=== PATIENT | male | born 1995 | race Caucasian/White ===

== ENCOUNTER 2016-06-18 12:17 | Emergency (ER) | payer OTHER ==
--- NOTE | 2016-06-18 12:32 | ED ---
General Adult HPI - General Chief complaint: Psychiatric Symptoms Stated complaint: Mental Health Time Seen by Provider: 06/18/16 12:20 Source: patient, police, RN notes reviewed Mode of arrival: ambulatory - History of Present Illness Initial comments: This is a 20-year-old male presents emergency Department because he had made comments to other people about being suicidal. Patient showed up at the ER initially and then stormed out before he could be triaged. Police brought him back because they found out that he was making suicidal comments and they brought him in a petition. Patient refuses to speak to me. Police state that he has a superficial cut to his left wrist. - Related Data Previous Rx's Medication Instructions Recorded Divalproex ER [Depakote ER] 1,000 mg PO HS #60 tab.er.24h 11/24/15 FLUoxetine HCL [PROzac] 20 mg PO DAILY #30 cap 11/24/15 Nicotine 21Mg/24Hr Patch [Habitrol] 1 patch TRANSDERM DAILY #30 patch 11/24/15 OLANZapine [ZyPREXA] 10 mg PO HS #30 tab 11/24/15 Trihexyphenidyl [Artane] 5 mg PO BID #60 tab 11/24/15 fluPHENAZine DECANOATE [Prolixin 25 mg IM [id number] #2 vial 11/24/15 Decanoate] clonazePAM [KlonoPIN] 1 mg PO BID #30 tablet 03/16/16 Allergies Allergy/AdvReac Type Severity Reaction Status Date / Time No Known Allergies Allergy Verified 06/18/16 11:15 Review of Systems ROS Statement: Those systems with pertinent positive or pertinent negative responses have been documented in the HPI. ROS Other: All systems not noted in ROS Statement are negative. Past Medical History Past Medical History: No Reported History Additional Past Medical History / Comment(s): Depression, anxiety History of Any Multi-Drug Resistant Organisms: None Reported Past Surgical History: No Surgical Hx Reported Past Anesthesia/Blood Transfusion Reactions: No Reported Reaction Past Psychological History: Anxiety, Bipolar, Depression Additional Psychological History / Comment(s): Pt. at [facility] unable to recall dx, Smoking Status: Current every day smoker Past Alcohol Use History: None Reported, Daily Additional Past Alcohol Use History / Comment(s): Pt. states that he drinks when he can get it and drinks as much as he can. pt has not had a drink in 2 months due to being on probation Past Drug Use History: Marijuana Additional Drug Use History / Comment(s): Started smoking around age 12 and smokes when ever he is able to get marijuana. states he has not used marijuana in 2 months as he can not do it because of being on probation - Past Family History Mother Family Medical History: No Reported History Additional Family Medical History / Comment(s): pt states no family hx of any ailments General Exam - General Exam Comments Initial Comments: GENERAL: Patient is well-developed and well-nourished. Patient is nontoxic and well- hydrated and is in no acute distress. ENT: Neck is soft and supple. No significant lymphadenopathy is noted. Oropharynx is clear. Moist mucous membranes. Neck has full range of motion without eliciting any pain. EYES: The sclera were anicteric and conjunctiva were pink and moist. Extraocular movements were intact and pupils were equal round and reactive to light. Eyelids were unremarkable. PULMONARY: Unlabored respirations. Good breath sounds bilaterally. No audible rales rhonchi or wheezing was noted. CARDIOVASCULAR: There is a regular rate and rhythm without any murmurs gallops or rubs. ABDOMEN: Soft and nontender with normal bowel sounds. No palpable organomegaly was noted. There is no palpable pulsatile mass. SKIN: Patient is a superficial laceration to the left wrist NEUROLOGIC: Patient is alert and oriented x3. Cranial nerves II through XII are grossly intact. Motor and sensory are also intact. Normal speech, volume and content. Symmetrical smile. MUSCULOSKELETAL: Normal extremities with adequate strength and full range of motion. LYMPHATICS: No significant lymphadenopathy is noted PSYCHIATRIC: Unable to assess patient will not talk to me Course Vital Signs 06/18/16 06/18/16 12:20 12:37 Temperature 98.3 F 98.8 F Pulse Rate 84 89 Respiratory 18 16 Rate Blood Pressure 119/70 129/66 O2 Sat by Pulse 97 98 Oximetry Medical Decision Making - Medical Decision Making [facility] came and evaluated the patient determined to go to [facility] patient at that time stated he was only saying he was suicidal so they can come the emergency department because find a place for him to live. Disposition Clinical Impression: Personality disorder Disposition: HOME SELF-CARE Condition: Good Additional Instructions: Patient could follow-up at [facility]. Referrals: Bailee Breaux MD [Primary Care Provider] - 1-2 days Time of Disposition: 13:39
[2016-06-18] MEDS ORDERED: fluPHENAZine DECANOATE 25 MG/ML 5ML MDV IM ONE (13:37)
[2016-06-18 13:49] VITALS: BP 118/57; PULSE 82; RESP 15
[2016-06-18 14:07] VITALS: TEMP 98.6
== END 2016-06-18 14:07 | disposition home or self-care (01) ==
LOC: EC 12:17
DX: S61.512A Laceration without foreign body of left wrist, initial encounter (principal); F60.9 Personality disorder, unspecified; F31.9 Bipolar disorder, unspecified; F41.9 Anxiety disorder, unspecified; F17.200 Nicotine dependence, unspecified, uncomplicated; W45.8XXA Other foreign body or object entering through skin, initial encounter
CPT/HCPCS: 82075; 99284; 96372; J2680

== ENCOUNTER 2016-07-22 08:51 | Emergency (ER) | payer OTHER ==
[2016-07-22 08:56] VITALS: BP 124/83; PULSE 70; RESP 20; TEMP 97.5
== END 2016-07-22 09:40 | disposition home or self-care (01) ==
LOC: EC 08:51
DX: R45.851 Suicidal ideations (principal)
CPT/HCPCS: 99499

== ENCOUNTER 2016-11-15 23:59 | Emergency (ER) | payer OTHER ==
[2016-11-16 00:07] VITALS: BP 114/70; PULSE 101; RESP 20; TEMP 97.6
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
[2016-11-16 00:56] LABS: Basophils % (A) 1 %; CH 30.7; CHCM 34.1; Eosinophils # (A) 0.1 k/uL (0-0.7); Eosinophils % (A) 2 %; HCT 43.2 % (39.0-53.0); HDW 2.23; HGB 14.3 gm/dL (13.0-17.5); Luc # (Auto) 0.17; Luc % (Auto) 3; Lymphocytes # (A) 2.1 k/uL (1.0-4.8); Lymphocytes % (A) 32 %; MCH 29.9 pg (25.0-35.0); MCV 90.4 fL (80.0-100.0); Mean Platelet Volume 7.6; Monocytes # (A) 0.4 k/uL (0-1.0); Monocytes % (A) 6 %; Neutrophils # (A) 3.6 k/uL (1.3-7.7); Neutrophils % (A) 57 %; RBC 4.78 m/uL (4.30-5.90); RDW 14.1 % (11.5-15.5); WBC 6.4 k/uL (3.8-10.6); WBC (Perox) 6.47
[2016-11-16 01:07] LABS: Acetaminophen <10.0 ug/mL; Alcohol 55 mg/dL; Anion Gap 10 mmol/L; Blood Urea Nitrogen 7 mg/dL (9-20); Carbon Dioxide 24 mmol/L (22-30); Chloride 109 mmol/L (98-107); Glucose 86 mg/dL (74-99); Non-African American GFR(MDRD) >60 (>60 ml/min/1.73 sqM); Potassium 3.9 mmol/L (3.5-5.1); Sodium 143 mmol/L (137-145)
== END 2016-11-16 04:12 | disposition home or self-care (01) ==
LOC: EC 23:59 → EEVIPCON 23:59 → EC 11-16 04:12
DX: F43.20 Adjustment disorder, unspecified (principal); F17.200 Nicotine dependence, unspecified, uncomplicated
CPT/HCPCS: 36415; 80048; 80306; 80320; 82075; 83520; 85025; 99285

== ENCOUNTER 2016-11-25 02:29 | Inpatient (IN) | payer MEDICAID, OTHER ==
[2016-11-25] MEDS ORDERED: ZIPRASIDONE 20 MG CAP PO STA (05:04)
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
[2016-11-25] MEDS ORDERED: MAGNESIUM HYDROXIDE 2,400 MG/10 ML CUP PO PRN (05:06)
[2016-11-25] MEDS ORDERED: MAG HYDROX/AL HYDROX/SIMETH 30 ML CUP PO PRN (05:06)
[2016-11-25 05:50] LABS: Appearance,Urine Clear (Clear); Bilirubin,Urine Negative (Negative); Glucose,Urine (UA) Negative (Negative); Ketones,Urine Negative (Negative); Leukocyte Esterase,Urine Negative (Negative); Nitrite,Urine Negative (Negative); PH, Urine 5.5 (5.0-8.0); Protein,Urine Negative (Negative); Specific Gravity,Urine 1.003 (1.001-1.035); UA Billing (MACRO vs. MICRO) CHEM; Urobilinogen,Urine <2.0 mg/dL (<2.0)
[2016-11-25] MEDS: OXcarbazepine 300 MG TAB PO SCH ×2 (10:17→21:03)
[2016-11-25] MEDS: TRIHEXYPHENIDYL 2 MG TAB PO SCH ×3 (10:17→21:03)
[2016-11-25] MEDS: busPIRone HCl 5 MG TAB PO SCH ×3 (10:17→21:03)
--- NOTE | 2016-11-25 16:45 | P.MDCNMH ---
History of Present Illness H&P Date: 11/25/16 Chief Complaint: Suicidal ideation 20-year-old male with no significant past medical history. Patient admits to daily heavy drinking of alcohol and drug abuse. He reports that he's been homeless for over a month now. He was drinking last night and had a confrontation with police threatening to jump off a bridge as he was very angry thus he was escorted to the hospital and admitted to the psych unit for suicide precautions. Patient was cooperative with history taking and physical exam, continues to report suicidal ideation he admits to having dose all the time at times associated with homicidal ideation. Review of Systems Constitutional: Patient reports no fever, no chills, no night sweating, no significant weight changes Eyes: Patient reports no visual changes, no eye pain ENT: Patient reports no ear pain, no rhinorrhea, no sore throat Cardiovascular: Patient reports no chest pain, no exertional dyspnea, no peripheral leg edema, no orthopnea, no paroxysmal nocturnal dyspnea Respiratory:Patient reports no cough, no wheezing, no shortness of breath Gastrointestinal: Patient reports no diarrhea, no constipation, no nausea no vomiting, no abdominal pain Genitourinary: Patient reports no dysuria, no hematuria, no changes in urinary habits, no genital lesions Musculoskeletal: Patient reports no muscle pain, no joint pain. Patient reports blisters on both feet due to prolonged standing and walking Psychiatric: Patient reports depressed mood , feeling hopeless and helpless, admits to suicidal ideation, and anxiety Endocrine: Patient reports no heat intolerance, no cold intolerance, no excessive thirst, no polyuria Neurological: Patient reports no focal neurologic deficits, no weakness, no numbness, no tingling Hem/Lymphatic: Patient reports no bleeding tendency, no bruising, no swollen lymph glands Allergic/Immun: Patient reports no recent allergic reactions Skin: Patient reports no rashes, no pruritis, no ulcers. Reports blisters on the sole of both feet as mentioned above, he reports that these are chronic to walking long distances as he is homeless Past Medical History Past Medical History: No Reported History Additional Past Medical History / Comment(s): Depression, anxiety History of Any Multi-Drug Resistant Organisms: None Reported Past Surgical History: No Surgical Hx Reported Past Anesthesia/Blood Transfusion Reactions: No Reported Reaction Past Psychological History: Anxiety, Bipolar, Depression Additional Psychological History / Comment(s): Suicidal ideation and at times homicidal ideation Smoking Status: Current every day smoker Past Alcohol Use History: Daily Additional Past Alcohol Use History / Comment(s): Patient admits to heavy alcohol use Past Drug Use History: Cocaine, Heroin, Marijuana, Methamphetamine Additional Drug Use History / Comment(s): Patient reports that he would abuse any illegal drug he can get his hands on - Past Family History Mother Family Medical History: No Reported History Additional Family Medical History / Comment(s): Patient reports that he knows nothing about his family Medications and Allergies Home Medications and Allergies Comment(s): Patient reported that he does not take any medications at home and he claims that he is not supposed to take any medications at home Home Medications Medication Instructions Recorded Confirmed Type OXcarbazepine [Trileptal] 300 mg PO BID 11/25/16 11/25/16 History Trihexyphenidyl HCl 5 mg PO TID 11/25/16 11/25/16 History busPIRone HCL 15 mg PO TID 11/25/16 11/25/16 History fluPHENAZine DECANOATE [Prolixin 50 mg IM [id number] 11/25/16 11/25/16 History Decanoate] traZODone HCL 100 mg PO HS 11/25/16 11/25/16 History Allergies Allergy/AdvReac Type Severity Reaction Status Date / Time No Known Allergies Allergy Verified 11/25/16 09:24 Physical Exam Vitals: Vital Signs Temp Pulse Resp BP Pulse Ox 11/25/16 02:34 99.1 F 106 H 18 139/77 100 Intake and Output 11/25/16 11/25/16 11/25/16 06:59 14:59 22:59 Other: Weight 72.575 kg 72.9 kg Patient Weight 11/26/16 06:59 Weight 72.9 kg Constitutional: Not in acute distress, pleasant, conversant, vital signs stable Eyes: Pupils equal round reactive to light , anicteric sclerae, moist conjunctivae ENMT: Normocephalic, atraumatic, oropharynx clear, no erythema/exudate Neck: Supple, FORM, no palpable thyromegally Lymphatics: no palpable cervical or supraclavicular lymph nodes Respiratory: Clear to auscultation bilaterally, no wheezes, no crackles, no rhonchi, clear to percussion, normal respiratory effort without use of accessory muscles Cardiovascular: Regular rate and rhythm, no murmurs, no gallops, no rubs, no peripheral edema / or varicosities, no JVD, no carotid bruits, peripheral pulses palpable and equal over bilateral radial arteries and dorsalis pedis arteries Abdomen: Bowel sounds positive, soft, no tenderness to palpation, no palpable masses, no palpable hepatosplenomegally, no abdominal wall hernias Skin: Unremarkable temperature, tone, texture, and turgor, no induration or subcutaneous nodule, no rashes, no ulcers, patient has multiple tattoos. One blister over the heel of the left foot and one sloughed blister over the heel of the right foot no erythema or induration no discharge Extremities: No digital cyanosis, ischemia or clubbing, no calf muscle tenderness bilaterally, full active range of motion in both upper and lower extremities Psych: Alert, oriented to place, person and date, recent and remote memory intact, depressed mood and blunt affect, poor judgment Neurologic: no focal sensory deficits to touch, Deep tendon reflexes unremarkable over bilateral knees Cranial Nerve Examination - Cranial Nerves Cranial Nerve II- Optic: Intact Cranial Nerve III- Oculomotor: Intact Cranial Nerve IV- Trochlear: Intact Cranial Nerve V- Trigeminal: Intact Cranial Nerve - Abducens: Intact Cranial Nerve VII- Facial: Intact Cranial Nerve VIII- Auditory: Intact Cranial Nerve IX- Glossopharyngeal: Intact Cranial Nerve X- Vagus: Intact Cranial Nerve XI- Accessory: Intact Cranial Nerve XII- Hypoglossal: Intact Results Results: Labs reviewed urine drug screen positive for marijuana Labs: Abnormal Lab Results - Last 24 Hours (Table) 11/25/16 Range/Units 02:50 U Marijuana (THC) Screen Detected H (NotDetected) Assessment and Plan (1) Nicotine dependence Narrative/Plan: Patient counseled to quit smoking Dictating replacement therapy offered Status: Chronic (2) Polysubstance abuse Narrative/Plan: Alcohol abuse, patient counseled to quit alcohol and educated regarding acceptable drinking habits Patient counseled to abstain from drug of abuse Status: Chronic (3) DVT prophylaxis Narrative/Plan: Patient is low risk and ambulatory Status: Acute (4) Suicidal ideation Narrative/Plan: Management per psych Status: Acute (5) Depressed Narrative/Plan: Management per psych Status: Acute Plan: Thank you for allowing us to participate in the care of this patient. We will follow peripherally. Do not hesitate to contact us with questions. Someone can be reached from the [facility] hospitalist group at all hours of the day at [phone].
[2016-11-25] MEDS: ACETAMINOPHEN TAB 325 MG TAB PO PRN (17:05)
[2016-11-25] MEDS: traZODone HCL 100 MG TAB PO SCH (21:03)
[2016-11-26] MEDS: ACETAMINOPHEN TAB 325 MG TAB PO PRN (03:10)
[2016-11-26] MEDS: busPIRone HCl 5 MG TAB PO SCH ×3 (08:30→21:07)
[2016-11-26] MEDS: TRIHEXYPHENIDYL 2 MG TAB PO SCH ×3 (08:30→21:06)
[2016-11-26] MEDS: NICOTINE 14MG/24HR PATCH TRANSDERM SCH (08:30)
[2016-11-26] MEDS: OXcarbazepine 300 MG TAB PO SCH ×2 (08:31→21:06)
[2016-11-26 09:34] LABS: ALT 317 U/L (21-72); AST 101 U/L (17-59); Alkaline Phosphatase 99 U/L (38-126); Anion Gap 9 mmol/L; Blood Urea Nitrogen 8 mg/dL (9-20); Calcium 8.9 mg/dL (8.4-10.2); Carbon Dioxide 28 mmol/L (22-30); Chloride 101 mmol/L (98-107); Glucose 108 mg/dL (74-99); Non-African American GFR(MDRD) >60 (>60 ml/min/1.73 sqM); Potassium 3.9 mmol/L (3.5-5.1); Sodium 138 mmol/L (137-145); Total Bilirubin 0.5 mg/dL (0.2-1.3); Total Protein 6.9 g/dL (6.3-8.2)
--- NOTE | 2016-11-26 09:44 | P.PN ---
Progress Note - Text Interval history: The patient is found in the library watching TV. He reports that he still has thoughts of killing other people and himself. Again he identifies no specific person or group. He primarily is frustrated with his situation of being homeless. He is frustrated with not being able to communicate with his guardian to his satisfaction. He has been compliant with medications. He reports he slept last night he has been eating he attended goal setting group this morning but could not recall his goal. Mental status exam: The patient is alert he seated calmly in a chair. He has visible tattoos on his upper extremities he makes no eye contact. He states he "hates the sound of my voice" he states he talks like a "fucking retard". He indicates he has suicidal and homicidal thoughts but provides no specific details. He does not appear hypomanic or manic. Insight and judgment are chronically limited due to his presumed intellectual disability. In terms of affect he was able to demonstrate some brief smiling which was appropriate. He was less irritable than yesterday's interaction. Plan: The patient will continue on his current medications we will discuss his case further during team which includes the community mental health liaison. We will address any necessary medication changes but it is likely he just needs appropriate housing arranged. Social work will communicate with his guardian. Vital signs reviewed. We will monitor him for safety. He is encouraged to continue participating in the milieu.
[2016-11-26 10:03] LABS: Basophils # (A) 0.1 k/uL (0-0.2); Basophils % (A) 2 %; CH 30.5; CHCM 32.9; Eosinophils # (A) 0.2 k/uL (0-0.7); Eosinophils % (A) 5 %; HCT 44.2 % (39.0-53.0); HDW 2.31; Luc # (Auto) 0.19; Luc % (Auto) 4; Lymphocytes # (A) 1.9 k/uL (1.0-4.8); Lymphocytes % (A) 39 %; MCH 29.5 pg (25.0-35.0); MCHC 31.7 g/dL (31.0-37.0); MCV 93.2 fL (80.0-100.0); Mean Platelet Volume 7.5; Monocytes # (A) 0.4 k/uL (0-1.0); Monocytes % (A) 9 %; Neutrophils % (A) 41 %; RBC 4.74 m/uL (4.30-5.90); RDW 13.9 % (11.5-15.5); WBC 4.9 k/uL (3.8-10.6); WBC (Perox) 5.21
--- NOTE | 2016-11-26 11:35 | HP ---
DATE OF SERVICE: 11/25/2016 IDENTIFYING DATA: This patient is a 20-year-old single male who presented to the Emergency Room after calling 911. HISTORY OF PRESENT ILLNESS: The patient presents with a petition stating "He wanted to jump [place] the [place] because he was homeless." He also said it would be easier to kill someone, so he would have a place to stay for 25 years. The petition was completed by a police or patrol park officer. The patient is quite irritable and is easily agitated during my evaluation. He reports suicidal and homicidal ideation in terms of homicidal ideation he does not indicate he wants to harm a specific person or group but is just angry all the time. He did report a plan of jumping off of the bridge; however, he called for help first. The precipitating factor appears to be him getting kicked out of a friend's home and he has been homeless for the last 2 weeks. He indicates he has no supports in the area. When asked about his sleep, appetite and energy , he states they all "suck". He describes auditory hallucinations directing him to kill himself and kill other people. He reports that has been going on for 6 months. He states that he is "bipolar big time." He describes his symptoms of venessa as "I want to punch people all the time." The patient does not tolerate many questions. He becomes verbally agitated to the point of us discontinuing the session early. PAST PSYCHIATRIC HISTORY: The patient has had numerous inpatient psychiatric hospitalizations. He was last on this unit in November of 2015, twice in October of 2014, twice in February of 2014, January 2014 and December of 2013. He does work with [facility]. He is prescribed BuSpar 15 mg 3 times daily , Prolixin, Decanoate 50 mg every 2 weeks, Trazodone 100 mg at bedtime, Artane 5 mg 3 times a day, Trileptal 300 mg twice daily. He had been working with Nydia Hutchison a nurse practitioner with [facility]. He states he does not work with a therapist. He reports no other medications make any difference. PAST MEDICAL HISTORY: Unknown. ALLERGIES: No known drug allergies. CHEMICAL DEPENDENCY HISTORY: He reports using alcohol as often as he can get money. He reports using marijuana on a daily basis. Cocaine use was within the last 2 months as well as heroin. He has never been placed in residential treatment for chemical dependency reasons. FAMILY PSYCHIATRIC HISTORY: He refused to answer, family chemical dependency history unknown. SOCIAL HISTORY: The patient is 20 years old, he is single. He has no children. He is unemployed. He is on a social security disability income. It appears he may have a guardian. He has 4 brothers in terms of siblings. He has a 10th grade education. He reports quitting school because he did not want to do it anymore. He did have a special education curriculum while in school. MENTAL STATUS EXAM: The patient is a thin male appearing his stated age. He has his hair shaved short. He makes no eye contact. He looks down at the table. His upper extremities have numerous tattoos that are visible. He states he is suicidal and homicidal. He answers questions very quickly with little regard or consideration. He seems irritated that he would be asked questions during this evaluation. As the session progresses, he begins using profanity and states "Use your fucking ears." He reports auditory hallucinations that direct him to harm himself or others. He provides no specifics. Insight and judgement is likely chronically limited. No cognitive testing could be performed. He demonstrated no physical aggressiveness but was verbally aggressive. STRENGTHS: Disability income, presumed guardian. WEAKNESSES: Limited insight into symptoms and impulse control, dysfunction, substance use, homelessness, intellect below average, presumed intellectual disability. IMPRESSION: 1. Depression, unspecified. Rule out major depressive disorder, rule out bipolar depression, intellectual disability, cannabis, alcohol use disorders. 2. Antisocial personality disorder traits. PLAN: The patient has been admitted to the Mental Health Unit. For now, we will continue his previous psychotropic medications. The patient is not willing to participate in a conversation regarding past medication trials or the effectiveness of his current medications. Likely, I will likely need to contact his most recent prescriber with [facility] to discuss his care. He will be seen by the Internal Medicine Physician for routine history and physical exam. Social Work will meet with the patient to complete a psychosocial assessment. We will monitor him for safety and encourage his participation in the milieu. We will monitor him for safety. Vital signs reviewed. ALEXA
[2016-11-26] MEDS: traZODone HCL 100 MG TAB PO SCH (21:06)
[2016-11-26] MEDS: LORazepam 1 MG TAB PO PRN (23:34)
[2016-11-27] MEDS ORDERED: WATER FOR INJECTION, STERILE 10 ML IV ONE ×2 (00:38→21:03)
[2016-11-27] MEDS: ZIPRASIDONE 20 MG VIAL IM PRN ×2 (00:39→21:11)
[2016-11-27] MEDS ORDERED: LORazepam 2 MG/ML SYRINGE IM STA (01:05)
[2016-11-27] MEDS ORDERED: diphenhydrAMINE 50 MG/ML 1 ML VIAL IM STA (04:05)
[2016-11-27] MEDS: LORazepam 2 MG/ML SYRINGE IM PRN (06:51)
[2016-11-27] MEDS: HALOPERIDOL LACTATE 5 MG/ML 1 ML VIAL IM PRN (06:56)
[2016-11-27] MEDS: busPIRone HCl 5 MG TAB PO SCH ×3 (09:28→20:41)
[2016-11-27] MEDS: OXcarbazepine 300 MG TAB PO SCH ×2 (09:28→20:03)
[2016-11-27] MEDS: TRIHEXYPHENIDYL 2 MG TAB PO SCH ×3 (09:28→20:41)
[2016-11-27] MEDS: NICOTINE 14MG/24HR PATCH TRANSDERM SCH ×2 (09:29→15:54)
--- NOTE | 2016-11-27 09:29 | P.PN ---
Progress Note - Text Interval history: The patient is found in the hallway he follows me to an interview room. Staff report that the patient's did not sleep last night he has been experiencing acute symptoms of psychosis and confusion. He does follow direction he demonstrates confusion his speech is muffled. He is reporting no stiffness of his mouth or tongue. He spends the session looking at the wall and attempting to pick things up off the table and sweep off the table that are not there. He is clearly experiencing visual hallucinations. Lab results reviewed the Trileptal level came back as 0 this was drawn on his day of presentation to the emergency room. Mental status exam: The patient is a thin male he stressors own clothing he has a disheveled appearance his pants are very loosely fitting and falling down. Eye contact is intermittent at best. Speech is mumbled. He is able to open his mouth freely he is able to stick out his tongue with no reported stiffness. He clearly demonstrates evidence of visual hallucinations he appears confused. He names the current day of the week as Saturday rather than Saturday. He demonstrates no verbal or physical aggressiveness he was directable with several attempts. Her poor. Plan: Since last evening the patient has received a total of 4 mg of Ativan 20 mg of Geodon 5 mg of Haldol. The patient appears tired after our session he was brought down to his room to lie in bed. We will see if he is able to sleep now before administering any further medication. Vital signs reviewed. Noncompliance with medications is likely a precipitating factor for this admission.
[2016-11-27] MEDS ORDERED: IBUPROFEN 800 MG TAB PO PRN (12:32)
[2016-11-27] MEDS: QUEtiapine 100 MG TAB PO SCH (20:03)
[2016-11-27] MEDS: LORazepam 1 MG TAB PO PRN (20:41)
[2016-11-28] MEDS: TRIHEXYPHENIDYL 2 MG TAB PO SCH ×4 (10:51→21:16)
[2016-11-28] MEDS: OXcarbazepine 300 MG TAB PO SCH ×3 (10:51→21:16)
[2016-11-28] MEDS: busPIRone HCl 5 MG TAB PO SCH ×4 (10:51→21:16)
[2016-11-28] MEDS: NICOTINE 14MG/24HR PATCH TRANSDERM SCH (10:51)
[2016-11-28] MEDS: QUEtiapine 100 MG TAB PO SCH (21:16)
[2016-11-29] MEDS: busPIRone HCl 5 MG TAB PO SCH ×3 (08:18→21:10)
[2016-11-29] MEDS: TRIHEXYPHENIDYL 2 MG TAB PO SCH ×3 (08:19→21:10)
[2016-11-29] MEDS: OXcarbazepine 300 MG TAB PO SCH ×2 (08:19→21:10)
[2016-11-29] MEDS: NICOTINE 14MG/24HR PATCH TRANSDERM SCH (08:19)
--- NOTE | 2016-11-29 08:51 | P.PN ---
Progress Note - Text Interval history: The patient is found in the dining room he follows me to an interview room. The patient remains agitated. He reports that he slept all night approximating 8 hours. However staff reported 4 hours of sleep. He reports appetite stable. He continues to report he wants to kill other people kill himself by jumping off the [place]. After asking a few questions he states "you fucking idiot" it is difficult to redirect the patient. He is not invested in the conversation this morning. He states we are giving him medicine I will kill him. Status exam: The patient is a thin male he has visible tattoos he is dressed in hospital attire. He is calmly seated in the dining room complaining his menu when we find him. In the interview room he is verbally agitated he becomes loud he uses profanity. He reports suicidal or homicidal ideation. He has a known history of intellectual disability. He makes very little eye contact until he becomes agitated. He fidgets while seated. Insight and judgment are poor. No further questions were asked today. Plan: We will titrate the Seroquel further to 200 mg at bedtime. I will place a call with his outpatient prescriber Dr. Ward. We will consider use of Depakote as a mood stabilizer versus Trileptal. We will consider increasing Trileptal if that is the best option. There seems to be concerned that the Prolixin is not demonstrating efficacy he will be due for his next injection next week. We will consider an alternative. Vital signs reviewed.
--- NOTE | 2016-11-29 08:52 | PN ---
DATE OF SERVICE: 11/28/2016 CHIEF COMPLAINT: The patient was admitted due to depression with feelings of hopelessness. He had suicide thoughts. He was irritable and agitated. He was admitted on petition for involuntary hospitalization. INTERVAL HISTORY: The patient has been doing fair. He had quite a bit of anxiety last evening. He received Ativan at 9:40. He had some odd behavior in the night. Nursing documented at 3:30 that he was in the [place] rubbing the floor an making mumbling noises. He had garbled nonsensical speech. He was walking into other peoples rooms. He was calling out room numbers as he walked. He slammed doors. He then went back into his room and he then seemed to settle down for the rest of the evening today. He has been sleeping much of the morning and when I talked to the patient, he was lying in bed. He did make an effort to get up. The only comment that he made was that he is homeless. He repeated that several times. He did not report any immediate concerns or issues. After stating he was homeless, he did not make any other effort to respond to questions. For the most part, he has been quiet throughout the day. He has not had change in his general health. He tolerates psychotropic medication. MENTAL STATUS: The patient was lying in his bed. He did not give any eye contact. Psychomotor activity was a little slow. Speech was monotone. He only said a few things as noted above. His affect was flat. Mood was reserved. He was significantly distressed. ASSESSMENT: I will continue the current diagnosis and treatment plan. The patient will continue medications the same. We will continue to provide support and encouragement. We will focus on stabilization and discharge planning. ALEXA
[2016-11-29] MEDS: QUEtiapine 200 MG TAB PO SCH (21:10)
[2016-11-29] MEDS: LORazepam 1 MG TAB PO PRN (22:39)
[2016-11-30] MEDS: TRIHEXYPHENIDYL 2 MG TAB PO SCH ×3 (09:21→20:34)
[2016-11-30] MEDS: NICOTINE 14MG/24HR PATCH TRANSDERM SCH (09:21)
[2016-11-30] MEDS: OXcarbazepine 300 MG TAB PO SCH ×2 (09:22→20:35)
[2016-11-30] MEDS: busPIRone HCl 5 MG TAB PO SCH ×3 (09:22→20:35)
--- NOTE | 2016-11-30 11:13 | P.PN ---
Progress Note - Text Interval history: The patient's is found at the front edger he follows me to an interview room. He states he continues to have suicidal thoughts and a depressed mood because he is homeless. Staff report that the patient continues to use profanity he is easily agitated in terms of verbal responses but he has not been physically aggressive. He has been participating in meals. He does not typically attend groups. We had a lengthy discussion regarding his placement options. The patient states he would briefly tolerate transitional housing at [facility]. It appears he has failed several housing situations in the past. Mental status exam: The patient is a thin male he seated calmly in the chair he makes no eye contact he speaks quickly and at times mumbles. He answer several questions before he yet again becomes verbally agitated and uses profanity. Insight and judgment are chronically impaired he does have an intellectual disability. He demonstrated no aggressive behavior in our session. He reports suicidal thoughts because he is homeless he is reporting no homicidal ideation today but states he would act aggressively if he had to defend himself. Affect is constricted for the most part except for when he gets more animated with certain topics. Plan: I will titrate his Trileptal to 600 mg twice daily to further stabilize mood we will continue his other psychotropic medications. I have placed a call today to Dr. Ward to further collaborate on medication management concerns for Marc. Social work again will communicate with community mental health and the patient's guardian regarding housing options.
[2016-11-30] MEDS: QUEtiapine 200 MG TAB PO SCH (20:35)
[2016-11-30] MEDS: LORazepam 1 MG TAB PO PRN (22:29)
[2016-12-01] MEDS: TRIHEXYPHENIDYL 2 MG TAB PO SCH ×3 (08:22→20:16)
[2016-12-01] MEDS: busPIRone HCl 5 MG TAB PO SCH ×3 (08:22→20:17)
[2016-12-01] MEDS: NICOTINE 14MG/24HR PATCH TRANSDERM SCH (08:23)
[2016-12-01] MEDS: OXcarbazepine 300 MG TAB PO SCH ×2 (11:53→20:16)
--- NOTE | 2016-12-01 15:57 | P.PN ---
Progress Note - Text Interval history: Patient reports that his mood is tired. He wonders about when he is going to be discharged. He does not seem to voice any adverse psychotropic medication side effects. He is found in his room lying in bed, was cooperative to come to the interview room. He is seen in cross coverage today for Dr. Bean. Mental status exam: He is found in his room lying in bed. He is cooperative to come to the interview room. His answers are somewhat brief. He becomes irritable at times during the session but no significant agitation. He denies any thoughts of harm to self. He relays thoughts of harm to others in general, relays that people irritate him but reports that he is able to keep his calm. He does not verbalize any intent of harm to people here. Plan: Patient will be maintained on current psychotropic medication regimen. We 'll continue to monitor his response to monitor for any psychotropic medication side effects. We'll continue to cover for Dr. Bean through the weekend.
[2016-12-01] MEDS: QUEtiapine 200 MG TAB PO SCH (20:17)
[2016-12-02] MEDS: OXcarbazepine 300 MG TAB PO SCH ×2 (08:56→20:02)
[2016-12-02] MEDS: busPIRone HCl 5 MG TAB PO SCH ×3 (08:56→20:02)
[2016-12-02] MEDS: NICOTINE 14MG/24HR PATCH TRANSDERM SCH (08:56)
[2016-12-02] MEDS: TRIHEXYPHENIDYL 2 MG TAB PO SCH ×3 (08:56→20:02)
--- NOTE | 2016-12-02 15:16 | P.PN ---
Progress Note - Text Interval history: Patient is seen in cross coverage today for Dr. Bean. He reports that he is sleeping and eating well. He describes his mood is doing good. He seems to be compliant with his medications. He does not voice any adverse side effects. He is awaiting living situation placement issues. He inquires as to when he is going to be getting out of the hospital. Mental status exam: He is alert and overall cooperative with the interview. His answers are somewhat brief. He does not become significantly agitated. He denies any thoughts of harm to self or others. He describes his mood as "good. " He does not verbalize any hallucinations or nakita delusions. Plan: Patient will be maintained on current psychotropic medication regimen. We will monitor for any medication side effects and his ongoing response. Dr. Bean to resume care this patient starting tomorrow.
[2016-12-02] MEDS: ACETAMINOPHEN TAB 325 MG TAB PO PRN (16:11)
[2016-12-02] MEDS: QUEtiapine 200 MG TAB PO SCH (20:02)
--- NOTE | 2016-12-03 10:18 | P.PN ---
Progress Note - Text Interval history: The patient is found in his room he is unwilling to follow me to an interview room. He is lying in bed he is awake but keeps his eyes closed. He initiates no conversation he provides very brief answers to questions asked in an irritable tone. It is documented that he slept 7 hours last evening. He typically does not attend groups. Progress notes from the weekend were reviewed. Mental status exam: The patient is lying in bed he is calm he is in no distress. Again he answers questions briefly. There is no spontaneous speech he makes brief eye contact upon me initiating interaction than he keeps his eyes closed. He has an irritable tone affect is bland otherwise. He is reporting no suicidal or homicidal thoughts. He is endorsing no hallucinations. He indicates he feels safe in the hospital. Insight and judgment impaired. No abnormal involuntary movements observed. Plan: The patient will continue on his current medication we will monitor him for safety. There is a meeting scheduled to discuss his placement options which will involve our staff and community mental health. We will get a Trileptal level this week. Vital signs reviewed they're within normal limits. I will confirm with the treatment team this morning to discuss his progress over the weekend.
[2016-12-03] MEDS: NICOTINE 14MG/24HR PATCH TRANSDERM SCH ×2 (10:21→12:26)
[2016-12-03] MEDS: OXcarbazepine 300 MG TAB PO SCH ×3 (10:24→21:56)
[2016-12-03] MEDS: busPIRone HCl 5 MG TAB PO SCH ×4 (10:24→21:55)
[2016-12-03] MEDS: TRIHEXYPHENIDYL 2 MG TAB PO SCH ×4 (10:24→21:55)
[2016-12-03] MEDS: QUEtiapine 200 MG TAB PO SCH (21:56)
[2016-12-04] MEDS: NICOTINE 14MG/24HR PATCH TRANSDERM SCH (09:24)
[2016-12-04] MEDS: TRIHEXYPHENIDYL 2 MG TAB PO SCH ×3 (09:24→21:04)
[2016-12-04] MEDS: OXcarbazepine 300 MG TAB PO SCH ×2 (09:25→21:04)
[2016-12-04] MEDS: busPIRone HCl 5 MG TAB PO SCH ×3 (09:25→21:05)
--- NOTE | 2016-12-04 10:28 | P.PN ---
Progress Note - Text Interval history: The patient is found in group he follows me to an interview room. There was a placement meeting held yesterday involving social work [facility] and his guardian. Placement is particularly challenging for him as he has failed many types of residences. He continues to lack insight into his symptoms and the need to quit using substances. He has not been demonstrating any agitated behavior he reports no suicidal or homicidal thoughts. He is endorsing no hallucinations. He has been complying with medication. Mental status exam: The patient is alert he seated in his chair. He often speaks quickly and states he does so because "I hate the sound of my own voice" . When he speaks more slowly he is more easily understood. He reports no acute suicidal or homicidal thoughts she is endorsing no hallucinations. He lacks insight into his substance use and plans to continue using upon discharge. He was actually much more cooperative today and much more willing to participate in conversation. He demonstrates no verbal or physical aggressiveness. He is demonstrating no abnormal involuntary movements. Plan: The patient will be continued on his current medication. We will draw liver enzymes and Trileptal level tomorrow. I will confer with social work regarding placement options.
[2016-12-04] MEDS: QUEtiapine 200 MG TAB PO SCH (21:05)
[2016-12-05] MEDS: NICOTINE 14MG/24HR PATCH TRANSDERM SCH (09:25)
[2016-12-05] MEDS: TRIHEXYPHENIDYL 2 MG TAB PO SCH ×3 (09:25→21:37)
[2016-12-05] MEDS: OXcarbazepine 300 MG TAB PO SCH ×2 (09:26→21:36)
[2016-12-05] MEDS: busPIRone HCl 5 MG TAB PO SCH ×3 (09:26→21:37)
--- NOTE | 2016-12-05 09:40 | P.PN ---
Progress Note - Text Interval history: The patient is found in his room. He is more agitated this morning he does not wish to speak with me in an interview room. Although agitated he was agreeable to having his blood drawn. Social work and community mental health continue to discuss placement options for him, a transitional bed at [facility] may be the most appropriate upon discharge. The patient did attend groups yesterday he has been compliant with medication. He was previously scheduled to have a Prolixin decanoate injection tomorrow. Again we will discuss this with Dr. Ward his outpatient provider to see if that medication is providing sufficient benefit to continue it area Mental status exam: The patient is alert he is more agitated today he uses profanity during our limited conversation. He continues to lack insight into his current admission and need for treatment. His primary focus again is housing. He has very poor insight into the need for him to quit using illicit drugs. He bangs the wall of his room out of frustration he demonstrates no verbal or physical aggressiveness toward myself or other staff. He typically endorses suicidal thoughts and follows that statement with "I'm homeless". He has a chronic history of intellectual disability. Plan: The patient will continue on his current medications I will confer with Dr. Ward regarding continued use of Prolixin. We are drawing a Trileptal level and checking his liver function enzymes today. We will encourage his continued participation in group we will monitor him for safety. It appears that [facility] will be the most appropriate for him upon discharge.
[2016-12-05 10:30] LABS: ALT 422 U/L (21-72); AST 164 U/L (17-59)
[2016-12-05] MEDS ORDERED: IBUPROFEN 400 MG TAB PO PRN (17:24)
--- NOTE | 2016-12-05 20:48 | P.PN ---
Subjective Principal diagnosis: Brief history,The patient is a 21 years old male with history of polysubstance abuse was admitted for suicidal ideation, 2 weeks ago during routine lab liver enzymes where elevated, repeat was performed today and it was also elevated so we were asked to see the patient. Currently is denying any abdominal pain nausea vomiting denying any jaundice or history of jaundice admits to heavy alcohol abuse in the recent past, but also no steatorrhea or hematuria. Objective - Vital Signs Vital signs: Vital Signs Temp 97.8 F 12/05/16 06:53 Pulse 84 12/05/16 06:53 Resp 12 12/05/16 06:53 BP 107/53 12/05/16 06:53 Pulse Ox 96 11/30/16 07:00 - Constitutional General appearance: Present: average body habitus, cooperative, disheveled, no acute distress - EENT Eyes: Present: EOMI, PERRLA, fundus normal, dentition normal, normal appearance. Absent: photophobia, ptosis ENT: Present: hearing grossly normal, normal oropharynx. Absent: pharyngeal erythema, thrush Ears: bilateral: normal - Neck Neck: Present: normal ROM Carotids: bilateral: upstroke normal - Respiratory Respiratory: bilateral: CTA, negative: dullness, rales, rhonchi - Cardiovascular Heart sounds: normal: S1, S2 Abnormal Heart Sounds: Absent: systolic murmur, diastolic murmur, S3 Gallop, S4 Gallop - Gastrointestinal General gastrointestinal: Present: normal bowel sounds, soft. Absent: distended , hepatomegaly, organomegaly, splenomegaly, tenderness - Integumentary Integumentary: Present: normal, normal turgor. Absent: cyanotic, decreased turgor, flushed, jaundiced - Neurologic Neurologic: Present: CNII-XII intact - Musculoskeletal Musculoskeletal: Present: gait normal, strength equal bilaterally - Allied health notes Allied health notes reviewed: nursing - Labs CBC & Chem 7: 11/26/16 08:42 11/26/16 08:42 Labs: Abnormal Lab Results - Last 24 Hours (Table) 12/05/16 Range/Units 09:08 AST 164 H (17-59) U/L ALT 422 H (21-72) U/L Assessment and Plan (1) Hepatitis Narrative/Plan: The patient has abnormal liver enzymes with uptrending AST and ALT, etiology could be related to hepatitis infection such as hepatitis B or hepatitis C in view of the patient history of IV drug abuse. The patient also admits to heavy alcohol use but this is less likely. As far as medication, patient is on ibuprofen which has this on 15% reported incidence of elevated liver enzymes. I recommend discontinuation of ibuprofen. Certainly he is on multiple psychiatric medication which can cause elevated liver enzymes, however this again less likely. We will order ultrasound of the abdomen and Tylenol levels, in view of his history of IV drug abuse, There is a risk of HIV as well and the patient consented for HIV screen, So we will order HIV test Status: Acute (2) Polysubstance abuse Narrative/Plan: Patient was counseled extensively about the risk of IV drug abuse or illicit drugs use in general also counseled regarding alcohol use please note patient labs in the past showed positive cocaine and methamphetamine. Treatment as per psychiatriy. Status: Chronic (3) Suicidal ideation Narrative/Plan: Treatment as per psychiatriy. Status: Acute (4) Alcohol abuse Narrative/Plan: As above counseled extensively regarding cessation Status: Acute Time with Patient: Greater than 30
[2016-12-05 21:18] LABS: Hepatitis B Surface Ag Index 0.06
[2016-12-05 21:24] LABS: Hepatitis B Core IgM Index 0.03
[2016-12-05 21:35] LABS: Hepatitis C Virus IgG Ab Reactive (Negative)
[2016-12-05] MEDS: QUEtiapine 200 MG TAB PO SCH (21:36)
[2016-12-05] MEDS: LORazepam 1 MG TAB PO PRN (23:07)
--- NOTE | 2016-12-06 08:14 | US ---
EXAMINATION TYPE: US liver DATE OF EXAM: 12/06/2016 COMPARISON: NONE CLINICAL HISTORY: elevated liver enzymes. EXAM MEASUREMENTS: Liver Length: 17.1 cm Gallbladder Wall: 0.2 cm CBD: 0.3 cm Right Kidney: 10.5 x 4.3 x 4.9 cm Pancreas: Tail obscured by overlying bowel gas, visualized portions appear wnl Liver: Measuring upper limits of normal Gallbladder: wnl Evidence for sonographic Brown's sign: No CBD: wnl as visualized, distal portion obscured by bowel gas Right Kidney: No hydronephrosis or masses seen IMPRESSION: No distinct abnormality appreciated.
[2016-12-06] MEDS: NICOTINE 14MG/24HR PATCH TRANSDERM SCH (08:23)
[2016-12-06] MEDS: busPIRone HCl 5 MG TAB PO SCH ×3 (08:24→20:46)
[2016-12-06] MEDS: OXcarbazepine 300 MG TAB PO SCH ×2 (08:25→20:47)
[2016-12-06] MEDS: TRIHEXYPHENIDYL 2 MG TAB PO SCH ×3 (08:26→20:46)
--- NOTE | 2016-12-06 08:40 | P.PN ---
Progress Note - Text Interval history: The patient is found in the hallway he follows me to an interview room. He reports that his some difficulty sleeping last night however he states he slept a significant portion of the day. He will intermittently attend some groups. Overall he feels safe in the hospital. He reports suicidal thoughts can "come and go". He is aware that he is due for his scheduled Prolixin decanoate injection and he offers no objection. We did order blood work yesterday including liver enzymes and Trileptal level. Trileptal level is not yet back liver enzymes are increased from last measurement. Internal medicine was asked to review. The patient's is hepatitis C reactive. HIV test pending. Ultrasound of liver demonstrated no acute findings. The patient is complaining of no abdominal symptoms. Mental status exam: The patient is alert he is much more cooperative versus yesterday. He follows me to an interview room he is calmly seated. Eye contact is poor. He provides brief answers to questions asked he has a limited amount of spontaneous speech. He endorses intermittent suicidal thoughts but states he feels safe at this time. No specific homicidal ideation. Insight and judgment remain chronically impaired. He has intellectual limitations chronically. He demonstrates no verbal or physical aggressiveness today. Affect is constricted although there is some brief smiling which is appropriate twice during the session. He speaks very quickly he is asked to slow his speech so that he is more easily understood. Plan: The patient will continue on his current psychotropic medications we will proceed with giving him the Prolixin 50 mg decanoate today. We will consider titrating Seroquel further. We are awaiting the Trileptal level results. We continue to also wait for placement at a care home most likely. It is anticipated that he will be stable for discharge to a care home when a bed becomes available. Vital signs reviewed. He is encouraged to participate in the milieu we will continue to monitor for safety.
[2016-12-06] MEDS ORDERED: fluPHENAZine DECANOATE 25 MG/ML 5ML MDV IM ONE (09:00)
[2016-12-06 10:48] VITALS: BMI 24.4
[2016-12-06] MEDS: QUEtiapine 200 MG TAB PO SCH (20:47)
--- NOTE | 2016-12-06 20:50 | P.CONS ---
History of Present Illness - Reason for Consult Consult date: 12/06/16 - Chief Complaint Positive blood test - History of Present Illness 20-year-old male with a history of alcohol and drug abuse presents throughout confrontation through the local police force. He was exhibiting suicidal and homicidal behaviors and constantly was brought to the hospital and admitted to the psychiatric unit. It is noted that he has a history of bipolar disorder, and there is concern for depression and antisocial personality traits. With treatment of his alcohol abuse and psychosis he is now having some improvement. However was noted that he had abnormal liver function test and constantly investigations were performed. There is positive hepatitis C antibody testing. HIV is still pending. He does relate that he has shared needles in the past as little as 3 months ago. Does not relate any current sexual partners. When he does have sexual partners they are female. Review of Systems Review of systems is quite limited due to patient's current ability to concentrate and answer questions in a deliberate fashion. He over relates he's feeling better. In is not having much pain. Past Medical History Past Medical History: No Reported History Additional Past Medical History / Comment(s): Depression, anxiety History of Any Multi-Drug Resistant Organisms: None Reported Past Surgical History: No Surgical Hx Reported Past Anesthesia/Blood Transfusion Reactions: No Reported Reaction Additional Psychological History / Comment(s): Single. Positive tobacco and alcohol use also relates to injection drug use. No experience no international travel. Was homeless at admission. No animal contacts Smoking Status: Current every day smoker - Past Family History Mother Family Medical History: No Reported History Additional Family Medical History / Comment(s): Patient reports that he knows nothing about his family Medications and Allergies Home Medications and Allergies Comment(s): Current Medications Al Hydroxide/Mg Hydroxide (Maalox) 30 ml PO Q4HR PRN PRN Reason: GI Upset Buspirone HCl (Buspar) 15 mg PO TID AIMEE Last Admin: 12/06/16 17:33 Dose: 15 mg Haloperidol Lactate (Haldol) 5 mg IM Q6HR PRN PRN Reason: Agitation or Acute Psychosis Last Admin: 11/27/16 06:56 Dose: 5 mg Ibuprofen (Motrin) 400 mg PO Q6HR PRN PRN Reason: Pain Lorazepam (Ativan) 1 mg PO TID PRN PRN Reason: Anxiety, Agitation Last Admin: 12/05/16 23:07 Dose: 1 mg Lorazepam (Ativan) 1 mg IM TID PRN PRN Reason: Agitation Last Admin: 11/27/16 06:51 Dose: 1 mg Magnesium Hydroxide (Milk Of Magnesia) 2,400 mg PO DAILY PRN PRN Reason: Constipation Nicotine (Habitrol 14mg/24hr Patch) 1 patch TRANSDERM DAILY [facility] Last Admin: 12/06/16 08:23 Dose: 1 patch Oxcarbazepine (Trileptal) 600 mg PO BID [facility] Last Admin: 12/06/16 08:25 Dose: 600 mg Quetiapine Fumarate (Seroquel) 200 mg PO [facility] Last Admin: 12/05/16 21:36 Dose: 200 mg Trihexyphenidyl HCl (Artane) 5 mg PO TID [facility] Last Admin: 12/06/16 17:33 Dose: 5 mg Ziprasidone (Geodon) 20 mg IM BID PRN PRN Reason: Agitation or Acute Psychosis Last Admin: 11/27/16 21:11 Dose: 20 mg Home Medications Medication Instructions Recorded Confirmed Type OXcarbazepine [Trileptal] 300 mg PO BID 11/25/16 12/03/16 History Trihexyphenidyl HCl 5 mg PO TID 11/25/16 12/03/16 History busPIRone HCL 15 mg PO TID 11/25/16 12/03/16 History fluPHENAZine DECANOATE [Prolixin 50 mg IM [id number] 11/25/16 12/03/16 History Decanoate] traZODone HCL 100 mg PO HS 11/25/16 12/03/16 History Allergies Allergy/AdvReac Type Severity Reaction Status Date / Time No Known Allergies Allergy Verified 12/03/16 01:40 Physical Exam Vitals: Vital Signs Temp Pulse Resp BP 12/06/16 01:51 97.6 F 71 16 145/67 Intake and Output 12/06/16 12/06/16 12/06/16 06:59 14:59 22:59 Other: Weight 72.9 kg Patient Weight 12/07/16 06:59 Weight 72.9 kg Patient has been somewhat uncooperative and physical exam is very limited. The patient is not in distress. He has multiple tattoos and is able to describe why he has some of them. He however does not desire to be significantly examined at this time. Results CBC & Chem 7: 11/26/16 08:42 11/26/16 08:42 Labs: Laboratory Results WBC 4.9 k/uL (3.8-10.6) 11/26/16 08:42 RBC 4.74 m/uL (4.30-5.90) 11/26/16 08:42 Hgb 14.0 gm/dL (13.0-17.5) 11/26/16 08:42 Hct 44.2 % (39.0-53.0) 11/26/16 08:42 MCV 93.2 fL (80.0-100.0) 11/26/16 08:42 MCH 29.5 pg (25.0-35.0) 11/26/16 08:42 MCHC 31.7 g/dL (31.0-37.0) 11/26/16 08:42 RDW 13.9 % (11.5-15.5) 11/26/16 08:42 Plt Count 198 k/uL (150-450) 11/26/16 08:42 Neutrophils % 41 % 11/26/16 08:42 Lymphocytes % 39 % 11/26/16 08:42 Monocytes % 9 % 11/26/16 08:42 Eosinophils % 5 % 11/26/16 08:42 Basophils % 2 % 11/26/16 08:42 Neutrophils # 2.0 k/uL (1.3-7.7) 11/26/16 08:42 Lymphocytes # 1.9 k/uL (1.0-4.8) 11/26/16 08:42 Monocytes # 0.4 k/uL (0-1.0) 11/26/16 08:42 Eosinophils # 0.2 k/uL (0-0.7) 11/26/16 08:42 Basophils # 0.1 k/uL (0-0.2) 11/26/16 08:42 Sodium 138 mmol/L (137-145) 11/26/16 08:42 Potassium 3.9 mmol/L (3.5-5.1) 11/26/16 08:42 Chloride 101 mmol/L (98-107) 11/26/16 08:42 Carbon Dioxide 28 mmol/L (22-30) 11/26/16 08:42 Anion Gap 9 mmol/L 11/26/16 08:42 BUN 8 mg/dL (9-20) L 11/26/16 08:42 Creatinine 0.80 mg/dL (0.66-1.25) 11/26/16 08:42 Est GFR (MDRD) Af Amer >60 (>60 ml/min/1.73 sqM) 11/26/16 08:42 Est GFR (MDRD) Non-Af >60 (>60 ml/min/1.73 sqM) 11/26/16 08:42 Glucose 108 mg/dL (74-99) H 11/26/16 08:42 Calcium 8.9 mg/dL (8.4-10.2) 11/26/16 08:42 Total Bilirubin 0.5 mg/dL (0.2-1.3) 11/26/16 08:42 AST 164 U/L (17-59) H 12/05/16 09:08 ALT 422 U/L (21-72) H 12/05/16 09:08 Alkaline Phosphatase 99 U/L (38-126) 11/26/16 08:42 Total Protein 6.9 g/dL (6.3-8.2) 11/26/16 08:42 Albumin 4.2 g/dL (3.5-5.0) 11/26/16 08:42 TSH 1.790 mIU/L (0.465-4.680) 11/26/16 08:42 Urine Color Light Yellow 11/25/16 02:50 Urine Appearance Clear (Clear) 11/25/16 02:50 Urine pH 5.5 (5.0-8.0) 11/25/16 02:50 Ur Specific [place] 1.003 (1.001-1.035) 11/25/16 02:50 Urine Protein Negative (Negative) 11/25/16 02:50 Urine Glucose (UA) Negative (Negative) 11/25/16 02:50 Urine Ketones Negative (Negative) 11/25/16 02:50 Urine Blood Negative (Negative) 11/25/16 02:50 Urine Nitrite Negative (Negative) 11/25/16 02:50 Urine Bilirubin Negative (Negative) 11/25/16 02:50 Urine Urobilinogen <2.0 mg/dL (<2.0) 11/25/16 02:50 Ur Leukocyte Esterase Negative (Negative) 11/25/16 02:50 Salicylates <1.0 mg/dL 12/05/16 09:08 Urine Opiates Screen Not Detected (NotDetected) 11/25/16 02:50 Ur Oxycodone Screen Not Detected (NotDetected) 11/25/16 02:50 Urine Methadone Screen Not Detected (NotDetected) 11/25/16 02:50 Ur Propoxyphene Screen Not Detected (NotDetected) 11/25/16 02:50 Ur Barbiturates Screen Not Detected (NotDetected) 11/25/16 02:50 Oxcarbazepine 14.8 ug/mL (10-35) 12/05/16 09:11 U Tricyclic Antidepress Not Detected (NotDetected) 11/25/16 02:50 Ur Phencyclidine Scrn Not Detected (NotDetected) 11/25/16 02:50 Ur Amphetamines Screen Not Detected (NotDetected) 11/25/16 02:50 U Methamphetamines Scrn Not Detected (NotDetected) 11/25/16 02:50 U Benzodiazepines Scrn Not Detected (NotDetected) 11/25/16 02:50 Urine Cocaine Screen Not Detected (NotDetected) 11/25/16 02:50 U Marijuana (THC) Screen Detected (NotDetected) H 11/25/16 02:50 Hepatitis A IgM Ab NEGATIVE 12/05/16 09:18 Hep Bs Antigen Negative 12/05/16 09:18 Hep B Core IgM Ab NEGATIVE 12/05/16 09:18 Hep C IgG Ab Reactive (Negative) 12/05/16 09:18 Assessment and Plan (1) Hepatitis C antibody positive in blood Narrative/Plan: 21-year-old male presents to the hospital with suicidal and homicidal ideations and was brought in by the police. Is currently housed in the psychiatric unit awaiting placement into a residential. With his current antipsychotics or has been improvement of his status. However is noted he has the abnormal liver function tests. His hepatitis C antibody is positive. Consequently we'll test for viral load and genotype. He can be followed in the outpatient setting regarding his hepatitis C if it is positive. HIV status is pending, he is at some risk given his history of injection drug use or needle sharing. If positive we'll initiate further testing and then have follow-up in the office. Status: Acute
[2016-12-07] MEDS: OXcarbazepine 300 MG TAB PO SCH ×2 (08:36→21:10)
[2016-12-07] MEDS: busPIRone HCl 5 MG TAB PO SCH ×3 (08:37→21:10)
[2016-12-07] MEDS: NICOTINE 14MG/24HR PATCH TRANSDERM SCH (08:37)
[2016-12-07] MEDS: TRIHEXYPHENIDYL 2 MG TAB PO SCH ×3 (08:37→21:10)
--- NOTE | 2016-12-07 16:20 | P.PN ---
Progress Note - Text Interval History: Patient is a 21-year-old male who was seen today and reports that he continues to hear voices telling him to hurt people but he ignores them. He reports that he does not sleep at night getting up every hour or so and then states he was sleepy this morning and so was sound asleep when I approached him earlier this morning. Patient states that he gets no enjoyment out of life and wants to . Patient states that he wants his medications adjusted so that he sleeps better here patient reported no complaints of side effects from any of the medication. Mental Status: Appearance/Attitude: Patient is appropriately dressed, makes good eye contact and is cooperative. Behavior: Patient does not display any psychomotor agitation or retardation. Speech/Language: Patient's speech is in response to my questions only, normal volume and rhythm and he is coherent. Thought Process: Patient is goal-directed there is no evidence of tangential or circumstantial speech and he does not have any loose associations or flight of ideas. Thought Content: Patient states that he is hearing voices that tell him to hurt people or himself but he ignores them. Patient states that he gets no enjoyment out of life, he wants to because of this. No delusions or paranoid ideation were elicited. Suicidal/Homicidal Ideation: Patient states he has no intent to act on the voices telling him to hurt others or himself and he states that he wants to but has no plan to act. Sensorium/Cognition: Patient is alert and oriented to person, place and situation and further cognitive testing was not performed Mood/Affect: Patient's mood is flat, he did not voice feeling depressed and his affect is blunted Insight/Judgement: Patient's insight and judgment are poor. Assessment: Patient reported no complaints of side effects and reported to me that he was hearing voices but states that he is ignoring them and not acting on them. He continues to report that he wants to and gets no enjoyment out of life. He had no complaints of side effects from medication and complained of poor sleep last night. When I approached him this morning he was sound asleep. Patient has been attending groups and activities. Plan: Patient will continue on his current medications of Trileptal 600 mg twice a day, his recent level was 14.8, BuSpar 15 mg 3 times a day, Artane 5 mg 3 times a day, Seroquel 200 mg at bedtime and he received a Prolixin deck on a wait injection yesterday at 50 mg. Patient's liver enzymes remain elevated and he is hepatitis C positive. Patient continues to require hospitalization to stabilize his mood and his psychotic symptoms.
[2016-12-07] MEDS: QUEtiapine 200 MG TAB PO SCH (21:10)
[2016-12-08] MEDS: OXcarbazepine 300 MG TAB PO SCH ×2 (08:43→21:07)
[2016-12-08] MEDS: NICOTINE 14MG/24HR PATCH TRANSDERM SCH (08:43)
[2016-12-08] MEDS: busPIRone HCl 5 MG TAB PO SCH ×3 (08:43→21:07)
[2016-12-08] MEDS: TRIHEXYPHENIDYL 2 MG TAB PO SCH ×3 (08:43→21:06)
--- NOTE | 2016-12-08 14:28 | P.PN ---
Progress Note - Text Date of service: 12/08/2016 Chief complaint: "I feel horrible" Subjective: The patient has been seen today as follow-up, chart reviewed, case discussed with the treatment team. Patient slept about 4 hours last night. Patient has been going to groups and other unit activities. Patient reports fair appetite problems. The patient stated still feel depressed and hopeless. He admitted for suicidal and homicidal thoughts. He reports his HI toward his family members. The patient presented very irritable and easily agitated. He reports continued to hear voices telling him to hurt people. The patient continued to feel paranoid. The patient is compliant with his medications and denies any adverse reactions. Review of other systems: Patient denies any physical symptoms besides what has been mentioned above. No breathing problems, no chest pain reported today. Objective: Vitals has been reviewed. Mental status examination; Appearance: The patient appears stated age, dressed in causal clothes, no specific features. Gait/posture: Normal arm swinging: No abnormal movements. Attitude and behavior: not engaged, superficially cooperative, poor eye contact. Motor activity: increased psychomotor activity Speech:Pressured Mood:depressed, irritable Affect:labile Thought form: impoverished, very few thoughts, preoccupied with S/H I. Thought content: suicidal thoughts, homicidal thoughts. He reports has some intermittent plans but he feels safe in the hospital Perception: Reports CAH telling him to hurt others. Attention: No impairment. Orientation: Patient patient was fully oriented to time place person and situation. Insight: Patient has limited insight about his psychiatric disorder. Judgment: Patient has limited judgment about his psychiatric treatment. Assessment: Unspecified mood disorder Rule out Bipolar disorder, depressive episode Intellectual disability R/O antisocial personality disorder Plan: Continue with inpatient psychiatric hospitalization for monitoring and continue treatment. Continue group therapy and other unit activities. Continue follow up with medical team to address physical problems including Hep C Continue psychiatric medications: Trileptal 600mg BID, Buspar 15mg TID, Artane , Prolixin dec. Will increase Seroquel to 300mg HS
[2016-12-08] MEDS: QUEtiapine 100 MG TAB PO SCH (21:07)
[2016-12-09] MEDS: OXcarbazepine 300 MG TAB PO SCH ×2 (10:08→20:32)
[2016-12-09] MEDS: NICOTINE 14MG/24HR PATCH TRANSDERM SCH (10:09)
[2016-12-09] MEDS: busPIRone HCl 5 MG TAB PO SCH ×3 (10:09→20:33)
[2016-12-09] MEDS: TRIHEXYPHENIDYL 2 MG TAB PO SCH ×3 (10:09→20:33)
--- NOTE | 2016-12-09 13:18 | P.PN ---
Progress Note - Text Date of service: 12/09/2016 Chief complaint: "I still feel the same as yesterday " Subjective: The patient has been seen today as follow-up, chart reviewed, case discussed with the treatment team. Patient slept about 4 hours last night. Patient has been not going to groups and other unit activities. Patient reports fair appetite problems. The patient presented very irritable and agitated. He was loud and expressed anger but he couldn't explain himself. The patient reported to still feels depressed and hopeless and he continued to have suicidal thoughts but denies any active plan or intention at this moment. He reports still has homicidal thoughts toward his family members. The patient refused to add small dose of Seroquel during the day and he stated that make him him more tired. The patient looks internally preoccupied and respond to internal stimuli. Review of other systems: Patient denies any physical symptoms besides what has been mentioned above. No breathing problems, no chest pain reported today. Objective: Vitals has been reviewed. Mental status examination; Appearance: The patient appears stated age, dressed in causal clothes, no specific features. Gait/posture: normal gait, Normal arm swinging: No abnormal movements. Attitude and behavior: not engaged, superficially cooperative, poor eye contact. Motor activity: increased psychomotor agitation Speech:Pressured Mood:depressed, irritable Affect:labile Thought form: impoverished, very few thoughts, preoccupied with S/H I. Thought content: suicidal thoughts, homicidal thoughts. Denies any current plans. Perception: Reports CAH. Attention: No impairment. Insight: Patient has limited insight about his psychiatric disorder. Judgment: Patient has limited judgment about his psychiatric treatment. Assessment: Unspecified mood disorder Rule out Bipolar disorder, depressive episode Intellectual disability R/O antisocial personality disorder Plan: Continue with inpatient psychiatric hospitalization for monitoring and continue treatment. Continue group therapy and other unit activities. Continue follow up with medical team to address physical problems including Hep C Continue psychiatric medications: Trileptal 600mg BID, Buspar 15mg TID, Artane , Prolixin dec. Continue Seroquel to 300mg HS Continue follow up
[2016-12-09] MEDS: QUEtiapine 100 MG TAB PO SCH (20:32)
[2016-12-10] MEDS: TRIHEXYPHENIDYL 2 MG TAB PO SCH ×3 (08:29→21:32)
[2016-12-10] MEDS: OXcarbazepine 300 MG TAB PO SCH ×2 (08:30→20:45)
[2016-12-10] MEDS: NICOTINE 14MG/24HR PATCH TRANSDERM SCH (08:30)
[2016-12-10] MEDS: busPIRone HCl 5 MG TAB PO SCH ×3 (08:30→20:45)
--- NOTE | 2016-12-10 12:56 | P.PN ---
Progress Note - Text Interval History: Patient is a 21-year-old male who is being seen in coverage for Dr. Bean. Over the weekend the patient's Seroquel was increased to 300 mg at bedtime and he states that it did help with his sleep. Patient reported that he doesn't like to hear his voice or mind and doesn't want to continue responding to questions. Patient stated "nothing will change". Patient states he is not attending groups. Patient denied any suicidal ideation. Patient states nothing is different, he is sleeping better and he is eating. Mental Status: Appearance/Attitude: Patient is appropriately dressed, makes no eye contact and is superficially cooperative. Behavior: Patient does not exhibit any psychomotor agitation or retardation. Speech/Language: Patient only responds to questions, normal volume and rhythm and he is difficult to understand as he mumbles at times. Thought Process: Patient responds to questions and brief answers, no evidence of loose associations or flight of ideas. Thought Content: Patient denied any auditory or visual hallucinations and no delusions or paranoid ideation were elicited as the patient was not cooperative in responding to questions, he stated he is not attending groups and doesn't like to hear his voice. Patient states that the increase in Seroquel did help with his sleep and he is eating well. Suicidal/Homicidal Ideation: Patient denied any current suicidal or homicidal ideation. Sensorium/Cognition: Patient is alert and oriented to person, and situation further cognitive testing was not performed. Mood/Affect: Patient's mood remains irritable and his affect is blunted. Insight/Judgement: Patient's insight and judgment are limited. Assessment: Patient reports good sleep with the increase in Seroquel to 300 mg at bedtime. Patient was irritable and not cooperative with questions stating he is tired of answering them and doesn't like to hear his own voice. The interview was cut short due to this. Plan: Patient continues on BuSpar 15 mg 3 times a day, Trileptal 600 mg twice a day, Artane 5 mg 3 times a day and Seroquel 300 mg at bedtime. Patient is also receiving Prolixin to [place] 50 mg every 2 weeks. No changes to the patient's current medications were made, patient remains irritable and superficially cooperative and is unable to discuss his concerns or difficulties and easily becomes frustrated.
[2016-12-10] MEDS: QUEtiapine 100 MG TAB PO SCH (20:45)
[2016-12-11] MEDS: NICOTINE 14MG/24HR PATCH TRANSDERM SCH (08:23)
[2016-12-11] MEDS: TRIHEXYPHENIDYL 2 MG TAB PO SCH ×3 (08:24→21:05)
[2016-12-11] MEDS: busPIRone HCl 5 MG TAB PO SCH ×3 (08:24→21:05)
[2016-12-11] MEDS: OXcarbazepine 300 MG TAB PO SCH ×2 (08:24→20:57)
--- NOTE | 2016-12-11 10:27 | P.PN ---
Progress Note - Text Interval history: The patient is found in his room he refuses to follow me to an interview room. Over the weekend the patient's Seroquel was titrated to 300 mg at bedtime. It appears he was seen in consultation by Dr. Bruner because of reactive hepatitis C result. He will require further outpatient treatment. The patient verbalizes no concerns regarding his medications. Mental status exam: The patient is lying in his bed although it is later in the morning. He makes brief eye contacts he is irritable and provides short answers to questions asked. He is very dismissive and is not cooperative with a full interview. He endorses that he feels safe here in the hospital. He is endorsing no hallucinations. He is resting in bed with no signs of acute distress. He endorses no homicidal ideation. He reports no auditory or visual hallucinations. Insight and judgment chronically limited. Chronically has a history of cognitive disability. Plan: We will continue his psychotropic medication as written. We are awaiting penitentiary placement. Vital signs reviewed. We will await further results regarding hepatitis C testing. He requires continued psychiatric hospitalization until he is sufficiently stabilized and appropriate placement is found.
[2016-12-11] MEDS: QUEtiapine 100 MG TAB PO SCH (20:57)
[2016-12-12] MEDS: NICOTINE 14MG/24HR PATCH TRANSDERM SCH (08:29)
[2016-12-12] MEDS: OXcarbazepine 300 MG TAB PO SCH ×2 (08:30→21:03)
[2016-12-12] MEDS: busPIRone HCl 5 MG TAB PO SCH ×3 (08:30→21:03)
[2016-12-12] MEDS: TRIHEXYPHENIDYL 2 MG TAB PO SCH ×3 (08:30→21:04)
[2016-12-12 15:07] LABS: HCV Qualitative Result DETECTED (Not detected)
[2016-12-12] MEDS: QUEtiapine 200 MG TAB PO SCH (21:03)
[2016-12-13] MEDS: OXcarbazepine 300 MG TAB PO SCH ×2 (08:37→20:55)
[2016-12-13] MEDS: NICOTINE 14MG/24HR PATCH TRANSDERM SCH (08:37)
[2016-12-13] MEDS: TRIHEXYPHENIDYL 2 MG TAB PO SCH ×3 (08:37→21:05)
[2016-12-13] MEDS: busPIRone HCl 5 MG TAB PO SCH ×3 (08:37→21:05)
--- NOTE | 2016-12-13 15:12 | PN ---
PROGRESS NOTE Date of Service: DATE OF SERVICE: 12/12/2016 CHIEF COMPLAINT: The patient was admitted for increasing depression. He had suicide thoughts of jumping [place] of the [place]. He was homeless. He reported auditory hallucinations with voices telling him to kill himself and kill others. He was admitted on petition for involuntary hospitalization. INTERVAL HISTORY: The patient has been continuing to struggle. He seems to be quite distressed much of the time. He had a quiet evening last night. He slept 5 1/2 hours. Today he has been up. He tends to isolate himself. He does not interact much with others. He does not attend groups. He continues to complain about anxiety and depression. One of his focuses is his homelessness. He says that he does not believe his medications are helping him at all. He does not have much of a support network. He does not have plans for what he might need to do on discharge as far as getting things more stable in his life. He has not had change in his general health. He tolerates his psychotropic medication. MENTAL STATUS EXAM: The patient does have some restlessness. Eye contact was fair at best. Psychomotor activity overall was slowed. He answered questions with brief responses. His thoughts were clear though he did not say a lot. His affect flat. His mood depressed. He was significantly distressed. He did not appear to show any signs of thought disorder. ASSESSMENT AND PLAN: I will continue the current diagnosis and treatment plan. I had an extensive discussion with the patient regarding treatment issues. We discussed medication options. When I noted that it might be reasonable to increase his Seroquel he favored a higher increase than just going up by 100 mg. It is noted that the patient has psychotic symptoms and has likely had depression with psychotic features. As such, I will increase his Seroquel to 600 mg a day which would be in the therapeutic range for psychosis. He has been on a number of other antipsychotic medications. He seems to tolerate the Seroquel well. He will continue other medications the same. We will continue to focus on stabilization and discharge planning. MARIO / NEEL: [id number] /
[2016-12-13] MEDS: QUEtiapine 200 MG TAB PO SCH (20:56)
[2016-12-13] MEDS: LORazepam 1 MG TAB PO PRN (22:38)
[2016-12-14] MEDS: OXcarbazepine 300 MG TAB PO SCH ×2 (08:39→20:59)
[2016-12-14] MEDS: TRIHEXYPHENIDYL 2 MG TAB PO SCH ×3 (08:39→20:59)
[2016-12-14] MEDS: NICOTINE 14MG/24HR PATCH TRANSDERM SCH (08:39)
[2016-12-14] MEDS: busPIRone HCl 5 MG TAB PO SCH ×3 (08:39→20:59)
--- NOTE | 2016-12-14 10:55 | P.PN ---
Progress Note - Text Interval history: The patient is found in his room he is sleeping on the floor next to his bed. He is verbally arousable but makes no eye contact. In my absence the patient's Seroquel was doubled to 600 mg at bedtime. He has not been sleeping well at night but has been excessively sleeping during the day. half-way placement has not yet been found but a bed may be available next week. Staff report the patient tends to state his room and sleep throughout the day. The patient asked no questions and is not interested in engaging in an interview. Mental status exam: The patient is found sleeping in his room he is in no acute distress. He is verbally arousable he answers questions briefly without agitation today. He is endorsing no acute suicidal or homicidal ideation today he is endorsing no psychosis. Responses to questions asked were limited. Insight and judgment chronically impaired. He demonstrates no verbal or physical aggressive mess during our session. He demonstrates no abnormal involuntary movements. Affect Plan: The patient will continue on his current medications I will reduce the Seroquel down to 400 mg at bedtime. He is encouraged to participate in groups and not sleep during the day. Vital signs reviewed he has demonstrated some tachycardia we will recheck his vitals. We will continue to monitor him for safety. We anticipate snf placement next week.
--- NOTE | 2016-12-14 12:13 | PN ---
PROGRESS NOTE DATE OF SERVICE: 12/13/2016 CHIEF COMPLAINT: The patient was admitted for increasing depression. He had [place] thoughts of [place]. He was homeless. He reported auditory hallucinations with voices telling him to kill himself and kill others. He was admitted on petition for involuntary hospitalization. INTERVAL HISTORY: The patient has been doing fair, he had a quiet evening last night. He slept very well. He continues to isolate. He does not go to groups. He has a negative outlook primarily. He seems to be focused on the idea that he does not have a place to live and thus no place to go once he is to leave the hospital. He has not had any problems with increase in Seroquel, whether or not he has felt any benefit from that is not clear. He does not share much. He has not had change in his general health. He tolerates his psychotropic medications. MENTAL STATUS: Patient gave fair to poor eye contact. Psychomotor activity was a little restless, answered questions with brief responses. He did not say much. His affect was blunted. His mood reserved. He seemed moderately distressed. ASSESSMENT: I will continue the current diagnosis and the treatment. PLAN: I will continue medications the same. We will continue to focus on stabilization and discharge planning. Placement for appropriate living setting does seem to be the primary issue and treatment at this time. MARIO / NEEL: [id number] / MTDD
[2016-12-14] MEDS: QUEtiapine 400 MG TAB PO SCH (20:59)
[2016-12-14] MEDS ORDERED: HALOPERIDOL 5 MG TAB PO STA (21:30)
[2016-12-14] MEDS ORDERED: HALOPERIDOL 5 MG TAB PO PRN (21:31)
[2016-12-14] MEDS ORDERED: LORazepam 1 MG TAB PO STA (21:31)
[2016-12-15] MEDS: NICOTINE 14MG/24HR PATCH TRANSDERM SCH (08:20)
[2016-12-15] MEDS: OXcarbazepine 300 MG TAB PO SCH ×2 (08:20→20:51)
[2016-12-15] MEDS: busPIRone HCl 5 MG TAB PO SCH ×3 (08:20→20:51)
[2016-12-15] MEDS: TRIHEXYPHENIDYL 2 MG TAB PO SCH ×3 (08:21→20:51)
[2016-12-15] MEDS: QUEtiapine 400 MG TAB PO SCH (20:51)
[2016-12-16] MEDS: LORazepam 1 MG TAB PO PRN (01:54)
[2016-12-16] MEDS: NICOTINE 14MG/24HR PATCH TRANSDERM SCH (08:21)
[2016-12-16] MEDS: busPIRone HCl 5 MG TAB PO SCH ×3 (08:22→20:05)
[2016-12-16] MEDS: OXcarbazepine 300 MG TAB PO SCH ×2 (08:22→20:05)
[2016-12-16] MEDS: TRIHEXYPHENIDYL 2 MG TAB PO SCH ×3 (08:23→20:04)
--- NOTE | 2016-12-16 09:15 | PN ---
PROGRESS NOTE DATE OF SERVICE: 12/15/2016. CHIEF COMPLAINT: The patient was admitted for increasing depression. He had suicide thoughts of jumping [place] the [place]. He was homeless. He reported auditory hallucinations with voices telling him to kill himself and kill others. He was admitted on petition for involuntary hospitalization. The patient had a quiet evening last night. He slept well. He tends to isolate. It is noted that Dr. Bean reduced his Seroquel yesterday from 600 mg a day to 400 mg a day. There was a behavioral issue yesterday evening around 1130. I refer the reader to the nursing note of Ms. Zane RN. He was in an agitated state. He did attend 1 group yesterday though none today. He slept fairly well last night. While he was distressed about the situation last evening he seemed to respond adequately to staff support. Today he has been more quiet and reserved. He does not interact with others. He has not had change in his general health. He tolerates his psychotropic medications. MENTAL STATUS: Patient gave fair eye contact. At best psychomotor activity was slow. Speech was monotone. He answered questions with brief responses. He did not say much. His affect was flat. His mood reserved. He was moderately distressed. ASSESSMENT: I will continue the current diagnosis and treatment plan. I will continue psychotropic medications the same. The patient is on a complicated set of psychotropic medications. A major issue is placement in a foster home that at this point has not been able to be identified. We will continue to focus on stabilization and discharge planning. MARIO / DYLNAN: [id number] /
[2016-12-16] MEDS: QUEtiapine 400 MG TAB PO SCH (20:05)
[2016-12-17 06:33] VITALS: RESP 16
[2016-12-17] MEDS: NICOTINE 14MG/24HR PATCH TRANSDERM SCH (09:46)
[2016-12-17] MEDS: TRIHEXYPHENIDYL 2 MG TAB PO SCH ×3 (10:03→21:35)
[2016-12-17] MEDS: OXcarbazepine 300 MG TAB PO SCH ×2 (10:03→21:35)
[2016-12-17] MEDS: busPIRone HCl 5 MG TAB PO SCH ×3 (10:03→21:35)
--- NOTE | 2016-12-17 10:11 | P.PN ---
Progress Note - Text Interval history: The patient is found in his room he refuses to follow me to an interview room. He states he has not been attending groups as he "I hate the sound of my own voice". It appears he has been cooperative with taking medications. Again he tolerates only a few questions before becoming frustrated. Mental status exam: The patient is found lying in bed he makes brief eye contact he does provide verbal responses to several questions before becoming agitated. He expresses he has no intention of leaving his room. He states his mood is still down. He voices no acute suicidal or homicidal ideation. He endorses no hallucinations. Fairly quickly he becomes verbally agitated and uses profanity. Insight and judgment chronically limited. Cognitively is limited. He demonstrates no physical aggressiveness. He is oriented to person place day of the week month and year. He claims he showering the room does have a odor which may be coming from his clothing. Plan: The patient will continue on his current medication. We continue to await appropriate housing for him. Vital signs reviewed. He is encouraged to engage in the milieu more but he refuses. We will continue to monitor him for safety.
--- NOTE | 2016-12-17 12:07 | PN ---
PROGRESS NOTE DATE OF SERVICE: 12/16/2016. CHIEF COMPLAINT: The patient was admitted for increasing depression. He had suicide thoughts of jumping [place] the [place]. He was homeless. He reported auditory hallucinations with voices telling him to kill himself and kill others. He was admitted on petition for involuntary hospitalization. INTERVAL HISTORY: The patient has been doing fair. He continues with some ups and downs in his mood. He will spend quite a bit of time in his room lying down. It is not clear that he is sleeping. He does seem to have the issue of choosing to withdrawal from social circumstances. Today he has been out and a little more active. Earlier in the day he seemed to have a disgruntled manner though later on he was more positive in his mood. The main thing that seemed to bring his mood up is that apparently another patient on the unit was making arrangements with him or vice a versa where he could live at a family home of the other patient. He asked a number of questions about discharge planning and so forth. He showed a fairly bright mood at those circumstances. He has not had change in his general health. He appears to tolerate his psychotropic medications. MENTAL STATUS: I saw the patient earlier in the day and he was discouraged. His affect was constricted. He had negative manner. Later on in the day his mood was quite a bit better. He then had fairly clear thoughts. He was distressed earlier and not later in the day. ASSESSMENT AND PLAN: I will continue the current diagnosis and treatment plan. I will continue psychotropic medications the same. It does appear that the issue of homelessness is a big factor in his current situation. We will continue to work on supporting discharge planning particularly in regards to housing. MMODL / IJN: [id number] /
[2016-12-17] MEDS: QUEtiapine 400 MG TAB PO SCH (21:35)
[2016-12-18] MEDS: OXcarbazepine 300 MG TAB PO SCH ×3 (09:41→21:44)
[2016-12-18] MEDS: TRIHEXYPHENIDYL 2 MG TAB PO SCH ×4 (09:41→21:44)
[2016-12-18] MEDS: busPIRone HCl 5 MG TAB PO SCH ×4 (09:41→21:45)
--- NOTE | 2016-12-18 10:18 | P.PN ---
Progress Note - Text Interval history: The patient is found in his room he follows me to an interview room today. He answers most questions asked with "I don't know" or just shrugs his shoulders. He indicates that he has a place to go and plans to reside with another patient that is currently on the mental health unit. He verbalizes no questions or concerns regarding his medication. He does continue to isolate in his room he has not been attending groups. He has been eating. He is seated quietly he initiates no conversation. Mental status exam: The patient is alert he does not appear tired he seated calmly in his chair he looks down making no eye contact. He is wearing a T- shirt with shorts he has visible tattoos on his upper extremities. Speech is nonspontaneous but he will provide some brief answers. He utilizes no profane language today he maintains a calm demeanor. When asked about suicidal homicidal ideation and psychosis he responds by shrugging his shoulders and provides no further explanation. Insight and judgment as well as cognitive abilities chronically limited. He demonstrates no verbal or physical aggressiveness. He is oriented to person place month and year. No abnormal involuntary movements observed. Plan: The patient will continue on his current psychotropic medications. Vital signs reviewed. He does not appear to be using Ativan frequently. We will continue to monitor him for safety and encourage his participation in the milieu area
[2016-12-18] MEDS: QUEtiapine 400 MG TAB PO SCH (21:44)
[2016-12-19 07:03] VITALS: BP 108/57; PULSE 64; TEMP 97.7
[2016-12-19] MEDS: OXcarbazepine 300 MG TAB PO SCH (09:15)
[2016-12-19] MEDS: busPIRone HCl 5 MG TAB PO SCH ×2 (09:15→17:07)
[2016-12-19] MEDS: TRIHEXYPHENIDYL 2 MG TAB PO SCH ×2 (09:16→17:07)
[2016-12-19] MEDS ORDERED: fluPHENAZine DECANOATE 25 MG/ML 5ML MDV IM ONE (11:05)
--- NOTE | 2016-12-19 11:05 | P.DS ---
Providers Date of admission: 11/25/16 05:03 Expected date of discharge: 12/19/16 Attending physician: Rod Bean Consults: 11/25/16 05:06 Consult Physician Routine Consulting Provider: Clinton Donaldson Consult Reason/Comments: Medical Management Do you want consulting provider notified?: Yes, Notify in am 12/05/16 22:13 Consult Physician Routine Consulting Provider: Casey Bruner Consult Reason/Comments: Hepatitis C-New diagnosis Do you want consulting provider notified?: Yes, Notify in am Primary care physician: Stated None - Discharge Diagnosis(es) (1) Depression Current Visit: Yes Status: Acute Priority: High (2) Intellectual disability Current Visit: Yes Status: Acute Priority: Medium (3) Alcohol use disorder Current Visit: Yes Status: Acute (4) Cannabis use disorder, mild, abuse Current Visit: Yes Status: Acute Hospital Course: Brief summary admission note: This patient is a 21-year-old single male who was admitted to the mental health unit through the emergency room. He was petitioned as he threatened to jump off the [facility] as he was homeless. He stated it would be easier to kill someone else so that he would go to care home and have somewhere to stay for 25 years. The patient was irritable and agitated during the initial evaluation. He reported that he frequently has suicidal or homicidal thoughts. He did not indicate wanting to harm a specific person or group. Prior to this admission he was kicked out of his friend's home and he was homeless for 2 weeks prior to this admission. He identified having no local support. For full detail please refer to my psychiatric evaluation dictated 11/25/2016. Summary of hospital course: The patient was admitted to the mental health unit he was willing to sign in voluntarily. We reviewed his presenting symptoms and medications. He is established with [facility] and was arty taking BuSpar Prolixin Decanoate trazodone Artane and Trileptal. He has been tried on numerous other psychotropics in the past. We decided to continue these medications the Trileptal was titrated to 600 mg twice daily a subsequent level was within therapeutic range. Seroquel was added and titrated ultimately to 400 mg at bedtime. He was given an injection of Prolixin Decanoate on 2016. The patient does appear to have baseline symptomatology. He was able to refrain from any physical aggressiveness while on the mental health unit. Intermittently during his stay he would come down to the office to engage in conversation. Oftentimes the patient would refuse to participate in the session area the patient frequently uses verbal agitation at the defense mechanism as he knows it will truncate the the conversation he is asked to participate in. The patient's is not demonstrating that he is able to care for himself independently we have been waiting jail placement. This was discussed with [facility] and they agreed. With routine labs his liver enzymes were found to be elevated he is known to participate in drug use behavior. He was tested for hepatitis C which was reactive. He was seen by infectious disease and is to follow up as an outpatient. Mental status exam: The patient is a thin male he stressors unclothing eye contact is intermittent. Speech is oftentimes nonspontaneous he provides brief answers to questions asked today. He does struggle with mitigating his level of frustration. He will often use profanity. Again this is being used as a defense mechanism. He is reporting no acute intent or plan of harming himself or anyone else at this time. He is endorsing no auditory or visual hallucinations there is no overt evidence of psychosis. He is endorsing no specific delusional beliefs. His thought process can be organized he is demonstrating no flight of ideas or loose associations. Insight and judgment chronically limited. Intellectual ability chronically limited. He is demonstrating no abnormal involuntary movements. He demonstrates no physical aggressiveness. Impressions 1. Depression unspecified, rule out major depressive disorder rule out bipolar disorder, alcohol use disorder, cannabis use disorder, history of opiate and cocaine use disorders, intellectual impairment 2. Antisocial personality disorder traits 3. Hepatitis C Plan: The patient is being discharged mental health unit today he will be placed at [facility] by [facility]. We will proceed with giving him his Prolixin Decanoate injection of 50 mg today. He will continue on Seroquel 400 mg at bedtime, Artane 5 mg tid, Lexapro 20 mg daily, Trileptal 600 mg twice daily, BuSpar 15 mg 3 times a day. There is no imminent safety risk is appropriate for transition to outpatient care to a jail setting. He is instructed to return to the hospital with any acute safety concerns. Patient Condition at Discharge: Stable Plan - Discharge Summary New Discharge Prescriptions: New OXcarbazepine [Trileptal] 600 mg PO BID #60 tab QUEtiapine [SEROquel] 400 mg PO HS #30 tab Continue busPIRone HCL 15 mg PO TID #90 fluPHENAZine DECANOATE [Prolixin Decanoate] 50 mg IM [id number] #1 Trihexyphenidyl HCl 5 mg PO TID #90 Discontinued traZODone HCL 100 mg PO HS OXcarbazepine [Trileptal] 300 mg PO BID Discharge Medication List OXcarbazepine [Trileptal] 600 mg PO BID #60 tab 12/19/16 [Rx] QUEtiapine [SEROquel] 400 mg PO HS #30 tab 12/19/16 [Rx] Trihexyphenidyl HCl 5 mg PO TID #90 12/19/16 [Rx] busPIRone HCL 15 mg PO TID #90 12/19/16 [Rx] fluPHENAZine DECANOATE [Prolixin Decanoate] 50 mg IM [id number] #[id number] 12/19/16 [Rx] Follow up Appointment(s)/Referral(s): None,Stated [Primary Care Provider] - 1-2 days
[2016-12-19] MEDS: HALOPERIDOL LACTATE 5 MG/ML 1 ML VIAL IM PRN (18:11)
[2016-12-19] MEDS: LORazepam 2 MG/ML SYRINGE IM PRN (18:12)
== END 2016-12-19 18:37 | disposition home or self-care (01) | DRG 885 ==
LOC: EC 02:29 → 3MHU 05:03
PROVIDERS: ADMIT Psychiatry & Neurology Psychiatry; ATTEND Psychiatry & Neurology Psychiatry
DX: F32.3 Major depressive disorder, single episode, severe with psychotic features (principal); R45.851 Suicidal ideations; R45.850 Homicidal ideations; F79 Unspecified intellectual disabilities; B19.20 Unspecified viral hepatitis C without hepatic coma; F10.10 Alcohol abuse, uncomplicated; F12.10 Cannabis abuse, uncomplicated; F17.200 Nicotine dependence, unspecified, uncomplicated; F41.9 Anxiety disorder, unspecified; F60.2 Antisocial personality disorder; F14.90 Cocaine use, unspecified, uncomplicated; F15.90 Other stimulant use, unspecified, uncomplicated; Z59.0 Homelessness; Z79.899 Other long term (current) drug therapy; Z91.14 Patient's other noncompliance with medication regimen
CPT/HCPCS: 76705; 80053; 80074; 80183; 80306; 81003; 82075; 83520; 84443; 84450; 84460; 85025; 87390; 87522; 87902; 99285

== ENCOUNTER 2017-07-03 11:58 | Emergency (ER) | payer OTHER ==
[2017-07-03 12:10] VITALS: BP 118/67; PULSE 86; RESP 20; TEMP 98.1
--- NOTE | 2017-07-03 12:53 | ED ---
General Adult HPI - General Chief complaint: Eye Problems Stated complaint: Eye Pain-poss pink eye Time Seen by Provider: 07/03/17 12:34 Source: patient, RN notes reviewed Mode of arrival: ambulatory Limitations: no limitations - History of Present Illness Initial comments: Patient is a 21-year-old male presenting to the emergency room today with a chief complaint of pain to the left thigh that began 2 days ago when he woke up. He states she's noticed a little swelling. He states is a little bit better and was a sporting. His brothers at bedside states that it was more swollen this morning. She is been no drainage or discharge. He states feels some pain and tenderness to the upper lip. Patient denies any injury or trauma to the area. He states vision is normal. Denies any other complaints or symptoms. Patient denies any recent fever, chills, shortness of breath, chest pain, back pain, abdominal pain, nausea or vomiting, numbness or tingling, headaches or visual changes, or any other complaints. - Related Data Previous Rx's Medication Instructions Recorded Benztropine Mesylate [Cogentin] 2 mg PO DAILY PRN #30 tab 05/16/17 QUEtiapine [SEROquel] 200 mg PO HS #30 tab 05/16/17 carBAMazepine [TEGretol XR] 300 mg PO BID #180 tab.er.12h 05/16/17 Cephalexin [Keflex] 500 mg PO Q12HR 10 Days cap 07/03/17 Allergies Allergy/AdvReac Type Severity Reaction Status Date / Time No Known Allergies Allergy Verified 07/03/17 12:10 Review of Systems ROS Statement: Those systems with pertinent positive or pertinent negative responses have been documented in the HPI. ROS Other: All systems not noted in ROS Statement are negative. Past Medical History Past Medical History: No Reported History Additional Past Medical History / Comment(s): Depression, anxiety History of Any Multi-Drug Resistant Organisms: None Reported Past Surgical History: No Surgical Hx Reported Past Anesthesia/Blood Transfusion Reactions: No Reported Reaction Past Psychological History: Anxiety, Bipolar, Depression Smoking Status: Current every day smoker Past Alcohol Use History: Occasional Past Drug Use History: Marijuana - Past Family History Mother Family Medical History: No Reported History Additional Family Medical History / Comment(s): Patient reports that he knows nothing about his family General Exam - General Exam Comments Initial Comments: General: The patient is awake and alert, in no distress, and does not appear acutely ill. Eye: Pupils are equal, round and reactive to light, extra-ocular movements are intact. No nystagmus. There is normal conjunctiva bilaterally. No signs of icterus. Mild swelling to the upper lid on the left. Lids inverted no sign of stye. Ears, nose, mouth and throat: There are moist mucous membranes and no oral lesions. Neck: The neck is supple, there is no tenderness or JVD. Musculoskeletal: Normal ROM, no tenderness. Strength 5/5. Sensation intact. Pulses equal bilaterally 2+. Neurological: A&O x 3. CN II-XII intact, There are no obvious motor or sensory deficits. Coordination appears grossly intact. Speech is normal. Skin: Skin is warm and dry and no rashes or lesions are noted. Psychiatric: Cooperative, appropriate mood & affect, normal judgment. Limitations: no limitations Course Vital Signs 07/03/17 12:09 Temperature 98.1 F Pulse Rate 86 Respiratory 20 Rate Blood Pressure 118/67 O2 Sat by Pulse 99 Oximetry Medical Decision Making - Medical Decision Making Patient's vitals are stable here in emergency room. There is no fever. Extraocular eye movements are intact there is no pain with this. He has some mild swelling above the left eye. Was worse this morning per patient and his brother at bedside. There is no injury no trauma to the area. No pain in the eye. No visual change. Visual acuity is normal. Patient will be started on antibiotics cover for periorbital cellulitis. He is advised follow-up family doctor return if any symptoms increase worsen. Disposition Clinical Impression: Periorbital cellulitis of left eye Disposition: HOME SELF-CARE Condition: Good Instructions: Periorbital Cellulitis in Adults (ED) Additional Instructions: Please use medication as discussed. Please follow-up with family doctor in the next 2 days of symptoms have not improved. Please return to emergency room if the symptoms increase or worsen or for any other concerns. Prescriptions: Cephalexin [Keflex] 500 mg PO Q12HR 10 Days cap Referrals: None,Stated [Primary Care Provider] - 1-2 days Beatriz Alexander MD [STAFF PHYSICIAN] - 1-2 days Time of Disposition: 12:46
== END 2017-07-03 12:57 | disposition home or self-care (01) ==
LOC: EC 11:58
DX: L03.213 Periorbital cellulitis (principal); K13.0 Diseases of lips; F17.200 Nicotine dependence, unspecified, uncomplicated
CPT/HCPCS: 99283

== ENCOUNTER 2017-10-08 16:30 | Inpatient (IN) | payer MEDICAID, OTHER ==
--- NOTE | 2017-10-08 16:38 | ED ---
Psych HPI - General Chief Complaint: Psychiatric Symptoms Stated Complaint: Petition Time Seen by Provider: 10/08/17 16:37 Source: patient, police Mode of arrival: ambulatory - History of Present Illness Initial Comments: Patient presents for suicidal ideation. Patient states [place], however his guardian wouldn't let him, therefore is feeling suicidal. States she has a history of suicide attempts, attempted to hang himself once, had overdose on pills previously. Patient states she's had multiple psychiatric inpatient admissions in the past. Patient states he uses crack cocaine, marijuana today, denies any other drug use. Patient has no physical medical complaints at this time. Patient denies homicidal ideation. MD Complaint: suicidal ideation - Related Data Home Medications Medication Instructions Recorded Confirmed Benztropine Mesylate [Cogentin] 2 mg PO BID 10/08/17 10/08/17 Haloperidol Decanoate [Haldol D] 100 mg IM Q14D 10/08/17 10/08/17 Previous Rx's Medication Instructions Recorded QUEtiapine [SEROquel] 200 mg PO HS #30 tab 05/16/17 carBAMazepine [TEGretol XR] 300 mg PO BID #180 tab.er.12h 05/16/17 Allergies Allergy/AdvReac Type Severity Reaction Status Date / Time No Known Allergies Allergy Verified 10/08/17 16:46 Review of Systems ROS Statement: Those systems with pertinent positive or pertinent negative responses have been documented in the HPI. ROS Other: All systems not noted in ROS Statement are negative. Constitutional: Denies: fever, chills Eyes: Denies: vision change ENT: Denies: congestion Respiratory: Denies: cough, dyspnea Cardiovascular: Denies: chest pain, palpitations Endocrine: Denies: fatigue Gastrointestinal: Denies: abdominal pain, nausea, vomiting Musculoskeletal: Denies: arthralgia, myalgia Skin: Denies: rash, change in color Neurological: Denies: headache Psychiatric: Reports: depression, suicidal thoughts. Denies: anxiety, auditory hallucinations, visual hallucinations, homicidal thoughts Past Medical History Past Medical History: No Reported History Additional Past Medical History / Comment(s): Depression, anxiety History of Any Multi-Drug Resistant Organisms: None Reported Past Surgical History: No Surgical Hx Reported Past Anesthesia/Blood Transfusion Reactions: No Reported Reaction Past Psychological History: Anxiety, Bipolar, Depression Smoking Status: Current every day smoker Past Alcohol Use History: Occasional Past Drug Use History: Marijuana - Past Family History Mother Family Medical History: No Reported History Additional Family Medical History / Comment(s): Patient reports that he knows nothing about his family General Exam - General Exam Comments Initial Comments: Sitting up in bed. No acute distress. Conversing normally. Calm. Well- appearing. Limitations: no limitations General appearance: alert, in no apparent distress Head exam: Present: atraumatic, normocephalic Eye exam: Present: normal appearance, PERRL, EOMI. Absent: conjunctival injection, periorbital swelling, periorbital tenderness ENT exam: Present: normal exam, normal oropharynx, mucous membranes moist, normal external ear exam Neck exam: Present: normal inspection, full ROM. Absent: tenderness Respiratory exam: Present: normal lung sounds bilaterally. Absent: respiratory distress, wheezes, rales Cardiovascular Exam: Present: regular rate, normal rhythm GI/Abdominal exam: Present: soft. Absent: distended, tenderness, guarding, rebound Extremities exam: Present: normal inspection Back exam: Present: normal inspection Neurological exam: Present: alert, oriented X3. Absent: motor sensory deficit Psychiatric exam: Present: depressed, flat affect, suicidal ideation. Absent: anxious, manic, homicidal ideation Skin exam: Present: warm, dry, intact, normal color. Absent: rash, cyanosis, diaphoretic, erythema, urticaria Course Vital Signs 10/08/17 16:35 Temperature 98.5 F Pulse Rate 100 Respiratory 16 Rate Blood Pressure 116/76 O2 Sat by Pulse 98 Oximetry Medical Decision Making - Medical Decision Making Patient admits to being currently suicidal, has history of suicide attempts, although no times today. Suicide precautions ordered. EKG: Normal sinus rhythm, heart rate 89, no ST or T-wave changes appreciated. UDS shows marijuana, cocaine UA shows no infection 17:48 Pt medically cleared for evaluation by psych team. Pt admitted for psych treatment. - Lab Data Lab Results 10/08/17 Range/Units 17:03 Urine Color Yellow Urine Appearance Clear (Clear) Urine pH 6.0 (5.0-8.0) Ur Specific [place] 1.019 (1.001-1.035) Urine Protein Trace H (Negative) Urine Glucose (UA) Negative (Negative) Urine Ketones 1+ H (Negative) Urine Blood Negative (Negative) Urine Nitrite Negative (Negative) Urine Bilirubin Negative (Negative) Urine Urobilinogen 4.0 (<2.0) mg/dL Ur Leukocyte Esterase Negative (Negative) Urine Opiates Screen Not Detected (NotDetected) Ur Oxycodone Screen Not Detected (NotDetected) Urine Methadone Screen Not Detected (NotDetected) Ur Propoxyphene Screen Not Detected (NotDetected) Ur Barbiturates Screen Not Detected (NotDetected) U Tricyclic Antidepress Not Detected (NotDetected) Ur Phencyclidine Scrn Not Detected (NotDetected) Ur Amphetamines Screen Not Detected (NotDetected) U Methamphetamines Scrn Not Detected (NotDetected) U Benzodiazepines Scrn Not Detected (NotDetected) Urine Cocaine Screen Detected H (NotDetected) U Marijuana (THC) Screen Detected H (NotDetected) Disposition Clinical Impression: Depressed, Suicidal ideation Disposition: ADMITTED IP TO THIS [facility] Condition: Good Referrals: None,Stated [Primary Care Provider] - 1-2 days
[2017-10-08 17:17] LABS: Appearance,Urine Clear (Clear); Bilirubin,Urine Negative (Negative); Blood,Urine Negative (Negative); Color,Urine Yellow; Glucose,Urine (UA) Negative (Negative); Ketones,Urine 1+ (Negative); Leukocyte Esterase,Urine Negative (Negative); Nitrite,Urine Negative (Negative); Protein,Urine Trace (Negative); Specific Gravity,Urine 1.019 (1.001-1.035)
[2017-10-08 17:27] LABS: Amphetamine Screen,Urine Not Detected (NotDetected); Barbiturate Screen,Urine Not Detected (NotDetected); Benzodiazepines Screen,Urine Not Detected (NotDetected); Cocaine Screen,Urine Detected (NotDetected); Methadone Screen, Urine Not Detected (NotDetected); Opiate Screen,Urine Not Detected (NotDetected); Oxycodone Screen, Urine Not Detected (NotDetected); Phencyclidine Screen,Urine Not Detected (NotDetected); Tricyclic Antidepressant,Urine Not Detected (NotDetected); Urn Cannabinoid Scrn Detected (NotDetected)
[2017-10-09] MEDS ORDERED: HALOPERIDOL DECANOATE 100 MG/ML 1 ML VIAL IM ONE (11:30)
--- NOTE | 2017-10-09 11:33 | P.HP ---
Psychiatric H&P - . History & Physical: Allergies Allergy/AdvReac Type Severity Reaction Status Date / Time No Known Allergies Allergy Verified 10/08/17 16:46 Vital Signs Temp 98.3 F 10/08/17 19:03 Pulse 93 10/08/17 19:03 Resp 20 10/08/17 19:03 BP 130/70 10/08/17 19:03 Pulse Ox 99 10/08/17 19:03 Intake & Output 10/08/17 10/09/17 10/09/17 18:59 06:59 18:59 Weight 74.843 kg 71 kg Laboratory Last Values Urine Color Yellow 10/08/17 17:03 Urine Appearance Clear (Clear) 10/08/17 17:03 Urine pH 6.0 (5.0-8.0) 10/08/17 17:03 Ur Specific [place] 1.019 (1.001-1.035) 10/08/17 17:03 Urine Protein Trace (Negative) H 10/08/17 17:03 Urine Glucose (UA) Negative (Negative) 10/08/17 17:03 Urine Ketones 1+ (Negative) H 10/08/17 17:03 Urine Blood Negative (Negative) 10/08/17 17:03 Urine Nitrite Negative (Negative) 10/08/17 17:03 Urine Bilirubin Negative (Negative) 10/08/17 17:03 Urine Urobilinogen 4.0 mg/dL (<2.0) 10/08/17 17:03 Ur Leukocyte Esterase Negative (Negative) 10/08/17 17:03 Urine Opiates Screen Not Detected (NotDetected) 10/08/17 17:03 Ur Oxycodone Screen Not Detected (NotDetected) 10/08/17 17:03 Urine Methadone Screen Not Detected (NotDetected) 10/08/17 17:03 Ur Propoxyphene Screen Not Detected (NotDetected) 10/08/17 17:03 Ur Barbiturates Screen Not Detected (NotDetected) 10/08/17 17:03 U Tricyclic Antidepress Not Detected (NotDetected) 10/08/17 17:03 Ur Phencyclidine Scrn Not Detected (NotDetected) 10/08/17 17:03 Ur Amphetamines Screen Not Detected (NotDetected) 10/08/17 17:03 U Methamphetamines Scrn Not Detected (NotDetected) 10/08/17 17:03 U Benzodiazepines Scrn Not Detected (NotDetected) 10/08/17 17:03 Urine Cocaine Screen Detected (NotDetected) H 10/08/17 17:03 U Marijuana (THC) Screen Detected (NotDetected) H 10/08/17 17:03 10/09/17 11:21 IDENTIFYING DATA: This patient is a 21-year-old single male who was admitted to the mental health unit through the emergency room for acute suicidal ideation. HPI: The patient was petition by a chief of police stating "stated his guardian won't let him move and he has nothing to live for. He states he wants to and will walk in front of traffic or jump off the water bridge". The patient's was not cooperative this morning in terms of an interview. He would not follow me to an interview room. In questioning him in his room he states he was suicidal and he became verbally aggressive with me. He spontaneously reported he would not take medication and is not going back to [facility]. The patient is well known to this inpatient service as this is his 11th psychiatric admission since December 2013. It appears that he is on a substance abuse court order as of October 02. He did present with cocaine and marijuana in his urine drug screen. The patient has a history of being diagnosed with major depressive disorder amphetamine use disorder cannabis use disorder alcohol use disorder possible intellectual disability as well as borderline and antisocial personality disorder traits. PAST PSYCHIATRIC HISTORY: As above. Most recently he has been treated with Cogentin 2 mg twice daily, Tegretol 300 mg twice daily, Haldol decanoate 100 mg every 2 weeks his last dose was September 18. He is also prescribed Seroquel 200 mg at bedtime. In the past the patient has been prescribed Prolixin Trileptal BuSpar Artane Prozac Depakote Zyprexa invega lithium Ativan and trazodone Strattera Lexapro and Lamictal. There is documentation that he had a suicide attempt one year ago via medication overdose. He reported a history of self- injurious behavior in the past in the form of burning. PMH: None known ALLERGIES: Known known drug ALLERGIES MEDICATIONS: as Above CHEMICAL DEPENDENCY HISTORY: Substance use history is extensive. Reportedly he is on a court order for substance abuse treatment. He was in rehab facilities very briefly in the recent past but did not comply with the recommended stay. He reports using alcohol 3-4 beverages 3 times a week marijuana on a regular basis he is cocaine in the form of crack prior to admission. There is documentation of him abusing stimulants in the past. FAMILY PSYCHIATRIC HISTORY: Unknown FAMILY CHEMICAL DEPENDENCY HISTORY: Unknown SOCIAL HISTORY: The patient is 21 years old he is single he has no children he is not employed he has a Social Security disability income and he does have a guardian. He has 4 brothers. He has a 10th grade education. He reported quitting school as he was no longer interested in school. He did have special education assistance while in school. Legal history is extensive but he does not comment on that today. Abuse history unknown. MENTAL STATUS EXAM: The patient is a male appearing his stated age his hair shaved short he has himself covered completely with a sheet except for a few moments. He makes no eye contact. He indicates he does not want to talk he is verbally aggressive. He raises his voice and yells at times. He uses profanity throughout our brief interaction. He reports ongoing suicidal ideation withspecified plan this morning. He reports no thoughts of harming others. He reports no hallucinations. He states he does not feel safe in the hospital because he suicidal. He is lying in bed in no acute distress. He demonstrates no abnormal involuntary movements. Insight and judgment are poor. He demonstrates no spontaneous speech. He does not tolerate any cognitive questions. STRENGTHS/WEAKNESSES: Strengths: Income calm guardianship, court ordered substance abuse treatment weaknesses: Noncompliance with medications, severe personality disorder traits INTELLECTUAL FUNCTIONING: Below average to intellectual disability IMPRESSIONS: [] 1. Depression and specified rule out major depressive disorder, cannabis alcohol use disorders, amphetamine use disorder, rule out cocaine use disorder. 2. Antisocial personality disorder traits and borderline personality disorder traits PLAN: The patient has been admitted to the mental health unit because of his report of suicidal ideation. He indicates he will not take medication area I will have to complete a second clinical certificate so that we may further evaluate his safety risk. I will restart his outpatient psychotropic medications and case he is willing to comply. He is encouraged to participate in the milieu but is currently isolating in his room. He will be seen by internal medicine for routine history and physical exam. Social work will meet with him to complete a psychosocial assessment.
[2017-10-09] MEDS: carBAMazepine 100 MG TAB.ER.12H PO SCH ×2 (12:16→20:14)
[2017-10-09] MEDS: BENZTROPINE MESYLATE 1 MG TAB PO SCH ×2 (12:16→20:14)
--- NOTE | 2017-10-09 16:57 | P.HPMEDMHU ---
History of Present Illness H&P Date: 10/09/17 Chief Complaint: suicidal ideation Patient is a 21-year-old male for history hepatitis C, antisocial personality disorder, depression, and tobacco abuse who presented to the ER with complaint of suicidal ideation. His [facility] mental health unit and we are asked to evaluate for his hepatitis C. Patient is seen and examined at bedside. He is very agitated and easily upset. It is difficult to obtain a history. He states he has not received any treatment for hepatitis since leaving the hospital in November. He denies any recent cough, cold, fever, flu. He is not having any nausea, vomiting, or diarrhea. He reports that he has had increasing shortness of breath not associated with any wheeze, cough, or fever. He continues to smoke 1.5 packs per day and use cocaine and marijuana. When asked why he is here he says he threatened suicide and that he is going to have to go to intermediate after this is not taking any of her medications. He then goes into nonsensical thought process. Review of Systems Positives: + Suicidal ideation, + shortness of breath Pertinent positives and negatives as discussed in HPI, a complete review of systems was performed and all other systems are negative. Past Medical History Additional Past Medical History / Comment(s): Depression, anxiety anti social personality disorder, hepatitis C History of Any Multi-Drug Resistant Organisms: None Reported Past Surgical History: No Surgical Hx Reported Past Anesthesia/Blood Transfusion Reactions: No Reported Reaction Past Psychological History: Anxiety, Bipolar, Depression Smoking Status: Current every day smoker Past Alcohol Use History: Occasional Past Drug Use History: Cocaine, Marijuana, Methamphetamine - Past Family History Mother Family Medical History: Unable to Obtain Additional Family Medical History / Comment(s): Patient reports that he knows nothing about his family Medications and Allergies Home Medications Medication Instructions Recorded Confirmed Type QUEtiapine [SEROquel] 200 mg PO HS #30 tab 05/16/17 10/08/17 Rx carBAMazepine [TEGretol XR] 300 mg PO BID #180 tab.er.12h 05/16/17 10/08/17 Rx Benztropine Mesylate [Cogentin] 2 mg PO BID 10/08/17 10/08/17 History Haloperidol Decanoate [Haldol D] 100 mg IM Q14D 10/08/17 10/08/17 History Allergies Allergy/AdvReac Type Severity Reaction Status Date / Time No Known Allergies Allergy Verified 10/08/17 16:46 Physical Exam Osteopathic Statement: *. No significant issues noted on an osteopathic structural exam other than those noted in the History and Physical/Consult. Vitals: Vital Signs Temp Pulse Resp BP Pulse Ox 10/08/17 19:03 98.3 F 93 20 130/70 99 General: non toxic, no distress, appears at stated age, normal weight, disheveled, malodorous Derm: no unusual rashes/lesions no unusual ecchymoses, warm, dry, multiple tattoos Head: atraumatic, normocephalic, symmetric Eyes: EOMI, no lid lag, anicteric sclera ENT: Nose and ears atraumatic, no thrush, no pharyngeal erythema Neck: No thyromegaly, no cervical lymphadenopathy, trachea midline, supple Mouth: no lip lesion, mucus membranes moist Cardiovascular: S1S2 reg, no murmur, positive posterior tibial pulse bilateral, no edema, capillary refill less than 2 seconds Lungs: CTA bilateral, no rhonchi, no rales , no accessory muscle use Abdominal: soft, nontender to palpation, no guarding, no appreciable organomegaly, normal bowel sounds Ext: no gross muscle atrophy, muscle strength 5 out of 5 upper extremities grossly, no contractures, Neuro: CN II-XI grossly intact Psych: Alert, oriented, hostile and angry Cranial Nerve Examination - Cranial Nerves Cranial Nerve II- Optic: Intact Cranial Nerve III- Oculomotor: Intact Cranial Nerve IV- Trochlear: Intact Cranial Nerve V- Trigeminal: Intact Cranial Nerve - Abducens: Intact Cranial Nerve VII- Facial: Intact Cranial Nerve VIII- Auditory: Intact Cranial Nerve IX- Glossopharyngeal: Intact Cranial Nerve X- Vagus: Intact Cranial Nerve XI- Accessory: Intact Cranial Nerve XII- Hypoglossal: Intact Results Labs: Abnormal Lab Results - Last 24 Hours (Table) 10/08/17 Range/Units 17:03 Urine Protein Trace H (Negative) Urine Ketones 1+ H (Negative) Urine Cocaine Screen Detected H (NotDetected) U Marijuana (THC) Screen Detected H (NotDetected) Thrombosis Risk Factor Assmnt - DVT/VTE Prophylaxis DVT/VTE Prophylaxis: Low risk, early ambulation encouraged Assessment and Plan Assessment: Hepatitis C -check liver enzymes -Referral to Dr. Bruner on discharge -Needs to abstain from illicit drug use Tobacco abuse -Cessation -Nicotine replacement Illicit drug use -Cessation encouraged Suicidal ideation with antisocial personality disorder -Your psych management Thank you for allowing us to participate in the care of this patient. We will follow peripherally. Do not hesitate to contact us with questions. Someone can be reached from the [facility] hospitalist group at all hours of the day at [phone].
[2017-10-09] MEDS: QUEtiapine 200 MG TAB PO SCH (20:14)
[2017-10-10 08:44] LABS: HCT 46.1 % (39.0-53.0); HGB 15.3 gm/dL (13.0-17.5); MCHC 33.2 g/dL (31.0-37.0); MCV 90.4 fL (80.0-100.0); Mean Platelet Volume 6.5; Platelet Count 234 k/uL (150-450); RBC 5.11 m/uL (4.30-5.90); RDW 12.4 % (11.5-15.5); WBC 6.7 k/uL (3.8-10.6)
[2017-10-10 08:56] LABS: ALT 105 U/L (21-72); AST 49 U/L (17-59); Albumin 4.4 g/dL (3.5-5.0); Alkaline Phosphatase 87 U/L (38-126); Anion Gap 9 mmol/L; Blood Urea Nitrogen 9 mg/dL (9-20); Calcium 9.6 mg/dL (8.4-10.2); Carbon Dioxide 28 mmol/L (22-30); Chloride 104 mmol/L (98-107); Glucose 88 mg/dL (74-99); Potassium 3.8 mmol/L (3.5-5.1); Sodium 141 mmol/L (137-145); Total Bilirubin 0.5 mg/dL (0.2-1.3)
[2017-10-10] MEDS: carBAMazepine 100 MG TAB.ER.12H PO SCH ×2 (09:27→20:15)
[2017-10-10] MEDS: BENZTROPINE MESYLATE 1 MG TAB PO SCH ×2 (09:27→20:15)
--- NOTE | 2017-10-10 10:23 | P.PN ---
Progress Note - Text Interval history: The patient is found in his room lying in bed. He refuses to speak with me in an interview room. He answers a few questions during our interaction. It appears that he did get some sleep overnight. He has been eating meals. He refused all his medications except for the Seroquel. He states he isn't going to take any medications and does not want to return to [facility]. He is suicidal because his guardian won't let him have a job. 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 Mental status exam: The patient is lying on his left side in bed facing away from me. He provides no eye contact. He has no spontaneous speech but we'll briefly answer some questions. He is initially agitated and loud with his responses but those become quieter during our interaction. He indicates having suicidal thoughts. He reports having homicidal thoughts but would not specify towards whom. He endorses no auditory or visual hallucinations he is endorsing no specific delusions. Insight and judgment impaired. He demonstrates no abnormal involuntary movements. He is oriented to person place. Plan: We will continue to monitor the patient for safety. He remains agitated he describes ongoing suicidal ideation. He is not fully cooperative with his medication management. We are awaiting his deferral conference.
[2017-10-10] MEDS: QUEtiapine 100 MG TAB PO PRN (14:28)
[2017-10-10] MEDS: ACETAMINOPHEN TAB 325 MG TAB PO PRN ×2 (14:28→18:29)
[2017-10-10 15:16] LABS: Appearance,Urine Clear (Clear); Bilirubin,Urine Negative (Negative); Blood,Urine Negative (Negative); Color,Urine Light Yellow; Glucose,Urine (UA) Negative (Negative); Ketones,Urine Negative (Negative); Leukocyte Esterase,Urine Negative (Negative); Nitrite,Urine Negative (Negative); PH, Urine 6.5 (5.0-8.0); Protein,Urine Negative (Negative); Specific Gravity,Urine 1.008 (1.001-1.035); Urobilinogen,Urine <2.0 mg/dL (<2.0)
[2017-10-10] MEDS: QUEtiapine 200 MG TAB PO SCH (20:15)
[2017-10-11] MEDS: BENZTROPINE MESYLATE 1 MG TAB PO SCH ×2 (08:11→20:38)
[2017-10-11] MEDS: ACETAMINOPHEN TAB 325 MG TAB PO PRN (08:12)
[2017-10-11] MEDS: carBAMazepine 100 MG TAB.ER.12H PO SCH ×2 (08:12→20:38)
--- NOTE | 2017-10-11 11:00 | P.PN ---
Progress Note - Text Interval history: The patient is found in his room he remains resistant to participating in the interview. He states he continues to feel suicidal. He gets agitated with any further questioning. He reports he has wrist pain as he punched the wall yesterday. This was discussed with nursing and we will obtain an x-ray of that hand and wrist. He has been compliant with Seroquel. We did give him a 100 mg oral dose yesterday which seemed to calm him. He continues to refuse the Tegretol and other prescribed medication. Mental status exam: The patient is lying in bed he provides no eye contact he's irritable and verbally agitated. He frequently uses profanity during our brief interaction. He reports ongoing suicidal thoughts. He reports no acute homicidal ideation today. He is endorsing no hallucinations. Insight and judgment remains impaired. He demonstrates no abnormal involuntary movements. He demonstrates no physical aggressiveness towards me during our interaction. He tolerates no further questioning. Plan: The patient will be offered all of his psychotropic medications. He seems to be complying only with the Seroquel. He has a court date set for October 18. He will have an x-ray of his hand due to the report of punching a wall in having subsequent pain. Vital signs reviewed. He is encouraged to participate in the milieu.
--- NOTE | 2017-10-11 13:36 | XR ---
EXAMINATION TYPE: XR wrist limited RT DATE OF EXAM: 10/11/2017 COMPARISON: NONE HISTORY: 21-year-old male with right wrist pain after punching injury TECHNIQUE: 2 views FINDINGS: Radiocarpal and distal radioulnar joint as well as the midcarpal compartment appear intact. No acute fracture, subluxation, or dislocation seen. IMPRESSION: 2 views without acute osseous abnormality seen.
[2017-10-11] MEDS: QUEtiapine 200 MG TAB PO SCH (20:38)
[2017-10-11] MEDS: QUEtiapine 100 MG TAB PO PRN (22:19)
[2017-10-12] MEDS: BENZTROPINE MESYLATE 1 MG TAB PO SCH ×2 (09:26→20:13)
[2017-10-12] MEDS: carBAMazepine 100 MG TAB.ER.12H PO SCH ×2 (09:26→20:13)
[2017-10-12] MEDS: QUEtiapine 100 MG TAB PO PRN (12:33)
[2017-10-12] MEDS: QUEtiapine 200 MG TAB PO SCH (20:17)
--- NOTE | 2017-10-12 22:44 | P.PN ---
Progress Note - Text Progress Note Date: 10/12/17 Patient was seen today. He reports feeling suicidal because his [facility] wont let him go to [facility] and get a job. 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 He reports feeling sad and hopeless about being homeless and not having a job. He says he will his throat with a knife or jump off of a bridge as soon as he gets out of the hospital. He reports taking 800mg of seroquel outside. He says he wants his seroquel dose to be increased. He reports seroquel helps him to sleep well. He reports good appetie. He reports going to al his groups. 21 year old male. He appears his stated age in fair grooming and hygiene. He maintains good eye contact. No abnormal movements noted. His speech is pressured and tangential. His mood is reported as sad and affect appropriate. He denies current auditory or visual hallucinations. He denies paranoia. He is alert and oriented x 4. His insight and judgement are poor. Continue his current medications Monitor for symptoms Continue safety precautions.
[2017-10-13] MEDS: BENZTROPINE MESYLATE 1 MG TAB PO SCH ×2 (10:56→20:25)
[2017-10-13] MEDS: NICOTINE 14MG/24HR PATCH TRANSDERM SCH ×2 (10:56→12:04)
[2017-10-13] MEDS: carBAMazepine 100 MG TAB.ER.12H PO SCH ×2 (10:56→20:25)
[2017-10-13] MEDS: QUEtiapine 100 MG TAB PO PRN (16:49)
--- NOTE | 2017-10-13 18:52 | P.PN ---
Progress Note - Text Progress Note Date: 10/13/17 Patient states his mother and step dad live in [facility]. He asks why his H wont let him move [place]. He claims he did not sleep well yesterday. He reports waking up tired. He reports to have missed most of his groups due to sleeping all day. He reports good appetite. 21 year old male. He appears his stated age in fair grooming and hygiene. He maintains good eye contact. No abnormal movements noted. His speech is pressured and tangential. His mood is reported as good and affect appropriate. He denies current auditory or visual hallucinations. He is paranoid about his H not allowing him to go to [facility]. He is alert and oriented x 4. His insight and judgment are poor. Will increase the dose of seroquel to 250mg po qhs Monitor for symptoms Continue safety precautions.
[2017-10-13] MEDS: QUEtiapine 100 MG TAB PO SCH (20:25)
[2017-10-13] MEDS ORDERED: LORazepam 2 MG/ML INJ IM STA (23:52)
[2017-10-13] MEDS ORDERED: ZIPRASIDONE 20 MG VIAL IM STA (23:52)
[2017-10-14] MEDS: NICOTINE 14MG/24HR PATCH TRANSDERM SCH (08:45)
[2017-10-14] MEDS: BENZTROPINE MESYLATE 1 MG TAB PO SCH ×2 (09:33→20:57)
[2017-10-14] MEDS: carBAMazepine 100 MG TAB.ER.12H PO SCH ×2 (09:34→20:57)
--- NOTE | 2017-10-14 10:04 | P.PN ---
Progress Note - Text Interval history: The patient is found by the phone he follows me to an interview room to speak. He states he continues to feel suicidal. 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 He continues to state that his guardian will not allow him to do this. He has been compliant with Seroquel the dosage was increased over the weekend. He is refusing other psychotropic medication that has been prescribed to him on an outpatient basis. He did not have a fracture his hand after reviewing the radiology report. Mental status exam: The patient is alert he is much more cooperative today. He remains calmly seated at the table. Hygiene is adequate mildly disheveled. Eye contact is intermittent. He mainly provides answers to questions asked with little spontaneous speech. He indicates his mood is depressed and he feels suicidal. He provides no answer when asked if he has any homicidal thoughts. He is endorsing no auditory or visual hallucinations or specific delusions. He demonstrates no verbal or physical aggressiveness during this interaction. Insight and judgment impaired. He demonstrates no abnormal involuntary movements. Plan: The patient's will continue being offered the psychotropic medications prescribed. He does have court scheduled for later in the week. He is asking for us to call his family so that we may help him convinces guardian he should be allowed to live and work with his father. He is aware that he is on a substance abuse order. He is encouraged to attend groups. We will continue to monitor him for safety. Vital signs reviewed.
[2017-10-14] MEDS: QUEtiapine 100 MG TAB PO PRN (15:27)
[2017-10-14] MEDS: QUEtiapine 100 MG TAB PO SCH (20:56)
[2017-10-15] MEDS: BENZTROPINE MESYLATE 1 MG TAB PO SCH ×2 (08:48→20:50)
[2017-10-15] MEDS: carBAMazepine 100 MG TAB.ER.12H PO SCH ×2 (08:48→20:49)
[2017-10-15] MEDS: NICOTINE 14MG/24HR PATCH TRANSDERM SCH (08:48)
[2017-10-15] MEDS ORDERED: QUEtiapine 100 MG TAB ONE (14:30)
[2017-10-15] MEDS: QUEtiapine 100 MG TAB PO SCH (20:49)
[2017-10-16] MEDS: NICOTINE 14MG/24HR PATCH TRANSDERM SCH (09:48)
[2017-10-16] MEDS: BENZTROPINE MESYLATE 1 MG TAB PO SCH ×3 (09:48→21:02)
[2017-10-16] MEDS: carBAMazepine 100 MG TAB.ER.12H PO SCH ×3 (09:48→21:02)
--- NOTE | 2017-10-16 15:09 | P.PN ---
Progress Note - Text Progress Note Date: 10/16/17 Interval history: I reviewed the medical record and interviewed the patient. He was sitting in the telephone alcove most of the morning. He complained of feeling depressed and having thoughts of suicide. He alleged that if he left the hospital that he would kill himself. He stated that he is depressed and suicidal because his guardian will not let him move and live near his family. Even though he complained of feeling depressed he smiled as she explained the meaning of several the tattoos. The general theme of tattoos was well and opposition to authority Mental status exam. He presented as a casually dressed and groomed young male who was pleasant on approach. He made eye contact and appeared to attend to the interview. He had multiple tattoos on his hands and arms large tattoo across his chest. He had a blunted facial expression. He was alert and oriented to person, place and time. He showed slight psychomotor retardation but no abnormal movements. His speech was dysarthric with a decrease in rate and rhythm. His affect was depressed but reactive. He describes suicidal ideation and wishes. He denied homicidal ideation. He expressed feelings of hopelessness and helplessness. He did not express ideas reference, paranoid ideation or delusional thoughts. His thinking was concrete and his associations appeared coherent and logical. He did not appear to be responding to internal stimuli. Plan: Continue inpatient hospitalization pending the probate hearing. Continue safety precautions. Continue Cogentin 2 mg twice a day, Tegretol-XR 300 mg twice a day and Seroquel 2050 mg at bedtime. Encourage participation in therapeutic groups and activities. Evaluate clinical status response to treatment on a daily basis.
[2017-10-16] MEDS: QUEtiapine 100 MG TAB PO PRN (20:06)
[2017-10-16] MEDS: QUEtiapine 100 MG TAB PO SCH (21:01)
[2017-10-17] MEDS: carBAMazepine 100 MG TAB.ER.12H PO SCH ×2 (08:27→20:24)
[2017-10-17] MEDS: BENZTROPINE MESYLATE 1 MG TAB PO SCH ×2 (08:27→20:26)
[2017-10-17] MEDS: NICOTINE 14MG/24HR PATCH TRANSDERM SCH (08:27)
[2017-10-17] MEDS: MAG HYDROX/AL HYDROX/SIMETH 30 ML CUP PO PRN (14:44)
[2017-10-17] MEDS: QUEtiapine 100 MG TAB PO PRN (16:05)
--- NOTE | 2017-10-17 16:58 | P.PN ---
Progress Note - Text Progress Note Date: 10/17/17 Interval history: I reviewed the medical record, interviewed the patient and discuss his treatment and treatment plan during team meeting. He is pleasant on approach and denied current concerns. He alleged that he remains depressed and threatened to cut his throat if he were to leave the hospital. Mental status exam: He presented as a casually groomed and dressed young male who was pleasant on approach. He made eye contact and appeared to attend to the interview. He had a blunted but bright facial expression. He showed no abnormality of psychomotor activity. His speech was dysarthric with normal rate, rhythm and volume. His affect was blunted but stable and appropriate. He expressed suicidal ideation and wishes. He did not express such psychotic symptoms as ideas reference, paranoid ideation or delusional thoughts. His thinking is concrete and associations are coherent and logical. He does not appear to be responding to internal stimuli. Plan: Continue inpatient hospitalization pending the probate hearing. Probate hearing is scheduled for 10/18/2017. Continue current psychotropic medications- Cogentin 2 mg twice a day, Tegretol ex are 300 mg twice a day and Seroquel 250 mg at bedtime. Encourage continued participation in therapeutic groups and activities. Evaluate clinical status response to treatment on a daily basis.
[2017-10-17] MEDS: ACETAMINOPHEN TAB 325 MG TAB PO PRN (17:27)
[2017-10-17] MEDS: QUEtiapine 100 MG TAB PO SCH (20:24)
[2017-10-18] MEDS: ACETAMINOPHEN TAB 325 MG TAB PO PRN (03:29)
[2017-10-18] MEDS: MAG HYDROX/AL HYDROX/SIMETH 30 ML CUP PO PRN (03:29)
[2017-10-18] MEDS: QUEtiapine 100 MG TAB PO PRN (07:14)
[2017-10-18] MEDS: BENZTROPINE MESYLATE 1 MG TAB PO SCH ×2 (08:04→21:39)
[2017-10-18] MEDS: NICOTINE 14MG/24HR PATCH TRANSDERM SCH (08:04)
[2017-10-18] MEDS: carBAMazepine 100 MG TAB.ER.12H PO SCH ×2 (08:05→21:38)
[2017-10-18] MEDS: LORazepam 0.5 MG TAB PO PRN ×2 (15:04→23:44)
--- NOTE | 2017-10-18 17:21 | P.PN ---
Progress Note - Text Progress Note Date: 10/18/17 Interval history: I reviewed the medical record, interviewed the patient and discuss his treatment and treatment plan during team meeting. He had a probate hearing for involuntary substance abuse treatment today. After return to the unit he stated that charge told him he either goes to drug treatment or close to [facility] for 45 days. He was despondent about his predicament. He complained about the administrative and legal oversight. He again stated that when he leaves the hospital he is going to cut his throat or overdosing on medications. When I inquired about his decision regarding treatment or incarceration he stated that he'll go to rehab. Mental status exam: He presented as a casually dressed and groomed young male who was pleasant on approach. He did not make eye contact but appeared to attend to the interview. He showed psychomotor retardation but no abnormal movements. His speech was spontaneous and dysarthric. His affect was dysphoric, irritable, angry, anxious and depressed. He expressed suicidal ideation or wishes. He denied homicidal ideation. He expressed feelings of hopelessness, helplessness but denied worthlessness. He did not express ideas reference, paranoid ideation or delusions. His thinking was concrete and associations were not fully coherent or logical. He denied hallucinations and did not appear to responding to internal stimuli. Plan: Continue inpatient hospitalization pending the probate hearing. Continue current psychotropic medications-Cogentin 2 mg twice a day, Tegretol XR 300 mg twice a day and Seroquel 250 mg at bedtime. Social work to coordinate aftercare services with community mental health. Encourage continued participation in therapeutic groups and activities. Evaluate clinical status response to treatment on a daily basis.
[2017-10-18] MEDS: QUEtiapine 100 MG TAB PO SCH (21:38)
[2017-10-19] MEDS: NICOTINE 14MG/24HR PATCH TRANSDERM SCH (08:06)
[2017-10-19] MEDS: carBAMazepine 100 MG TAB.ER.12H PO SCH ×2 (08:06→20:13)
[2017-10-19] MEDS: BENZTROPINE MESYLATE 1 MG TAB PO SCH ×2 (08:06→20:14)
[2017-10-19] MEDS: LORazepam 0.5 MG TAB PO PRN ×2 (10:44→17:50)
[2017-10-19] MEDS: QUEtiapine 100 MG TAB PO PRN (13:28)
--- NOTE | 2017-10-19 18:04 | PN ---
PROGRESS NOTE DATE OF SERVICE: 10/19/2017 Patient was depressed, he had suicide thoughts of walking into traffic or jumping [place]. He was distressed over issues relating to guardianship. INTERVAL HISTORY: Patient has been doing fair. He had a quiet evening last night. He slept 5.5 hours. Today he has been up. He spends a fair amount of time in his room in bed. He does not interact too much with others. It is noteworthy that he has been attending groups and has been appropriate in groups. There are times such as when he is in his room that he can be quite negative and seemed to have an irritable angry manner. On the other hand, he may attend groups and appear a fairly bright, social, and outgoing. He was not able to clearly indicate things that are affecting his mood other than his feeling about distress with his living situation and that his guardian has control over these issues. He generally has been cooperative with staff. He tolerates his psychotropic medications. MENTAL STATUS: Patient was in his bedroom lying down. He had the covers pulled up over his head. He pulled the covers down briefly to say a few things, though did not say a lot. He had an angry manner and ultimately pulled the covers over his head and stopped talking. I saw him a little bit later at the desk. He did not want to come into the office to talk. He did interact appropriately. He had a calm manner. His affect was a little constricted. His mood was even. At that point, he did not appear to be distressed at all. There was no indication of thought disorder. ASSESSMENT: I will continue the current diagnosis and treatment plan. Will continue to engage the patient in individual and group therapeutic activities. I will continue psychotropic medications the same including Tegretol 300 mg twice a day, Seroquel 250 mg at bedtime and Cogentin 2 mg twice a day. I reviewed medication issues with the patient. We discussed side effects. We will continue to focus on stabilization and discharge planning. I reviewed the medical records and reviewed progress with staff. The patient was interviewed. MARIO / NEEL: [id number] /
[2017-10-19] MEDS: QUEtiapine 100 MG TAB PO SCH (20:14)
[2017-10-20] MEDS: carBAMazepine 100 MG TAB.ER.12H PO SCH ×2 (09:26→20:14)
[2017-10-20] MEDS: BENZTROPINE MESYLATE 1 MG TAB PO SCH ×2 (09:27→20:14)
[2017-10-20] MEDS: LORazepam 0.5 MG TAB PO PRN ×2 (09:27→17:36)
[2017-10-20] MEDS: NICOTINE 14MG/24HR PATCH TRANSDERM SCH ×2 (13:01→16:05)
[2017-10-20] MEDS: QUEtiapine 100 MG TAB PO PRN (16:34)
--- NOTE | 2017-10-20 18:56 | PN ---
PROGRESS NOTE DATE OF SERVICE: 10/20/2017. CHIEF COMPLAINT: The patient was depressed. He had suicide thoughts of walking into traffic or jumping [place] the [place]. He was distressed over issues relating to guardianship. INTERVAL HISTORY: Patient has been doing fair. He had a quiet evening last night. When I asked him how he slept last night, he said he did not sleep at all. The said an angry voice that his Seroquel was cut down to 250 mg at bedtime and usually he takes 800 mg at bedtime. He has been cooperative with basic care. He attends groups sporadically. He can have periods where he can have a fairly good mood, though much of the time he seems to have a disgruntled irritable manner. He spends a fair amount of time in his room if he does not come out to groups. He has not shown any symptoms of EPS or signs of tardive dyskinesia. He tolerates his psychotropic medications. MENTAL STATUS: Patient gave fair eye contact at best. He was restless. He responded to questions though generally made tangential comments. His affect was constricted though he did have an intense manner. His mood was dysphoric. He seems somewhat distressed. ASSESSMENT: I will continue the current diagnosis and treatment plan. I will continue psychotropic medications the same. The patient has been doing fair overall. It does sound like the primary issue relates to discharge planning and placement considerations. I reviewed the medical record and reviewed progress with staff. The patient was interviewed. MARIO / NEEL: [phone] /
[2017-10-20] MEDS: QUEtiapine 100 MG TAB PO SCH (20:13)
[2017-10-21] MEDS: NICOTINE 14MG/24HR PATCH TRANSDERM SCH (08:47)
[2017-10-21] MEDS: BENZTROPINE MESYLATE 1 MG TAB PO SCH ×2 (08:47→20:44)
[2017-10-21] MEDS: LORazepam 0.5 MG TAB PO PRN ×2 (08:49→16:41)
[2017-10-21] MEDS: carBAMazepine 100 MG TAB.ER.12H PO SCH ×4 (09:53→20:44)
--- NOTE | 2017-10-21 10:22 | P.PN ---
Progress Note - Text Interval history: The patient is found in his room he follows me to an interview room. He states he still has plans for killing himself as his guardian will not let him reside where he wants and get a job. He informs me that in court he was told he will either need to go to inpatient chemical dependency treatment or served 45 days in prison. He states he will likely go to rehab. The patient offers no spontaneous speech. Quickly into the interview he becomes acutely agitated. He slams his fists down on the table twice attempts to slam the door as he leaves the room angrily. He was heard slamming his bedroom door. Mental status exam: The patient was initially cooperative and then became acutely agitated. He continues to be angry that he is not able to make his own decisions as there is a guardian in place. He reports continued suicidal thoughts. Eye contact is poor. He has a disheveled appearance. Insight and judgment chronically impaired area he demonstrates no abnormal involuntary movements. He is verbally aggressive and utilizes profanity as he storms out of the room. Plan: The patient is partially complying with medication. He demonstrates antisocial behavior when he becomes angry. He reports being suicidal unless he is able to reside where he wants and gain employment. Vital signs reviewed. I will confer with the treatment team regarding the outcome of his court appearance.
[2017-10-21 11:45] VITALS: BMI 25.9
[2017-10-21] MEDS: QUEtiapine 100 MG TAB PO PRN (14:06)
[2017-10-21] MEDS: QUEtiapine 100 MG TAB PO SCH (20:43)
[2017-10-22] MEDS: carBAMazepine 100 MG TAB.ER.12H PO SCH ×2 (09:50→21:48)
[2017-10-22] MEDS: NICOTINE 14MG/24HR PATCH TRANSDERM SCH (09:50)
[2017-10-22] MEDS: BENZTROPINE MESYLATE 1 MG TAB PO SCH ×2 (09:50→21:48)
--- NOTE | 2017-10-22 11:19 | P.PN ---
Progress Note - Text Interval history: The patient is found in his room he is lying in bed. He refuses to speak in an interview room. He refuses the interview. He states " if you're not going to help me I'm not going to help you" this was followed by several profane statements. Staff report that the patient's has been refusing some of his psychotropic medication. Unfortunately his court hearing was adjourned until next Saturday. Mental status exam: The patient is alert he is lying in bed he has poor eye contact he is verbally agitated he uses profanity frequently during our brief interaction. His room is malodorous. He spontaneously states he has suicidal ideation. He refuses to answer any other questions. Plan: I was informed that the patient's guardian will be meeting with him. He does not have his hearing for a treatment order until next week. He continues to isolate in his room and sleep during the morning he does become more active in the afternoon. We will encourage him to comply with medication participate appropriately in the milieu.
[2017-10-22] MEDS: LORazepam 0.5 MG TAB PO PRN ×2 (13:42→21:47)
[2017-10-22] MEDS: QUEtiapine 100 MG TAB PO PRN (13:42)
[2017-10-22] MEDS: MAG HYDROX/AL HYDROX/SIMETH 30 ML CUP PO PRN (17:50)
[2017-10-22] MEDS: QUEtiapine 100 MG TAB PO SCH (21:46)
[2017-10-23] MEDS: LORazepam 0.5 MG TAB PO PRN ×2 (08:01→18:36)
[2017-10-23] MEDS: NICOTINE 14MG/24HR PATCH TRANSDERM SCH (08:01)
[2017-10-23] MEDS: BENZTROPINE MESYLATE 1 MG TAB PO SCH ×2 (08:02→20:40)
[2017-10-23] MEDS: carBAMazepine 100 MG TAB.ER.12H PO SCH ×2 (08:02→20:39)
--- NOTE | 2017-10-23 10:10 | P.PN ---
Progress Note - Text Interval history: The patient is found in his room. Again he refuses to follow me to an interview room. He refuses to participate in a discussion with me this morning. He quickly blurts statements indicating any suicidal and nothings changing. Social work notes were reviewed. The patient's guardian did meet with him yesterday and appears he will be going to [place] once discharged. If he is discharged prior to that placement date he will need to reside in nursing home until a rehab bed is available. Again the patient's court hearing for a treatment order is not until the . He appears to be intermittently refusing medication. He continues to isolate in his room at least during the morning hours. He does not attend groups. Mental status exam: The patient is alert he is lying in bed he makes no eye contact he provides a few brief responses to questions asked. He speaks very quickly to the point of making it difficult to understand him. He endorses ongoing suicidal thoughts. He refuses to answer any other questions. He demonstrates no physical aggressiveness. Insight and judgment impaired. Intellectual ability chronically limited. Plan: The patient will be offered the same psychotropic medication. We are awaiting the hearing regarding a treatment order. If that order is obtained we will reinitiate the Haldol Decanoate. The patient continues to report suicidal ideation and this is likely being done to facilitate a longer hospital stay. He continues to make the same demands that his guardian is not able to accommodate. We will continue to monitor him for safety. We'll try to get him to engage in the therapeutic milieu at least to some extent.
[2017-10-23] MEDS: ACETAMINOPHEN TAB 325 MG TAB PO PRN (12:55)
[2017-10-23] MEDS: QUEtiapine 100 MG TAB PO PRN (13:04)
[2017-10-23] MEDS: QUEtiapine 100 MG TAB PO SCH (20:38)
[2017-10-24] MEDS: LORazepam 0.5 MG TAB PO PRN ×2 (07:34→16:44)
[2017-10-24] MEDS: NICOTINE 14MG/24HR PATCH TRANSDERM SCH (07:34)
[2017-10-24] MEDS: BENZTROPINE MESYLATE 1 MG TAB PO SCH ×2 (07:36→20:53)
[2017-10-24] MEDS: carBAMazepine 100 MG TAB.ER.12H PO SCH ×2 (07:36→20:53)
--- NOTE | 2017-10-24 11:04 | P.PN ---
Progress Note - Text Interval history: The patient is found in his room he is lying in bed. He cooperates very briefly with the conversation. He quickly states that he suicidal with a plan of cutting his throat if he is discharged. Social work and forming a that inpatient chemical dependency treatment will be available to him as soon as tomorrow but he does have a court hearing we need to wait for on the . The patient states he suicidal because I'm not giving him the correct medication an attempt was made to discuss which medication he is trying to have prescribed. He makes derogatory statements and frequently uses profanity. Mental status exam: The patient is alert he is lying in bed poor eye contact he has a disheveled appearance. He was observed earlier this morning ambulating in the hallway without any ataxia. He describes a depressed mood with suicidal ideation. He states is very quickly almost spontaneously. Speech is quick sometimes difficult to understand because of the speed. Insight and judgment are poor. He does have a chronic intellectual disability. Affect is significantly irritable. Plan: We are waiting the hearing for a treatment order. After which we will initiate the Haldol Decanoate. We will monitor him for safety vital signs reviewed. We would plan to discharge him to inpatient chemical dependency treatment from this facility if possible.
[2017-10-24] MEDS: QUEtiapine 100 MG TAB PO PRN (16:44)
[2017-10-24] MEDS: QUEtiapine 100 MG TAB PO SCH (20:54)
[2017-10-25] MEDS: BENZTROPINE MESYLATE 1 MG TAB PO SCH ×3 (09:00→21:46)
--- NOTE | 2017-10-25 10:27 | P.PN ---
Progress Note - Text Interval history: The patient is found in his room he is lying in bed. He refuses to speak with me in an interview room. He is quickly verbally agitated. He makes derogatory statements and uses profanity. He continues to say the word suicidal 6-7 times in a row spontaneously. He demands Klonopin. He tolerates no further questions and only becomes. Mental status exam: The patient is lying in bed he makes no eye contact. He is awake he is covered with a sheet. As noted he is uncooperative for the interaction. He appears to be in no physical distress. Insight and judgment remain poor. He does not tolerate a discussion today to review our treatment goals and discharge planning. Plan: The patient's will be offered his psychotropic medication. He has been intermittently compliant. Reportedly he does dissipate to a mild extent in groups in the afternoon. He has been eating. He demands using Klonopin. It appears he has been intermittently using Ativan. We will discuss removing the Ativan and providing a different medication and its place for anxiety or agitation. The patient does have inpatient chemical dependency treatment arranged for October 31. We will continue to monitor for safety.
[2017-10-25] MEDS: NICOTINE 14MG/24HR PATCH TRANSDERM SCH ×2 (10:28→10:29)
[2017-10-25] MEDS: carBAMazepine 100 MG TAB.ER.12H PO SCH ×3 (10:29→21:46)
[2017-10-25] MEDS ORDERED: ZIPRASIDONE 20 MG VIAL IM PRN (11:50)
[2017-10-25] MEDS: ACETAMINOPHEN TAB 325 MG TAB PO PRN (12:52)
[2017-10-25] MEDS: OLANZapine ODT 10 MG TAB PO PRN (15:35)
[2017-10-25] MEDS: QUEtiapine 100 MG TAB PO SCH (22:00)
[2017-10-26] MEDS: BENZTROPINE MESYLATE 1 MG TAB PO SCH ×2 (09:42→20:17)
[2017-10-26] MEDS: NICOTINE 14MG/24HR PATCH TRANSDERM SCH (09:42)
[2017-10-26] MEDS: carBAMazepine 100 MG TAB.ER.12H PO SCH ×2 (09:43→20:17)
--- NOTE | 2017-10-26 12:11 | P.PN ---
Progress Note - Text Progress Note Date: 10/26/17 Interval history: Patient seen in cross coverage for Dr. Bean today. He is found in his room lying in bed. He refuses to meet with me today. Mental status exam: Patient is found in his room lying in bed. He refuses to meet with me today. Plan: We'll reattempt to meet with patient tomorrow in [facility] [place].
[2017-10-26] MEDS: ACETAMINOPHEN TAB 325 MG TAB PO PRN (12:58)
[2017-10-26] MEDS: QUEtiapine 100 MG TAB PO SCH (20:15)
[2017-10-27] MEDS: NICOTINE 14MG/24HR PATCH TRANSDERM SCH (08:12)
[2017-10-27] MEDS: BENZTROPINE MESYLATE 1 MG TAB PO SCH ×2 (09:33→21:57)
[2017-10-27] MEDS: carBAMazepine 100 MG TAB.ER.12H PO SCH ×2 (09:34→21:57)
--- NOTE | 2017-10-27 14:31 | P.PN ---
Progress Note - Text Progress Note Date: 10/27/17 Interval history: Patient is found in his room, lying in bed. He is seen in cross coverage today. He refuses to meet with me today. Mental status exam: Patient is found in his room lying in bed. He refuses to meet with me today, makes reference to not being given anything. Plan: Dr. Bean to resume care this patient starting tomorrow. Monitor for any psychotropic medication side effects.
[2017-10-27] MEDS: OLANZapine ODT 10 MG TAB PO PRN (17:42)
[2017-10-27] MEDS: QUEtiapine 100 MG TAB PO SCH (21:01)
[2017-10-28] MEDS: NICOTINE 14MG/24HR PATCH TRANSDERM SCH (08:11)
[2017-10-28] MEDS: carBAMazepine 100 MG TAB.ER.12H PO SCH ×2 (08:12→21:26)
[2017-10-28] MEDS: BENZTROPINE MESYLATE 1 MG TAB PO SCH ×2 (08:12→21:26)
--- NOTE | 2017-10-28 10:54 | P.PN ---
Progress Note - Text Interval history: The patient is found in his room he refuses to meet with me in an interview room. He is dismissive he orders me to leave the room and never come back. He does not wish to discuss other psychotropic medication options. Staff report that the patient's attended some group activity. He does continue to eat. Otherwise he isolates in his room. He did not comply with the interviews over the weekend with Dr. White. He is refusing medication other than Seroquel. It appears he did receive a dose of Zyprexa Zydis over the weekend. I discontinued the Ativan on Saturday. Mental status exam: The patient's lying in bed he makes no eye contact. He is lying calmly in bed. Upon approach he is dismissive he speaks very quickly using profanity. He refuses to answer any questions today. Insight and judgment are limited. Again he continues to use manipulative behavior as he is not getting outcome he is requesting. He demonstrates no abnormal involuntary movements. He demonstrated no physical aggressiveness. Plan: The patient is awaiting his court date on Saturday. If we obtain a treatment order he will be given the Haldol decanoate injection. We will plan to discharge him to rehab on the if clinically appropriate. Vital signs reviewed. He is encouraged to participate in the milieu.
[2017-10-28] MEDS: OLANZapine ODT 10 MG TAB PO PRN (16:31)
[2017-10-28] MEDS: QUEtiapine 100 MG TAB PO SCH (21:07)
[2017-10-29] MEDS: NICOTINE 14MG/24HR PATCH TRANSDERM SCH (08:04)
[2017-10-29] MEDS: carBAMazepine 100 MG TAB.ER.12H PO SCH ×2 (08:05→20:04)
[2017-10-29] MEDS: BENZTROPINE MESYLATE 1 MG TAB PO SCH ×2 (08:05→20:04)
--- NOTE | 2017-10-29 11:17 | P.PN ---
Progress Note - Text Interval history: The patient is found in his room again he refuses an interview. He is quickly dismissive of any questions I ask and resorts to use of derogatory statements. He continues to isolate in his room. He has been utilizing the Zyprexa Zydis in the evening. He continues to refuse Cogentin and Tegretol. Mental status exam: The patient's lying in bed he is in no acute distress. He remains uncooperative with the interview. He does not engage in the opportunity to discuss his current medication or treatment plan. Insight and judgment limited. He demonstrates no physical aggressiveness. He speaks quickly and uses profanity. Affect irritable during our brief interaction otherwise he appears calm prior to our interaction. Plan: The patient's is scheduled for a court hearing tomorrow after which we will initiate the Haldol Decanoate if we are able to obtain a treatment order. We will continue to monitor him for safety. Vital signs reviewed.
[2017-10-29] MEDS: QUEtiapine 100 MG TAB PO PRN (15:03)
[2017-10-29] MEDS: ACETAMINOPHEN TAB 325 MG TAB PO PRN (16:15)
[2017-10-29] MEDS: QUEtiapine 100 MG TAB PO SCH (20:04)
[2017-10-30] MEDS ORDERED: MAG HYDROX/AL HYDROX/SIMETH 30 ML CUP ONE (00:48)
[2017-10-30 06:52] VITALS: RESP 18
[2017-10-30] MEDS: NICOTINE 14MG/24HR PATCH TRANSDERM SCH (08:25)
[2017-10-30] MEDS: carBAMazepine 100 MG TAB.ER.12H PO SCH ×2 (09:31→20:50)
[2017-10-30] MEDS: BENZTROPINE MESYLATE 1 MG TAB PO SCH ×2 (09:31→20:50)
--- NOTE | 2017-10-30 09:56 | P.PN ---
Progress Note - Text Interval history: The patient is found in his room he refuses to speak to me in an interview room. He is aware that he has court this afternoon. He has no questions regarding that proceeding. He does not wish to discuss his psychotropic medication. Again he is partially compliant with his medication. He reports that he did shower yesterday and he has been eating. Mental status exam: The patient's lying in bed he has little eye contact he refuses to speak in an interview room. He is lying in bed in no acute distress. He has no spontaneous speech today he provides 4-5 very brief answers to questions asked. He is demonstrating no verbal or physical aggressiveness this morning no abnormal involuntary movements. Today he does not spontaneously reports suicidal ideation. He continues to report having those thoughts as his demands of the guardian have not been met. Insight and judgment chronically limited. Plan: The patient has a scheduled court hearing today. If we are successful in getting treatment order we will reinitiate Haldol decanoate. He is scheduled to start inpatient chemical dependency treatment tomorrow. We will continue monitoring him for safety. He has not been participating in the milieu although he is encouraged.
[2017-10-30] MEDS: QUEtiapine 100 MG TAB PO PRN (12:38)
--- NOTE | 2017-10-30 13:37 | P.DS ---
Providers Date of admission: 10/08/17 18:31 Expected date of discharge: 10/31/17 Attending physician: Rod Bean Consults: 10/09/17 16:56 Consult Physician Routine Consulting Provider: Isabel Physician Consult Reason/Comments: H and P and medical management Do you want consulting provider notified?: Already Contacted Primary care physician: Stated None - Discharge Diagnosis(es) (1) Depression Current Visit: Yes Status: Acute Priority: High (2) Alcohol use disorder Current Visit: No Status: Acute Priority: High (3) Cannabis use disorder, mild, abuse Current Visit: No Status: Acute Priority: High (4) Amphetamine use disorder, moderate Current Visit: Yes Status: Acute Priority: High Hospital Course: Brief summary of admission note: This patient is a 21-year-old single male who was admitted to the mental health unit through the emergency room for acute suicidal ideation. 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 The patient is well known to our [facility] as an outpatient. He has had numerous admissions over the last few years. He carries a diagnosis of depression, cannabis use disorder , alcohol use disorder and amphetamine use disorder. He presented to the mental health unit with cocaine and marijuana in his urine drug screen. He had recently received a treatment order for substance use. For full details please refer to my psychiatric evaluation dated 10/09/2017. Summary of hospital course: The patient was admitted to the mental health unit involuntarily as he refused to sign in. A second clinical certificate was completed and the patient's court date is scheduled for 10/30/2017. On the mental health unit the patient has been isolative in the morning and would come out and socialize with peers in the afternoon. The patient was uncooperative with most of our interactions. He was very dismissive and would make derogatory statements. The patient is known to have antisocial and borderline personality disorder traits in the context of below average intelligence. He was partially cooperative with prescribed medications. He would consistently comply with the Seroquel but would only intermittently comply with Cogentin and Tegretol. He would use Zyprexa Zydis as needed for feelings of agitation. Our goal is to get the patient back on his outpatient medication regimen which included a Haldol decanoate injection which he refused. After getting the court order we will initiate that medication prior to his discharge. The patient's is scheduled to begin inpatient chemical dependency treatment on 10/[address] ordered. Noncompliance with disorder would likely result in incarceration. The patient did meet with his guardian while on the mental health unit. He was also seen by internal medicine for routine history and physical exam. The patient was participating in meals he was able to shower he did interact with some staff appropriately at times. He required no use of restraints. Mental status exam: Please refer to documentation from 10/31/2017 Impressions 1. Depression unspecified, rule out major depressive disorder, cannabis use disorder, alcohol use disorder, amphetamine use disorder, intellectual disability mild 2. Antisocial and borderline personality disorder traits Plan: The patient will be discharged from mental health unit tomorrow to an inpatient chemical dependency treatment center as directed by the court. The patient will be prescribed Tegretol 300 mg twice daily, Cogentin 2 mg twice daily, Seroquel 200 mg at bedtime, Haldol Decanoate 100 mg every 2 weeks. He will receive an injection of Haldol decanoate [address] order for treatment on 10/30/2018. The patient's indicates to staff that he can keep himself safe at the inpatient chemical intensive treatment center. He will follow up with community mental health afterwards. He is to return to the hospital with any acute safety concerns. Patient Condition at Discharge: Stable Plan - Discharge Summary Discharge Rx Participant: No New Discharge Prescriptions: New Nicotine 14Mg/24Hr Patch [Habitrol] 1 patch TRANSDERM DAILY #10 patch Continue Benztropine Mesylate [Cogentin] 2 mg PO BID #60 tablet carBAMazepine [TEGretol XR] 300 mg PO BID #90 tab.er.12h Haloperidol Decanoate [Haldol D] 100 mg IM Q14D #1 vial QUEtiapine [SEROquel] 200 mg PO HS #30 tab Discharge Medication List Benztropine Mesylate [Cogentin] 2 mg PO BID #60 tablet 10/30/17 [Rx] Haloperidol Decanoate [Haldol D] 100 mg IM Q14D #1 vial 10/30/17 [Rx] Nicotine 14Mg/24Hr Patch [Habitrol] 1 patch TRANSDERM DAILY #10 patch 10/30/17 [ Rx] QUEtiapine [SEROquel] 200 mg PO HS #30 tab 10/30/17 [Rx] carBAMazepine [TEGretol XR] 300 mg PO BID #90 tab.er.12h 10/30/17 [Rx] Follow up Appointment(s)/Referral(s): intake,intake [Other] - 10/31/17 12:00 pm None,Stated [Primary Care Provider] - 1-2 days
[2017-10-30] MEDS ORDERED: HALOPERIDOL DECANOATE 100 MG/ML 1 ML VIAL IM ONE (15:00)
[2017-10-30] MEDS ORDERED: LORazepam 2 MG/ML INJ IM STA (16:17)
[2017-10-30] MEDS ORDERED: QUEtiapine 200 MG TAB PO SCH (21:00)
[2017-10-31 06:46] VITALS: BP 101/50; PULSE 83; TEMP 97.6
[2017-10-31] MEDS: NICOTINE 14MG/24HR PATCH TRANSDERM SCH (08:25)
[2017-10-31] MEDS: BENZTROPINE MESYLATE 1 MG TAB PO SCH (08:25)
[2017-10-31] MEDS: carBAMazepine 100 MG TAB.ER.12H PO SCH (08:25)
--- NOTE | 2017-10-31 10:07 | P.PN ---
Progress Note - Text Progress Note Date: 10/31/17 Interval History: Patient is a 21-year-old male who was to be discharged today and is being seen in coverage for Dr. Bean. Patient is lying in his room in bed and refuses to get up and speak with me. Patient stated to me "I'm not talking to you so fuck it". Patient then stated that he told the doctor yesterday that the medications weren't working. He then responded to several other questions but then stopped talking. Mental Status: Appearance/Attitude: Patient is lying in bed with the sheets and covers pulled over his head refusing to speak with me or make eye contact Behavior: Patient is not currently exhibiting any psychomotor agitation or retardation. Speech/Language: Patient's speech is of normal volume and rhythm and he is coherent Thought Process: Patient is goal-directed Thought Content: Unable to assess as the patient told me he would not speak with me Suicidal/Homicidal Ideation: Patient states that he is not currently suicidal or homicidal Sensorium/Cognition: Patient is alert further assessment was not performed as the patient refused to continue to answer questions or speak with me Mood/Affect: Patient's mood is irritable and his affect is appropriate to his mood Insight/Judgment: Patient's insight and judgment are limited Assessment: Patient was to be discharged to outpatient rehab however the court was contacted this morning to clarify the order and we were told by the court that the patient needs to go to residential to serve 45 days for his content of a court order. Patient will be discharged to residential. Plan: Patient will be discharged to residential as ordered by the court yesterday to serve a sentence of 45 days for being in contempt of a court order. Patient will continue on his Cogentin 2 mg twice a day, Seroquel 200 mg at bedtime, Tegretol 300 mg twice a day and the patient received Haldol long-acting injectable 100 mg on 10/30/2017. Patient will continue on these medications and prescriptions were written for these patient will be followed by [facility].
== END 2017-10-31 14:30 | DRG 881 ==
LOC: EC 16:30 → 3MHU 18:31
PROVIDERS: ADMIT Psychiatry & Neurology Psychiatry; ATTEND Psychiatry & Neurology Psychiatry
DX: F32.9 Major depressive disorder, single episode, unspecified (principal); F15.20 Other stimulant dependence, uncomplicated; R45.851 Suicidal ideations; F12.10 Cannabis abuse, uncomplicated; F10.10 Alcohol abuse, uncomplicated; F60.3 Borderline personality disorder; F60.2 Antisocial personality disorder; B19.20 Unspecified viral hepatitis C without hepatic coma; M25.539 Pain in unspecified wrist; F17.210 Nicotine dependence, cigarettes, uncomplicated; Z71.6 Tobacco abuse counseling; Z79.899 Other long term (current) drug therapy; Z59.0 Homelessness; Z91.5 Personal history of self-harm; Z91.19 Patient's noncompliance with other medical treatment and regimen; W22.8XXA Striking against or struck by other objects, initial encounter
CPT/HCPCS: 80053; 80306; 81003; 82075; 84443; 85027; 93005; 99285

== ENCOUNTER 2018-03-21 22:48 | Inpatient (IN) | payer OTHER ==
[2018-03-22] MEDS ORDERED: SODIUM CHLORIDE 0.9% 1,000 ML IV ONE ×2 (00:53→02:51)
[2018-03-22 01:07] LABS: Amphetamine Screen,Urine Not Detected (NotDetected); Barbiturate Screen,Urine Not Detected (NotDetected); Benzodiazepines Screen,Urine Not Detected (NotDetected); Cocaine Screen,Urine Not Detected (NotDetected); Methadone Screen, Urine Not Detected (NotDetected); Opiate Screen,Urine Not Detected (NotDetected); Oxycodone Screen, Urine Not Detected (NotDetected); Phencyclidine Screen,Urine Not Detected (NotDetected); Tricyclic Antidepressant,Urine Detected (NotDetected); Urn Cannabinoid Scrn Detected (NotDetected)
[2018-03-22 01:09] LABS: ALT 190 U/L (21-72); AST 66 U/L (17-59); Acetaminophen <10.0 ug/mL; Albumin 4.5 g/dL (3.5-5.0); Alcohol <10 mg/dL; Alkaline Phosphatase 105 U/L (38-126); Anion Gap 9 mmol/L; Blood Urea Nitrogen 7 mg/dL (9-20); Calcium 9.6 mg/dL (8.4-10.2); Carbon Dioxide 24 mmol/L (22-30); Chloride 108 mmol/L (98-107); Glucose 92 mg/dL (74-99); Salicylate <1.0 mg/dL; Sodium 141 mmol/L (137-145); Total Bilirubin 0.4 mg/dL (0.2-1.3); Total Protein 7.5 g/dL (6.3-8.2)
--- NOTE | 2018-03-22 01:14 | ED ---
Overdose HPI - General Chief Complaint: Overdose Stated Complaint: suicidal/overdose Time Seen by Provider: 03/21/18 23:24 Source: patient, EMS Mode of arrival: EMS Limitations: altered mental status (Delirium due to drug overdose) - History of Present Illness Initial Comments: This patient is 22-year-old man who states that he took proximally 40-50 tablets of his prescription medications tonight because she was feeling more depressed than usual. MD Complaint: intentional overdose -: hour(s) Intent: suicide attempt - Related Data Home Medications Medication Instructions Recorded Confirmed carBAMazepine [Carbamazepine ER] 300 mg PO BID 03/21/18 03/21/18 Previous Rx's Medication Instructions Recorded Benztropine Mesylate [Cogentin] 2 mg PO BID #60 tablet 10/30/17 Haloperidol Decanoate [Haldol D] 100 mg IM Q14D #1 vial 10/30/17 QUEtiapine [SEROquel] 200 mg PO HS #30 tab 10/30/17 Allergies Allergy/AdvReac Type Severity Reaction Status Date / Time No Known Allergies Allergy Verified 03/21/18 23:11 Review of Systems ROS Statement: Those systems with pertinent positive or pertinent negative responses have been documented in the HPI. ROS Other: All systems not noted in ROS Statement are negative. Constitutional: Denies: fever, weakness Eyes: Denies: vision change Respiratory: Denies: cough, dyspnea Cardiovascular: Denies: chest pain, palpitations, edema, syncope Gastrointestinal: Denies: abdominal pain, nausea, vomiting, diarrhea Genitourinary: Denies: dysuria, hematuria Musculoskeletal: Denies: back pain Skin: Denies: rash Neurological: Denies: headache, weakness Past Medical History Past Medical History: Asthma Additional Past Medical History / Comment(s): Depression, anxiety anti social personality disorder, hepatitis C History of Any Multi-Drug Resistant Organisms: None Reported Past Surgical History: No Surgical Hx Reported Past Anesthesia/Blood Transfusion Reactions: No Reported Reaction Past Psychological History: Anxiety, Bipolar, Depression Smoking Status: Current every day smoker Past Alcohol Use History: None Reported Past Drug Use History: Marijuana - Past Family History Mother Family Medical History: Unable to Obtain Additional Family Medical History / Comment(s): Patient reports that he knows nothing about his family General Exam Limitations: no limitations General appearance: alert, in no apparent distress, anxious Head exam: Present: atraumatic, normocephalic Eye exam: Present: normal appearance, PERRL, EOMI. Absent: scleral icterus, conjunctival injection ENT exam: Present: normal oropharynx Neck exam: Present: normal inspection, full ROM Respiratory exam: Present: normal lung sounds bilaterally. Absent: respiratory distress, wheezes, rales, rhonchi, stridor Cardiovascular Exam: Present: normal rhythm, tachycardia, normal heart sounds. Absent: systolic murmur, diastolic murmur, rubs, gallop GI/Abdominal exam: Present: soft, mass. Absent: distended, tenderness, guarding , rebound Extremities exam: Present: normal inspection, normal capillary refill. Absent: pedal edema, calf tenderness Back exam: Present: normal inspection. Absent: CVA tenderness (R), CVA tenderness (L) Neurological exam: Present: alert Skin exam: Present: warm, dry, intact, normal color. Absent: rash Course Vital Signs 03/21/18 03/22/18 03/22/18 23:04 02:50 03:07 Temperature 98.4 F Pulse Rate 111 H 145 H 175 H Respiratory 16 18 Rate Blood Pressure 121/69 O2 Sat by Pulse 97 Oximetry 03/22/18 03/22/18 03/22/18 03:09 04:21 05:11 Temperature Pulse Rate 131 H 113 H 112 H Respiratory 16 16 Rate Blood Pressure 151/80 123/79 O2 Sat by Pulse 99 99 Oximetry Medical Decision Making - Medical Decision Making Patient is 22-year-old man with overdose of Seroquel. The patient remains delirious and will be admitted to the ICU to observe and ensure there is no respiratory compromise. We have performed multiple ECGs and there has been no prolongation of the intervals. Case discussed with Dr. Oconnor for ICU management. Patient admitted under city call, Dr. Madden. Will have psychiatric consult when the delirium clears. - Lab Data Result diagrams: 03/22/18 00:40 03/22/18 00:40 Lab Results 03/22/18 03/22/18 03/22/18 Range/Units 00:40 00:40 00:40 WBC 8.1 (3.8-10.6) k/uL RBC 4.85 (4.30-5.90) m/uL Hgb 14.1 (13.0-17.5) gm/dL Hct 42.3 (39.0-53.0) % MCV 87.3 (80.0-100.0) fL MCH 29.2 (25.0-35.0) pg MCHC 33.4 (31.0-37.0) g/dL RDW 13.1 (11.5-15.5) % Plt Count 247 (150-450) k/uL Neutrophils % 61 % Lymphocytes % 32 % Monocytes % 5 % Eosinophils % 1 % Basophils % 0 % Neutrophils # 5.0 (1.3-7.7) k/uL Lymphocytes # 2.6 (1.0-4.8) k/uL Monocytes # 0.4 (0-1.0) k/uL Eosinophils # 0.1 (0-0.7) k/uL Basophils # 0.0 (0-0.2) k/uL Sodium 141 (137-145) mmol/L Potassium 4.0 (3.5-5.1) mmol/L Chloride 108 H (98-107) mmol/L Carbon Dioxide 24 (22-30) mmol/L Anion Gap 9 mmol/L BUN 7 L (9-20) mg/dL Creatinine 0.64 L (0.66-1.25) mg/dL Est GFR (CKD-EPI)AfAm >90 (>60 ml/min/1.73 sqM) Est GFR (CKD-EPI)NonAf >90 (>60 ml/min/1.73 sqM) Glucose 92 (74-99) mg/dL Plasma Lactic Acid Vasquez (0.7-2.0) mmol/L Calcium 9.6 (8.4-10.2) mg/dL Total Bilirubin 0.4 (0.2-1.3) mg/dL AST 66 H (17-59) U/L ALT 190 H (21-72) U/L Alkaline Phosphatase 105 (38-126) U/L Total Protein 7.5 (6.3-8.2) g/dL Albumin 4.5 (3.5-5.0) g/dL Salicylates <1.0 mg/dL Urine Opiates Screen Not Detected (NotDetected) Ur Oxycodone Screen Not Detected (NotDetected) Urine Methadone Screen Not Detected (NotDetected) Ur Propoxyphene Screen Not Detected (NotDetected) Acetaminophen <10.0 ug/mL Ur Barbiturates Screen Not Detected (NotDetected) U Tricyclic Antidepress Detected H (NotDetected) Ur Phencyclidine Scrn Not Detected (NotDetected) Ur Amphetamines Screen Not Detected (NotDetected) U Methamphetamines Scrn Not Detected (NotDetected) U Benzodiazepines Scrn Not Detected (NotDetected) Urine Cocaine Screen Not Detected (NotDetected) U Marijuana (THC) Screen Detected H (NotDetected) Serum Alcohol <10 mg/dL 03/22/18 Range/Units 00:40 WBC (3.8-10.6) k/uL RBC (4.30-5.90) m/uL Hgb (13.0-17.5) gm/dL Hct (39.0-53.0) % MCV (80.0-100.0) fL MCH (25.0-35.0) pg MCHC (31.0-37.0) g/dL RDW (11.5-15.5) % Plt Count (150-450) k/uL Neutrophils % % Lymphocytes % % Monocytes % % Eosinophils % % Basophils % % Neutrophils # (1.3-7.7) k/uL Lymphocytes # (1.0-4.8) k/uL Monocytes # (0-1.0) k/uL Eosinophils # (0-0.7) k/uL Basophils # (0-0.2) k/uL Sodium (137-145) mmol/L Potassium (3.5-5.1) mmol/L Chloride (98-107) mmol/L Carbon Dioxide (22-30) mmol/L Anion Gap mmol/L BUN (9-20) mg/dL Creatinine (0.66-1.25) mg/dL Est GFR (CKD-EPI)AfAm (>60 ml/min/1.73 sqM) Est GFR (CKD-EPI)NonAf (>60 ml/min/1.73 sqM) Glucose (74-99) mg/dL Plasma Lactic Acid Vasquez 1.0 (0.7-2.0) mmol/L Calcium (8.4-10.2) mg/dL Total Bilirubin (0.2-1.3) mg/dL AST (17-59) U/L ALT (21-72) U/L Alkaline Phosphatase (38-126) U/L Total Protein (6.3-8.2) g/dL Albumin (3.5-5.0) g/dL Salicylates mg/dL Urine Opiates Screen (NotDetected) Ur Oxycodone Screen (NotDetected) Urine Methadone Screen (NotDetected) Ur Propoxyphene Screen (NotDetected) Acetaminophen ug/mL Ur Barbiturates Screen (NotDetected) U Tricyclic Antidepress (NotDetected) Ur Phencyclidine Scrn (NotDetected) Ur Amphetamines Screen (NotDetected) U Methamphetamines Scrn (NotDetected) U Benzodiazepines Scrn (NotDetected) Urine Cocaine Screen (NotDetected) U Marijuana (THC) Screen (NotDetected) Serum Alcohol mg/dL Critical Care Time Critical Care Time: Yes (40 minutes) Disposition Clinical Impression: Suicidal ideation, Overdose, Delirium Disposition: ADMITTED IP TO THIS [facility] Condition: Serious Referrals: None,Stated [Primary Care Provider] - 1-2 days
[2018-03-22 01:19] LABS: Basophils % (A) 0 %; Eosinophils # (A) 0.1 k/uL (0-0.7); Eosinophils % (A) 1 %; HCT 42.3 % (39.0-53.0); HGB 14.1 gm/dL (13.0-17.5); Lymphocytes # (A) 2.6 k/uL (1.0-4.8); Lymphocytes % (A) 32 %; MCH 29.2 pg (25.0-35.0); MCHC 33.4 g/dL (31.0-37.0); MCV 87.3 fL (80.0-100.0); Mean Platelet Volume 6.5; Monocytes # (A) 0.4 k/uL (0-1.0); Monocytes % (A) 5 %; Neutrophils % (A) 61 %; Platelet Count 247 k/uL (150-450); RBC 4.85 m/uL (4.30-5.90); RDW 13.1 % (11.5-15.5); WBC 8.1 k/uL (3.8-10.6)
[2018-03-22] MEDS ORDERED: LORazepam 2 MG/ML INJ IV STA ×2 (02:51→05:05)
[2018-03-22] MEDS ORDERED: NALOXONE 0.4 MG/ML 1 ML VIAL IV PRN (04:50)
[2018-03-22] MEDS ORDERED: ACETAMINOPHEN TAB 325 MG TAB PO PRN (04:50)
[2018-03-22 06:49] LABS: Glucose,Whole Blood 100 mg/dL (75-99)
[2018-03-22] MEDS: SODIUM CHLORIDE 0.9% 1,000 ML IV SCH ×3 (08:56→22:17)
[2018-03-22] MEDS: FAMOTIDINE 20 MG/2 ML VIAL IV SCH ×2 (08:56→21:53)
--- NOTE | 2018-03-22 09:32 | P.CNPUL ---
History of Present Illness Consult date: 03/22/18 Requesting physician: David Madden Reason for consult: other (Critical care management) Chief complaint: Intentional drug overdose History of present illness: This is a 22-year-old male patient who has a past medical history of major depressive disorder, antisocial personality disorder traits, borderline personality disorder, cannabis use, alcohol use, amphetamine use him a hepatitis C, chronic tobacco dependence. He presented here today by EMS last night for altered mental status and delirium secondary to drug overdose. His estimated he took 40-50 tablets of his prescriptions occasions suspected Seroquel as he was feeling more depressed than usual. He also had previous prescriptions for Haldol, Cogentin and carbamazepine. He was quite somnolent and obtunded. Twelve-lead EKG revealed sinus tachycardia with a QT of 266/QT corrected of 422 ms. He has received 2 L of fluid resuscitation. Currently her 0.9 normal saline at 125 ML's per hour. His he did require 1 mg of Ativan to 50 this morning and 2 mg at 5:00 this morning for agitation and restlessness. He is seen today in consultation. He does arouse to verbal stimuli. Occasional words are clear but most of his speech is garbled at this time. He is moving all 4 extremities. No signs of trauma. He did stand with assistance to urinate. He drifts back off to sleep easily. He is currently maintaining good O2 saturations in the high 90s on room air. Remains slightly tachycardic. Blood pressure 134/77. He has been afebrile. White count 8.1. Hemoglobin 14.1. Creatinine 0.64. AST 66, ALT 190. Urine drug screen positive for tricyclic antidepressants and marijuana. Review of Systems ROS unobtainable: due to mental status Past Medical History Past Medical History: Asthma Additional Past Medical History / Comment(s): Depression, anxiety anti social personality disorder, hepatitis C History of Any Multi-Drug Resistant Organisms: None Reported Past Surgical History: No Surgical Hx Reported Past Anesthesia/Blood Transfusion Reactions: No Reported Reaction Past Psychological History: Anxiety, Bipolar, Depression Smoking Status: Current every day smoker Past Alcohol Use History: None Reported Past Drug Use History: Marijuana - Past Family History Mother Family Medical History: Unable to Obtain Additional Family Medical History / Comment(s): Patient reports that he knows nothing about his family Medications and Allergies Home Medications Medication Instructions Recorded Confirmed Type Benztropine Mesylate [Cogentin] 2 mg PO BID #60 tablet 10/30/17 03/21/18 Rx Haloperidol Decanoate [Haldol D] 100 mg IM Q14D #1 vial 10/30/17 03/21/18 Rx QUEtiapine [SEROquel] 200 mg PO HS #30 tab 10/30/17 03/21/18 Rx carBAMazepine [Carbamazepine ER] 300 mg PO BID 03/21/18 03/21/18 History Allergies Allergy/AdvReac Type Severity Reaction Status Date / Time No Known Allergies Allergy Verified 03/21/18 23:11 Physical Exam Vitals: Vital Signs Temp Pulse Resp BP Pulse Ox 03/22/18 08:00 114 H 11 L 134/77 98 03/22/18 07:30 105 H 21 97 03/22/18 07:00 105 H 18 137/85 96 03/22/18 06:17 115 H 16 133/80 99 03/22/18 05:11 112 H 16 123/79 99 03/22/18 04:21 113 H 03/22/18 03:09 131 H 16 151/80 99 03/22/18 03:07 175 H 03/22/18 02:50 145 H 18 03/21/18 23:04 98.4 F 111 H 16 121/69 97 Intake and Output 03/21/18 03/22/18 03/22/18 22:59 06:59 14:59 Output Total 0 Balance 0 Output: Urine 0 Other: Weight 73.482 kg - Constitutional General appearance: average body habitus, disheveled, mild distress - EENT Eyes: EOMI, PERRLA ENT: hearing grossly normal Ears: bilateral: normal - Neck Neck: normal ROM Carotids: bilateral: upstroke normal Thyroid: bilateral: normal size - Respiratory Respiratory: bilateral: CTA - Cardiovascular Rhythm: regular Heart sounds: normal: S1, S2 - Gastrointestinal General gastrointestinal: normal bowel sounds - Integumentary Integumentary: normal turgor - Neurologic Difficult to assess due to altered mental status. - Musculoskeletal Musculoskeletal: generalized weakness - Psychiatric Altered mental status, sedate. Results - Laboratory Findings CBC and BMP: 03/22/18 00:40 03/22/18 00:40 Abnormal lab findings: Abnormal Labs 03/22/18 03/22/18 03/22/18 00:40 00:40 06:48 Chloride 108 H BUN 7 L Creatinine 0.64 L POC Glucose (mg/dL) 100 H AST 66 H ALT 190 H U Tricyclic Antidepress Detected H U Marijuana (THC) Screen Detected H Assessment and Plan Assessment: Impression: #1 Intentional drug overdose secondary to worsening depression according to ER records. Home medications include carbamazepine 300 mg twice a day, Seroquel 200 mg daily at bedtime, Haldol D1 100 mg IM every 14 days, Cogentin 2 mg by mouth twice a day. Walter well was suspected as the overdose medications of possibly 40-50 tablets. Initial EKG revealed a QTc of 422 ms. #2 history of previous suicidal ideations. #3 History of antisocial personality disorder. #4 History of bipolar disorder with major depression. #5 History of hepatitis C. #6 Chronic tobacco dependence. #7 History of marijuana use. #8 History of alcohol use. #9 History of amphetamine use. Plan: The patient was seen and evaluated by Dr. Oconnor. EKG and labs reviewed. The patient remains quite obtunded. Arousable and moving all fours. Slightly agitated at times. Speech remains garbled. We'll continue to monitor him here closely in the intensive care unit. Sitter is at the bedside. Continue to monitor QT intervals. We will continue to follow and make further recommendations based on his clinical status. I, the cosigning physician, performed a history & physical examination of the patient. Lungs sounds are clear. Maintaining good O2 saturations in the 90s on room air. I discussed the assessment and plan of care with my nurse practitioner, Anna Resendez. I attest to the above note as dictated by her. Time with Patient: Greater than 30
[2018-03-22] MEDS ORDERED: HALOPERIDOL LACTATE 5 MG/ML 1 ML VIAL IVP PRN ×2 (10:45→10:53)
[2018-03-22] MEDS ORDERED: HALOPERIDOL LACTATE 5 MG/ML 1 ML VIAL IVP STA (11:25)
[2018-03-22] MEDS: HALOPERIDOL LACTATE 5 MG/ML 1 ML VIAL IVP PRN ×2 (13:36→22:44)
[2018-03-22] MEDS ORDERED: DIAZEPAM 5 MG/ML 2 ML INJ IM ONE ×2 (14:37→17:17)
[2018-03-22] MEDS ORDERED: DIAZEPAM 5 MG/ML (10 ML MDV) IM ONE (14:45)
--- NOTE | 2018-03-22 15:46 | P.HPIM ---
History of Present Illness 22-year-old the significant psychiatric issues is admitted after overdosing on Seroquel about 40-50 pills patient does not have any significantly prolonged QT his QTC is 422. Patient does have history of hepatitis C not trying to hurt himself is quite a bit depressed because of which she took quite a bit of the Seroquel patient's speech is of normal is having on and off agitation spelled which she is receiving Ativan. Patient has a sitter and psychiatry was consulted urine drug screen is positive for tricyclic antidepressants and marijuana patient will remain in ICU tonight on a monitor. Review of Systems REVIEW OF SYSTEMS: CONSTITUTIONAL: No fever, no malaise, no fatigue. HEENT: No recent visual problems or hearing problems. Denied any sore throat. CARDIOVASCULAR: No chest pain, orthopnea, PND, no palpitations, no syncope. PULMONARY: No shortness of breath, no cough, no hemoptysis. GASTROINTESTINAL: No diarrhea, no nausea, no vomiting, no abdominal pain. Normoactive bowel sounds. NEUROLOGICAL: No headaches, no weakness, no numbness. HEMATOLOGICAL: Denies any bleeding or petechiae. GENITOURINARY: Denies any burning micturition, frequency, or urgency. MUSCULOSKELETAL/RHEUMATOLOGICAL: Denies any joint pain, swelling, or any muscle pain. ENDOCRINE: Denies any polyuria or polydipsia. The rest of the 14-point review of systems is negative. Past Medical History Past Medical History: Asthma Additional Past Medical History / Comment(s): Depression, anxiety anti social personality disorder, hepatitis C History of Any Multi-Drug Resistant Organisms: None Reported Past Surgical History: No Surgical Hx Reported Past Anesthesia/Blood Transfusion Reactions: No Reported Reaction Past Psychological History: Anxiety, Bipolar, Depression Smoking Status: Current every day smoker Past Alcohol Use History: None Reported Past Drug Use History: Marijuana - Past Family History Mother Family Medical History: Unable to Obtain Additional Family Medical History / Comment(s): Patient reports that he knows nothing about his family Medications and Allergies Home Medications Medication Instructions Recorded Confirmed Type Benztropine Mesylate [Cogentin] 2 mg PO BID #60 tablet 10/30/17 03/21/18 Rx Haloperidol Decanoate [Haldol D] 100 mg IM Q14D #1 vial 10/30/17 03/21/18 Rx QUEtiapine [SEROquel] 200 mg PO HS #30 tab 10/30/17 03/21/18 Rx carBAMazepine [Carbamazepine ER] 300 mg PO BID 03/21/18 03/21/18 History Allergies Allergy/AdvReac Type Severity Reaction Status Date / Time No Known Allergies Allergy Verified 03/21/18 23:11 Physical Exam Vitals: Vital Signs Temp Pulse Resp BP Pulse Ox 03/22/18 15:00 89 21 146/43 98 03/22/18 14:00 79 13 138/83 99 03/22/18 13:00 98 13 124/77 97 03/22/18 12:45 13 03/22/18 12:00 98.2 F 93 21 141/72 96 03/22/18 11:00 91 12 136/91 98 03/22/18 10:20 108 H 17 98 03/22/18 10:00 91 15 127/76 97 03/22/18 09:40 92 18 97 03/22/18 09:20 89 18 127/76 98 03/22/18 09:00 104 H 16 131/82 98 03/22/18 08:50 18 03/22/18 08:40 97.8 F 101 H 10 L 97 03/22/18 08:00 114 H 11 L 134/77 98 03/22/18 07:30 105 H 21 97 03/22/18 07:00 105 H 18 137/85 96 03/22/18 06:17 115 H 16 133/80 99 03/22/18 05:11 112 H 16 123/79 99 03/22/18 04:21 113 H 03/22/18 03:09 131 H 16 151/80 99 03/22/18 03:07 175 H 03/22/18 02:50 145 H 18 03/21/18 23:04 98.4 F 111 H 16 121/69 97 Intake and Output 03/22/18 03/22/18 03/22/18 06:59 14:59 22:59 Intake Total 750 Output Total 1900 800 Balance -1150 -800 Intake: IV 750 Sodium Chloride 0.9% 1, 750 000 ml @ 125 mls/hr IV . Q8H [facility] Rx#:[id number] Output: Urine 1900 800 Other: Voiding Method Urinal # Voids 0 1 Weight 73.482 kg PHYSICAL EXAMINATION: GENERAL: The patient is alert and oriented 2-3 but bit confused with garbled speech, not in any acute distress. Well developed, well nourished. HEENT: Pupils are round and equally reacting to light. EOMI. No scleral icterus. No conjunctival pallor. Normocephalic, atraumatic. No pharyngeal erythema. No thyromegaly. CARDIOVASCULAR: S1 and S2 present. No murmurs, rubs, or gallops. PULMONARY: Chest is clear to auscultation, no wheezing or crackles. ABDOMEN: Soft, nontender, nondistended, normoactive bowel sounds. No palpable organomegaly. MUSCULOSKELETAL: No joint swelling or deformity. EXTREMITIES: No cyanosis, clubbing, or pedal edema. NEUROLOGICAL: Gross neurological examination did not reveal any focal deficits. SKIN: No rashes. Results CBC & Chem 7: 03/22/18 00:40 03/22/18 00:40 Labs: Abnormal Lab Results - Last 24 Hours (Table) 03/22/18 03/22/18 03/22/18 Range/Units 00:40 00:40 06:48 Chloride 108 H (98-107) mmol/L BUN 7 L (9-20) mg/dL Creatinine 0.64 L (0.66-1.25) mg/dL POC Glucose (mg/dL) 100 H (75-99) mg/dL AST 66 H (17-59) U/L ALT 190 H (21-72) U/L U Tricyclic Antidepress Detected H (NotDetected) U Marijuana (THC) Screen Detected H (NotDetected) Assessment and Plan Plan: -Intentional overdose on Seroquel: Continue supportive care IV fluids monitor QTC continue with [facility] psychiatric consultation -Bipolar disorder and major depression and suicidal ideations in the past: Management as per psychiatric -History of hepatitis C follow with gastroenterology as an outpatient -Nicotine abuse, marijuana use: Unable to causing him at this time because of his clinical condition
[2018-03-22] MEDS: NICOTINE 14MG/24HR PATCH TRANSDERM SCH (17:44)
[2018-03-22] MEDS: LORazepam 2 MG/ML INJ IV PRN ×2 (20:00→21:52)
[2018-03-23] MEDS: LORazepam 2 MG/ML INJ IV PRN
[2018-03-23] MEDS: HALOPERIDOL LACTATE 5 MG/ML 1 ML VIAL IVP PRN (00:46)
[2018-03-23] MEDS: SODIUM CHLORIDE 0.9% 1,000 ML IV SCH ×3 (02:16→21:04)
[2018-03-23] MEDS: NICOTINE 14MG/24HR PATCH TRANSDERM SCH (09:14)
[2018-03-23] MEDS: FAMOTIDINE 20 MG/2 ML VIAL IV SCH ×2 (09:14→21:03)
--- NOTE | 2018-03-23 13:52 | P.PN ---
Subjective Progress Note Date: 03/23/18 This is a 22-year-old male patient who has a past medical history of major depressive disorder, antisocial personality disorder traits, borderline personality disorder, cannabis use, alcohol use, amphetamine use him a hepatitis C, chronic tobacco dependence. He presented here today by EMS last night for altered mental status and delirium secondary to drug overdose. His estimated he took 40-50 tablets of his prescriptions occasions suspected Seroquel as he was feeling more depressed than usual. He also had previous prescriptions for Haldol, Cogentin and carbamazepine. He was quite somnolent and obtunded. Twelve-lead EKG revealed sinus tachycardia with a QT of 266/QT corrected of 422 ms. He has received 2 L of fluid resuscitation. Currently her 0.9 normal saline at 125 ML's per hour. His he did require 1 mg of Ativan to 50 this morning and 2 mg at 5:00 this morning for agitation and restlessness. He is seen today in consultation. He does arouse to verbal stimuli. Occasional words are clear but most of his speech is garbled at this time. He is moving all 4 extremities. No signs of trauma. He did stand with assistance to urinate. He drifts back off to sleep easily. He is currently maintaining good O2 saturations in the high 90s on room air. Remains slightly tachycardic. Blood pressure 134/77. He has been afebrile. White count 8.1. Hemoglobin 14.1. Creatinine 0.64. AST 66, ALT 190. Urine drug screen positive for tricyclic antidepressants and marijuana. On 03/23/2000 and traversing the suspicion for a follow-up. More alert and responsive and communicating on today's evaluation. Overnight the patient required Haldol, Ativan and Valium where the patient was given a total of 6 mg of Ativan and 10 mg of Valium. This morning he is following commands and answering questions appropriately. No cardiac arrhythmias. Is tolerating his diet. No agitation. No altered mentation. No aspiration. No cough or sputum production. Awaiting psych evaluation Objective - Vital Signs Vital signs: Vital Signs Temp 98.1 F 03/23/18 12:00 Pulse 70 03/23/18 12:00 Resp 18 03/23/18 12:00 BP 93/58 03/23/18 12:00 Pulse Ox 100 12/09/18 12:00 Intake & Output 03/22/18 03/23/18 03/23/18 18:59 06:59 18:59 Intake Total 875 1355 875 Output Total 2700 800 Balance -1825 555 875 Weight 72 kg Intake: IV 875 875 875 Sodium Chloride 0.9% 1, 875 875 875 000 ml @ 125 mls/hr IV . Q8H [facility] Rx#:[id number] Oral 480 Output: Urine 2700 800 Other: Voiding Method Urinal Urinal Urinal # Voids 0 1 - Exam The patient appeared well nourished and normally developed. Vital signs as documented. Head exam is unremarkable. No scleral icterus or corneal arcus noted. Neck is without jugular venous distension, thyromegaly, or carotid bruits. Carotid upstrokes are brisk bilaterally. Lungs are clear to auscultation and percussion. Cardiac exam reveals the PMI to be normally sized and situated. Rhythm is regular. First and second heart sounds normal. No murmurs, rubs or gallops. Abdominal exam reveals normal bowel sounds, no masses , no organomegaly and no aortic enlargement. Extremities are nonedematous and both femoral and pedal pulses are normal. Neurologically awake and alert and the patient has no neurological deficit. Psychiatric evaluation is pending - Labs CBC & Chem 7: 03/22/18 00:40 03/22/18 00:40 Assessment and Plan Plan: #1 Intentional drug overdose secondary to worsening depression according to ER records. No cardiac arrhythmias. The patient is recovering from Seroquel overdose. He did have some altered mentation yesterday and his mentation is very much back to his baseline. No agitation. #2 history of previous suicidal ideations. #3 History of antisocial personality disorder. #4 History of bipolar disorder with major depression. #5 History of hepatitis C. #6 Chronic tobacco dependence. #7 History of marijuana use. #8 History of alcohol use. #9 History of amphetamine use. Plan Keep 24 hour sitter at the bedside. Awaiting psychiatric evaluation. Normal diet. Will restart back his Tegretol and Cogentin. The patient is also taking Haldol D 100 mg IM every 2 weeks . We'll keep in ICU until finally cleared by psychiatry.
--- NOTE | 2018-03-23 15:14 | P.DS ---
Providers Date of admission: 03/22/18 04:50 Attending physician: David Madden Consults: 03/22/18 04:54 Consult Physician Urgent Consulting Provider: Nimisha Oconnor Consult Reason/Comments: overdose Do you want consulting provider notified?: Already Contacted 03/22/18 04:58 Consult Physician Routine Consulting Provider: Rod Bean Consult Reason/Comments: overdose Do you want consulting provider notified?: Yes Primary care physician: Stated None Hospital Course: 22-year-old the significant psychiatric issues is admitted after overdosing on Seroquel about 40-50 pills patient does not have any significantly prolonged QT his QTC is 422. Patient does have history of hepatitis C not trying to hurt himself is quite a bit depressed because of which she took quite a bit of the Seroquel patient's speech is of normal is having on and off agitation spelled which she is receiving Ativan. Patient has a sitter and psychiatry was consulted urine drug screen is positive for tricyclic antidepressants and marijuana patient will remain in ICU tonight on a monitor. 03/23/2018 Patient had multiple agitation episodes last night and received Ativan presently sleeping,. His agitation episodes have come down. Patient QTC is not prolonged. Patient's agitations are probably better managed on psychiatric floor than medical floor I believe he can be discharged medically to psychiatric facility or floor. Discussed with church business administrator PHYSICAL EXAMINATION: GENERAL: Sleeping HEENT: Pupils are round and equally reacting to light. EOMI. No scleral icterus. No conjunctival pallor. Normocephalic, atraumatic. No pharyngeal erythema. No thyromegaly. CARDIOVASCULAR: S1 and S2 present. No murmurs, rubs, or gallops. PULMONARY: Chest is clear to auscultation, no wheezing or crackles. ABDOMEN: Soft, nontender, nondistended, normoactive bowel sounds. No palpable organomegaly. MUSCULOSKELETAL: No joint swelling or deformity. EXTREMITIES: No cyanosis, clubbing, or pedal edema. NEUROLOGICAL: unable to assess SKIN: No rashes. Patient Condition at Discharge: Serious Plan - Discharge Summary New Discharge Prescriptions: No Action Benztropine Mesylate [Cogentin] 2 mg PO BID #60 tablet Haloperidol Decanoate [Haldol D] 100 mg IM Q14D #1 vial QUEtiapine [SEROquel] 200 mg PO HS #30 tab carBAMazepine [Carbamazepine ER] 300 mg PO BID Discharge Medication List Benztropine Mesylate [Cogentin] 2 mg PO BID #60 tablet 10/30/17 [Rx] Haloperidol Decanoate [Haldol D] 100 mg IM Q14D #1 vial 10/30/17 [Rx] QUEtiapine [SEROquel] 200 mg PO HS #30 tab 10/30/17 [Rx] carBAMazepine [Carbamazepine ER] 300 mg PO BID 03/21/18 [History] Follow up Appointment(s)/Referral(s): None,Stated [Primary Care Provider] - 1-2 days Discharge Disposition: TRANSFER TO PSYCH HOSP/UNIT
[2018-03-23] MEDS ORDERED: LORazepam 2 MG/ML INJ IM PRN (17:17)
[2018-03-23] MEDS ORDERED: HALOPERIDOL LACTATE 5 MG/ML 1 ML VIAL IM PRN (17:17)
--- NOTE | 2018-03-23 18:11 | CONS ---
CONSULTATION DATE OF SERVICE/DICTATION: 03/23/2018. IDENTIFYING DATA: This patient is a 22-year-old single male who was admitted to the intensive care unit after he had overdosed with approximately 40-50 Seroquel tablets. HISTORY OF PRESENT ILLNESS: The patient is found seated in a chair in the intensive care unit. He has a safety investigator at bedside. The patient states that he overdosed with numerous Seroquel tablets as he was overwhelmed after an interaction with a female friend. He states at this time, he was not trying to kill himself and he was overdosing, so he could go to sleep and not deal with the stress. The patient is well known to our psychiatric service. He has had numerous inpatient psychiatric hospitalizations. He carries a diagnosis of depression, bipolar versus major depressive disorder, cannabis, and alcohol use disorder, amphetamine use disorder, rule out cocaine use disorder. He is known to have antisocial and borderline personality disorder traits. Staff reports that the patient has been fairly disagreeable. Upon presentation, his Tegretol level was 0. He admits that he was not taking that medication, but was otherwise compliant. He is treated at [facility] for outpatient psychiatric care. He recently received a Haldol Decanoate injection on 03/19/2018. The patient is advocating for discharge immediately. When we discussed that he requires further evaluation, he began using profanity. At this time, the patient is endorsing no homicidal ideation. He is reporting no suicidal ideation. PAST PSYCHIATRIC HISTORY: The patient has had numerous admissions. CURRENT MEDICATION LIST: Based on [facility] records is: Haldol Decanoate 100 mg every 2 weeks, Cogentin 2 mg twice daily. Seroquel 200 mg at bedtime. Tegretol XR 300 mg twice a day. He has been on a multitude of other psychotropic medications in the past. He does have a history of suicide attempts. He reports that he is overseen by the ACT team. PAST MEDICAL HISTORY: None reported. ALLERGIES: No known drug allergies. CHEMICAL DEPENDENCY HISTORY AND SUBSTANCE USE HISTORY: Is extensive. He was recently placed on a court order for substance use. He has been in inpatient chemical dependency treatment numerous times. He reports using a 22 ounce beer at least daily. Urine drug screen was positive for marijuana. He is known to use cocaine, methamphetamine in the past. FAMILY PSYCHIATRIC HISTORY: Unknown. FAMILY CHEMICAL DEPENDENCY: History unknown. SOCIAL HISTORY: The patient is 22 years old. He is single. He has no children. He is unemployed. He has a disability income. He does have a guardian. He reports that he has been staying with his uncle. He has a 10th grade education. He quit school as he states he was no longer interested in his education. He did have special education assistance while in school. LEGAL HISTORY: Is extensive. ABUSE HISTORY: Unknown. MENTAL STATUS EXAM: The patient is a male appearing his stated age. His hair is short. He is shirtless and wearing pajama bottoms as he is seated in a chair. He does have visible tattoos. He has a foul body odor. Eye contact is staring in nature. He initially is more cooperative, but after realizing he could not be released tonight, he becomes more agitated, and uses profanity. He is reporting no current suicidal or homicidal ideation, intent, or plan. He is endorsing no auditory or visual hallucinations currently. The patient does have a history of intellectual disability. Insight and judgment are impaired. He usually operates with concrete reasoning. IMPRESSIONS: 1. Depression unspecified, rule out bipolar disorder versus major depressive disorder. Cannabis use disorder. Alcohol use disorder, amphetamine use disorder. Rule out cocaine use disorder. 2. Antisocial and borderline personality disorder traits. 3. Recent overdose with Seroquel. PLAN OF TREATMENT: The patient has been petitioned. He is currently in the ICU and is being medically cleared. We will continue to follow him while medically admitted. Naturally, we will consider inpatient psychiatric hospitalization. We will discuss the overdose further. He may be appropriate for other services available by [facility] as a transition plan out of the hospital such as a crisis bed at a custodial. He will have a safety investigator at bedside. The case was discussed with nursing staff. The patient has been restarted on his psychotropic medication. MMODL / IJN: [id number] /
[2018-03-23] MEDS: BENZTROPINE MESYLATE 1 MG TAB PO SCH (22:08)
[2018-03-23] MEDS: carBAMazepine 300 MG CPMP.12HR PO SCH (22:09)
[2018-03-24] MEDS: SODIUM CHLORIDE 0.9% 1,000 ML IV SCH ×2 (05:37→09:30)
[2018-03-24] MEDS: FAMOTIDINE 20 MG/2 ML VIAL IV SCH (08:21)
[2018-03-24] MEDS: carBAMazepine 300 MG CPMP.12HR PO SCH (09:27)
[2018-03-24] MEDS: BENZTROPINE MESYLATE 1 MG TAB PO SCH (09:27)
[2018-03-24] MEDS: NICOTINE 14MG/24HR PATCH TRANSDERM SCH (09:27)
[2018-03-24] MEDS: HALOPERIDOL LACTATE 5 MG/ML 1 ML VIAL IVP PRN (10:08)
[2018-03-24] MEDS: LORazepam 2 MG/ML INJ IV PRN ×2 (10:16→12:51)
--- NOTE | 2018-03-24 14:22 | P.CN ---
Psychiatric Consult - . Consult date: 03/24/18 Consult:: 03/24/18 13:34 Overdose of medication Assessment and Plan (1) Overdose Current Visit: Yes Status: Acute Priority: Low Code(s): T50.901A - POISONING BY UNSP DRUG/MEDS/BIOL SUBST, ACCIDENTAL, INIT SNOMED Code(s): 82481788 (2) Depression Narrative/Plan: 22-year-old the significant psychiatric issues is admitted after overdosing on Seroquel about 40-50 pills patient does not have any significantly prolonged QT his QTC is 422. Patient does have history of hepatitis C not trying to hurt himself is quite a bit depressed because of which she took quite a bit of the Seroquel patient's speech is of normal is having on and off agitation spelled which she is receiving Ativan. Patient has a sitter and psychiatry was consulted urine drug screen is positive for tricyclic antidepressants and marijuana patient will remain in ICU tonight on a monitor. Past Medical History Past Medical History: Asthma Additional Past Medical History / Comment(s): Depression, anxiety anti social personality disorder, hepatitis C History of Any Multi-Drug Resistant Organisms: None Reported Past Surgical History: No Surgical Hx Reported Past Anesthesia/Blood Transfusion Reactions: No Reported Reaction Past Psychological History: Anxiety, Bipolar, Depression Smoking Status: Current every day smoker Past Alcohol Use History: None Reported Past Drug Use History: Marijuana - Past Family History Mother Family Medical History: Unable to Obtain Additional Family Medical History / Comment(s): Patient reports that he knows nothing about his family Medications and Allergies Home Medications Medication Instructions Recorded Confirmed Type Benztropine Mesylate [Cogentin] 2 mg PO BID #60 tablet 10/30/17 03/21/18 Rx Haloperidol Decanoate [Haldol D] 100 mg IM Q14D #1 vial 10/30/17 03/21/18 Rx QUEtiapine [SEROquel] 200 mg PO HS #30 tab 10/30/17 03/21/18 Rx carBAMazepine [Carbamazepine ER] 300 mg PO BID 03/21/18 03/21/18 History Allergies Allergy/AdvReac Type Severity Reaction Status Date / Time No Known Allergies Allergy Verified 03/21/18 23:11 HISTORY OF SUBSTANCE ABUSE: He was alert drinking alcohol and using marijuana up until 2 months ago. He denies any current use of any other drugs. PAST PSYCHIATRIC HISTORY: He has a had a 9 admissions at this hospital in the last 9 months in between when he was not admitted to this hospital he has had admissions to other hospitals as such as [facility]. He has been on multiple medications. He was in outpatient care at the [facility] in [place] and he told his psychiatrist that he was going to kill himself so he sent him to emergency room. PAST MEDICAL HISTORY: Please see other notes from this admission. He complains of back pain and is asking for painkillers. FAMILY HISTORY OF PSYCHIATRIC ILLNESSES: He denies a family history of mental illness or suicide but then he stated he really does not know about it. DEVELOPMENTAL HISTORY AND CHILDHOOD: No reports of any developmental delay or history of significant childhood trauma or sexual molestation are known at present. SOCIAL HISTORY, LIVING STATUS AND LEGAL HISTORY: He lives in a fdc at the [facility]. He is unemployed and has no source of income. He is on probation for " minor in possession". REVIEW OF SYSTEMS: 10 systems were reviewed and were negative except as mentioned elsewhere in this note. LABS AND STUDIES: Reviewed in chart. PHYSICAL EXAM: Casual gait is WNL, No evidence of catatonia. Vital signs were reviewed in chart. INTELLECTUAL FUNCTIONING: IQ is estimated to be below average by informal interview. STRENGTHS AND WEAKNESSES: He is a relatively physically healthy. He lives in a fdc. He has had multiple psychiatric hospitalizations. He also is involved with the court for minor in possession. Mental Status Examination - Normal mental status Denies suicidal and homicidal remians depressed 07/23 Discontinue 1:1 A negative clinical certification is in the physical chart Psychiatric recommendations: Highly recommend that the act team intervened and discharge him from the hospital and be seen at community mental health. Thank you for the consult Carmelo Boyer D.O. PhD Current Visit: No Status: Acute Priority: Low Code(s): F32.9 - MAJOR DEPRESSIVE DISORDER, SINGLE EPISODE, UNSPECIFIED SNOMED Code(s): 44227764 (3) Polysubstance abuse Current Visit: No Status: Chronic Priority: Low Code(s): F19.10 - OTHER PSYCHOACTIVE SUBSTANCE ABUSE, UNCOMPLICATED SNOMED Code(s): 804444226 Time with Patient: Less than 30
[2018-03-24 14:25] VITALS: BP 115/73; PULSE 129; RESP 16; TEMP 97.7
--- NOTE | 2018-03-24 15:48 | P.PN ---
Subjective Progress Note Date: 03/24/18 Principal diagnosis: Seroquel overdose This is a 22-year-old male patient who has a past medical history of major depressive disorder, antisocial personality disorder traits, borderline personality disorder, cannabis use, alcohol use, amphetamine use him a hepatitis C, chronic tobacco dependence. He presented here today by EMS last night for altered mental status and delirium secondary to drug overdose. His estimated he took 40-50 tablets of his prescriptions occasions suspected Seroquel as he was feeling more depressed than usual. He also had previous prescriptions for Haldol, Cogentin and carbamazepine. He was quite somnolent and obtunded. Twelve-lead EKG revealed sinus tachycardia with a QT of 266/QT corrected of 422 ms. He has received 2 L of fluid resuscitation. Currently her 0.9 normal saline at 125 ML's per hour. His he did require 1 mg of Ativan to 50 this morning and 2 mg at 5:00 this morning for agitation and restlessness. He is seen today in consultation. He does arouse to verbal stimuli. Occasional words are clear but most of his speech is garbled at this time. He is moving all 4 extremities. No signs of trauma. He did stand with assistance to urinate. He drifts back off to sleep easily. He is currently maintaining good O2 saturations in the high 90s on room air. Remains slightly tachycardic. Blood pressure 134/77. He has been afebrile. White count 8.1. Hemoglobin 14.1. Creatinine 0.64. AST 66, ALT 190. Urine drug screen positive for tricyclic antidepressants and marijuana. On 03/23/2000 and traversing the suspicion for a follow-up. More alert and responsive and communicating on today's evaluation. Overnight the patient required Haldol, Ativan and Valium where the patient was given a total of 6 mg of Ativan and 10 mg of Valium. This morning he is following commands and answering questions appropriately. No cardiac arrhythmias. Is tolerating his diet. No agitation. No altered mentation. No aspiration. No cough or sputum production. Awaiting psych evaluation On 03/24/2018 patient seen in follow-up on medical surgical floor. He is sitting up in the bed, there is a pilot safety inspector at the bedside and a director corporate security outside of the door. Apparently patient is intermittently agitated and at times is physically violent. He is awake and alert, in no acute distress, denies any specific complaints, vital signs are stable. He is on room air, he is responding appropriately, although appears to be a bit agitated, and verbally abusive. Her pulse ox is 96%, no fever no chills, lung sounds are clear. No new chest x-rays. Objective - Vital Signs Vital signs: Vital Signs Temp 97.7 F 03/24/18 14:25 Pulse 129 H 03/24/18 14:25 Resp 16 03/24/18 14:25 BP 115/73 03/24/18 14:25 Pulse Ox 96 03/24/18 14:25 Intake & Output 03/23/18 03/24/18 03/24/18 18:59 06:59 18:59 Intake Total 1800 600 Output Total 1100 Balance 700 600 Intake: IV 1000 0 Sodium Chloride 0.9% 1, 1000 0 000 ml @ 125 mls/hr IV . Q8H AIMEE Rx#:[id number] Oral 800 600 Output: Urine 1100 Other: Voiding Method Urinal Urinal # Voids 1 0 0 - Exam The patient appeared well nourished and normally developed. Vital signs as documented. Head exam is unremarkable. No scleral icterus or corneal arcus noted. Neck is without jugular venous distension, thyromegaly, or carotid bruits. Carotid upstrokes are brisk bilaterally. Lungs are clear to auscultation and percussion. Cardiac exam reveals the PMI to be normally sized and situated. Rhythm is regular. First and second heart sounds normal. No murmurs, rubs or gallops. Abdominal exam reveals normal bowel sounds, no masses , no organomegaly and no aortic enlargement. Extremities are nonedematous and both femoral and pedal pulses are normal. Neurologically awake and alert and the patient has no neurological deficit. Psychiatric evaluation is pending - Labs CBC & Chem 7: 03/22/18 00:40 03/22/18 00:40 Assessment and Plan Plan: Assessments: #1 Intentional drug overdose secondary to worsening depression according to ER records. No cardiac arrhythmias. The patient is recovering from Seroquel overdose. He did have some altered mentation yesterday and his mentation is very much back to his baseline. No agitation. #2 history of previous suicidal ideations. #3 History of antisocial personality disorder. #4 History of bipolar disorder with major depression. #5 History of hepatitis C. #6 Chronic tobacco dependence. #7 History of marijuana use. #8 History of alcohol use. #9 History of amphetamine use. Plan: Patient is stable from pulmonary perspective, no specific complaints, early agitated, pilot safety inspector is at the bedside. No seizures. On room air. Vital signs are stable. No acute events overnight. We will follow on as-needed basis. Anticipate discharge to the inpatient psychiatric unit I performed a history & physical examination of the patient and discussed their management with my nurse practitioner, Heena Brock. I reviewed the nurse practitioner's note and agree with the documented findings and plan of care. Lung sounds are clear. The findings and the impression was discussed with the patient. I attest to the documentation by the nurse practitioner. Time with Patient: Less than 30
[2018-03-24] MEDS ORDERED: FAMOTIDINE 20 MG TAB PO SCH (21:00)
--- NOTE | 2018-03-25 15:17 | P.DS ---
Providers Date of admission: 03/22/18 04:50 Expected date of discharge: 03/24/18 Attending physician: David Madden Consults: 03/22/18 04:54 Consult Physician Urgent Consulting Provider: Nimisha Oconnor Consult Reason/Comments: overdose Do you want consulting provider notified?: Already Contacted 03/22/18 04:58 Consult Physician Routine Consulting Provider: Carmelo Boyer Consult Reason/Comments: overdose Do you want consulting provider notified?: Already Contacted Primary care physician: Stated None Hospital Course: Final Diagnoses: -Intentional overdose on Seroquel -Bipolar disorder and major depression and suicidal ideations in the past: Management as per psychiatric -History of hepatitis C follow with gastroenterology as an outpatient -Nicotine abuse, marijuana use Hospital course: This is a 22-year-old the significant psychiatric issues is admitted after overdosing on Seroquel about 40-50 pills patient does not have any significantly prolonged QT his QTC is 422. Patient does have history of hepatitis C not trying to hurt himself is quite a bit depressed because of which she took quite a bit of the Seroquel patient's speech is of normal is having on and off agitation spelled which she is receiving Ativan. Patient has a sitter and psychiatry was consulted urine drug screen is positive for tricyclic antidepressants and marijuana patient, initially in ICU. QTC not prolonged. Significant clinical improvement.Evaluated by both psychiatry and welding systems and equipment repairer. Cleared by welding systems and equipment repairer for discharge. Patient is being discharged to mental health unit. EXAMINATION: GENERAL: Alert and oriented 3, no acute distress CARDIOVASCULAR: S1 and S2 present. No murmurs, rubs, or gallops. PULMONARY: Chest is clear to auscultation, no wheezing or crackles. ABDOMEN: Soft, nontender, nondistended, normoactive bowel sounds. No palpable organomegaly. NEUROLOGICAL: unable to assess The impression and plan of care has been dictated as directed. : I performed a history and examination of this patient, discussed the same with the dictator. I agree with the dictator's note ,documented as a scribe. Any additional findings or plans will be noted. Time taken: 35 minutes Patient Condition at Discharge: Stable Plan - Discharge Summary New Discharge Prescriptions: No Action Benztropine Mesylate [Cogentin] 2 mg PO BID #60 tablet Haloperidol Decanoate [Haldol D] 100 mg IM Q14D #1 vial QUEtiapine [SEROquel] 200 mg PO HS #30 tab carBAMazepine [Carbamazepine ER] 300 mg PO BID Discharge Medication List Benztropine Mesylate [Cogentin] 2 mg PO BID #60 tablet 10/30/17 [Rx] Haloperidol Decanoate [Haldol D] 100 mg IM Q14D #1 vial 10/30/17 [Rx] QUEtiapine [SEROquel] 200 mg PO HS #30 tab 10/30/17 [Rx] carBAMazepine [Carbamazepine ER] 300 mg PO BID 03/21/18 [History] Follow up Appointment(s)/Referral(s): None,Stated [Primary Care Provider] - 1-2 days Patient Instructions/Handouts: Help Prevent Suicide (DC) Discharge Disposition: TRANSFER TO PSYCH HOSP/UNIT
== END 2018-03-24 17:03 | DRG 918 ==
LOC: EC 22:48 → 2SICU 03-22 04:50 → 4MS4W 03-23 21:47
PROVIDERS: ADMIT Hospitalist; ATTEND Hospitalist
DX: T43.592A Poisoning by other antipsychotics and neuroleptics, intentional self-harm, initial encounter (principal); F05 Delirium due to known physiological condition; J45.909 Unspecified asthma, uncomplicated; Z79.899 Other long term (current) drug therapy; F79 Unspecified intellectual disabilities; F60.2 Antisocial personality disorder; F41.9 Anxiety disorder, unspecified; B18.2 Chronic viral hepatitis C; F10.10 Alcohol abuse, uncomplicated; F12.10 Cannabis abuse, uncomplicated; F15.10 Other stimulant abuse, uncomplicated; F17.210 Nicotine dependence, cigarettes, uncomplicated; F31.9 Bipolar disorder, unspecified; F60.3 Borderline personality disorder; Z91.5 Personal history of self-harm; R45.1 Restlessness and agitation; Z56.0 Unemployment, unspecified; Z65.3 Problems related to other legal circumstances
CPT/HCPCS: 36415; 80053; 80156; 80178; 80306; 80320; 83520; 83605; 85025; 93005; 96361; 96374; 96376; 99291

== ENCOUNTER 2018-08-29 06:39 | Emergency (ER) | payer OTHER ==
[2018-08-29 07:01] VITALS: RESP 16
--- NOTE | 2018-08-29 07:33 | ED ---
Psych HPI - General Chief Complaint: Psychiatric Symptoms Stated Complaint: mental health Time Seen by Provider: 08/29/18 07:00 Source: patient, police, RN notes reviewed Mode of arrival: ambulatory - History of Present Illness Initial Comments: This is a 22-year-old male history depression who is brought in by police under petition he is suicidal and also wanted to kill his roommate. He states his folic is for long time over 6 years he states the medications are working. He denies any drugs or alcohol. He does not seem to have any particular plan on how to kill himself. MD Complaint: suicidal ideation, feels depressed, other - Related Data Home Medications Medication Instructions Recorded Confirmed Divalproex ER [Depakote ER] 1,000 mg PO DAILY 08/29/18 08/29/18 Ibuprofen [Motrin Ib] 200 mg PO Q4H PRN 08/29/18 08/29/18 [place] Carbonate 600 mg PO DAILY 08/29/18 08/29/18 QUEtiapine FUMARATE [SEROquel] 300 mg PO HS 08/29/18 08/29/18 Previous Rx's Medication Instructions Recorded Benztropine Mesylate [Cogentin] 2 mg PO BID #60 tablet 10/30/17 Haloperidol Decanoate [Haldol D] 100 mg IM Q14D #1 vial 10/30/17 Allergies Allergy/AdvReac Type Severity Reaction Status Date / Time No Known Allergies Allergy Verified 08/29/18 07:09 Review of Systems ROS Statement: Those systems with pertinent positive or pertinent negative responses have been documented in the HPI. ROS Other: All systems not noted in ROS Statement are negative. Past Medical History Past Medical History: Asthma Additional Past Medical History / Comment(s): Depression, anxiety anti social personality disorder, hepatitis C History of Any Multi-Drug Resistant Organisms: None Reported Past Surgical History: No Surgical Hx Reported Past Anesthesia/Blood Transfusion Reactions: No Reported Reaction Past Psychological History: Anxiety, Bipolar, Depression Smoking Status: Current every day smoker Past Alcohol Use History: None Reported Past Drug Use History: Marijuana - Past Family History Mother Family Medical History: Unable to Obtain Additional Family Medical History / Comment(s): Patient reports that he knows nothing about his family General Exam - General Exam Comments Initial Comments: This a well-developed well-nourished awake alert oriented times 3 male Limitations: no limitations General appearance: alert, anxious Head exam: Present: atraumatic, normocephalic, normal inspection Eye exam: Present: normal appearance, PERRL, EOMI. Absent: scleral icterus, conjunctival injection, periorbital swelling ENT exam: Present: normal exam, mucous membranes moist Neck exam: Present: normal inspection. Absent: tenderness, meningismus, lym phadenopathy Respiratory exam: Present: normal lung sounds bilaterally. Absent: respiratory distress, wheezes, rales, rhonchi, stridor Cardiovascular Exam: Present: regular rate, normal rhythm, normal heart sounds. Absent: systolic murmur, diastolic murmur, rubs, gallop, clicks GI/Abdominal exam: Present: soft, normal bowel sounds. Absent: distended, tenderness, guarding, rebound, rigid Extremities exam: Present: normal inspection, full ROM, normal capillary refill. Absent: tenderness, pedal edema, joint swelling, calf tenderness Back exam: Present: normal inspection Neurological exam: Present: alert, oriented X3, CN II-XII intact Psychiatric exam: Present: depressed, anxious, homicidal ideation, suicidal ideation Skin exam: Present: warm, dry, intact, normal color. Absent: rash Course Vital Signs 08/29/18 06:46 Temperature 98 F Pulse Rate 85 Respiratory 16 Rate Blood Pressure 115/68 O2 Sat by Pulse 99 Oximetry Medical Decision Making - Medical Decision Making The patient was evaluated by the psychiatric service/[facility] found not to be a risk to himself or anyone else he currently has suicidal he'll be discharged to a friend's house as he is homeless at this time. I do agree with the assessment and plan - Lab Data Lab Results 08/29/18 Range/Units 08:20 Urine Opiates Screen Not Detected (NotDetected) Ur Oxycodone Screen Not Detected (NotDetected) Urine Methadone Screen Not Detected (NotDetected) Ur Propoxyphene Screen Not Detected (NotDetected) Ur Barbiturates Screen Not Detected (NotDetected) U Tricyclic Antidepress Not Detected (NotDetected) Ur Phencyclidine Scrn Not Detected (NotDetected) Ur Amphetamines Screen Detected H (NotDetected) U Methamphetamines Scrn Not Detected (NotDetected) U Benzodiazepines Scrn Not Detected (NotDetected) Urine Cocaine Screen Not Detected (NotDetected) U Marijuana (THC) Screen Detected H (NotDetected) Disposition Clinical Impression: Adjustment reaction, Substance abuse Disposition: HOME SELF-CARE Condition: Good Instructions (If sedation given, give patient instructions): Mood Disorders (ED), Cannabis Abuse (ED) Is patient prescribed a controlled substance at d/c from ED?: No Referrals: None,Stated [Primary Care Provider] - 1-2 days
[2018-08-29 08:44] LABS: Amphetamine Screen,Urine Detected (NotDetected); Barbiturate Screen,Urine Not Detected (NotDetected); Benzodiazepines Screen,Urine Not Detected (NotDetected); Cocaine Screen,Urine Not Detected (NotDetected); Methadone Screen, Urine Not Detected (NotDetected); Opiate Screen,Urine Not Detected (NotDetected); Oxycodone Screen, Urine Not Detected (NotDetected); Phencyclidine Screen,Urine Not Detected (NotDetected); Tricyclic Antidepressant,Urine Not Detected (NotDetected); Urn Cannabinoid Scrn Detected (NotDetected)
[2018-08-29] MEDS ORDERED: LORazepam 1 MG TAB PO STA ×2 (12:59→13:28)
[2018-08-29 14:05] VITALS: BP 112/70; PULSE 78; TEMP 97.9
== END 2018-08-29 14:04 | disposition home or self-care (01) ==
LOC: EC 06:39
DX: F43.21 Adjustment disorder with depressed mood (principal); F19.10 Other psychoactive substance abuse, uncomplicated; R45.850 Homicidal ideations; R45.851 Suicidal ideations; F31.9 Bipolar disorder, unspecified; F41.9 Anxiety disorder, unspecified; F17.200 Nicotine dependence, unspecified, uncomplicated; Z79.899 Other long term (current) drug therapy; Z59.0 Homelessness
CPT/HCPCS: 80306; 82075; 99285

== ENCOUNTER 2019-04-02 14:33 | Inpatient (IN) | payer MEDICAID, OTHER ==
--- NOTE | 2019-04-02 15:35 | ED ---
General Adult HPI - General Chief complaint: Psychiatric Symptoms Stated complaint: Petitioned Source: patient, RN notes reviewed, old records reviewed Mode of arrival: ambulatory Limitations: no limitations - History of Present Illness Initial comments: this is a 23-year-old male who presents emergency Department with the . 's petition the patient because he told him he wanted to kill himself. Patient states to me he does want to kill himself and he is very angry and doesn't really want to expand on why he is depressed at this time. Patient states every time he is admitted to the hospital they never give him enough medicines when he believes. Patient states he either wants to cut his throat or headache himself. Patient states he has done nothing today to harm himself. Patient denies any drug or alcohol use. - Related Data Home Medications Medication Instructions Recorded Confirmed Divalproex ER [Depakote ER] 1,000 mg PO DAILY 08/29/18 08/29/18 Ibuprofen [Motrin Ib] 200 mg PO Q4H PRN 08/29/18 08/29/18 [place] Carbonate 600 mg PO DAILY 08/29/18 08/29/18 QUEtiapine FUMARATE [SEROquel] 300 mg PO HS 08/29/18 08/29/18 Previous Rx's Medication Instructions Recorded Benztropine Mesylate [Cogentin] 2 mg PO BID #60 tablet 10/30/17 Haloperidol Decanoate [Haldol D] 100 mg IM Q14D #1 vial 10/30/17 Allergies Allergy/AdvReac Type Severity Reaction Status Date / Time No Known Allergies Allergy Verified 04/02/19 14:45 Review of Systems ROS Statement: Those systems with pertinent positive or pertinent negative responses have been documented in the HPI. ROS Other: All systems not noted in ROS Statement are negative. Past Medical History Past Medical History: Asthma Additional Past Medical History / Comment(s): Depression, anxiety anti social personality disorder, hepatitis C History of Any Multi-Drug Resistant Organisms: None Reported Past Surgical History: No Surgical Hx Reported Past Anesthesia/Blood Transfusion Reactions: No Reported Reaction Past Psychological History: Anxiety, Bipolar, Depression Smoking Status: Current every day smoker Past Alcohol Use History: None Reported Past Drug Use History: Marijuana - Past Family History Mother Family Medical History: Unable to Obtain Additional Family Medical History / Comment(s): Patient reports that he knows nothing about his family General Exam - General Exam Comments Initial Comments: GENERAL: Patient is well-developed and well-nourished. Patient is nontoxic and well- hydrated and is in no acute distress. ENT: Neck is soft and supple. No significant lymphadenopathy is noted. Oropharynx is clear. Moist mucous membranes. Neck has full range of motion without eliciting any pain. EYES: The sclera were anicteric and conjunctiva were pink and moist. Extraocular movements were intact and pupils were equal round and reactive to light. Eyelids were unremarkable. PULMONARY: Unlabored respirations. Good breath sounds bilaterally. No audible rales rhonchi or wheezing was noted. CARDIOVASCULAR: There is a regular rate and rhythm without any murmurs gallops or rubs. ABDOMEN: Soft and nontender with normal bowel sounds. No palpable organomegaly was noted. There is no palpable pulsatile mass. SKIN: Skin is clear with no lesions or rashes and otherwise unremarkable. NEUROLOGIC: Patient is alert and oriented x3. Cranial nerves II through XII are grossly intact. Motor and sensory are also intact. Normal speech, volume and content. Symmetrical smile. MUSCULOSKELETAL: Normal extremities with adequate strength and full range of motion. LYMPHATICS: No significant lymphadenopathy is noted PSYCHIATRIC: patient is angry and states he is suicidal. Limitations: no limitations Course Vital Signs 04/02/19 14:42 Temperature 97.9 F Pulse Rate 94 Respiratory 20 Rate Blood Pressure 135/75 O2 Sat by Pulse 97 Oximetry Medical Decision Making - Medical Decision Making EPS evaluated the patient and determined the patient needed to be admitted. I did fill out a clinical certification on the patient. - Lab Data Lab Results 04/02/19 Range/Units 15:30 Urine Opiates Screen Not Detected (NotDetected) Ur Oxycodone Screen Not Detected (NotDetected) Urine Methadone Screen Not Detected (NotDetected) Ur Propoxyphene Screen Not Detected (NotDetected) Ur Barbiturates Screen Not Detected (NotDetected) U Tricyclic Antidepress Not Detected (NotDetected) Ur Phencyclidine Scrn Not Detected (NotDetected) Ur Amphetamines Screen Detected H (NotDetected) U Methamphetamines Scrn Detected H (NotDetected) U Benzodiazepines Scrn Not Detected (NotDetected) Urine Cocaine Screen Not Detected (NotDetected) U Marijuana (THC) Screen Detected H (NotDetected) Disposition Clinical Impression: Methamphetamine abuse, Depressed, Suicidal ideation Disposition: ADMITTED IP TO THIS HOSP Referrals: None,Stated [Primary Care Provider] - 1-2 days Time of Disposition: 18:18
[2019-04-02 15:55] LABS: Cocaine Screen,Urine Not Detected (NotDetected); Phencyclidine Screen,Urine Not Detected (NotDetected); Urn Cannabinoid Scrn Detected (NotDetected)
[2019-04-02 15:56] LABS: Amphetamine Screen,Urine Detected (NotDetected); Barbiturate Screen,Urine Not Detected (NotDetected); Benzodiazepines Screen,Urine Not Detected (NotDetected); Methadone Screen, Urine Not Detected (NotDetected); Opiate Screen,Urine Not Detected (NotDetected); Oxycodone Screen, Urine Not Detected (NotDetected); Tricyclic Antidepressant,Urine Not Detected (NotDetected)
[2019-04-02] MEDS ORDERED: ZIPRASIDONE 20 MG VIAL IM PRN (19:17)
[2019-04-02] MEDS ORDERED: MAGNESIUM HYDROXIDE 2,400 MG/10 ML CUP PO PRN (19:17)
--- NOTE | 2019-04-02 20:49 | P.MDCNMH ---
History of Present Illness H&P Date: 04/02/19 Chief Complaint: suicidal ideation, homeless 23-year-old male with no significant past medical history patient has history of bipolar disorder and schizophrenia patient is homeless currently staying with his uncle, he admits to history of bipolar disorder and overwhelming depression however he doesn't take any medications at home as he thinks they don't work anyways. He admits to daily smoking and daily alcohol use. He also admits to using weed. He currently denies any physical complaints he has superficial cuts over his left forearm. As he was attempting suicide today. Otherwise he currently denies any fevers chills coughing upper respiratory infection like symptoms chest pain trouble breathing abdominal pain nausea vomiting denies any changes in his urinary or bowel habits. Patient reports that he still feeling suicidal at time of interview. Review of Systems Pertinent positives as noted in HPI. All other systems were reviewed and are negative Past Medical History Past Medical History: Asthma Additional Past Medical History / Comment(s): Depression, anxiety anti social personality disorder, hepatitis C History of Any Multi-Drug Resistant Organisms: None Reported Past Surgical History: No Surgical Hx Reported Past Anesthesia/Blood Transfusion Reactions: No Reported Reaction Past Psychological History: Anxiety, Bipolar, Depression Smoking Status: Current every day smoker Past Alcohol Use History: None Reported Past Drug Use History: Marijuana - Past Family History Mother Family Medical History: Unable to Obtain Additional Family Medical History / Comment(s): Patient reports that he knows nothing about his family Medications and Allergies Home Medications Medication Instructions Recorded Confirmed Type Benztropine Mesylate [Cogentin] 2 mg PO BID #60 tablet 10/30/17 04/02/19 Rx Haloperidol Decanoate [Haldol D] 100 mg IM Q14D #1 vial 10/30/17 04/02/19 Rx Divalproex ER [Depakote ER] 1,000 mg PO DAILY 08/29/18 04/02/19 History Ibuprofen [Motrin Ib] 200 mg PO Q4H PRN 08/29/18 04/02/19 History [place] Carbonate 600 mg PO DAILY 08/29/18 04/02/19 History QUEtiapine FUMARATE [SEROquel] 300 mg PO HS 08/29/18 04/02/19 History Allergies Allergy/AdvReac Type Severity Reaction Status Date / Time No Known Allergies Allergy Verified 04/02/19 19:47 Physical Exam Vitals: Vital Signs Temp Pulse Resp BP Pulse Ox 04/02/19 14:42 97.9 F 94 20 135/75 97 Intake and Output 04/02/19 04/02/19 04/02/19 06:59 14:59 22:59 Other: Weight 72.575 kg Constitutional: No acute distress, conversant, pleasant Eyes: Anicteric sclerae, moist conjunctiva, no lid-lag Pupils equal round reactive to light ENMT: NC/AT Oropharynx clear, no erythema, exudates Neck: Supple, FROM, no masses, or JVD No carotid bruits No thyromegaly Lungs: Clear to auscultation Clear to percussion Normal respiratory effort, no accessory muscle use Cardiovascular: Heart regular in rate and rhythm, No murmurs, gallops, or rubs No peripheral edema Abdominal: Soft Nontender, no guarding, rebound or rigidity Abdomen moving with respiration Normoactive bowel sounds No hepatomegaly, No splenomegaly No palpable mass No abdominal wall hernia noted Skin: multiple superficial cuts over the ventral aspect of the left forearm otherwise Normal temperature, tone, texture, turgor slight erythema over the left neck base from the back. The small open papule no drainage no induration no warmth to the touch no tenderness patient admits on picking on his skin No induration No subcutaneous nodules No ulcers Extremities: No digital cyanosis No clubbing Pedal pulses intact and symmetrical Radial pulses intact and symmetrical No calf tenderness Psychiatric: Alert and oriented to person, place and time Appropriate affect poor judgment Neuro Muscles Strength 5/5 in all 4 extremities Sensation to light touch grossly present throughout Cranial nerves II-XII grossly intact No focal sensory deficits Lymphatics: no palpable cervical or supraclavicular , or inguinal lymph nodes Cranial Nerve Examination - Cranial Nerves Cranial Nerve II- Optic: Intact Cranial Nerve III- Oculomotor: Intact Cranial Nerve IV- Trochlear: Intact Cranial Nerve V- Trigeminal: Intact Cranial Nerve - Abducens: Intact Cranial Nerve VII- Facial: Intact Cranial Nerve VIII- Auditory: Intact Cranial Nerve IX- Glossopharyngeal: Intact Cranial Nerve X- Vagus: Intact Cranial Nerve XI- Accessory: Intact Cranial Nerve XII- Hypoglossal: Intact Results Labs: Abnormal Lab Results - Last 24 Hours (Table) 04/02/19 Range/Units 15:30 Ur Amphetamines Screen Detected H (NotDetected) U Methamphetamines Scrn Detected H (NotDetected) U Marijuana (THC) Screen Detected H (NotDetected) Assessment and Plan Assessment: 23-year-old male with history of bipolar disorder and schizophrenia comes in today for suicidal ideation. Patient was attempting to hang himself. He also admits to daily alcohol intake Medicine was consulted for medical management he currently denies any medical c oncerns. Plan: suicidal ideation Bipolar disorder History of schizophrenia Management per psych Tobacco smoking abuse Patient counseled to quit smoking nicotine replacement therapy offered Daily alcohol intake Polysubstance abuse Monitor for alcohol withdrawal symptoms Thiamine twice a day Low risk for DVT patient is ambulatory Follow-up labs Thank you for allowing us to participate in the care of this patient. We will follow peripherally. Do not hesitate to contact us with questions. Someone can be reached from the [facility] hospitalist group at all hours of the day at [phone].
[2019-04-02] MEDS: QUEtiapine 100 MG TAB PO SCH (22:48)
[2019-04-02] MEDS: BENZTROPINE MESYLATE 1 MG TAB PO SCH (22:48)
[2019-04-02] MEDS: NICOTINE 21MG/24HR PATCH TRANSDERM SCH ×2 (22:48→22:52)
[2019-04-03] MEDS: DIVALPROEX ER 500 MG TAB.ER.24H PO SCH ×2 (10:32→10:49)
[2019-04-03] MEDS: BENZTROPINE MESYLATE 1 MG TAB PO SCH ×2 (10:32→20:52)
[2019-04-03] MEDS: NICOTINE 21MG/24HR PATCH TRANSDERM SCH (10:32)
--- NOTE | 2019-04-03 15:12 | P.HP ---
Psychiatric H&P - . H&P Date: 04/03/19 History & Physical: Allergies Allergy/AdvReac Type Severity Reaction Status Date / Time No Known Allergies Allergy Verified 04/02/19 19:47 Vital Signs Temp 98.6 F 04/03/19 01:37 Pulse 111 H 04/03/19 01:37 Resp 15 04/03/19 01:37 BP 103/55 04/03/19 01:37 Pulse Ox 97 04/03/19 01:37 Intake & Output 04/02/19 04/03/19 04/03/19 18:59 06:59 18:59 Weight 72.575 kg 67.4 kg Laboratory Last Values Urine Opiates Screen Not Detected (NotDetected) 04/02/19 15:30 Ur Oxycodone Screen Not Detected (NotDetected) 04/02/19 15:30 Urine Methadone Screen Not Detected (NotDetected) 04/02/19 15:30 Ur Propoxyphene Screen Not Detected (NotDetected) 04/02/19 15:30 Ur Barbiturates Screen Not Detected (NotDetected) 04/02/19 15:30 U Tricyclic Antidepress Not Detected (NotDetected) 04/02/19 15:30 Ur Phencyclidine Scrn Not Detected (NotDetected) 04/02/19 15:30 Ur Amphetamines Screen Detected (NotDetected) H 04/02/19 15:30 U Methamphetamines Scrn Detected (NotDetected) H 04/02/19 15:30 U Benzodiazepines Scrn Not Detected (NotDetected) 04/02/19 15:30 Urine Cocaine Screen Not Detected (NotDetected) 04/02/19 15:30 U Marijuana (THC) Screen Detected (NotDetected) H 04/02/19 15:30 04/03/19 14:54 IDENTIFYING DATA: Patient is a 23-year-old male who is currently homeless and living with his uncle at times and has a public guardian. HPI: Patient presented to the hospital and was accompanied by who also petition patient. As per petition states that "he wants to hang himself" and "mentioned the desire to cut his throat". Patient has extensive history of mental illness and polysubstance abuse and has been admitted to the mental health unit several times in the past. Patient was seen today at the bedside and appeared to be very agitated and swore at magazine writer several times telling him to leave the room. Patient was illogical/hyperverbal and made vague threats to end his life including wanting to cut his throat and also claims that he was homicidal towards others. He stated that he is currently homeless and he got kicked out of his uncle's house however does not give further details. He spoke about not having money. Patient admitted to smoking marijuana recently however he denies any other drug use. Patient's UDS was positive for methamphetamine and marijuana. Patient became more agitated during the interview and eventually jumped up out of his bed and approached the magazine writer in a threatening manner however was able to be redirected back to his bed by staff. At this time patient denies any auditory or visual hallucinations. Patient admits to using alcohol regularly and also smokes cigarettes daily. PAST PSYCHIATRIC HISTORY: Patient has been admitted to the mental health unit several times in the past, last admission was in 10/2017. Patient has a history of depressive disorder, bipolar disorder, antisocial personality and is previously been on Seroquel 300 mg daily at bedtime, lithium 600 mg daily, Depakote ER 1000 mg daily at bedtime, and also has been on Haldol Decanoate 100 mg every 14 days. Patient admitted to multiple suicide attempts in the past. He denies any outpatient follow-up. Patient claims that his last Haldol Decanoate injection was over 3 weeks ago. PMH: Asthma and hepatitis C ALLERGIES: as per EMR CHEMICAL DEPENDENCY HISTORY: as per HPI FAMILY PSYCHIATRIC/SUBSTANCE USE HISTORY: denies SOCIAL HISTORY: unable to assess due to patient's agitation. MENTAL STATUS EXAM: General Appearance: Patient appears to be stated age, is irritable/agitated and withdrawn and isolated in his room. Patient has the blankets covering his face. He has facial tattoos and poor hygiene and grooming. Behavior: Patient is laying in his bed and is agitated. Speech: Patient's speech is rapid and threatening. Mood/Affect: Patient reports their mood is depressed and anxious, affect is congruent and labile. Suicidality/Homicidality: Patient admits to both suicidal and homicidal ideations, no intent or plan. Perceptions: Patient denies any auditory or visual hallucinations. Though content/process: Illogical/tangential, bizarre and aggressive. Disorganized thought process. Memory and concentration: AOX2, patient does not know the date and is uncooperative with cognitive exam. Judgment and insight: poor/impulsive STRENGTHS/WEAKNESSES: strength is that patient is resilient, weaknesses that patient has chronic mental illness and polysubstance abuse INTELLECT: Below average IMPRESSIONS: Mood disorder unspecified, rule out substance-induced mood disorder Methamphetamine/stimulant abuse Cannabis use disorder Alcohol use disorder Nicotine dependence Antisocial traits PLAN: -Patient is admitted under involuntary status to [facility] for stabilization of psychiatric symptoms and safety. Patient refused to sign adult voluntary form and medication consent and is placed in patient's chart. A second certification is completed on patient and will be faxed to probate court. -Medications : Will start patient on Haldol liquid 4 mg twice a day for psychosis, will also start Cogentin 1 mg twice a day for EPS prophylaxis. Will start lithium 300 mg twice a day for mood stabilization. we'll restart Seroquel 300 mg daily at bedtime for mood stabilization/insomnia. -It is unclear when patient last received his Haldol Decanoate 100 mg injection. Patient was taking this dose every 14 days in the past. Will likely need this prior to discharge. -Ativan and Geodon PRN for agitation/aggression -Started thiamine, MVM for etoh use -Recycling Technician spoke with patient about medications and their potential benefits versus the risks. -NRT - nicotine patch -SW on board for discharge planning. will attempt offer inpatient substance- abuse rehab upon discharge. 04/03/19 15:11 04/03/19 15:12
[2019-04-03] MEDS: LITHIUM CARBONATE 300 MG CAP PO SCH (20:52)
[2019-04-03] MEDS: QUEtiapine 100 MG TAB PO SCH (20:52)
[2019-04-03] MEDS: HALOPERIDOL ORAL SOLN 10 MG/5 ML CUP PO SCH (21:23)
[2019-04-04] MEDS: HALOPERIDOL ORAL SOLN 10 MG/5 ML CUP PO SCH ×3 (09:57→20:50)
[2019-04-04] MEDS: BENZTROPINE MESYLATE 1 MG TAB PO SCH ×2 (09:57→20:49)
[2019-04-04] MEDS: NICOTINE 21MG/24HR PATCH TRANSDERM SCH (09:58)
[2019-04-04] MEDS: LITHIUM CARBONATE 300 MG CAP PO SCH ×2 (09:58→20:49)
--- NOTE | 2019-04-04 15:15 | P.PN ---
Progress Note - Text Progress Note Date: 04/04/19 interval history: Patient is seen in cross coverage today. He seems to be sleeping and eating okay. He relates that he is not taking the Haldol liquid. He relates that he does take the Haldol injection his last dose was due on this past Saturday. He inquires regarding being on Adderall. He says he has attended 3 groups since he has been on the unit. He is encouraged regarding attending groups. Mental status exam: He is alert and cooperative with coming to the interview room. He does describe depressed mood and relays that he continues to have some thoughts of suicide. He does not verbalize any specific suicidal plan. He does not make any statements about harm to others.he does show some irritability does not display any significant agitation. Plan: Patient will be maintained on current psychotropic medication regimen. We'll continue to monitor for any medication side effects and monitor regarding any suicidal ideations. We will try to obtain has most recent medication record to verify when he last received a Haldol injection. He states that he is not taking the Haldol liquid as he doesn't like the way it tastes.
[2019-04-04] MEDS: QUEtiapine 100 MG TAB PO SCH (20:49)
[2019-04-05] MEDS: MELATONIN 3 MG TABLET PO SCH ×2 (00:49→19:58)
[2019-04-05] MEDS: LITHIUM CARBONATE 300 MG CAP PO SCH ×2 (10:23→19:58)
[2019-04-05] MEDS: BENZTROPINE MESYLATE 1 MG TAB PO SCH ×2 (10:23→19:58)
[2019-04-05] MEDS: HALOPERIDOL ORAL SOLN 10 MG/5 ML CUP PO SCH (10:23)
[2019-04-05] MEDS: NICOTINE 21MG/24HR PATCH TRANSDERM SCH (10:23)
--- NOTE | 2019-04-05 15:45 | P.PN ---
Progress Note - Text Progress Note Date: 04/05/19 interval history: Patient is seen in cross coverage today. He reports that he just got out of a group. He makes reference to drinking bleach when he gets out of here. He relates he's having some ongoing thoughts of suicide. He makes reference to not being able to see his child.he relays is not drinking the oral liquid Haldol because he doesn't like the taste with. He is agreeable to take an oral pill. We are in the process of confirming his Haldol Decanoate schedule. Mental status exam: He is alert and cooperative with the interview. He makes reference to his mood being a -10. He reports some ongoing thoughts of suicide, makes reference to drinking bleach when he gets out of here. He does not verbalize any thoughts of harm to others. He does not verbalize any hallucinations.does not show any significant degree of agitation. Plan: We'll substitute oral pill form of Haldol for the liquid form which she is not taking due to the taste. He is agreeable to take the oral pill. We are confirming his schedule of Haldol Decanoate. Maintain other current psychotropic medication regimen. Continue to monitor for any medication side effects.
[2019-04-05] MEDS: HALOPERIDOL 2 MG TAB PO SCH (19:58)
[2019-04-05] MEDS: QUEtiapine 100 MG TAB PO SCH (19:58)
[2019-04-06] MEDS: LITHIUM CARBONATE 300 MG CAP PO SCH ×2 (13:15→20:52)
[2019-04-06] MEDS: BENZTROPINE MESYLATE 1 MG TAB PO SCH ×2 (13:15→20:52)
[2019-04-06] MEDS: HALOPERIDOL 2 MG TAB PO SCH ×2 (13:16→20:52)
[2019-04-06] MEDS: NICOTINE 21MG/24HR PATCH TRANSDERM SCH (13:49)
[2019-04-06] MEDS: ACETAMINOPHEN TAB 325 MG TAB PO PRN ×2 (16:59→22:42)
--- NOTE | 2019-04-06 17:00 | P.PN ---
Subjective Progress Note Date: 04/06/19 Chief complaint: "I still feel very depressed " Subjective: The patient has been seen today as follow-up, chart reviewed, case discussed with the treatment team. Patient patient continues to report feeling "" horrible. The patient reports poor sleep at night. He reports lack of desire to live anymore and reports having suicidal ideations with plans to drink bleach. The patient reports feelings of hopelessness and helplessness. He reports feeling increasingly anxious and he is easily agitated. The patient reports compliance with his medications. The patient has been demanding Ritalin. Then denied he became angry and slammed the door and left Objective - Vital Signs Vital signs: Vital Signs Temp 97.9 F 04/06/19 07:14 Pulse 72 04/06/19 07:14 Resp 16 04/06/19 07:14 BP 96/50 04/06/19 07:14 Pulse Ox 97 04/03/19 01:37 Intake & Output 04/05/19 04/06/19 04/06/19 18:59 06:59 18:59 Weight 68.6 kg - Exam Mental Status Exam: General Appearance: Patient appears to be stated age is alert, directable. minimum Behavior: Poor eye contact and appears restless and agitated Speech: Abrupt loud and pressured Mood/Affect: "Horrible" affect is agitated Suicidality/Homicidality: Patient reports suicidal with plan. Perceptions: Patient denies any auditory or visual hallucinations. Though content/process: There is no evidence of any delusional thought content and thought process is linear and goal-directed. Memory and concentration: Unable to assess Judgment and insight: Poor Assessment and Plan Assessment: Bipolar disorder depressed episode Plan: Plan: -Patient continues to meet criteria for inpatient psychiatric admission for symptom stabilization and safety. Patient has signed adult voluntary form and medication consent and was placed in patient's chart. One to one supportive limit setting. -Medications: Continue current medications. Will check lithium levels in a.m. -NRT -not needed as patient does not smoke -SW on board for discharge planning.
[2019-04-06] MEDS: MELATONIN 3 MG TABLET PO SCH (20:52)
[2019-04-06] MEDS: QUEtiapine 100 MG TAB PO SCH (20:52)
[2019-04-07] MEDS: HALOPERIDOL 2 MG TAB PO SCH ×2 (08:41→20:32)
[2019-04-07] MEDS: BENZTROPINE MESYLATE 1 MG TAB PO SCH ×2 (08:41→20:32)
[2019-04-07] MEDS: LITHIUM CARBONATE 300 MG CAP PO SCH ×2 (08:41→20:32)
[2019-04-07] MEDS: NICOTINE 21MG/24HR PATCH TRANSDERM SCH (08:41)
--- NOTE | 2019-04-07 13:54 | P.PN ---
Subjective Chief complaint: "I still feel very depressed " Subjective: The patient has been seen today as follow-up, chart reviewed, case discussed with the treatment team. The patient was seen wandering and pacing in the hallway. The patient refused to answer any questions. He appeared anxious and easily agitated as well as irritable. The patient was swearing and was difficult to be redirected. The patient has been compliant with his medications but refused a lithium level this morning. Objective - Vital Signs Vital signs: Vital Signs Temp 97.7 F 04/07/19 06:35 Pulse 80 04/07/19 06:35 Resp 16 04/07/19 06:35 BP 94/50 04/07/19 06:35 Pulse Ox 97 04/03/19 01:37 - Exam Mental Status Exam: General Appearance: Patient appears to be stated age is alert. Behavior: Poor eye contact and appears restless and agitated Speech: Abrupt loud and pressured Mood/Affect: " you" affect is agitated Suicidality/Homicidality: Patient has reported suicidal with plan. Perceptions: Patient had denied any auditory or visual hallucinations. Though content/process: There is no evidence of any delusional thought content and thought process is linear and goal-directed. Memory and concentration: Unable to assess Judgment and insight: Poor Assessment and Plan Assessment: Bipolar disorder depressed episode Plan: Plan: -Patient continues to meet criteria for inpatient psychiatric admission for symptom stabilization and safety. Patient has signed adult voluntary form and medication consent and was placed in patient's chart. One to one supportive limit setting. -Medications: Continue current medications. Encourage compliance. Will check lithium levels in a.m. -NRT -not needed as patient does not smoke -SW on board for discharge planning.
[2019-04-07] MEDS: QUEtiapine 100 MG TAB PO SCH (20:32)
[2019-04-07] MEDS: MELATONIN 3 MG TABLET PO SCH (20:32)
[2019-04-08] MEDS: NICOTINE 21MG/24HR PATCH TRANSDERM SCH (08:29)
[2019-04-08] MEDS: LITHIUM CARBONATE 300 MG CAP PO SCH ×2 (08:29→20:43)
[2019-04-08] MEDS: HALOPERIDOL 2 MG TAB PO SCH ×2 (08:29→20:42)
[2019-04-08] MEDS: BENZTROPINE MESYLATE 1 MG TAB PO SCH ×2 (08:29→20:43)
--- NOTE | 2019-04-08 15:10 | P.PN ---
Subjective Progress Note Date: 04/08/19 Chief complaint: "I still feel very depressed " Subjective: The patient has been seen today in his room as follow-up, chart reviewed, case discussed with the treatment team. The patient refused to come into the office for the follow-up and refused to answer any questions when he was seen in his room. The patient was increasingly agitated irritable and swearing. The patient for me to get out of his room. As per staff the patient has been refusing to attend an immediate therapy but has been compliant with his medications. The patient refused his blood drawn again this morning. The patient remain paranoid but refused to answer any questions about suicidal thoughts. The patient reports lack of insight and impaired judgment Objective - Vital Signs Vital signs: Vital Signs Temp 97.7 F 04/07/19 06:35 Pulse 91 04/07/19 20:34 Resp 16 04/07/19 06:35 BP 137/78 04/07/19 20:34 Pulse Ox 97 04/03/19 01:37 - Exam Mental Status Exam: General Appearance: Patient appears to be stated age and is alert. Behavior: Poor eye contact and appears restless and agitated Speech: Abrupt loud and pressured Mood/Affect: " you" affect is agitated Suicidality/Homicidality: Patient has reported suicidal ideation with plan. Perceptions: Patient had denied any auditory or visual hallucinations. Though content/process: There is no evidence of any delusional thought content and thought process is linear and goal-directed. Memory and concentration: Unable to assess Judgment and insight: Poor Assessment and Plan Assessment: Bipolar disorder depressed episode Plan: Plan: -Patient continues to meet criteria for inpatient psychiatric admission for symptom stabilization and safety. Patient has signed adult voluntary form and medication consent and was placed in patient's chart. One to one supportive limit setting. -Medications: Continue current medications. Encourage compliance. Will check lithium levels in a.m. -NRT -not needed as patient does not smoke -SW on board for discharge planning.
[2019-04-08] MEDS: QUEtiapine 100 MG TAB PO SCH (20:43)
[2019-04-08] MEDS: MELATONIN 3 MG TABLET PO SCH (20:43)
[2019-04-08] MEDS ORDERED: MELATONIN 3 MG TABLET PO STA (23:04)
[2019-04-09] MEDS: BENZTROPINE MESYLATE 1 MG TAB PO SCH ×3 (10:34→20:30)
[2019-04-09] MEDS: NICOTINE 21MG/24HR PATCH TRANSDERM SCH ×2 (10:34→10:43)
[2019-04-09] MEDS: LITHIUM CARBONATE 300 MG CAP PO SCH ×3 (10:34→20:30)
[2019-04-09] MEDS: HALOPERIDOL 2 MG TAB PO SCH ×3 (10:34→20:30)
--- NOTE | 2019-04-09 11:08 | P.PN ---
Progress Note - Text Progress Note Date: 04/09/19 Interval History: Patient was seen in his room today and refused to get out of the bed. Patient covered himself with his blankets and continues to be irritable and vulgar in his tone of voice. Patient swore I proposal manager writer several times demanding him to leave the room. Patient claimed that "I don't want anything from you leave me alone". Patient also stated that he wanted to overdose on bleach when he leaves the hospital. He states that he's been up for meals has been taking his medications. Patient did state that "you guys are trying to kill me with her medicines, and kill my liver". Patient was informed about court tomorrow and patient refused to answer any other questions regarding auditory or visual hallucinations and paranoia. Mental Status Exam: General Appearance: Patient appears to be stated age, is irritable and withdrawn/isolated in his room. Patient has the blankets covering his face. He has facial tattoos and poor hygiene and grooming. Behavior: Patient is laying in his bed and is agitated. Speech: Patient's speech is threatening. Mood/Affect: Patient reports their mood is depressed, affect is labile. Suicidality/Homicidality: Patient admits to suicidal ideations with a plan to drink bleach and denies any homicidal ideations, no intent or plan. Perceptions: Patient denies any auditory or visual hallucinations. Though content/process: Illogical/tangential, bizarre and aggressive. Disorganized thought process. Memory and concentration: AOX2, uncooperative with cognitive exam. Judgment and insight: poor/impulsive Assessment Mood disorder unspecified, rule out substance-induced mood disorder Methamphetamine/stimulant abuse Cannabis use disorder Alcohol use disorder Nicotine dependence Antisocial traits Plan: -Patient continues to meet criteria for inpatient psychiatric admission for symptom stabilization and safety. Patient refused to sign adult voluntary form and medication consent form. Patient has court date scheduled for tomorrow at 10 AM. -Medications: Will increase Haldol to 6 mg twice a day for psychosis. Continue with Cogentin 1 mg twice a day for EPS prophylaxis. We'll continue with lithium 300 mg twice a day for mood stabilization. Will order lithium level for tomorrow. Continue with Seroquel 300 mg daily at bedtime for mood stabilization last insomnia. -It is unclear when patient last received his Haldol Decanoate 100 mg injection. Patient was taking this dose every 14 days in the past. Will likely need this prior to discharge. -Continue with thiamine, multivitamin for chronic alcohol use. -When necessary Geodon and Ativan for agitation/aggression. -NRT - nicotine patch -SW on board for discharge planning. We'll attempt to continue to offer patient inpatient substance abuse rehab upon discharge. Court scheduled for tomorrow at 10 AM.
[2019-04-09 15:14] VITALS: BMI 23.0
[2019-04-09] MEDS: MELATONIN 3 MG TABLET PO SCH (20:29)
[2019-04-09] MEDS: QUEtiapine 100 MG TAB PO SCH (20:29)
[2019-04-10] MEDS: BENZTROPINE MESYLATE 1 MG TAB PO SCH ×2 (10:43→20:35)
[2019-04-10] MEDS: NICOTINE 21MG/24HR PATCH TRANSDERM SCH (10:44)
[2019-04-10] MEDS: LITHIUM CARBONATE 300 MG CAP PO SCH (10:44)
[2019-04-10] MEDS: HALOPERIDOL 2 MG TAB PO SCH ×2 (10:44→20:35)
--- NOTE | 2019-04-10 12:03 | P.PN ---
Progress Note - Text Progress Note Date: 04/10/19 Interval History: Patient was seen in his room today again after returning from court and refused to get out of the bed and was continuing to be hostile/argumentative with bid writer. Patient continues to cover himself with his blankets and continues to be irritable and vulgar. Patient swore several times at bid writer and demanded him to leave. Patient was able to answer a few questions about the court/senior field service engineer's order stating that "I got 100 days". Patient has been refusing to attend groups and to leave his room. Patient threatened bid writer several times during the interview and continues to claim that he wanted to overdose on bleach when he leaves the hospital. He states that he's been up for meals has been taking his medications. Patient did state that "my meds aren't working anymore". Patient refused to answer any other questions regarding auditory or visual hallucinations and paranoia. Mental Status Exam: General Appearance: Patient appears to be stated age, is irritable and withdrawn/isolated in his room. Patient has the blankets covering his face. He has facial tattoos and poor hygiene and grooming. Behavior: Patient is laying in his bed and is agitated. Speech: Patient's speech is threatening and rapid. Mood/Affect: Patient reports their mood is depressed, affect is labile. Suicidality/Homicidality: Patient admits to suicidal ideations with a plan to drink bleach and denies any homicidal ideations, no intent or plan. Perceptions: Patient denies any auditory or visual hallucinations. Though content/process: Illogical/tangential, bizarre and aggressive. Disorganized thought process. Memory and concentration: AOX2, uncooperative with cognitive exam. Judgment and insight: poor/impulsive Assessment Mood disorder unspecified, rule out substance-induced mood disorder Methamphetamine/stimulant abuse Cannabis use disorder Alcohol use disorder Nicotine dependence Antisocial traits Plan: -Patient continues to meet criteria for inpatient psychiatric admission for symptom stabilization and safety. Patient refused to sign adult voluntary form and medication consent form. Patient has court date scheduled for tomorrow at 10 AM. -Medications: Will continue with Haldol to 6 mg twice a day for psychosis. Continue with Cogentin 1 mg twice a day for EPS prophylaxis. We'll increase lithium 300 mg + 600mg a day for mood stabilization. Patient is continuing to refuse/decline lithium level blood draw. Continue with Seroquel 300 mg daily at bedtime for mood stabilization last insomnia, this may be increased over the weekend. We'll add Zoloft 50 mg daily for her mood/anxiety. -It is unclear when patient last received his Haldol Decanoate 100 mg injection. Patient was taking this dose every 14 days in the past. Will likely need this prior to discharge. -Continue with thiamine, multivitamin for chronic alcohol use. -When necessary Geodon and Ativan for agitation/aggression. -NRT - nicotine patch -SW on board for discharge planning. Patient declined inpatient substance abuse rehab upon discharge and will continue to offer this option to patient. Patient is currently homeless. Patient consented to treatment order today in court.
[2019-04-10] MEDS ORDERED: SERTRALINE 50 MG TAB PO SCH (12:15)
[2019-04-10] MEDS: ACETAMINOPHEN TAB 325 MG TAB PO PRN (16:40)
[2019-04-10] MEDS: MELATONIN 3 MG TABLET PO SCH (20:34)
[2019-04-10] MEDS: LITHIUM CARBONATE 150 MG CAP PO SCH (20:35)
[2019-04-10] MEDS: SERTRALINE 50 MG TAB PO SCH (20:35)
[2019-04-10] MEDS: QUEtiapine 100 MG TAB PO SCH (20:35)
[2019-04-10] MEDS: MAG HYDROX/AL HYDROX/SIMETH 30 ML CUP PO PRN (22:16)
[2019-04-11] MEDS: HALOPERIDOL 2 MG TAB PO SCH ×2 (08:21→20:35)
[2019-04-11] MEDS: BENZTROPINE MESYLATE 1 MG TAB PO SCH ×2 (08:21→20:34)
[2019-04-11] MEDS: NICOTINE 21MG/24HR PATCH TRANSDERM SCH (08:21)
[2019-04-11] MEDS: LITHIUM CARBONATE 150 MG CAP PO SCH ×2 (08:21→20:34)
[2019-04-11] MEDS: MAG HYDROX/AL HYDROX/SIMETH 30 ML CUP PO PRN (15:06)
--- NOTE | 2019-04-11 16:21 | P.PN ---
Progress Note - Text Progress Note Date: 04/11/19 Subjective: Patient was seen today as a cross coverage for Dr. Erlin bosch was evaluated, chart reviewed, case discussed with the treatment team. Patient reported interrupted sleep, and according to chart review patient slept about 3 hours last night. Appetite was reported as " fine Patient has been going to groups and other unit activities. The patient is compliant with his medications and denies any adverse reactions. Patient reports feeling better emotionally after started taking his medication. He reports Seroquel helping his asleep but still had trouble sleeping and waking up frequently. Patient reports is still feeling depressed and sometimes feeling suicidal, but denies any plan or intent to hurt self. He denies any severe mood swings, paranoid ideation, hallucinations or homicidal ideation. Patient denies physical symptoms including chest pain, shortness of breath, constipation, diarrhea, or urinary problems. Objective: Vitals has been reviewed. Mental status examination; General Appearance: Patient appears to be stated age, is withdrawn/isolated in his room. Patient has the blankets covering his face. He has facial tattoos and poor hygiene and grooming. Behavior: Patient was superficially cooperative. Speech: Patient's speech is not pressured. Mood/Affect: Patient reports their mood is depressed, affect is labile. Suicidality/Homicidality: Patient admits to suicidal ideations but denies plan, and denies any homicidal ideations, no intent or plan. Perceptions: Patient denies any auditory or visual hallucinations. Though content/process: Illogical/tangential. Disorganized thought process. Memory and concentration: AOX3 Judgment and insight: Limited Assessment: Mood disorder unspecified, rule out substance-induced mood disorder Methamphetamine/stimulant abuse Cannabis use disorder Alcohol use disorder Nicotine dependence Antisocial traits Plan: Continue inpatient level of care due to further need for stabilization on psychiatric medications. Precautions: Continue 15 minutes check for safety. Consider medical consultation if any acute medical issues arise. Provide the patient individual, group therapy, substance use disorder counseling to give better insight and learn coping skills. Medications: Continue Haldol 6 mg twice daily for psychotic symptoms. Continue Cogentin 1 mg twice daily to prevent EPS. Continue Seroquel and increase the dose to 400 mg at bedtime to help with psychotic symptoms and sleep problems. Continue Zoloft 50 mg daily at bedtime for depression and anxiety. Continue melatonin 20 mg at bedtime to help with insomnia. Discharge patient to OUTPATIENT services upon a stabilization
[2019-04-11] MEDS: ACETAMINOPHEN TAB 325 MG TAB PO PRN (18:38)
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
[2019-04-11] MEDS: SERTRALINE 50 MG TAB PO SCH (20:34)
[2019-04-11] MEDS: QUEtiapine 400 MG TAB PO SCH (20:34)
[2019-04-11] MEDS: MELATONIN 3 MG TABLET PO SCH (20:35)
[2019-04-12] MEDS: NICOTINE 21MG/24HR PATCH TRANSDERM SCH (10:05)
[2019-04-12] MEDS: LITHIUM CARBONATE 150 MG CAP PO SCH ×2 (10:05→20:12)
[2019-04-12] MEDS: BENZTROPINE MESYLATE 1 MG TAB PO SCH ×2 (10:05→20:13)
[2019-04-12] MEDS: HALOPERIDOL 2 MG TAB PO SCH ×2 (10:06→20:11)
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
[2019-04-12] MEDS: QUEtiapine 400 MG TAB PO SCH (20:12)
[2019-04-12] MEDS: MELATONIN 3 MG TABLET PO SCH (20:13)
[2019-04-12] MEDS: SERTRALINE 50 MG TAB PO SCH (20:13)
[2019-04-13] MEDS: NICOTINE 21MG/24HR PATCH TRANSDERM SCH (10:21)
[2019-04-13] MEDS: HALOPERIDOL 2 MG TAB PO SCH ×2 (10:21→21:15)
[2019-04-13] MEDS: BENZTROPINE MESYLATE 1 MG TAB PO SCH ×2 (10:21→21:15)
[2019-04-13] MEDS: LITHIUM CARBONATE 150 MG CAP PO SCH ×2 (10:22→21:16)
[2019-04-13] MEDS ORDERED: IBUPROFEN 400 MG TAB PO PRN (11:36)
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
[2019-04-13] MEDS: SERTRALINE 50 MG TAB PO SCH (21:16)
[2019-04-13] MEDS: QUEtiapine 400 MG TAB PO SCH (21:16)
[2019-04-13] MEDS: MELATONIN 3 MG TABLET PO SCH (21:16)
[2019-04-14] MEDS: BENZTROPINE MESYLATE 1 MG TAB PO SCH ×2 (11:45→20:48)
[2019-04-14] MEDS: NICOTINE 21MG/24HR PATCH TRANSDERM SCH ×2 (11:45→14:22)
[2019-04-14] MEDS: LITHIUM CARBONATE 150 MG CAP PO SCH ×2 (11:45→20:48)
[2019-04-14] MEDS: HALOPERIDOL 2 MG TAB PO SCH ×2 (11:45→20:47)
[2019-04-14] MEDS ORDERED: HALOPERIDOL DECANOATE 100 MG/ML 1 ML VIAL IM STA (13:42)
--- NOTE | 2019-04-14 13:51 | P.PN ---
Progress Note - Text Progress Note Date: 04/14/19 Interval History: Patient was seen lying in his bed and was more directable and agreeable to speak in the office. Patient continues to be guarded and concrete in his answers and speaks quickly and has poor eye contact. Patient responded more appropriately to conventional mortgage underwriter during the conversation with his answers. Patient denied any overnight complaints and states that he is sleeping through the night. Patient denied going to groups however has been seen attending groups during the day. Patient continues to be somewhat irritable and manipulative which appears to be his baseline. Patient claims that he did not speak with his guardian and began getting more irritable when discussing discharge planning. Patient was agreeable to take his Haldol D long-acting injection today. He claims that his mood has been improving however states that he feels "depressed". He states that his mood has been improving gradually and feels that the medications are helping him. At this time he denies any auditory or visual hallucinations and denies any suicidal or homicidal ideations intent or plan. Patient has been taking his medications and denies any side effects at this time. Mental Status Exam: General Appearance: Patient appears to be stated age, more cooperative, has multiple tattoos and improving hygiene/grooming. Behavior: Patient is sitting in chair no agitation today. Somewhat irritable at times. Speech: Patient's speech is rapid, irritable tone, mildly improved. Mood/Affect: Patient reports their mood is improving mildly. affect is improving and constricted. Suicidality/Homicidality: Patient denies any suicidal or homicidal ideations, no intent or plan. Perceptions: Patient denies any auditory or visual hallucinations. Though content/process: More goal oriented however patient is concrete and guarded/evasive. Manipulative. Memory and concentration: AOX2, uncooperative with cognitive exam. Judgment and insight: poor/impulsive, mildly improving Assessment Mood disorder unspecified, rule out substance-induced mood disorder Methamphetamine/stimulant abuse Cannabis use disorder Alcohol use disorder Nicotine dependence Antisocial traits Plan: -Patient continues to meet criteria for inpatient psychiatric admission for symptom stabilization and safety. Patient refused to sign adult voluntary form and medication consent form. Patient received court order on 04/10/19 -Medications: Will continue with Haldol to 6 mg twice a day for psychosis. Ordered Haldol Decanoate 150 mg IM today, patient is agreeable to take it. Continue with Cogentin 1 mg twice a day for EPS prophylaxis. We'll continue with lithium 450 mg twice a day for mood stabilization. Continue with Seroquel 400 mg daily at bedtime for mood stabilization/insomnia. Patient continues to refuse/decline lithium level blood draw. Increased Zoloft 100 mg daily for her mood/anxiety. -It is unclear when patient last received his Haldol Decanoate 100 mg injection. Patient was taking this dose every 14 days in the past -Thiamine, multivitamin for chronic alcohol use. -When necessary Geodon and Ativan for agitation/aggression. -NRT - nicotine patch -SW on board for discharge planning. Patient appears to be clinically stabilizing on the unit and is more interactive with peers and following dir ection well taking his medications and sleeping at night. Patient has chronically poor insight and poor judgment and also antisocial traits with manipulative behavior and seems to be approaching his baseline. Patient is currently homeless and social media developer to look into housing options or fci/AFC as patient does not want to go back to his uncles house. social contact worker to contact guardian to assist with this placement.
[2019-04-14] MEDS: MELATONIN 3 MG TABLET PO SCH (20:48)
[2019-04-14] MEDS: SERTRALINE 100 MG TAB PO SCH (20:48)
[2019-04-14] MEDS: QUEtiapine 400 MG TAB PO SCH (20:48)
[2019-04-15] MEDS: BENZTROPINE MESYLATE 1 MG TAB PO SCH ×2 (09:56→20:38)
[2019-04-15] MEDS: LITHIUM CARBONATE 150 MG CAP PO SCH ×2 (09:56→20:38)
[2019-04-15] MEDS: HALOPERIDOL 2 MG TAB PO SCH (09:57)
[2019-04-15] MEDS: NICOTINE 21MG/24HR PATCH TRANSDERM SCH (09:58)
--- NOTE | 2019-04-15 12:21 | P.PN ---
Progress Note - Text Progress Note Date: 04/15/19 Interval History: Patient was seen lying in his bed and was directable and agreeable to speak to senior mortgage underwriter in his room as patient refused to get up. Patient continues to speak rapidly however is more directable and was concrete in his answers. Patient continues to have poor eye contact. Patient responded more appropriately to senior mortgage underwriter during the conversation with his answers. Patient denied any overnight complaints. He states that he is sleeping through the night and when asked why he was still in bed in the morning patient claims that "I'm bored there is nothing to do here". Patient states that he has been going to some groups to "play cards and not set". Patient continues to be somewhat irritable and manipulative which appears to be his baseline. Patient claims that he wants to go live with his friends upon discharge and became irritable when senior mortgage underwriter spoke about needing for guardian to approve of the discharge plan. Patient stated that he took his Haldol D long-acting injection yesterday and tolerated it well. He claims that his mood is "fine" denies any anxiety. At this time he denies any auditory or visual hallucinations and denies any suicidal or homicidal ideations intent or plan. Patient has been taking his medications and denies any side effects at this time. Mental Status Exam: General Appearance: Patient appears to be stated age, more cooperative, has multiple tattoos and improving hygiene/grooming. Behavior: Patient is laying in bed no agitation today. Somewhat irritable at times. Speech: Patient's speech is rapid, irritable tone, mildly improved. Mood/Affect: Patient reports their mood is improving mildly. affect is improving and constricted. Suicidality/Homicidality: Patient denies any suicidal or homicidal ideations, no intent or plan. Perceptions: Patient denies any auditory or visual hallucinations. Though content/process: More goal oriented however patient is concrete and guarded/evasive. Manipulative. Memory and concentration: AOX2, uncooperative with cognitive exam. Judgment and insight: poor/impulsive, mildly improving Assessment Mood disorder unspecified, rule out substance-induced mood disorder Methamphetamine/stimulant abuse Cannabis use disorder Alcohol use disorder Nicotine dependence Antisocial traits Plan: -Patient continues to meet criteria for inpatient psychiatric admission for symptom stabilization and safety. Patient refused to sign adult voluntary form and medication consent form. Patient received court order on 04/10/19 -Medications: Will decrease PO Haldol to 5 mg twice a day for psychosis. Patient received Haldol Decanoate 150 mg IM on 04/14/2019 and will be due for his next injection in 2 weeks. Continue with Cogentin 1 mg twice a day for EPS prophylaxis, at this time patient denies any EPS symptoms and does not demonstrate any tremors or rigidity. We'll continue with lithium 450 mg twice a day for mood stabilization. Continue with Seroquel 400 mg daily at bedtime for mood stabilization/insomnia. Patient continues to refuse/decline lithium level blood draw. Continue with Zoloft 100 mg daily for her mood/anxiety. -Thiamine, multivitamin for chronic alcohol use. -When necessary Geodon and Ativan for agitation/aggression. -NRT - nicotine patch -SW on board for discharge planning. Patient appears to be clinically stabilizing on the unit and is more interactive with peers and following direction well taking his medications. Patient has chronically poor insight and poor judgment and also antisocial traits with manipulative behavior and seems to be approaching his baseline. Patient is currently homeless and social worker palliative care to look into housing options or correction/AFC as patient does not want to go back to his uncles house. Currently awaiting for guardian to finalize discharge plan.
[2019-04-15] MEDS: SERTRALINE 100 MG TAB PO SCH (20:37)
[2019-04-15] MEDS: HALOPERIDOL 5 MG TAB PO SCH (20:38)
[2019-04-15] MEDS: MELATONIN 3 MG TABLET PO SCH (20:38)
[2019-04-15] MEDS: QUEtiapine 400 MG TAB PO SCH (20:38)
[2019-04-16] MEDS: BENZTROPINE MESYLATE 1 MG TAB PO SCH ×2 (09:40→20:58)
[2019-04-16] MEDS: LITHIUM CARBONATE 150 MG CAP PO SCH ×2 (09:40→20:57)
[2019-04-16] MEDS: NICOTINE 21MG/24HR PATCH TRANSDERM SCH (09:40)
[2019-04-16] MEDS: HALOPERIDOL 5 MG TAB PO SCH ×2 (09:40→20:58)
--- NOTE | 2019-04-16 11:32 | P.PN ---
Progress Note - Text Progress Note Date: 04/16/19 Interval History: Patient was seen lying in his bed and refused to get out of his bed and speak with senior underwriter. Patient continues to speak rapidly however is more directable and was concrete in his answers. Patient continues to have poor eye contact and chronically poor insight and judgment. Patient responded appropriately to senior underwriter during the conversation with his answers however was short with his answers and dismissive at times. Patient denied any overnight complaints. He states that he is sleeping through the night approximately 6 hours. He stated that he tried to call his guardian and his uncle and claims "I have no place to go". Patient states that he has been going to some groups and was seen interacting with other patients on the unit pleasantly. Patient continues to be somewhat irritable and manipulative which appears to be his baseline. Patient is continuing to take hi s medications as prescribed. He claims that his mood is "fine" denies any anxiety. At this time he denies any auditory or visual hallucinations and denies any suicidal or homicidal ideations intent or plan. Patient has been taking his medications and denies any side effects at this time. Mental Status Exam: General Appearance: Patient appears to be stated age, attempts to cooperative, has multiple tattoos and improving hygiene/grooming. Behavior: Patient is laying in bed no agitation today. Somewhat irritable at times. Speech: Patient's speech is rapid, irritable tone with senior underwriter, mildly improved. Mood/Affect: Patient reports their mood is improving mildly. Affect is improving and constricted. Suicidality/Homicidality: Patient denies any suicidal or homicidal ideations, no intent or plan. Perceptions: Patient denies any auditory or visual hallucinations. Though content/process: More goal oriented however patient is concrete and guarded/evasive. Manipulative. Memory and concentration: AOX2, uncooperative with cognitive exam. Judgment and insight: poor/impulsive which is chronic and his baseline, mildly improving Assessment Mood disorder unspecified, rule out substance-induced mood disorder Methamphetamine/stimulant abuse Cannabis use disorder Alcohol use disorder Nicotine dependence Antisocial traits Plan: -Patient continues to meet criteria for inpatient psychiatric admission for symptom stabilization and safety. Patient refused to sign adult voluntary form and medication consent form. Patient received court order on 04/10/19 -Medications: Will continue with PO supplementation of Haldol to 5 mg twice a day for psychosis. Patient received Haldol Decanoate 150 mg IM on 04/14/2019 and will be due for his next injection on 04/28/2019. Continue with Cogentin 1 mg twice a day for EPS prophylaxis, at this time patient denies any EPS symptoms and does not demonstrate any tremors or rigidity. We'll continue with lithium 450 mg twice a day for mood stabilization. Continue with Seroquel 400 mg daily at bedtime for mood stabilization/insomnia. Patient continues to refuse/decline lithium level blood draw. Increased Zoloft 150 mg daily for her mood/anxiety. -Thiamine, multivitamin for chronic alcohol use. -When necessary Geodon and Ativan for agitation/aggression. -NRT - nicotine patch -SW on board for discharge planning. Patient appears to be clinically stab ilizing on the unit and is interactive with peers and following direction well taking his medications. Patient is selectively irritable and manipulative with senior underwriter only and displays more cooperative interactions with peers and other staff members. Patient has chronically poor insight and poor judgment and also antisocial traits with manipulative behavior and appears to be at his baseline. Patient is currently homeless and social worker health services to look into housing options or shelter/AFC as patient does not want to go back to his uncles house. Currently awaiting for guardian to finalize discharge plan.
[2019-04-16] MEDS: QUEtiapine 400 MG TAB PO SCH (20:57)
[2019-04-16] MEDS: MELATONIN 3 MG TABLET PO SCH (20:58)
[2019-04-16] MEDS ORDERED: SERTRALINE 100 MG TAB PO SCH (21:00)
[2019-04-17 06:29] VITALS: BP 104/52; PULSE 77; RESP 17; TEMP 97.9
[2019-04-17] MEDS: HALOPERIDOL 5 MG TAB PO SCH (09:42)
[2019-04-17] MEDS: LITHIUM CARBONATE 150 MG CAP PO SCH (09:42)
[2019-04-17] MEDS: BENZTROPINE MESYLATE 1 MG TAB PO SCH (09:42)
[2019-04-17] MEDS: NICOTINE 21MG/24HR PATCH TRANSDERM SCH (09:42)
--- NOTE | 2019-04-17 10:13 | P.DS ---
Providers Date of admission: 04/02/19 18:42 Expected date of discharge: 04/17/19 Attending physician: Raman Kern MD Consults: 04/02/19 20:40 Consult Physician Routine Consulting Provider: Isabel Guerra Consult Reason/Comments: H & P and medical care Do you want consulting provider notified?: Yes Primary care physician: Stated None - Discharge Diagnosis(es) (1) Mood disorder Current Visit: Yes Status: Acute Priority: High (2) Cannabis abuse Current Visit: Yes Status: Acute Priority: Medium (3) Alcohol use disorder Current Visit: Yes Status: Acute Priority: Medium (4) Methamphetamine abuse Current Visit: Yes Status: Acute Priority: Medium (5) Nicotine dependence Current Visit: Yes Status: Acute Priority: Low (6) Antisocial personality disorder Current Visit: Yes Status: Acute Priority: Medium Hospital Course: Admission HPI: Patient is a 23-year-old male who is currently homeless and living with his uncle at times and has a public guardian. Patient presented to the hospital and was accompanied by who also petition patient. As per petition states that "he wants to hang himself" and "mentioned the desire to cut his throat". Patient has extensive history of mental illness and polysubstance abuse and has been admitted to the mental health unit several times in the past. Patient was seen today at the bedside and appeared to be very agitated and swore at scenario writer several times telling him to leave the room. Patient was illogical/hyperverbal and made vague threats to end his life including wanting to cut his throat and also claims that he was homicidal towards others. He stated that he is currently homeless and he got kicked out of his uncle's house however does not give further details. He spoke about not having money. Patient admitted to smoking marijuana recently however he denies any other drug use. Patient's UDS was positive for methamphetamine and marijuana. Patient became more agitated during the interview and eventually jumped up out of his bed and approached the scenario writer in a threatening manner however was able to be redirected back to his bed by staff. At this time patient denies any auditory or visual hallucinations. Patient admits to using alcohol regularly and also smokes cigarettes daily. Hospital course: Upon admission to the unit patient was initially irritable/hostile, depressed and agitated. Patient was resistant to engage in milieu and remained in bed as he was likely withdrawing from illicit substances. Patient eventually started taking medications however refused to sign voluntary and was petitioned and certified for probate court. Patient appeared in court on 04/10/[address] for treatment. Patient was compliant with the medications and denied any side effects throughout hospital course. Patient was started on Haldol PO and titrated up to a dose of 6 mg twice a day and was given a Haldol Decanoate long-acting injection dose of 150 mg IM on 04/14/2019 and tolerated it well. Patient will be due for his next long-acting injection dose of 150 mg IM on 04/28/2019. Patient was also started on Seroquel and titrated up to a dose of 400 mg daily at bedtime for mood stabilization/insomnia. Patient was started on Zoloft and titrated up to a dose of 150 mg daily for mood/anxiety. Patient was restarted on Cogentin 1 mg twice a day for EPS prophylaxis. Patient was also started on lithium and titrated up to a dose of 450 mg twice a day for mood stabilization. Attempted several times to obtain a lithium level however patient continued to decline the blood draw. Patient's behavior on the unit was manipulative and hostile/irritable however was noted to be calmer and cooperative in group and amongst other patients on the unit which appears to be patient's baseline. He spoke of his stressors however did not fully engage in individual therapy although multiple attempts were tried to engage with patient. Patient was also seen by medical team for history and physical exam. Throughout the course of the hospitalization patient gradually improved with regards to mood, anxiety, behaviors, irritability, sleep and patient's insight and judgment mildly improved however patient's insight and judgment remain chronically poor and impulsive as this is his baseline and likely related to his antisocial personality. On the day of discharge patient denied any suicidal or homicidal ideations intent or plan denied any auditory or visual hallucinations. Patient endorsed wanting to live for his health. The patient denied any access to guns or weapons. Patient denied any paranoia and did not endorse any delusions. Patient does have a significant history of substance abuse and was counseled on abstaining from all substances including alcohol and marijuana. Patient was dismissive of this and declined rehab and any substance use treatment. Patient was also counseled on the medications and need for regular compliance and was encouraged to follow-up with their outpatient appointment for mental health and also for primary care. mold loft worker was in touch with patient's guardian who was attempting to get patient to go back to his uncle's house on discharge however patient refused to and guardian settled on discharge to [facility]. Mental status exam: General Appearance: Patient appears to be stated age is alert, irritable at times however is directable. Improving hygiene and grooming, wearing street clothes Behavior: Patient is calmly seated without any agitated behavior. Mild irritability Speech: Patient's speech is fluent and nonpressured. Mood/Affect: Patient reports their mood is "fine", affect is congruent and constricted Suicidality/Homicidality: Patient denies having any suicidal or homicidal ideation intent or plan. Perceptions: Patient denies any auditory or visual hallucinations. Though content/process: Prichard thought process, goal oriented. chronically poor insight and focused on discharge. Memory and concentration: AOX3, grossly intact for the purposes of this session. Can spell "WORLD" backwards correctly. Judgment and insight: Chronically poor/impulsive insight and judgment, guarded prognosis. Impression: Mood disorder unspecified Methamphetamine abuse Cannabis use disorder Alcohol use disorder Nicotine dependence Antisocial personality disorder Plan: -Continue with discharge today as patient has improved and stabilized psychiatrically and is not currently an imminent threat to himself and/or others. Patient has chronically poor insight and judgment and is known to be impulsive and manipulative at his baseline and it appears that patient has clinically approached his baseline and is ready for discharge. -Continue medications: Patient to be continued to be tapered off and discharged on Haldol by mouth 3 mg twice a day for 10 days for psychosis then to be discontinued. Patient received Haldol Decanoate long-acting injection dose of 150 mg IM on 04/14/2019 and tolerated it well. Patient will be due for his next long-acting injection dose of 150 mg IM on 04/28/2019. To be continued on Cogentin 1 mg twice a day for EPS prophylaxis, lithium 450 mg twice a day for mood stabilization, Seroquel 400 mg nightly for mood stabilization/insomnia, Zoloft 150 mg daily for mood/anxiety. -Patient was counseled on the need for medication compliance and appropriate follow-up at mental health and also primary care for medical issues. Patient verbalized understanding and agreed. -Social work to arrange patient's discharge with the guardian to [facility]. Social work also to arrange for patients follow up appointments with [facility] for psychiatric care along with follow up with primary care provider. -Patient counseled on abstaining from recreational drugs and marijuana and alcohol. Was informed/educated on the adverse effects on their physical and mental health. Patient verbally understood however did not acknowledge he has a substance abuse problem. Patient adamantly denied any substance use treatment at this time including inpatient rehab. -Patient was instructed to return to the hospital or seek immediate medical care if their psychiatric or medical symptoms do worsen or reoccur. Allergies Allergy/AdvReac Type Severity Reaction Status Date / Time No Known Allergies Allergy Verified 04/02/19 19:47 Laboratory Results Urine Opiates Screen Not Detected (NotDetected) 04/02/19 15:30 Ur Oxycodone Screen Not Detected (NotDetected) 04/02/19 15:30 Urine Methadone Screen Not Detected (NotDetected) 04/02/19 15:30 Ur Propoxyphene Screen Not Detected (NotDetected) 04/02/19 15:30 Ur Barbiturates Screen Not Detected (NotDetected) 04/02/19 15:30 U Tricyclic Antidepress Not Detected (NotDetected) 04/02/19 15:30 Ur Phencyclidine Scrn Not Detected (NotDetected) 04/02/19 15:30 Ur Amphetamines Screen Detected (NotDetected) H 04/02/19 15:30 U Methamphetamines Scrn Detected (NotDetected) H 04/02/19 15:30 U Benzodiazepines Scrn Not Detected (NotDetected) 04/02/19 15:30 Urine Cocaine Screen Not Detected (NotDetected) 04/02/19 15:30 U Marijuana (THC) Screen Detected (NotDetected) H 04/02/19 15:30 Vital Signs Temp 97.9 F 04/17/19 06:20 Pulse 77 04/17/19 06:20 Resp 17 04/17/19 06:20 BP 104/52 04/17/19 06:20 Pulse Ox 98 04/17/19 06:20 Patient Condition at Discharge: Stable Plan - Discharge Summary Discharge Rx Participant: No New Discharge Prescriptions: New Benztropine Mesylate [Cogentin] 1 mg PO BID 28 Days tab Nicotine 21Mg/24Hr Patch [Habitrol] 1 patch TRANSDERM DAILY #14 patch Haloperidol [Haldol] 3 mg PO BID 10 Days tab Pavo Carbonate [Pavo Carbonate ER] 450 mg PO BID 28 Days tablet.er Melatonin 3 mg PO HS 28 Days tablet QUEtiapine [SEROquel] 400 mg PO HS 28 Days tab Sertraline [Zoloft] 150 mg PO HS 28 Days tab Continue Divalproex ER [Depakote ER] 1,000 mg PO DAILY 28 Days tab Discontinued Benztropine Mesylate [Cogentin] 2 mg PO BID #60 tablet Haloperidol Decanoate [Haldol D] 100 mg IM Q14D #1 vial QUEtiapine FUMARATE [SEROquel] 300 mg PO HS Pavo Carbonate 600 mg PO DAILY Ibuprofen [Motrin Ib] 200 mg PO Q4H PRN PRN Reason: Pain Discharge Medication List Benztropine Mesylate [Cogentin] 1 mg PO BID 28 Days tab 04/17/19 [Rx] Divalproex ER [Depakote ER] 1,000 mg PO DAILY 28 Days tab 04/17/19 [Rx] Haloperidol [Haldol] 3 mg PO BID 10 Days tab 04/17/19 [Rx] Pavo Carbonate [Pavo Carbonate ER] 450 mg PO BID 28 Days tablet.er 04/17/19 [Rx] Melatonin 3 mg PO HS 28 Days tablet 04/17/19 [Rx] Nicotine 21Mg/24Hr Patch [Habitrol] 1 patch TRANSDERM DAILY #14 patch 04/17/19 [Rx] QUEtiapine [SEROquel] 400 mg PO HS 28 Days tab 04/17/19 [Rx] Sertraline [Zoloft] 150 mg PO HS 28 Days tab 04/17/19 [Rx] Follow up Appointment(s)/Referral(s): [facility] [Outside] - 04/24/19 9:30 am None,Stated [Primary Care Provider] - 1-2 days Patient Instructions/Handouts: How to Stop Smoking (DC), Mood Disorders (DC), Methamphetamine Abuse (DC), Anxiety (ED) Activity/Diet/Wound Care/Special Instructions: Activity and diet as tolerated. Avoid the use of street drugs and alcohol. Take all medications as prescribed. When you are in need of refills on your medications please contact your medical provider and/or outpatient psychiatrist to have this done. Please go to scheduled outpatient appointment for aftercare treatment. If symptoms return or become worse, call the crisis line at and/or go to the nearest emergency room for evaluation. Discharge Disposition: HOME SELF-CARE
[2019-04-17] MEDS ORDERED: HALOPERIDOL 1 MG TAB PO SCH (21:00)
== END 2019-04-17 12:29 | disposition home or self-care (01) | DRG 885 ==
LOC: EC 14:33 → 3MHU 18:42
PROVIDERS: ADMIT Psychiatry & Neurology Psychiatry; ATTEND Psychiatry & Neurology Psychiatry
DX: F31.9 Bipolar disorder, unspecified (principal); F10.239 Alcohol dependence with withdrawal, unspecified; F41.9 Anxiety disorder, unspecified; F60.2 Antisocial personality disorder; G47.00 Insomnia, unspecified; J45.909 Unspecified asthma, uncomplicated; Y04.0XXA Assault by unarmed brawl or fight, initial encounter; Z59.0 Homelessness; Z71.6 Tobacco abuse counseling; F17.210 Nicotine dependence, cigarettes, uncomplicated; F12.10 Cannabis abuse, uncomplicated; F15.10 Other stimulant abuse, uncomplicated; Z79.899 Other long term (current) drug therapy; Z91.5 Personal history of self-harm; T43.96XA Underdosing of unspecified psychotropic drug, initial encounter; Z91.128 Patient's intentional underdosing of medication regimen for other reason; Z86.19 Personal history of other infectious and parasitic diseases
CPT/HCPCS: 80306; 82075; 99285

== ENCOUNTER 2019-06-27 11:45 | Emergency (ER) | payer OTHER ==
[2019-06-27 11:56] VITALS: TEMP 97.9
--- NOTE | 2019-06-27 12:20 | ED ---
Psych HPI - General Chief Complaint: Psychiatric Symptoms Stated Complaint: Suicidal Time Seen by Provider: 06/27/19 11:55 Source: patient, police Mode of arrival: ambulatory - History of Present Illness Initial Comments: The patient is a 23-year-old male with past medical history of anxiety, depression, antisocial personality disorder who presents to emergency room with reported suicidal ideations. The patient states that he began feeling depressed last night. States that he is homeless which mostly triggers his depression. He has the plan of running out into traffic. States that he has been living with a friend however the friend uses heroin he notes that if he stays at this facility that he will end up using heroin. He denies use of any illicit drugs recently. No alcohol use. States he has been taking his medications as directed. Do not do anything today to harm himself. Denies homicidal ideations. No auditory or visual hallucinations. There are no other alleviating, precipitating or modifying factors - Related Data Home Medications Medication Instructions Recorded Confirmed Haldol D 150 mg IM ONCE 04/17/19 04/17/19 Previous Rx's Medication Instructions Recorded Benztropine Mesylate [Cogentin] 1 mg PO BID 28 Days tab 04/17/19 Divalproex ER [Depakote ER] 1,000 mg PO DAILY 28 Days tab 04/17/19 Haloperidol [Haldol] 3 mg PO BID 10 Days tab 04/17/19 [place] Carbonate [[place] 450 mg PO BID 28 Days tablet.er 04/17/19 Carbonate ER] Melatonin 3 mg PO HS 28 Days tablet 04/17/19 Nicotine 21Mg/24Hr Patch [Habitrol] 1 patch TRANSDERM DAILY #14 patch 04/17/19 QUEtiapine [SEROquel] 400 mg PO HS 28 Days tab 04/17/19 Sertraline [Zoloft] 150 mg PO HS 28 Days tab 04/17/19 Allergies Allergy/AdvReac Type Severity Reaction Status Date / Time No Known Allergies Allergy Verified 04/02/19 19:47 Review of Systems ROS Statement: Those systems with pertinent positive or pertinent negative responses have been documented in the HPI. ROS Other: All systems not noted in ROS Statement are negative. Past Medical History Past Medical History: Asthma Additional Past Medical History / Comment(s): Depression, anxiety anti social personality disorder, hepatitis C History of Any Multi-Drug Resistant Organisms: None Reported Past Surgical History: No Surgical Hx Reported Past Anesthesia/Blood Transfusion Reactions: No Reported Reaction Past Psychological History: Anxiety, Bipolar, Depression Smoking Status: Current every day smoker - Past Family History Mother Family Medical History: Unable to Obtain Additional Family Medical History / Comment(s): Patient reports that he knows nothing about his family General Exam Limitations: no limitations General appearance: alert, in no apparent distress Eye exam: Present: normal appearance, PERRL, EOMI. Absent: scleral icterus, conjunctival injection, periorbital swelling Respiratory exam: Present: normal lung sounds bilaterally. Absent: respiratory distress, wheezes, rales, rhonchi, stridor Cardiovascular Exam: Present: regular rate, normal rhythm, normal heart sounds. Absent: systolic murmur, diastolic murmur, rubs, gallop, clicks GI/Abdominal exam: Present: soft, normal bowel sounds. Absent: distended, tenderness, guarding, rebound, rigid Psychiatric exam: Present: depressed, flat affect Skin exam: Present: warm, dry, intact, normal color. Absent: rash Course Vital Signs 06/27/19 06/27/19 06/27/19 11:54 11:56 12:56 Temperature 97.9 F Pulse Rate 77 Respiratory 18 20 20 Rate Blood Pressure 138/79 O2 Sat by Pulse 99 Oximetry 06/27/19 06/27/19 06/27/19 13:00 14:00 15:00 Temperature Pulse Rate 79 Respiratory 18 18 16 Rate Blood Pressure 123/72 O2 Sat by Pulse 98 Oximetry 06/27/19 06/27/19 06/27/19 16:00 17:00 18:00 Temperature Pulse Rate 82 Respiratory 16 16 16 Rate Blood Pressure 129/79 O2 Sat by Pulse 98 Oximetry 06/27/19 18:22 Temperature Pulse Rate Respiratory 20 Rate Blood Pressure O2 Sat by Pulse Oximetry Medical Decision Making - Medical Decision Making Upon arrival the patient was placed into room 12. A thorough history and physical exam was performed. The patient does have a breathalyzer test performed and his alcohol level is 0. He did request a urine drug screen. The a social work nurse Geraldine is in the room with me when I evaluate the patient. She does talk to the legal guardian. Their currently awaiting discussion with the psychiatrist as far as a plan for the patient. The patient is evaluated by social work. They are unable to place him in a alf bed at this time. Social work is very familiar with the patient. He admits to them that he is homeless and looking for a place to stay. He is able to contract for safety. His legal guardian is notified who stated that the patient is okay to discharge to a alf and that he does have the availability to stay with an aunt. He is to return to the emergency room for any new or worsening symptoms. Patient was discharged in stable condition Disposition Clinical Impression: Depressed Disposition: HOME SELF-CARE Condition: Stable Additional Instructions: You will be discharged to the alf. Return to the emergency room for any new or worsening symptoms Is patient prescribed a controlled substance at d/c from ED?: No Referrals: None,Stated [Primary Care Provider] - 1-2 days Time of Disposition: 16:51
[2019-06-27 18:16] VITALS: BP 129/79; PULSE 82
[2019-06-27 19:14] VITALS: RESP 20
== END 2019-06-27 18:25 | disposition home or self-care (01) ==
LOC: EC 11:45
DX: F31.30 Bipolar disorder, current episode depressed, mild or moderate severity, unspecified (principal); F41.9 Anxiety disorder, unspecified; F17.200 Nicotine dependence, unspecified, uncomplicated; Z79.899 Other long term (current) drug therapy; Z59.0 Homelessness
CPT/HCPCS: 82075; 99285

== ENCOUNTER 2019-10-05 02:21 | Inpatient (IN) | payer MEDICAID, OTHER ==
--- NOTE | 2019-10-05 02:51 | ED ---
Psych HPI - General Source: patient, police Mode of arrival: ambulatory - History of Present Illness MD Complaint: feels depressed Onset/Timin -: days(s) Associated Psychiatric Symptoms: depression, racing thoughts Quality: getting worse Improves With: none Worsens With: none Context: significant life stressor Associated Symptoms: denies other symptoms <Hector Carias - Last Filed: 10/05/19 02:48> <Erasmo Collins - Last Filed: 10/07/19 12:27> - General Chief Complaint: Psychiatric Symptoms Stated Complaint: Petition Time Seen by Provider: 10/05/19 02:37 - History of Present Illness Initial Comments: This patient is 23-year-old man with history of bipolar disorder who presents to be evaluated for worsening depression. Patient states that he has had worsening of his mood for approximately 5 days now. He states that he is compliant with his medications. He states that he recently became homeless and this is worse and his mood. (Hector Carias) - Related Data Home Medications Medication Instructions Recorded Confirmed Haldol D 150 mg IM Q14D 04/17/19 10/05/19 [place] Carbonate 600 mg PO HS 10/05/19 10/05/19 QUEtiapine [SEROquel] 100 mg PO HS 10/05/19 10/05/19 Previous Rx's Medication Instructions Recorded Divalproex ER [Depakote ER] 1,000 mg PO DAILY 28 Days tab 04/17/19 Allergies Allergy/AdvReac Type Severity Reaction Status Date / Time No Known Allergies Allergy Verified 10/05/19 14:42 Review of Systems ROS Other: All systems not noted in ROS Statement are negative. Constitutional: Denies: fever, chills Respiratory: Denies: cough, dyspnea Cardiovascular: Denies: chest pain, palpitations Gastrointestinal: Denies: abdominal pain, vomiting, diarrhea Musculoskeletal: Denies: back pain Skin: Denies: rash Neurological: Denies: headache, weakness Psychiatric: Reports: depression, suicidal thoughts. Denies: auditory hallucinations, visual hallucinations, homicidal thoughts <Hector Carias - Last Filed: 10/05/19 02:48> ROS Other: All systems not noted in ROS Statement are negative. <Erasmo Collins - Last Filed: 10/07/19 12:27> ROS Statement: Those systems with pertinent positive or pertinent negative responses have been documented in the HPI. Past Medical History Past Medical History: Asthma Additional Past Medical History / Comment(s): Depression, anxiety anti social personality disorder, hepatitis C History of Any Multi-Drug Resistant Organisms: None Reported Past Surgical History: No Surgical Hx Reported Past Anesthesia/Blood Transfusion Reactions: No Reported Reaction Past Psychological History: Anxiety, Bipolar, Depression Smoking Status: Current every day smoker Past Alcohol Use History: Occasional Past Drug Use History: Marijuana, Methamphetamine - Past Family History Mother Family Medical History: Unable to Obtain Additional Family Medical History / Comment(s): Patient reports that he knows nothing about his family <KenHector william - Last Filed: 10/05/19 02:48> General Exam Limitations: no limitations General appearance: alert, in no apparent distress Head exam: Present: atraumatic, normocephalic Respiratory exam: Present: normal lung sounds bilaterally. Absent: respiratory distress, wheezes, rales, rhonchi, stridor Cardiovascular Exam: Present: regular rate, normal rhythm, normal heart sounds. Absent: systolic murmur, diastolic murmur, rubs, gallop GI/Abdominal exam: Present: soft. Absent: distended, tenderness, guarding, rebound, rigid Extremities exam: Present: normal inspection, normal capillary refill. Absent: pedal edema, calf tenderness Neurological exam: Present: alert, normal gait Psychiatric exam: Present: depressed, suicidal ideation. Absent: agitated, anxious, flat affect, manic, homicidal ideation Skin exam: Present: warm. Absent: dry, intact, normal color, rash <ArethaHector - Last Filed: 10/05/19 02:48> Course Vital Signs 10/05/19 02:25 Temperature 97.6 F Pulse Rate 107 H Respiratory 18 Rate Blood Pressure 115/56 O2 Sat by Pulse 98 Oximetry Medical Decision Making - Lab Data Result diagrams: 10/07/19 08:13 10/07/19 08:13 <Erasmo Collins - Last Filed: 10/07/19 12:27> - Medical Decision Making Since care signed out at shift change awaiting psychiatric evaluation. He was evaluated by the ACT team, felt to require inpatient psychiatric evaluation and treatment. Patient is suicidal with a plan. I did evaluate this patient and complete a clinical certification. Currently awaiting admission or placement.. (Erasmo Collins) - Lab Data Lab Results 10/05/19 10/05/19 Range/Units 02:33 02:33 Urine Color Yellow Urine Appearance Clear (Clear) Urine pH 7.0 (5.0-8.0) Ur Specific [place] 1.005 (1.001-1.035) Urine Protein Negative (Negative) Urine Glucose (UA) Negative (Negative) Urine Ketones Negative (Negative) Urine Blood Negative (Negative) Urine Nitrite Negative (Negative) Urine Bilirubin Negative (Negative) Urine Urobilinogen <2.0 (<2.0) mg/dL Ur Leukocyte Esterase Negative (Negative) Urine Opiates Screen Not Detected (NotDetected) Ur Oxycodone Screen Not Detected (NotDetected) Urine Methadone Screen Not Detected (NotDetected) Ur Propoxyphene Screen Not Detected (NotDetected) Ur Barbiturates Screen Not Detected (NotDetected) U Tricyclic Antidepress Not Detected (NotDetected) Ur Phencyclidine Scrn Not Detected (NotDetected) Ur Amphetamines Screen Detected H (NotDetected) U Methamphetamines Scrn Detected H (NotDetected) U Benzodiazepines Scrn Not Detected (NotDetected) Urine Cocaine Screen Not Detected (NotDetected) U Marijuana (THC) Screen Detected H (NotDetected) Disposition <Hector Carias - Last Filed: 10/05/19 02:48> Is patient prescribed a controlled substance at d/c from ED?: No <Erasmo Collins - Last Filed: 10/07/19 12:27> Clinical Impression: Depressed, Suicidal ideation Disposition: ADMITTED IP TO THIS HOSP Condition: Stable
[2019-10-05 02:54] LABS: Appearance,Urine Clear (Clear); Color,Urine Yellow; Specific Gravity,Urine 1.005 (1.001-1.035)
[2019-10-05 02:55] LABS: Bilirubin,Urine Negative (Negative); Blood,Urine Negative (Negative); Glucose,Urine (UA) Negative (Negative); Ketones,Urine Negative (Negative); Leukocyte Esterase,Urine Negative (Negative); Nitrite,Urine Negative (Negative); Protein,Urine Negative (Negative); Urobilinogen,Urine <2.0 mg/dL (<2.0)
[2019-10-05 02:56] LABS: Cocaine Screen,Urine Not Detected (NotDetected); Opiate Screen,Urine Not Detected (NotDetected); Phencyclidine Screen,Urine Not Detected (NotDetected); Urn Cannabinoid Scrn Detected (NotDetected)
[2019-10-05 02:57] LABS: Amphetamine Screen,Urine Detected (NotDetected); Barbiturate Screen,Urine Not Detected (NotDetected); Benzodiazepines Screen,Urine Not Detected (NotDetected); Methadone Screen, Urine Not Detected (NotDetected); Oxycodone Screen, Urine Not Detected (NotDetected); Tricyclic Antidepressant,Urine Not Detected (NotDetected)
[2019-10-05] MEDS ORDERED: MAGNESIUM HYDROXIDE 2,400 MG/10 ML CUP PO PRN (13:56)
[2019-10-05] MEDS ORDERED: ZIPRASIDONE 20 MG VIAL IM PRN (13:56)
[2019-10-05] MEDS ORDERED: LORazepam 1 MG TAB PO PRN (13:56)
[2019-10-05] MEDS ORDERED: MAG HYDROX/AL HYDROX/SIMETH 30 ML CUP PO PRN (13:56)
--- NOTE | 2019-10-05 16:36 | P.PN ---
Progress Note - Text Progress Note Date: 10/05/19 patient is currently refusing to be seen by a physician he declined the interview at this point.
[2019-10-05] MEDS: NICOTINE 21MG/24HR PATCH TRANSDERM SCH (17:41)
[2019-10-05] MEDS ORDERED: QUEtiapine 100 MG TAB PO SCH (21:00)
[2019-10-05] MEDS ORDERED: LITHIUM CARBONATE 300 MG CAP PO SCH (21:00)
[2019-10-06 04:09] LABS: Hemoglobin A1C 4.6 % (4.0-6.0)
[2019-10-06] MEDS ORDERED: DIVALPROEX ER 500 MG TAB.ER.24H PO SCH (09:00)
[2019-10-06] MEDS: NICOTINE 21MG/24HR PATCH TRANSDERM SCH ×2 (10:14→19:42)
--- NOTE | 2019-10-06 11:52 | P.HP ---
Psychiatric H&P - . H&P Date: 10/06/19 History & Physical: Allergies Allergy/AdvReac Type Severity Reaction Status Date / Time No Known Allergies Allergy Verified 10/05/19 14:42 Vital Signs Temp 98.1 F 10/06/19 02:41 Pulse 132 H 10/06/19 02:41 Resp 18 10/06/19 02:41 BP 100/63 10/06/19 02:41 Pulse Ox 97 10/05/19 14:36 Intake & Output 10/05/19 10/06/19 10/06/19 18:59 06:59 18:59 Weight 65.5 kg Laboratory Last Values Estimated Ave Glu mg/dL 85 10/05/19 14:35 Hemoglobin A1c 4.6 % (4.0-6.0) 10/05/19 14:35 Urine Color Yellow 10/05/19 02:33 Urine Appearance Clear (Clear) 10/05/19 02:33 Urine pH 7.0 (5.0-8.0) 10/05/19 02:33 Ur Specific [place] 1.005 (1.001-1.035) 10/05/19 02:33 Urine Protein Negative (Negative) 10/05/19 02:33 Urine Glucose (UA) Negative (Negative) 10/05/19 02:33 Urine Ketones Negative (Negative) 10/05/19 02:33 Urine Blood Negative (Negative) 10/05/19 02:33 Urine Nitrite Negative (Negative) 10/05/19 02:33 Urine Bilirubin Negative (Negative) 10/05/19 02:33 Urine Urobilinogen <2.0 mg/dL (<2.0) 10/05/19 02:33 Ur Leukocyte Esterase Negative (Negative) 10/05/19 02:33 Urine Opiates Screen Not Detected (NotDetected) 10/05/19 02:33 Ur Oxycodone Screen Not Detected (NotDetected) 10/05/19 02:33 Urine Methadone Screen Not Detected (NotDetected) 10/05/19 02:33 Ur Propoxyphene Screen Not Detected (NotDetected) 10/05/19 02:33 Ur Barbiturates Screen Not Detected (NotDetected) 10/05/19 02:33 Valproic Acid <10.0 ug/mL 10/05/19 14:35 U Tricyclic Antidepress Not Detected (NotDetected) 10/05/19 02:33 Ur Phencyclidine Scrn Not Detected (NotDetected) 10/05/19 02:33 Ur Amphetamines Screen Detected (NotDetected) H 10/05/19 02:33 U Methamphetamines Scrn Detected (NotDetected) H 10/05/19 02:33 U Benzodiazepines Scrn Not Detected (NotDetected) 10/05/19 02:33 Urine Cocaine Screen Not Detected (NotDetected) 10/05/19 02:33 U Marijuana (THC) Screen Detected (NotDetected) H 10/05/19 02:33 10/06/19 10:33 IDENTIFYING DATA: Patient is a 23-year-old male with a chronic history of severe mental illness with polysubstance abuse who is currently homeless and has a public guardian. HPI: Patient presented to the hospital yesterday for evaluation for worsening depression according to ER report. Patient informed ER staff that he had been depressed for approximately 5 days now and had mentioned that he recently became homeless and was feeling suicidal with a plan to apparently drink bleach. Patient's UDS was positive for methamphetamine and marijuana. Patient has a history of several inpatient psychiatric admissions for mood disorder and psychotic symptoms along with polysubstance abuse. Patient was previously on a court order since March which was his last inpatient admission however the court order is set to on 10/07/2019. Patient was seen in his room today and was laying in bed and when song writer approach patient patient began yelling at song writer and telling him to "get the hell out!". Patient was extremely irritable and impulsive and loud and hostile towards song writer swearing at him several times. Patient did state that he is recently homeless and "I want to kill myself". Patient mentioned several plans to overdose and to possibly drink bleach. He was vague and evasive and dismissive telling song writer to leave the room. At this time patient denies any auditory or visual hallucinations. Patient admitted to using several recreational drugs including meth and cannabis and also smokes cigarettes daily. Patient denied any alcohol use. PAST PSYCHIATRIC HISTORY: Patient has been admitted to the mental health unit several times in the past, last admission was in 03/2019. Patient has a history of depressive disorder, bipolar disorder, antisocial personality and is previous ly been on Seroquel 400 mg daily at bedtime, lithium 450 mg twice a day, and also has been on Haldol Decanoate 150 mg every 14 days and unknown when his last injection was. Patient admitted to multiple suicide attempts in the past. He claims that he follows up at [facility]. PMH: Asthma and hepatitis C ALLERGIES: as per EMR CHEMICAL DEPENDENCY HISTORY: as per HPI FAMILY PSYCHIATRIC/SUBSTANCE USE HISTORY: denies SOCIAL HISTORY: unable to assess due to patient's agitation. MENTAL STATUS EXAM: General Appearance: Patient appears to be stated age, is irritable/agitated and withdrawn and isolated in his room. Patient has the blankets covering his face. He has facial tattoos and poor hygiene and grooming. Behavior: Patient is laying in his bed and is agitated. Hostile and irritable. Speech: Patient's speech is rapid and threatening. Loud tone. Mood/Affect: Patient reports their mood is depressed and anxious, affect is congruent and labile. Suicidality/Homicidality: Patient admits to both suicidal and homicidal ideations, no intent or plan. Perceptions: Patient denies any auditory or visual hallucinations. Though content/process: Illogical/tangential, and aggressive. Disorganized thought process. Memory and concentration: AOX2, patient does not know the date and is uncooperative with cognitive exam. Judgment and insight: poor/impulsive STRENGTHS/WEAKNESSES: strength is that patient is resilient, weaknesses that patient has chronic mental illness and polysubstance abuse INTELLECT: Below average IMPRESSIONS: Mood disorder unspecified, rule out substance-induced mood disorder Antisocial personality disorder Methamphetamine/stimulant abuse Cannabis use disorder Nicotine dependence PLAN: -Patient is admitted under involuntary status to [facility]HU for stabilization of psych iatric symptoms and safety. Patient refused to sign medication consent and is placed in patient's chart. A second certification is completed on patient and will be faxed to probate court and will await deferral and full court hearing date. -Medications : Will re-start patient on Haldol 3 mg twice a day for psychosis, will also start Cogentin 1 mg twice a day for EPS prophylaxis. Will re-start l ithium 450 mg twice a day for mood stabilization. we'll restart Seroquel 150 mg daily at bedtime for mood stabilization/insomnia. -It is unclear when patient last received his Haldol Decanoate 150 mg injection. Patient was taking this dose every 14 days in the past. Will likely need this prior to discharge and will check with [facility] for this information. -Ativan and Geodon PRN for agitation/aggression -Livestock Nutritionist spoke with patient about medications and their potential benefits versus the risks. -NRT - nicotine patch -SW on board for discharge planning. Encourage patient to participate in milieu and activities/groups. will attempt offer inpatient substance-abuse rehab upon discharge. Currently awaiting deferral and court date. 10/06/19 11:40 10/06/19 11:49
[2019-10-06] MEDS ORDERED: LITHIUM CARBONATE ER 450 MG TABLET.ER PO SCH (12:00)
[2019-10-06] MEDS: HALOPERIDOL 1 MG TAB PO SCH ×2 (13:45→20:40)
[2019-10-06] MEDS: BENZTROPINE MESYLATE 1 MG TAB PO SCH ×2 (13:45→20:43)
[2019-10-06] MEDS: SERTRALINE 50 MG TAB PO SCH (13:45)
[2019-10-06] MEDS: LITHIUM CARBONATE ER 450 MG TABLET.ER PO SCH (20:40)
[2019-10-06] MEDS ORDERED: QUEtiapine 100 MG TAB PO SCH (21:00)
[2019-10-07] MEDS: LITHIUM CARBONATE ER 450 MG TABLET.ER PO SCH ×2 (08:17→20:51)
[2019-10-07] MEDS: BENZTROPINE MESYLATE 1 MG TAB PO SCH ×2 (08:17→20:51)
[2019-10-07] MEDS: HALOPERIDOL 1 MG TAB PO SCH (08:17)
[2019-10-07] MEDS: SERTRALINE 50 MG TAB PO SCH (08:18)
[2019-10-07] MEDS: NICOTINE 21MG/24HR PATCH TRANSDERM SCH (08:18)
[2019-10-07 09:07] LABS: Basophils # (A) 0.1 k/uL (0-0.2); Basophils % (A) 1 %; Eosinophils # (A) 0.4 k/uL (0-0.7); Eosinophils % (A) 5 %; HCT 52.5 % (39.0-53.0); HGB 16.3 gm/dL (13.0-17.5); Lymphocytes # (A) 3.5 k/uL (1.0-4.8); Lymphocytes % (A) 40 %; MCH 28.9 pg (25.0-35.0); MCHC 31.1 g/dL (31.0-37.0); MCV 92.8 fL (80.0-100.0); Mean Platelet Volume 6.8; Monocytes # (A) 0.4 k/uL (0-1.0); Monocytes % (A) 5 %; Neutrophils # (A) 4.1 k/uL (1.3-7.7); Neutrophils % (A) 48 %; Platelet Count 328 k/uL (150-450); RBC 5.66 m/uL (4.30-5.90); RDW 12.7 % (11.5-15.5); WBC 8.6 k/uL (3.8-10.6)
[2019-10-07 09:31] LABS: ALT 26 U/L (4-49); AST 27 U/L (17-59); African American GFR (CKD) >90 (>60 ml/min/1.73 sqM); Albumin 4.9 g/dL (3.5-5.0); Alkaline Phosphatase 93 U/L (38-126); Anion Gap 10 mmol/L; Blood Urea Nitrogen 11 mg/dL (9-20); Calcium 10.1 mg/dL (8.4-10.2); Carbon Dioxide 28 mmol/L (22-30); Chloride 102 mmol/L (98-107); Glucose 88 mg/dL (74-99); Non-African American GFR(CKD) >90 (>60 ml/min/1.73 sqM); Potassium 4.1 mmol/L (3.5-5.1); Sodium 140 mmol/L (137-145); Total Bilirubin 0.4 mg/dL (0.2-1.3); Total Protein 8.4 g/dL (6.3-8.2)
[2019-10-07] MEDS ORDERED: LORazepam 2 MG/ML INJ IM PRN (09:57)
--- NOTE | 2019-10-07 09:57 | P.PN ---
Progress Note - Text Progress Note Date: 10/07/19 Interval History: Patient was seen today for follow-up in his room and content writer was accompanied by [employer] [facility] as a mosaicist due to patient's extreme agitation. Patient was laying in bed and began yelling at her content writer to "get the f out of here!" Patient was extremely uncooperative and agitated in his bed and repeatedly told content writer to leave the room and did not answer any questions today. Patient did receive a Geodon injection last night for agitation. He has selectively been ta chaim his medications. Mental Status Exam: General Appearance: Patient appears to be stated age is alert, agitated and uncooperative and hostile. Poor hygiene and grooming. Behavior: Patient is agitated and uncooperative and hostile. Speech: Patient's speech is fluent and nonpressured. Mood/Affect: Mood is not able to be assessed, patient is agitated. Suicidality/Homicidality: Unable to be assessed Perceptions: Unable to be assessed Though content/process: Unable to be assessed Memory and concentration: Unable to be assessed Judgment and insight: Poor/impulsive Assessment Mood disorder unspecified, rule out substance-induced mood disorder Antisocial personality disorder Methamphetamine/stimulant abuse Cannabis use disorder Nicotine dependence Plan: -Patient continues to meet criteria for inpatient psychiatric admission for symptom stabilization and safety. Patient is currently involuntary and currently awaiting deferral and court hearing date. -Medications: We'll increase Haldol to 5 mg twice a day for psychosis. Continue with Cogentin 1 mg twice a day for EPS prophylaxis. Continue with lithium 450 mg twice a day for mood stabilization. Increase Seroquel 200 mg nightly for mood stabilization/insomnia. Continue with Zoloft 50 mg daily for mood. -Will attempt to find out when patient's last Haldol Decanoate 150 mg injection was given by [facility]. -When necessary Haldol and Ativan for agitation/aggression. -NRT - nicotine patch - on board for discharge planning. Encouraged the patient to participate in milieu. will attempt offer inpatient substance-abuse rehab upon discharge. Currently awaiting deferral and court date.
[2019-10-07 10:18] LABS: T4, Free (Free Thyroxine) 1.19 ng/dL (0.78-2.19)
[2019-10-07] MEDS: LORazepam 1 MG TAB PO PRN (18:33)
[2019-10-07] MEDS: HALOPERIDOL 5 MG TAB PO SCH (20:51)
[2019-10-07] MEDS: QUEtiapine 200 MG TAB PO SCH (20:51)
--- NOTE | 2019-10-08 10:11 | P.PN ---
Progress Note - Text Progress Note Date: 10/08/19 Interval History: Patient was seen today for follow-up in his room and development writer was accompanied by [employer] [facility] as a home teaching grades 9 thru 12 teacher due to patient's extreme agitation. Patient apparently has been taking his medications as prescribed. Patient was lying in bed once again this morning and was mildly less irritable with development writer and was swearing less at him during conversation. Patient managed to answer some questions during the encounter. He states that he is doing "fine" and offered no overnight complaints. He states that he slept throughout the night. However when asked about suicidal thoughts he states that "yes I want to drink bleach and ". He denies any homicidal ideations intent or plan and denies any auditory or visual hallucinations. He denies any side effects from medications. Mental Status Exam: General Appearance: Patient appears to be stated age is alert, irritable and uncooperative and hostile. Poor hygiene and grooming. Behavior: Patient is agitated and uncooperative and hostile, mildly improving. Speech: Patient's speech is fluent and nonpressured. Mood/Affect: Mood is "fine", affect is incongruent and appears to be irritable and agitated. Suicidality/Homicidality: Denies homicidal ideations intent or plan. Continues to endorse suicidal thoughts of drinking bleach. Perceptions: Denies Though content/process: Poverty of content. [place]. Bizarre Memory and concentration: Unable to be assessed Judgment and insight: Poor/impulsive, mildly improving Assessment Mood disorder unspecified, rule out substance-induced mood disorder Antisocial personality disorder Methamphetamine/stimulant abuse Cannabis use disorder Nicotine dependence Plan: -Patient continues to meet criteria for inpatient psychiatric admission for symptom stabilization and safety. Patient is currently involuntary and currently awaiting deferral and court hearing date. -Medications: We'll increase Haldol to 6 mg twice a day for psychosis. Continue with Cogentin 1 mg twice a day for EPS prophylaxis. Continue with lithium 450 mg twice a day for mood stabilization. Continue with Seroquel 200 mg nightly for mood stabilization/insomnia. Increased Zoloft 100 mg daily for mood. -According to [facility] records, patient will be due for his next Haldol Decanoate 150 mg IM injection on 10/11. -When necessary Haldol and Ativan for agitation/aggression. -NRT - nicotine patch -SW on board for discharge planning. Encouraged the patient to participate in milieu. will attempt offer inpatient substance-abuse rehab upon discharge. Currently awaiting deferral and court date.
[2019-10-08] MEDS: BENZTROPINE MESYLATE 1 MG TAB PO SCH ×2 (13:15→19:50)
[2019-10-08] MEDS: LITHIUM CARBONATE ER 450 MG TABLET.ER PO SCH ×2 (13:16→19:51)
[2019-10-08] MEDS: SERTRALINE 50 MG TAB PO SCH (13:16)
[2019-10-08] MEDS: HALOPERIDOL 5 MG TAB PO SCH (13:16)
[2019-10-08] MEDS: NICOTINE 21MG/24HR PATCH TRANSDERM SCH ×2 (13:16→18:58)
[2019-10-08] MEDS: LORazepam 1 MG TAB PO PRN (18:58)
[2019-10-08] MEDS: HALOPERIDOL 2 MG TAB PO SCH (19:00)
[2019-10-08] MEDS: QUEtiapine 200 MG TAB PO SCH (19:51)
[2019-10-09] MEDS: HALOPERIDOL 2 MG TAB PO SCH ×3 (10:14→21:09)
[2019-10-09] MEDS: SERTRALINE 100 MG TAB PO SCH (10:15)
[2019-10-09] MEDS: BENZTROPINE MESYLATE 1 MG TAB PO SCH ×3 (10:15→21:10)
[2019-10-09] MEDS: LITHIUM CARBONATE ER 450 MG TABLET.ER PO SCH ×3 (10:15→21:10)
--- NOTE | 2019-10-09 13:20 | P.PN ---
Subjective Progress Note Date: 10/09/19 The patient was seen in the chart was reviewed. The case was discussed with the staff for during the team meeting. The patient remained withdrawn and isolative and stays in his bed during the day. He refused to come to the office for his session. Patient was seen today for follow-up in his room, accompanied by [facility] tech as a manager trade due to patient's extreme agitation. The patient remain very irritable and refused to answer any questions during the session. The patient is verbally hostile and swearing. As per staff the patient has been refusing his medications. The patient refused to answer questions regarding hallucinations or suicidality but as per records has admitted to having suicidal ideations plans to drink bleach previously. Objective - Vital Signs Vital signs: Vital Signs Temp 98.6 F 10/08/19 05:24 Pulse 92 10/09/19 08:31 Resp 17 10/09/19 08:31 BP 106/61 10/09/19 08:31 Pulse Ox 96 10/09/19 08:31 - Exam Mental Status Exam: General Appearance: Patient appears to be stated age is alert, irritable, uncooperative and hostile. Poor hygiene and grooming. Behavior: Patient is agitated and uncooperative and hostile and swearing during the session. Speech: Patient's speech is limited to short swearing and refused to answer any questions. Mood/Affect: Unable to assess. Suicidality/Homicidality: Unable to assess. Perceptions: Unable to assess Though content/process: Poverty of content. [place]. Bizarre Memory and concentration: Unable to be assessed Judgment and insight: Poor/impulsive, mildly improving - Labs CBC & Chem 7: 10/07/19 08:13 10/07/19 08:13 Assessment and Plan Assessment: Assessment Mood disorder unspecified, rule out substance-induced mood disorder Antisocial personality disorder Methamphetamine/stimulant abuse Cannabis use disorder Nicotine dependence Plan: Plan: -Patient continues to meet criteria for inpatient psychiatric admission for symptom stabilization and safety. Patient is currently involuntary and currently awaiting deferral and court hearing date. Encouraged the patient to participate in milieu. Encourage compliance. -Medications: Continue Haldol to 6 mg twice a day for psychosis. Continue with Cogentin 1 mg twice a day for EPS prophylaxis. Continue with lithium 450 mg twice a day for mood stabilization. Continue with Seroquel 200 mg nightly for mood stabilization/insomnia. Continue Zoloft 100 mg daily for mood. -According to [facility] records, patient will be due for his next Haldol Decanoate 150 mg IM injection on 10/11. -When necessary Haldol and Ativan for agitation/aggression. -NRT - nicotine patch -SW on board for discharge planning. will attempt offer inpatient substance- abuse rehab upon discharge. Currently awaiting deferral and court date.
[2019-10-09] MEDS: LORazepam 1 MG TAB PO PRN (19:00)
[2019-10-09] MEDS: QUEtiapine 200 MG TAB PO SCH (21:10)
[2019-10-10] MEDS: LORazepam 1 MG TAB PO PRN ×2 (02:43→20:23)
[2019-10-10] MEDS: LITHIUM CARBONATE ER 450 MG TABLET.ER PO SCH ×2 (09:53→20:34)
[2019-10-10] MEDS: NICOTINE 21MG/24HR PATCH TRANSDERM SCH (09:53)
[2019-10-10] MEDS: BENZTROPINE MESYLATE 1 MG TAB PO SCH ×2 (09:53→20:34)
[2019-10-10] MEDS: SERTRALINE 100 MG TAB PO SCH (09:53)
[2019-10-10] MEDS: HALOPERIDOL 2 MG TAB PO SCH ×2 (09:53→20:34)
--- NOTE | 2019-10-10 10:15 | P.PN ---
Progress Note - Text Interval history: The patient's found in his room. Upon approach he is verbally abusive and is yelling. He refuses to participate in a session even if we speak in his room. Staff report that the patient has been loud and verbally abusive to other staff. The patient appears to be intermittently refusing medications. He has been isolating in his room he does not participate in the milieu. He is well known to the psychiatric service due to his multiple inpatient psychiatric hospitalizations. Mental status exam: The patient is lying in bed he is alert he demonstrates no eye contact he is loud verbally aggressive often uses profanity. Insight and judgment are poor. He refuses to answer any questions as part of the psychiatri c review of systems. He appears to be in no physical distress. He demonstrates no repetitive involuntary movements. He was covered with a blanket. Plan: We will continue to offer the medications as written, it looks like we are awaiting a court order. We will monitor him for safety. We will encourage compliance with his medication and participation in the milieu appropriately.
[2019-10-10] MEDS: QUEtiapine 200 MG TAB PO SCH (20:23)
[2019-10-11] MEDS: HALOPERIDOL LACTATE 5 MG/ML 1 ML VIAL IM PRN ×2 (02:14→13:30)
[2019-10-11] MEDS: HALOPERIDOL 2 MG TAB PO SCH ×2 (08:26→20:39)
[2019-10-11] MEDS: SERTRALINE 100 MG TAB PO SCH (08:27)
[2019-10-11] MEDS: NICOTINE 21MG/24HR PATCH TRANSDERM SCH (08:27)
[2019-10-11] MEDS: ACETAMINOPHEN TAB 325 MG TAB PO PRN (08:27)
[2019-10-11] MEDS: LITHIUM CARBONATE ER 450 MG TABLET.ER PO SCH ×2 (08:27→20:41)
[2019-10-11] MEDS: LORazepam 1 MG TAB PO PRN ×2 (08:27→20:41)
[2019-10-11] MEDS: BENZTROPINE MESYLATE 1 MG TAB PO SCH ×2 (08:27→20:41)
--- NOTE | 2019-10-11 12:20 | P.PN ---
Progress Note - Text Interval history: The patient is found in his room lying in bed. He is irritable upon approach he refuses to participate in a conversation. He responds very quickly indicating his suicidal thoughts and uses profanity. It appears that he is intermittently taking some of his medications he is refusing at other times. He is isolating in his room he attends no groups. Mental status exam: The patient's resting in bed comfortably he demonstrates no signs of physical distress. He demonstrates no involuntary repetitive movements. When addressed he becomes verbally abusive he is irritable uses profanity. He spontaneously reports suicidal thoughts even prior to being asked if those thoughts are present. Intellectually he is known to be below average. Insight and judgment are chronically impaired. He demonstrated no physical aggressiveness. Plan: The patient is only partially compliant with medications. He is not attending groups. We will continue to monitor him for safety. Vital signs reviewed. Continue psychiatric hospitalization until further stabilized.
[2019-10-11] MEDS: QUEtiapine 200 MG TAB PO SCH (20:41)
[2019-10-12] MEDS: NICOTINE 21MG/24HR PATCH TRANSDERM SCH (08:06)
[2019-10-12] MEDS: BENZTROPINE MESYLATE 1 MG TAB PO SCH ×2 (08:06→21:02)
[2019-10-12] MEDS: SERTRALINE 100 MG TAB PO SCH (08:06)
[2019-10-12] MEDS: LITHIUM CARBONATE ER 450 MG TABLET.ER PO SCH ×2 (08:06→21:02)
[2019-10-12] MEDS: HALOPERIDOL 2 MG TAB PO SCH ×2 (08:06→08:07)
[2019-10-12] MEDS: LORazepam 1 MG TAB PO PRN ×2 (08:06→18:21)
[2019-10-12] MEDS: HALOPERIDOL LACTATE 5 MG/ML 1 ML VIAL IM PRN (10:04)
--- NOTE | 2019-10-12 11:37 | P.PN ---
Progress Note - Text Progress Note Date: 10/12/19 Interval History: Patient was seen today for follow-up in his room and commercial loan underwriter was accompanied by [employer] [facility] as a crusher assembler due to patient's extreme agitation and irritability. Patient apparently has been taking his medications as prescribed over the weekend and had deferred with his cell liner over the phone this morning. Patient was lying lying on the floor this morning and patient was appearing to be less irritable and agitated with commercial loan underwriter when approached. Patient answered more questions appropriately today initially however as interview progressed patient became more irritable. Patient was concrete and continues to have poor insight and judgment. He does not believe that he has a drug problem and claims that he wants to be discharged to his friend's house. He did not offer any other complaints and states that he has been taking his medications. He states that he slept throughout the night last night and has been eating fairly. He denied going to any groups. He denies any homicidal ideations intent or plan and denies any auditory or visual hallucinations. He denies any side effects from medications. Mental Status Exam: General Appearance: Patient appears to be stated age is alert, irritable and mildly more cooperative. Improving hygiene and grooming. Behavior: Patient is agitated and uncooperative and hostile, mildly improving. Speech: Patient's speech is fluent and nonpressured. He speaks rapidly. Mood/Affect: Mood is "ok", affect is incongruent and appears to be irritable Suicidality/Homicidality: Denies homicidal ideations intent or plan. Denies any suicidal thoughts intent or plan. Perceptions: Denies Though content/process: Poverty of content. [place]. Memory and concentration: Alert and oriented 3. Judgment and insight: Poor/impulsive, mildly improving Assessment Mood disorder unspecified, rule out substance-induced mood disorder Antisocial personality disorder Methamphetamine/stimulant abuse Cannabis use disorder Nicotine dependence Plan: -Patient continues to meet criteria for inpatient psychiatric admission for symptom stabilization and safety. Patient had deferred on 10/12/2019 for treatment -Medications: We'll decrease Haldol 5 mg twice a day for psychosis. Continue with Cogentin 1 mg twice a day for EPS prophylaxis. Continue with lithium 450 mg twice a day for mood stabilization. Increased Seroquel 300 mg nightly for mood stabilization/insomnia. Continue with Zoloft 100 mg daily for mood. -Ordered Haldol Decanoate 175 mg IM today to ensure compliance. Patient will be due for his next dose on 10/26/2019. -When necessary Haldol and Ativan for agitation/aggression. -NRT - nicotine patch - on board for discharge planning. Encouraged the patient to participate in milieu. Patient is refusing substance abuse rehab. Patient deferred court on 10/12/2019. [facility] liaison to contact outpatient provider to commence the process of substance abuse treatment order to be filed. Likely discharge in 2-3 days.
[2019-10-12] MEDS ORDERED: HALOPERIDOL DECANOATE 50 MG/ML 1 ML VIAL IM SCH (12:00)
[2019-10-12] MEDS ORDERED: HALOPERIDOL DECANOATE 100 MG/ML 1 ML VIAL IM SCH (12:15)
[2019-10-12] MEDS: QUEtiapine 100 MG TAB PO SCH (21:02)
[2019-10-12] MEDS: HALOPERIDOL 5 MG TAB PO SCH (21:02)
[2019-10-13] MEDS: HALOPERIDOL 5 MG TAB PO SCH (08:19)
[2019-10-13] MEDS: BENZTROPINE MESYLATE 1 MG TAB PO SCH ×2 (08:19→20:46)
[2019-10-13] MEDS: NICOTINE 21MG/24HR PATCH TRANSDERM SCH (08:19)
[2019-10-13] MEDS: LITHIUM CARBONATE ER 450 MG TABLET.ER PO SCH ×2 (08:20→20:47)
[2019-10-13] MEDS: SERTRALINE 100 MG TAB PO SCH (08:20)
--- NOTE | 2019-10-13 10:31 | P.PN ---
Progress Note - Text Progress Note Date: 10/13/19 Interval History: Patient was seen today for follow-up in his room and global technical writer was accompanied by [email or web address] [facility] as a large animal husbandry technician due to patient's extreme agitation and impulsivity. Patient apparently has been taking his medications as prescribed to him. Patient refused the Haldol D injection yesterday. Patient was lying on his bed this morning and appeared to be less agitated and less irritable today and answered more questions appropriately by global technical writer during the encounter. Patient continues to have very poor insight and judgment and claims that he was feeling upset about the fact that global technical writer asked him about rehab yesterday for his substance abuse. He continues to adamantly declined rehab and claims that he wants to be discharged to his friend's house. He states that he was able to sleep well last night and claims that he has a fair appetite. He denies going to any groups. He did not offer any other complaints and states that he has been taking his medications. He denies any homicidal ideations intent or plan and denies any auditory or visual hallucinations. He denies any side effects from medications. Mental Status Exam: General Appearance: Patient appears to be stated age is alert, less irritable and mildly more cooperative today. Improving hygiene and grooming. Behavior: Patient is more cooperative today and less hostile. Speech: Patient's speech is fluent and nonpressured. He speaks rapidly. Mood/Affect: Mood is "fine", affect is incongruent and appears to be irritable Suicidality/Homicidality: Denies homicidal ideations intent or plan. Denies any suicidal thoughts intent or plan. Perceptions: Denies Though content/process: Poverty of content. [place]. Memory and concentration: Alert and oriented 3. Judgment and insight: Poor/impulsive, mildly improving Assessment Mood disorder unspecified, rule out substance-induced mood disorder Antisocial personality disorder Methamphetamine/stimulant abuse Cannabis use disorder Nicotine dependence Plan: -Patient continues to meet criteria for inpatient psychiatric admission for symptom stabilization and safety. Patient had deferred on 10/12/2019 for treatment. -Medications: We'll continue with Haldol 5 mg twice a day for psychosis. Continue with Cogentin 1 mg twice a day for EPS prophylaxis. Continue with lithium 450 mg twice a day for mood stabilization. Continue with Seroquel 300 mg nightly for mood stabilization/insomnia. Continue with Zoloft 100 mg daily for mood. -Will attempt once again to give Haldol Decanoate 175 mg IM today to ensure compliance -[place] level will be checked tomorrow. -When necessary Haldol and Ativan for agitation/aggression. -NRT - nicotine patch - on board for discharge planning. Encouraged the patient to participate in milieu. Patient is refusing substance abuse rehab. Patient deferred court on 10/12/2019. [facility] liaison to contact outpatient provider to commence the process of substance abuse treatment order to be filed. If patient continues to refuse Haldol D injection then we will proceed with filing for demand for hearing. Likely discharge in 2-3 days.
[2019-10-13 13:25] VITALS: BMI 22.7
[2019-10-13] MEDS: LORazepam 1 MG TAB PO PRN (13:45)
[2019-10-13] MEDS: QUEtiapine 100 MG TAB PO SCH (20:45)
[2019-10-13] MEDS: HALOPERIDOL 2 MG TAB PO SCH (20:46)
[2019-10-14] MEDS: SERTRALINE 100 MG TAB PO SCH (08:34)
[2019-10-14] MEDS: BENZTROPINE MESYLATE 1 MG TAB PO SCH ×2 (08:34→21:00)
[2019-10-14] MEDS: HALOPERIDOL 2 MG TAB PO SCH ×2 (08:34→21:00)
[2019-10-14] MEDS: NICOTINE 21MG/24HR PATCH TRANSDERM SCH (08:34)
[2019-10-14] MEDS: LITHIUM CARBONATE ER 450 MG TABLET.ER PO SCH ×2 (09:51→21:00)
[2019-10-14] MEDS: LORazepam 1 MG TAB PO PRN ×2 (09:52→22:41)
--- NOTE | 2019-10-14 11:37 | P.DS ---
Providers Date of admission: 10/05/19 13:51 Expected date of discharge: 10/14/19 Attending physician: Raman Kern MD Consults: 10/05/19 13:56 Consult Physician Routine Consulting Provider: Isabel Guerra Consult Reason/Comments: History and physical Do you want consulting provider notified?: Yes Primary care physician: Stated None - Discharge Diagnosis(es) (1) Mood disorder Current Visit: Yes Status: Acute Priority: High (2) Antisocial personality disorder Current Visit: Yes Status: Acute Priority: Medium (3) Methamphetamine abuse Current Visit: Yes Status: Acute Priority: High (4) Cannabis use disorder, mild, abuse Current Visit: Yes Status: Acute Priority: Medium (5) Nicotine dependence Current Visit: Yes Status: Acute Priority: Low Hospital Course: Admission HPI: Patient is a 23-year-old male with a chronic history of severe mental illness with polysubstance abuse who is currently homeless and has a public guardian. Patient presented to the hospital yesterday for evaluation for worsening depression according to ER report. Patient informed ER staff that he had been depressed for approximately 5 days now and had mentioned that he recently became homeless and was feeling suicidal with a plan to apparently drink bleach. Patient's UDS was positive for methamphetamine and marijuana. Patient has a history of several inpatient psychiatric admissions for mood disorder and psychotic symptoms along with polysubstance abuse. Patient was previously on a court order since March which was his last inpatient admission however the court order is set to on 10/07/2019. Patient was seen in his room today and was laying in bed and when commercial insurance underwriter approach patient patient began yelling at commercial insurance underwriter and telling him to "get the hell out!". Patient was extremely irritable and impulsive and loud and hostile towards commercial insurance underwriter swearing at him several times. Patient did state that he is recently homeless and "I want to kill myself". Patient mentioned several plans to overdose and to possibly drink bleach. He was vague and evasive and dismissive telling commercial insurance underwriter to leave the room. At this time patient denies any auditory or visual hallucinations. Patient admitted to using several recreational drugs including meth and cannabis and also smokes cigarettes daily. Patient denied any alcohol use. Hospital course: Upon admission to the unit patient was initially extremely agitated, aggressive and suicidal. Patient was previously on a court order which then and clinical certificates and petition were filed with court and patient ended up deferring court on 10/12/2019 and agreeing to treatment as he was involuntary. Patient mainly isolated in his room and was fairly agitated and irritable towards the beginning of his hospitalization however with medications and treatment patient gradually progressed and improved to approach his baseline. Patient was compliant with the medications and denied any side effects throughout hospital course. Patient was started on Haldol and titrated up to a dose of 12 mg daily however was decreased down to 6 mg total throughout the day for psychosis/mood stabilization. Patient was given Haldol D 175 mg on 10/12/2019 and tolerated it well and will be due for his next dose every 14 days. Patient was also started on lithium titrated up to a dose of 450 mg twice a day for mood stabilization, Seroquel titrated up to a dose of 300 mg nightly for mood stabilization/insomnia, Zoloft 100 mg daily for mood. Patient was also seen by medical team for history and physical exam. Patient's lithium level on day of discharge was 0.4. Throughout the course of the hospitalization patient gradually improved with regards to mood, anxiety, irritability/agitation, suicidal thoughts, sleep and had improved impulse control. Patient has chronically poor insight and judgment into his substance abuse and his medications and approached his baseline level of functioning. On the day of discharge patient denied any suicidal or homicidal ideations intent or plan denied any auditory or visual hallucinations. Patient endorsed wanting to live for his future. Patient denied any paranoia and did not endorse any delusions. Patient does have a significant history of substance abuse and was counseled on abstaining from all substances including alcohol and marijuana. Patient was offered however declined inpatient substance-abuse rehab. Patient was also counseled on the medications and need for regular compliance and was encouraged to follow-up with their outpatient appointment for mental health and also for primary care. Mental status exam: General Appearance: Patient appears to be stated age is alert, directable, and attempts to be cooperative. Patient is in no acute distress and has improved hygiene and grooming Behavior: Patient is calmly seated without any agitated behavior. Attempts to be cooperative. Speech: Patient's speech is fluent and nonpressured. Mood/Affect: Patient reports their mood is "ok", affect is congruent and constricted. Suicidality/Homicidality: Patient denies having any suicidal or homicidal ideation intent or plan. Perceptions: Patient denies any auditory or visual hallucinations. Though content/process: There is no evidence of any delusional thought content and thought process is linear and goal-directed. [place]. Memory and concentration: AOX3, grossly intact for the purposes of this session. Can spell "WORLD" backwards correctly. Judgment and insight: Improved with guarded prognosis Impression: Mood disorder unspecified, rule out substance-induced mood disorder Antisocial personality disorder Meth amphetamine/stimulant abuse Cannabis use disorder Nicotine dependence Plan: -Continue with discharge today as patient has improved and stabilized psychiatrically and is not currently an imminent threat to himself and/or others. Patient will remain at chronically elevated risk for potential self- harm/harm to others due to his chronically poor insight and judgment and also his poor impulse control. -Continue medications: Continue with Haldol by mouth 2 mg 3 times a day for psychosis for 5 days and then discontinue as patient received his Haldol Decanoate IM 175 mg injection on 10/12/2019 and will be due every 14 days next dose on 10/26/2019. -Patient was counseled on the need for medication compliance and appropriate follow-up at mental health and also primary care for medical issues. Patient verbalized understanding and agreed. -Social work communicated with patient's guardian to prepare for discharge planning for today and disposition. Social work also to arrange for patients follow up appointments with [facility] for psychiatric care along with follow up with primary care provider. -[facility] liaison contacted patient's outpatient provider to commence process of substance abuse treatment order to be filed. -Patient counseled on abstaining from recreational drugs and marijuana and alcohol. Was informed/educated on the adverse effects on their physical and mental health. Patient verbally agreed and understood. Patient was offered s ubstance abuse treatment however declined at this time. -Patient was instructed to return to the hospital or seek immediate medical care if their psychiatric or medical symptoms do worsen or reoccur. Allergies Allergy/AdvReac Type Severity Reaction Status Date / Time No Known Allergies Allergy Verified 10/05/19 14:42 Laboratory Results WBC 8.6 k/uL (3.8-10.6) 10/07/19 08:13 RBC 5.66 m/uL (4.30-5.90) 10/07/19 08:13 Hgb 16.3 gm/dL (13.0-17.5) 10/07/19 08:13 Hct 52.5 % (39.0-53.0) 10/07/19 08:13 MCV 92.8 fL (80.0-100.0) 10/07/19 08:13 MCH 28.9 pg (25.0-35.0) 10/07/19 08:13 MCHC 31.1 g/dL (31.0-37.0) 10/07/19 08:13 RDW 12.7 % (11.5-15.5) 10/07/19 08:13 Plt Count 328 k/uL (150-450) 10/07/19 08:13 Neutrophils % 48 % 10/07/19 08:13 Lymphocytes % 40 % 10/07/19 08:13 Monocytes % 5 % 10/07/19 08:13 Eosinophils % 5 % 10/07/19 08:13 Basophils % 1 % 10/07/19 08:13 Neutrophils # 4.1 k/uL (1.3-7.7) 10/07/19 08:13 Lymphocytes # 3.5 k/uL (1.0-4.8) 10/07/19 08:13 Monocytes # 0.4 k/uL (0-1.0) 10/07/19 08:13 Eosinophils # 0.4 k/uL (0-0.7) 10/07/19 08:13 Basophils # 0.1 k/uL (0-0.2) 10/07/19 08:13 Sodium 140 mmol/L (137-145) 10/07/19 08:13 Potassium 4.1 mmol/L (3.5-5.1) 10/07/19 08:13 Chloride 102 mmol/L (98-107) 10/07/19 08:13 Carbon Dioxide 28 mmol/L (22-30) 10/07/19 08:13 Anion Gap 10 mmol/L 10/07/19 08:13 BUN 11 mg/dL (9-20) 10/07/19 08:13 Creatinine 0.85 mg/dL (0.66-1.25) 10/07/19 08:13 Est GFR (CKD-EPI)AfAm >90 (>60 ml/min/1.73 sqM) 10/07/19 08:13 Est GFR (CKD-EPI)NonAf >90 (>60 ml/min/1.73 sqM) 10/07/19 08:13 Glucose 88 mg/dL (74-99) 10/07/19 08:[address] Glu mg/dL 85 10/05/19 14:35 Hemoglobin A1c 4.6 % (4.0-6.0) 10/05/19 14:35 Calcium 10.1 mg/dL (8.4-10.2) 10/07/19 08:13 Total Bilirubin 0.4 mg/dL (0.2-1.3) 10/07/19 08:13 AST 27 U/L (17-59) 10/07/19 08:13 ALT 26 U/L (4-49) 10/07/19 08:13 Alkaline Phosphatase 93 U/L (38-126) 10/07/19 08:13 Total Protein 8.4 g/dL (6.3-8.2) H 10/07/19 08:13 Albumin 4.9 g/dL (3.5-5.0) 10/07/19 08:13 TSH 6.540 mIU/L (0.465-4.680) H 10/07/19 08:13 Free T4 1.19 ng/dL (0.78-2.19) 10/07/19 08:13 Urine Color Yellow 10/05/19 02:33 Urine Appearance Clear (Clear) 10/05/19 02:33 Urine pH 7.0 (5.0-8.0) 10/05/19 02:33 Ur Specific [place] 1.005 (1.001-1.035) 10/05/19 02:33 Urine Protein Negative (Negative) 10/05/19 02:33 Urine Glucose (UA) Negative (Negative) 10/05/19 02:33 Urine Ketones Negative (Negative) 10/05/19 02:33 Urine Blood Negative (Negative) 10/05/19 02:33 Urine Nitrite Negative (Negative) 10/05/19 02:33 Urine Bilirubin Negative (Negative) 10/05/19 02:33 Urine Urobilinogen <2.0 mg/dL (<2.0) 10/05/19 02:33 Ur Leukocyte Esterase Negative (Negative) 10/05/19 02:33 Urine Opiates Screen Not Detected (NotDetected) 10/05/19 02:33 Ur Oxycodone Screen Not Detected (NotDetected) 10/05/19 02:33 Urine Methadone Screen Not Detected (NotDetected) 10/05/19 02:33 Ur Propoxyphene Screen Not Detected (NotDetected) 10/05/19 02:33 Ur Barbiturates Screen Not Detected (NotDetected) 10/05/19 02:33 Valproic Acid <10.0 ug/mL 10/05/19 14:35 U Tricyclic Antidepress Not Detected (NotDetected) 10/05/19 02:33 Ur Phencyclidine Scrn Not Detected (NotDetected) 10/05/19 02:33 Ur Amphetamines Screen Detected (NotDetected) H 10/05/19 02:33 U Methamphetamines Scrn Detected (NotDetected) H 10/05/19 02:33 U Benzodiazepines Scrn Not Detected (NotDetected) 10/05/19 02:33 [place] 0.4 mmol/L 10/14/19 08:42 Urine Cocaine Screen Not Detected (NotDetected) 10/05/19 02:33 U Marijuana (THC) Screen Detected (NotDetected) H 10/05/19 02:33 Vital Signs Temp 98.4 F 10/13/19 22:00 Pulse 57 L 10/13/19 07:03 Resp 14 10/13/19 07:03 BP 112/57 10/13/19 07:03 Pulse Ox 97 10/13/19 07:03 Intake & Output 10/13/19 10/14/19 10/14/19 18:59 06:59 18:59 Weight 67.9 kg Patient Condition at Discharge: Stable Plan - Discharge Summary New Discharge Prescriptions: New Benztropine Mesylate [Cogentin] 1 mg PO BID 30 Days tab Nicotine 21Mg/24Hr Patch [Habitrol] 1 patch TRANSDERM DAILY 14 Days patch Haloperidol [Haldol] 2 mg PO TID 5 Days tablet [place] Carbonate ER [Lithobid] 450 mg PO BID 30 Days tablet.er QUEtiapine [SEROquel] 300 mg PO HS 30 Days tab Acetaminophen Tab [Tylenol] 650 mg PO Q4HR PRN tab PRN Reason: Pain/Discomfort Sertraline [Zoloft] 100 mg PO DAILY 30 Days tab Changed Haldol D 175 mg IM Q14D #1 Discontinued Divalproex ER [Depakote ER] 1,000 mg PO DAILY 28 Days tab [place] Carbonate 600 mg PO HS QUEtiapine [SEROquel] 100 mg PO HS Discharge Medication List Acetaminophen Tab [Tylenol] 650 mg PO Q4HR PRN tab 10/14/19 [Rx] Benztropine Mesylate [Cogentin] 1 mg PO BID 30 Days tab 10/14/19 [Rx] Haldol D 175 mg IM Q14D #1 10/14/19 [Rx] Haloperidol [Haldol] 2 mg PO TID 5 Days tablet 10/14/19 [Rx] [place] Carbonate ER [Lithobid] 450 mg PO BID 30 Days tablet.er 10/14/19 [Rx] Nicotine 21Mg/24Hr Patch [Habitrol] 1 patch TRANSDERM DAILY 14 Days patch 10/14/19 [Rx] QUEtiapine [SEROquel] 300 mg PO HS 30 Days tab 10/14/19 [Rx] Sertraline [Zoloft] 100 mg PO DAILY 30 Days tab 10/14/19 [Rx] Follow up Appointment(s)/Referral(s): [facility] [Outside] - 10/15/19 1:00 pm (10-15-19 @ 1:00 with the ACT team 10-20-19 @ 3:[address] Brock at [facility] office via [employer].) None,Stated [Primary Care Provider] - 1-2 days Patient Instructions/Handouts: Mood Disorders (DC) Activity/Diet/Wound Care/Special Instructions: Activity and diet as tolerated. Avoid the use of street drugs and alcohol. Take all medications as prescribed. When you are in need of refills on your medications please contact your medical provider and/or outpatient psychiatrist to have this done. Please go to scheduled outpatient appointment for aftercare treatment. If symptoms return or become worse, call the crisis line at and/or go to the nearest emergency room for evaluation. Discharge Disposition: HOME SELF-CARE
[2019-10-14] MEDS: ACETAMINOPHEN TAB 325 MG TAB PO PRN (14:22)
[2019-10-14] MEDS: HALOPERIDOL LACTATE 5 MG/ML 1 ML VIAL IM PRN (15:16)
[2019-10-14] MEDS: QUEtiapine 100 MG TAB PO SCH (21:00)
[2019-10-15] MEDS: BENZTROPINE MESYLATE 1 MG TAB PO SCH (08:29)
[2019-10-15] MEDS: NICOTINE 21MG/24HR PATCH TRANSDERM SCH (08:29)
[2019-10-15] MEDS: HALOPERIDOL 2 MG TAB PO SCH (08:29)
[2019-10-15] MEDS: SERTRALINE 100 MG TAB PO SCH (08:30)
[2019-10-15] MEDS: LITHIUM CARBONATE ER 450 MG TABLET.ER PO SCH (08:30)
[2019-10-15] MEDS: LORazepam 1 MG TAB PO PRN ×2 (08:31→14:56)
[2019-10-15 08:57] VITALS: BP 105/59; PULSE 76; RESP 20
--- NOTE | 2019-10-15 10:23 | P.DS ---
Providers Date of admission: 10/05/19 13:51 Expected date of discharge: 10/15/19 Attending physician: Raman Kern MD Consults: 10/05/19 13:56 Consult Physician Routine Consulting Provider: Isabel Guerra Consult Reason/Comments: History and physical Do you want consulting provider notified?: Yes Primary care physician: Stated None - Discharge Diagnosis(es) (1) Mood disorder Current Visit: Yes Status: Acute Priority: High (2) Antisocial personality disorder Current Visit: Yes Status: Acute Priority: Medium (3) Methamphetamine abuse Current Visit: Yes Status: Acute Priority: High (4) Cannabis use disorder, mild, abuse Current Visit: Yes Status: Acute Priority: Medium (5) Nicotine dependence Current Visit: Yes Status: Acute Priority: Low Hospital Course: Admission HPI: Patient is a 23-year-old male with a chronic history of severe mental illness with polysubstance abuse who is currently homeless and has a public guardian. Patient presented to the hospital yesterday for evaluation for worsening depression according to ER report. Patient informed ER staff that he had been depressed for approximately 5 days now and had mentioned that he recently became homeless and was feeling suicidal with a plan to apparently drink bleach. Patient's UDS was positive for methamphetamine and marijuana. Patient has a history of several inpatient psychiatric admissions for mood disorder and psychotic symptoms along with polysubstance abuse. Patient was previously on a court order since March which was his last inpatient admission however the court order is set to on 10/07/2019. Patient was seen in his room today and was laying in bed and when television script writer approach patient patient began yelling at television script writer and telling him to "get the hell out!". Patient was extremely irritable and impulsive and loud and hostile towards television script writer swearing at him several times. Patient did state that he is recently homeless and "I want to kill myself". Patient mentioned several plans to overdose and to possibly drink bleach. He was vague and evasive and dismissive telling television script writer to leave the room. At this time patient denies any auditory or visual hallucinations. Patient admitted to using several recreational drugs including meth and cannabis and also smokes cigarettes daily. Patient denied any alcohol use. Hospital course: Upon admission to the unit patient was initially extremely agitated, aggressive and suicidal. Patient was previously on a court order which then and clinical certificates and petition were filed with court and patient ended up deferring court on 10/12/2019 and agreeing to treatment as he was involuntary. Patient mainly isolated in his room and was fairly agitated and irritable towards the beginning of his hospitalization however with medications and treatment patient gradually progressed and improved to approach his baseline. Patient was compliant with the medications and denied any side effects throughout hospital course. Patient was started on Haldol and titrated up to a dose of 12 mg daily however was decreased down to 6 mg total throughout the day for psychosis/mood stabilization. Patient was given Haldol D 175 mg on 10/12/2019 and tolerated it well and will be due for his next dose every 14 days. Patient was also started on lithium titrated up to a dose of 450 mg twice a day for mood stabilization, Seroquel titrated up to a dose of 300 mg nightly for mood stabilization/insomnia, Zoloft 100 mg daily for mood. Patient was also seen by medical team for history and physical exam. Patient's lithium level on day of discharge was 0.4. Throughout the course of the hospitalization patient gradually improved with regards to mood, anxiety, irritability/agitation, suicidal thoughts, sleep and had improved impulse control. Patient has chronically poor insight and judgment into his substance abuse and his medications and approached his baseline level of functioning. On the day of discharge patient denied any suicidal or homicidal ideations intent or plan denied any auditory or visual hallucinations. Patient endorsed wanting to live for his future. Patient denied any paranoia and did not endorse any delusions. Patient does have a significant history of substance abuse and was counseled on abstaining from all substances including alcohol and marijuana. Patient was offered however declined inpatient substance-abuse rehab. Patient was also counseled on the medications and need for regular compliance and was encouraged to follow-up with their outpatient appointment for mental health and also for primary care. Mental status exam: General Appearance: Patient appears to be stated age is alert, directable, and attempts to be cooperative. Patient is in no acute distress and has improved hygiene and grooming Behavior: Patient is calmly seated without any agitated behavior. Attempts to be cooperative. Speech: Patient's speech is fluent and nonpressured. Mood/Affect: Patient reports their mood is "good", affect is congruent and constricted. Suicidality/Homicidality: Patient denies having any suicidal or homicidal ideation intent or plan. Perceptions: Patient denies any auditory or visual hallucinations. Though content/process: There is no evidence of any delusional thought content and thought process is linear and goal-directed. [place]. Memory and concentration: AOX3, grossly intact for the purposes of this session. Can spell "WORLD" backwards correctly. Judgment and insight: Improved with guarded prognosis Impression: Mood disorder unspecified, rule out substance-induced mood disorder Antisocial personality disorder Meth amphetamine/stimulant abuse Cannabis use disorder Nicotine dependence Plan: -Continue with discharge today as patient has improved and stabilized psychiatrically and is not currently an imminent threat to himself and/or others. Patient will remain at chronically elevated risk for potential self- harm/harm to others due to his chronically poor insight and judgment and also his poor impulse control. -Continue medications: Continue with Haldol by mouth 2 mg 3 times a day for psychosis for 5 days and then discontinue as patient received his Haldol Decanoate IM 175 mg injection on 10/12/2019 and will be due every 14 days next dose on 10/26/2019. -Patient was counseled on the need for medication compliance and appropriate follow-up at mental health and also primary care for medical issues. Patient verbalized understanding and agreed. -Social work communicated with patient's guardian to prepare for discharge planning for today and disposition. Social work also to arrange for patients follow up appointments with [facility] for psychiatric care along with follow up with primary care provider. -[facility] liaison contacted patient's outpatient provider to commence process of substance abuse treatment order to be filed. -Patient counseled on abstaining from recreational drugs and marijuana and alcohol. Was informed/educated on the adverse effects on their physical and mental health. Patient verbally agreed and understood. Patient was offered substance abuse treatment however declined at this time. -Patient was instructed to return to the hospital or seek immediate medical care if their psychiatric or medical symptoms do worsen or reoccur. Patient was meant to be discharged yesterday however guardian needed one extra day to look for patient's placement at a skilled nursing and today patient will be discharged to the skilled nursing with outpatient follow-up at [facility] Patient Condition at Discharge: Stable Plan - Discharge Summary New Discharge Prescriptions: New Benztropine Mesylate [Cogentin] 1 mg PO BID 30 Days tab Nicotine 21Mg/24Hr Patch [Habitrol] 1 patch TRANSDERM DAILY 14 Days patch Haloperidol [Haldol] 2 mg PO TID 5 Days tablet [place] Carbonate ER [Lithobid] 450 mg PO BID 30 Days tablet.er QUEtiapine [SEROquel] 300 mg PO HS 30 Days tab Acetaminophen Tab [Tylenol] 650 mg PO Q4HR PRN tab PRN Reason: Pain/Discomfort Sertraline [Zoloft] 100 mg PO DAILY 30 Days tab Changed Haldol D 175 mg IM Q14D #1 Discontinued Divalproex ER [Depakote ER] 1,000 mg PO DAILY 28 Days tab [place] Carbonate 600 mg PO HS QUEtiapine [SEROquel] 100 mg PO HS Discharge Medication List Acetaminophen Tab [Tylenol] 650 mg PO Q4HR PRN tab 10/14/19 [Rx] Benztropine Mesylate [Cogentin] 1 mg PO BID 30 Days tab 10/14/19 [Rx] Haldol D 175 mg IM Q14D #1 10/14/19 [Rx] Haloperidol [Haldol] 2 mg PO TID 5 Days tablet 10/14/19 [Rx] [place] Carbonate ER [Lithobid] 450 mg PO BID 30 Days tablet.er 10/14/19 [Rx] Nicotine 21Mg/24Hr Patch [Habitrol] 1 patch TRANSDERM DAILY 14 Days patch 10/14/19 [Rx] QUEtiapine [SEROquel] 300 mg PO HS 30 Days tab 10/14/19 [Rx] Sertraline [Zoloft] 100 mg PO DAILY 30 Days tab 10/14/19 [Rx] Follow up Appointment(s)/Referral(s): [facility] [Outside] - 10/15/19 1:00 pm (10-15-19 @ 1:00 with the ACT team 10-20-19 @ 3:[address] Brock at [facility] office via [employer].) None,Stated [Primary Care Provider] - 1-2 days Patient Instructions/Handouts: Mood Disorders (DC) Activity/Diet/Wound Care/Special Instructions: Activity and diet as tolerated. Avoid the use of street drugs and alcohol. Take all medications as prescribed. When you are in need of refills on your medications please contact your medical provider and/or outpatient psychiatrist to have this done. Please go to scheduled outpatient appointment for aftercare treatment. If symptoms return or become worse, call the crisis line at and/or go to the nearest emergency room for evaluation. Discharge Disposition: HOME SELF-CARE
[2019-10-15 13:35] VITALS: TEMP 97.7
== END 2019-10-15 15:42 | disposition home or self-care (01) | DRG 885 ==
LOC: EC 02:21 → 3MHU 13:51
PROVIDERS: ADMIT Psychiatry & Neurology Psychiatry; ATTEND Psychiatry & Neurology Psychiatry
DX: F39 Unspecified mood [affective] disorder (principal); R45.851 Suicidal ideations; F15.10 Other stimulant abuse, uncomplicated; F60.2 Antisocial personality disorder; F12.10 Cannabis abuse, uncomplicated; F41.9 Anxiety disorder, unspecified; G47.00 Insomnia, unspecified; B19.20 Unspecified viral hepatitis C without hepatic coma; J45.909 Unspecified asthma, uncomplicated; F17.210 Nicotine dependence, cigarettes, uncomplicated; Z71.6 Tobacco abuse counseling; Z79.899 Other long term (current) drug therapy; Z91.5 Personal history of self-harm; Z59.0 Homelessness
CPT/HCPCS: 80053; 80164; 80178; 80306; 81003; 82075; 83036; 84439; 84443; 85025; 99285

== ENCOUNTER 2019-10-31 15:39 | Emergency (ER) | payer OTHER ==
[2019-10-31 16:04] VITALS: BP 130/79; PULSE 112; RESP 18; TEMP 99
[2019-10-31] MEDS ORDERED: IBUPROFEN 600 MG TAB PO STA (16:50)
--- NOTE | 2019-10-31 17:00 | ED ---
Psych HPI - General Source: patient Mode of arrival: ambulatory <Beatriz Garay - Last Filed: 10/31/19 17:27> <El Bal - Last Filed: 10/31/19 21:51> - General Chief Complaint: Psychiatric Symptoms Stated Complaint: SUCICIDAL Time Seen by Provider: 10/31/19 15:52 - History of Present Illness Initial Comments: Patient is a 23-year-old male presenting to the emergency department for psychiatric evaluation. Patient states he is currently homeless, he wants to kill himself. Patient states he wants to throw himself in front of the moving vehicle. He also admits to being homicidal, stating he "wants to hurt anybody that makes me mad." He states he is on medicines right now but they always switches so he is not sure which ones he is on. He denies any recent fever or chills. He denies any pain right now. He denies drinking alcohol today, no other drug use. He has no further complaints at this time. Upon arrival to the ER, his vitals are stable. (Beatriz Garay) - Related Data Previous Rx's Medication Instructions Recorded Acetaminophen Tab [Tylenol] 650 mg PO Q4HR PRN tab 10/14/19 Benztropine Mesylate [Cogentin] 1 mg PO BID 30 Days tab 10/14/19 Haldol D 175 mg IM Q14D #1 10/14/19 Haloperidol [Haldol] 2 mg PO TID 5 Days tablet 10/14/19 [place] Carbonate ER [Lithobid] 450 mg PO BID 30 Days tablet.er 10/14/19 Nicotine 21Mg/24Hr Patch [Habitrol] 1 patch TRANSDERM DAILY 14 Days 10/14/19 patch QUEtiapine [SEROquel] 300 mg PO HS 30 Days tab 10/14/19 Sertraline [Zoloft] 100 mg PO DAILY 30 Days tab 10/14/19 Allergies Allergy/AdvReac Type Severity Reaction Status Date / Time No Known Allergies Allergy Verified 10/31/19 15:49 Review of Systems ROS Other: All systems not noted in ROS Statement are negative. <Beatriz Garay - Last Filed: 10/31/19 17:27> ROS Other: All systems not noted in ROS Statement are negative. <El Bal - Last Filed: 10/31/19 21:51> ROS Statement: Those systems with pertinent positive or pertinent negative responses have been documented in the HPI. Past Medical History Past Medical History: Asthma Additional Past Medical History / Comment(s): Depression, anxiety anti social personality disorder, hepatitis C History of Any Multi-Drug Resistant Organisms: None Reported Past Surgical History: No Surgical Hx Reported Past Anesthesia/Blood Transfusion Reactions: No Reported Reaction Past Psychological History: Anxiety, Bipolar, Depression Smoking Status: Current every day smoker Past Alcohol Use History: Occasional Past Drug Use History: Marijuana, Methamphetamine - Past Family History Mother Family Medical History: Unable to Obtain Additional Family Medical History / Comment(s): Patient reports that he knows nothing about his family <Beatriz Garay Jay - Last Filed: 10/31/19 17:27> General Exam Limitations: no limitations <TanishaBeatriz Jay - Last Filed: 10/31/19 17:27> - General Exam Comments Initial Comments: GENERAL: Patient is well-developed and well-nourished. Patient is nontoxic and in no acute distress. HEAD: Atraumatic, normocephalic. EYES: Pupils equal round and reactive to light, extraocular movements intact, sclera anicteric, conjunctiva are normal. Eyelids were unremarkable. ENT: TMs normal, nares patent, oropharynx clear without exudates. Moist mucous membranes. There is a fracture of tooth #19 with some pain on palpation. There is no obvious abscess or overlying erythema. NECK: Normal range of motion, supple without lymphadenopathy or JVD. LUNGS: Unlabored respirations. Breath sounds clear to auscultation bilaterally and equal. No wheezes rales or rhonchi. HEART: Regular rate and rhythm without murmurs, rubs or gallops. ABDOMEN: Soft, nontender, normoactive bowel sounds. No guarding, no rebound. No masses appreciated. : Deferred MUSCULOSKELETAL: Normal extremities wwith adequate strength and normal range of motion, no pitting or edema. No clubbing or cyanosis. NEUROLOGICAL: Patient is alert and oriented x 3. Motor and sensory are also intact. Cranial nerves II through XII grossly intact. Normal speech, normal gait. Symmetrical smile. PSYCH: Normal mood, normal affect. SKIN: Warm, Dry, normal turgor, no rashes or lesions noted. (Beatriz Garay) Course Vital Signs 10/31/19 15:47 Temperature 99 F Pulse Rate 112 H Respiratory 18 Rate Blood Pressure 130/79 O2 Sat by Pulse 98 Oximetry Medical Decision Making <Beatriz Garay - Last Filed: 10/31/19 17:27> - Medical Decision Making Patient is a 23-year-old male here for a psychiatric evaluation. Patient does have suicidal thoughts as well as homicidal thoughts. He is currently homeless. Patient was complaining of dental pain on the left lower side. He doesn't refracture of this tooth, no obvious abscess. I will start him on antibiotics for possible tooth abscess. Patient was evaluated by EPS. (Beatriz Garay) - Lab Data Lab Results 10/31/19 Range/Units 16:51 Urine Opiates Screen Not Detected (NotDetected) Ur Oxycodone Screen Not Detected (NotDetected) Urine Methadone Screen Not Detected (NotDetected) Ur Propoxyphene Screen Not Detected (NotDetected) Ur Barbiturates Screen Not Detected (NotDetected) U Tricyclic Antidepress Not Detected (NotDetected) Ur Phencyclidine Scrn Not Detected (NotDetected) Ur Amphetamines Screen Not Detected (NotDetected) U Methamphetamines Scrn Not Detected (NotDetected) U Benzodiazepines Scrn Not Detected (NotDetected) Urine Cocaine Screen Detected H (NotDetected) U Marijuana (THC) Screen Detected H (NotDetected) Disposition <Beatriz Garay - Last Filed: 10/31/19 17:27> Is patient prescribed a controlled substance at d/c from ED?: No Time of Disposition: 21:50 <El Bal - Last Filed: 10/31/19 21:51> Clinical Impression: Suicidal behavior Disposition: HOME SELF-CARE Additional Instructions: Discharge to be warm group home Referrals: Janell Ward MD [Primary Care Provider] - 1-2 days
[2019-10-31 17:22] LABS: Cocaine Screen,Urine Detected (NotDetected); Phencyclidine Screen,Urine Not Detected (NotDetected); Urn Cannabinoid Scrn Detected (NotDetected)
[2019-10-31 17:23] LABS: Amphetamine Screen,Urine Not Detected (NotDetected); Barbiturate Screen,Urine Not Detected (NotDetected); Benzodiazepines Screen,Urine Not Detected (NotDetected); Methadone Screen, Urine Not Detected (NotDetected); Opiate Screen,Urine Not Detected (NotDetected); Oxycodone Screen, Urine Not Detected (NotDetected); Tricyclic Antidepressant,Urine Not Detected (NotDetected)
[2019-10-31] MEDS ORDERED: PENICILLIN V POTASSIUM 250 MG TAB PO STA (17:26)
== END 2019-10-31 22:11 | disposition home or self-care (01) ==
LOC: EC 15:39
DX: R45.851 Suicidal ideations (principal); R45.850 Homicidal ideations; K08.89 Other specified disorders of teeth and supporting structures; F17.200 Nicotine dependence, unspecified, uncomplicated; Z59.0 Homelessness
CPT/HCPCS: 80306; 82075; 99285

== ENCOUNTER 2019-11-05 17:38 | Emergency (ER) | payer OTHER ==
[2019-11-05 17:46] VITALS: RESP 18
--- NOTE | 2019-11-05 18:28 | ED ---
Psych HPI - General Source: patient, RN notes reviewed Mode of arrival: ambulatory - History of Present Illness MD Complaint: suicidal ideation, feels depressed <Erasmo Hernández - Last Filed: 11/05/19 23:25> <Hector Carias - Last Filed: 11/06/19 06:47> <Maddi Hamilton - Last Filed: 11/06/19 22:57> - General Chief Complaint: Psychiatric Symptoms Stated Complaint: Mental Health Time Seen by Provider: 11/05/19 18:02 - History of Present Illness Initial Comments: Is a 23-year-old male with a history of depression who is here because he is suicidal. He was brought in by police under petition. He states he went overdose of that doesn't work elected jump off a bridge. He has any drugs or alcohol at this time. He does admit that he is homeless she also complains some left jaw pain due to fractured teeth. (Erasmo Hernández) - Related Data Home Medications Medication Instructions Recorded Confirmed Divalproex ER [Depakote ER] 1,000 mg PO HS 11/05/19 11/05/19 Haldol Deconate 100mg/1ml 175 mg IM Q14D 11/05/19 11/05/19 Previous Rx's Medication Instructions Recorded Benztropine Mesylate [Cogentin] 1 mg PO BID 30 Days tab 10/14/19 [place] Carbonate ER [Lithobid] 450 mg PO BID 30 Days tablet.er 10/14/19 QUEtiapine [SEROquel] 300 mg PO HS 30 Days tab 10/14/19 Sertraline [Zoloft] 100 mg PO DAILY 30 Days tab 10/14/19 haloperidoL [Haldol] 2 mg PO TID 5 Days tablet 10/14/19 Allergies Allergy/AdvReac Type Severity Reaction Status Date / Time No Known Allergies Allergy Verified 11/05/19 20:14 Review of Systems ROS Other: All systems not noted in ROS Statement are negative. <Erasmo Hernández - Last Filed: 11/05/19 23:25> ROS Other: All systems not noted in ROS Statement are negative. <Hector Carias - Last Filed: 11/06/19 06:47> ROS Other: All systems not noted in ROS Statement are negative. <Maddi Hamilton - Last Filed: 11/06/19 22:57> ROS Statement: Those systems with pertinent positive or pertinent negative responses have been documented in the HPI. Past Medical History Past Medical History: Asthma Additional Past Medical History / Comment(s): Depression, anxiety anti social personality disorder, hepatitis C History of Any Multi-Drug Resistant Organisms: None Reported Past Surgical History: No Surgical Hx Reported Past Anesthesia/Blood Transfusion Reactions: No Reported Reaction Past Psychological History: Anxiety, Bipolar, Depression Smoking Status: Current every day smoker Past Alcohol Use History: Occasional Past Drug Use History: Marijuana, Methamphetamine - Past Family History Mother Family Medical History: Unable to Obtain Additional Family Medical History / Comment(s): Patient reports that he knows nothing about his family <Erasmo Hernández - Last Filed: 11/05/19 23:25> General Exam Limitations: no limitations General appearance: alert, in no apparent distress Head exam: Present: atraumatic, normocephalic, normal inspection Eye exam: Present: normal appearance, PERRL, EOMI. Absent: scleral icterus, con junctival injection, periorbital swelling ENT exam: Present: mucous membranes moist, other (Patient does demonstrate poor dentition with erosion of the teeth on the gumline on the left lower molars.) Neck exam: Present: normal inspection, full ROM. Absent: tenderness, meningismus, lymphadenopathy Respiratory exam: Present: normal lung sounds bilaterally. Absent: respiratory distress, wheezes, rales, rhonchi, stridor Cardiovascular Exam: Present: regular rate, normal rhythm, normal heart sounds. Absent: systolic murmur, diastolic murmur, rubs, gallop, clicks GI/Abdominal exam: Present: soft, normal bowel sounds. Absent: distended, tenderness, guarding, rebound, rigid Extremities exam: Present: normal inspection, full ROM, normal capillary refill. Absent: tenderness, pedal edema, joint swelling, calf tenderness Back exam: Present: normal inspection Neurological exam: Present: alert, oriented X3, CN II-XII intact Psychiatric exam: Present: depressed, suicidal ideation Skin exam: Present: warm, dry, intact, normal color. Absent: rash <Erasmo Hernández - Last Filed: 11/05/19 23:25> - General Exam Comments Initial Comments: This is a well-developed well-nourished awake alert oriented 3 male (Erasmo Hernández) Course <Earsmo Hernández - Last Filed: 11/05/19 23:25> <Hector Carias - Last Filed: 11/06/19 06:47> Vital Signs 11/05/19 11/05/19 11/06/19 17:42 23:00 08:00 Temperature 98.1 F 98.2 F Pulse Rate 92 87 79 Respiratory 18 18 18 Rate Blood Pressure 120/79 165/98 113/66 O2 Sat by Pulse 98 97 97 Oximetry 11/06/19 11/06/19 11/06/19 09:00 10:00 11:00 Temperature Pulse Rate Respiratory 18 18 18 Rate Blood Pressure O2 Sat by Pulse Oximetry 11/06/19 11/06/19 11/06/19 12:00 13:00 14:00 Temperature Pulse Rate 76 Respiratory 18 18 18 Rate Blood Pressure 125/71 O2 Sat by Pulse 99 Oximetry 11/06/19 11/06/19 15:00 15:30 Temperature 98.1 F 98.1 F Pulse Rate 85 85 Respiratory 18 18 Rate Blood Pressure 140/79 140/79 O2 Sat by Pulse 98 98 Oximetry - Reevaluation(s) Reevaluation #1: 11/05/19 23:25 The patient rested comfortably throughout the evening. He is awaiting EPS evaluation. Case is endorsed to Dr. Carias at our shift change (Erasmo Hernández) Reevaluation #2: 11/06/19 06:48 I did see this patient for the purpose of filing the clinical certification. (Hector Carias) Medical Decision Making - Lab Data Result diagrams: 11/06/19 03:50 11/06/19 03:46 <Hector Carias - Last Filed: 11/06/19 06:47> - Lab Data Result diagrams: 11/06/19 03:50 11/06/19 03:46 <Maddi Hamilton - Last Filed: 11/06/19 22:57> - Medical Decision Making Patient evaluated by ACT team and placed in a crisis bed at [facility]. Patient dishcharged from ED and taken to [facility] in stable condition. (Maddi Hamilton) - Lab Data Lab Results 11/05/19 11/06/19 11/06/19 Range/Units 18:07 03:46 03:50 WBC 7.9 (3.8-10.6) k/uL RBC 4.86 (4.30-5.90) m/uL Hgb 13.8 (13.0-17.5) gm/dL Hct 43.1 (39.0-53.0) % MCV 88.5 (80.0-100.0) fL MCH 28.5 (25.0-35.0) pg MCHC 32.2 (31.0-37.0) g/dL RDW 13.1 (11.5-15.5) % Plt Count 285 (150-450) k/uL Neutrophils % 55 % Lymphocytes % 35 % Monocytes % 4 % Eosinophils % 3 % Basophils % 1 % Neutrophils # 4.3 (1.3-7.7) k/uL Lymphocytes # 2.8 (1.0-4.8) k/uL Monocytes # 0.3 (0-1.0) k/uL Eosinophils # 0.2 (0-0.7) k/uL Basophils # 0.1 (0-0.2) k/uL Sodium 137 (137-145) mmol/L Potassium 4.0 (3.5-5.1) mmol/L Chloride 107 (98-107) mmol/L Carbon Dioxide 24 (22-30) mmol/L Anion Gap 6 mmol/L BUN 9 (9-20) mg/dL Creatinine 0.68 (0.66-1.25) mg/dL Est GFR (CKD-EPI)AfAm >90 (>60 ml/min/1.73 sqM) Est GFR (CKD-EPI)NonAf >90 (>60 ml/min/1.73 sqM) Glucose 97 (74-99) mg/dL Calcium 9.2 (8.4-10.2) mg/dL Urine Opiates Screen Not Detected (NotDetected) Ur Oxycodone Screen Not Detected (NotDetected) Urine Methadone Screen Not Detected (NotDetected) Ur Propoxyphene Screen Not Detected (NotDetected) Ur Barbiturates Screen Not Detected (NotDetected) U Tricyclic Antidepress Not Detected (NotDetected) Ur Phencyclidine Scrn Not Detected (NotDetected) Ur Amphetamines Screen Not Detected (NotDetected) U Methamphetamines Scrn Not Detected (NotDetected) U Benzodiazepines Scrn Not Detected (NotDetected) Urine Cocaine Screen Not Detected (NotDetected) U Marijuana (THC) Screen Detected H (NotDetected) Disposition <Erasmo Hernández - Last Filed: 11/05/19 23:25> <Hector Carias - Last Filed: 11/06/19 06:47> Is patient prescribed a controlled substance at d/c from ED?: No Time of Disposition: 15:07 <Maddi Hamilton - Last Filed: 11/06/19 22:57> Clinical Impression: Depressed, Suicidal ideation Disposition: HOME SELF-CARE Condition: Stable Instructions (If sedation given, give patient instructions): Depression (ED) Additional Instructions: You are being transferred to a crisis bed Referrals: None,Stated [Primary Care Provider] - 1-2 days
[2019-11-05 19:02] LABS: Amphetamine Screen,Urine Not Detected (NotDetected); Barbiturate Screen,Urine Not Detected (NotDetected); Benzodiazepines Screen,Urine Not Detected (NotDetected); Cocaine Screen,Urine Not Detected (NotDetected); Methadone Screen, Urine Not Detected (NotDetected); Opiate Screen,Urine Not Detected (NotDetected); Oxycodone Screen, Urine Not Detected (NotDetected); Phencyclidine Screen,Urine Not Detected (NotDetected); Tricyclic Antidepressant,Urine Not Detected (NotDetected); Urn Cannabinoid Scrn Detected (NotDetected)
[2019-11-05] MEDS ORDERED: IBUPROFEN 600 MG TAB PO STA (22:55)
[2019-11-06 04:04] LABS: Basophils # (A) 0.1 k/uL (0-0.2); Basophils % (A) 1 %; Eosinophils # (A) 0.2 k/uL (0-0.7); Eosinophils % (A) 3 %; HCT 43.1 % (39.0-53.0); HGB 13.8 gm/dL (13.0-17.5); Lymphocytes # (A) 2.8 k/uL (1.0-4.8); Lymphocytes % (A) 35 %; MCH 28.5 pg (25.0-35.0); MCHC 32.2 g/dL (31.0-37.0); MCV 88.5 fL (80.0-100.0); Mean Platelet Volume 6.8; Monocytes # (A) 0.3 k/uL (0-1.0); Monocytes % (A) 4 %; Neutrophils # (A) 4.3 k/uL (1.3-7.7); Neutrophils % (A) 55 %; Platelet Count 285 k/uL (150-450); RBC 4.86 m/uL (4.30-5.90); RDW 13.1 % (11.5-15.5); WBC 7.9 k/uL (3.8-10.6)
[2019-11-06 04:13] LABS: African American GFR (CKD) >90 (>60 ml/min/1.73 sqM); Anion Gap 6 mmol/L; Blood Urea Nitrogen 9 mg/dL (9-20); Calcium 9.2 mg/dL (8.4-10.2); Carbon Dioxide 24 mmol/L (22-30); Chloride 107 mmol/L (98-107); Glucose 97 mg/dL (74-99); Non-African American GFR(CKD) >90 (>60 ml/min/1.73 sqM); Sodium 137 mmol/L (137-145)
[2019-11-06 15:30] VITALS: BP 140/79; PULSE 85; TEMP 98.1
== END 2019-11-06 15:31 | disposition home or self-care (01) ==
LOC: EC 17:38
DX: R45.851 Suicidal ideations (principal); F32.9 Major depressive disorder, single episode, unspecified; F17.200 Nicotine dependence, unspecified, uncomplicated; Z79.899 Other long term (current) drug therapy; Z59.0 Homelessness
CPT/HCPCS: 36415; 80048; 80306; 82075; 85025; 99285

== ENCOUNTER 2019-11-18 20:29 | Emergency (ER) | payer OTHER ==
[2019-11-18 20:37] VITALS: BP 119/68; PULSE 98; RESP 18; TEMP 98.1
--- NOTE | 2019-11-18 20:41 | ED ---
General Adult HPI - General Chief complaint: Psychiatric Symptoms Stated complaint: Mental Health Time Seen by Provider: 11/18/19 20:40 Source: patient Mode of arrival: ambulatory Limitations: no limitations - History of Present Illness Initial comments: 23-year-old male well-known to this emergency department with a past medical history of bipolar disorder, depression, anxiety presents to the emergency room for suicidal thoughts. Patient states he always has suicidal thoughts. Patient states he always has a plan to lay in the train tracks. Patient called the police today to bring him into the emergency room. Patient had been set up in a longterm and was apparently kicked out last week. Patient's guardian is aware of this.Patient has no other complaints at this time including shortness of breath, chest pain, abdominal pain, nausea or vomiting, headache, or visual changes. - Related Data Home Medications Medication Instructions Recorded Confirmed Divalproex ER [Depakote ER] 1,000 mg PO HS 11/05/19 11/05/19 Haldol Deconate 100mg/1ml 175 mg IM Q14D 11/05/19 11/05/19 Previous Rx's Medication Instructions Recorded Benztropine Mesylate [Cogentin] 1 mg PO BID 30 Days tab 10/14/19 [place] Carbonate ER [Lithobid] 450 mg PO BID 30 Days tablet.er 10/14/19 QUEtiapine [SEROquel] 300 mg PO HS 30 Days tab 10/14/19 Sertraline [Zoloft] 100 mg PO DAILY 30 Days tab 10/14/19 haloperidoL [Haldol] 2 mg PO TID 5 Days tablet 10/14/19 Allergies Allergy/AdvReac Type Severity Reaction Status Date / Time No Known Allergies Allergy Verified 11/18/19 20:37 Review of Systems ROS Statement: Those systems with pertinent positive or pertinent negative responses have been documented in the HPI. ROS Other: All systems not noted in ROS Statement are negative. Past Medical History Past Medical History: Asthma Additional Past Medical History / Comment(s): Depression, anxiety anti social personality disorder, hepatitis C History of Any Multi-Drug Resistant Organisms: None Reported Past Surgical History: No Surgical Hx Reported Past Anesthesia/Blood Transfusion Reactions: No Reported Reaction Past Psychological History: Anxiety, Bipolar, Depression Smoking Status: Current every day smoker Past Alcohol Use History: Occasional Past Drug Use History: Marijuana, Methamphetamine - Past Family History Mother Family Medical History: Unable to Obtain Additional Family Medical History / Comment(s): Patient reports that he knows nothing about his family General Exam Limitations: no limitations General appearance: alert, in no apparent distress Head exam: Present: atraumatic, normocephalic, normal inspection Eye exam: Present: normal appearance, PERRL, EOMI. Absent: scleral icterus, conjunctival injection, periorbital swelling ENT exam: Present: normal exam, mucous membranes moist Neck exam: Present: normal inspection, full ROM. Absent: tenderness, meningismus, lymphadenopathy Respiratory exam: Present: normal lung sounds bilaterally. Absent: respiratory distress, wheezes, rales, rhonchi, stridor Cardiovascular Exam: Present: regular rate, normal rhythm, normal heart sounds. Absent: systolic murmur, diastolic murmur, rubs, gallop, clicks GI/Abdominal exam: Present: soft, normal bowel sounds. Absent: distended, tenderness, guarding, rebound, rigid Psychiatric exam: Present: normal affect, normal mood Course Vital Signs 11/18/19 20:34 Temperature 98.1 F Pulse Rate 98 Respiratory 18 Rate Blood Pressure 119/68 O2 Sat by Pulse 98 Oximetry Medical Decision Making - Medical Decision Making patient was seen and evaluated by [facility]. [facility] spoke with Dr. Kern as well as patient's legal guardian. Dr. Kern does not recommend inpatient admission. Legal guardian is agreeable to this and does also not wanted patient admitted. safety plan established. They have [facility] and legal guardian will follow-up with him tomorrow morning. - Lab Data Lab Results 11/18/19 Range/Units 20:49 Urine Opiates Screen Not Detected (NotDetected) Ur Oxycodone Screen Not Detected (NotDetected) Urine Methadone Screen Not Detected (NotDetected) Ur Propoxyphene Screen Not Detected (NotDetected) Ur Barbiturates Screen Not Detected (NotDetected) U Tricyclic Antidepress Not Detected (NotDetected) Ur Phencyclidine Scrn Not Detected (NotDetected) Ur Amphetamines Screen Detected H (NotDetected) U Methamphetamines Scrn Not Detected (NotDetected) U Benzodiazepines Scrn Not Detected (NotDetected) Urine Cocaine Screen Not Detected (NotDetected) U Marijuana (THC) Screen Detected H (NotDetected) Disposition Clinical Impression: Adjustment reaction Disposition: HOME SELF-CARE Condition: Good Instructions (If sedation given, give patient instructions): Depression (ED) Additional Instructions: please follow up with [facility] as well as your guardian. Please return here to the emergency room for any worsening symptoms. Is patient prescribed a controlled substance at d/c from ED?: No Referrals: Bailee Breaux MD [REFERRING] - 1-2 days Time of Disposition: 22:57
[2019-11-18 21:19] LABS: Amphetamine Screen,Urine Detected (NotDetected); Barbiturate Screen,Urine Not Detected (NotDetected); Benzodiazepines Screen,Urine Not Detected (NotDetected); Cocaine Screen,Urine Not Detected (NotDetected); Methadone Screen, Urine Not Detected (NotDetected); Opiate Screen,Urine Not Detected (NotDetected); Oxycodone Screen, Urine Not Detected (NotDetected); Phencyclidine Screen,Urine Not Detected (NotDetected); Tricyclic Antidepressant,Urine Not Detected (NotDetected); Urn Cannabinoid Scrn Detected (NotDetected)
== END 2019-11-18 22:39 | disposition home or self-care (01) ==
LOC: EC 20:29
DX: F43.20 Adjustment disorder, unspecified (principal); F31.9 Bipolar disorder, unspecified; F17.200 Nicotine dependence, unspecified, uncomplicated; Z79.899 Other long term (current) drug therapy
CPT/HCPCS: 80306; 99285

== ENCOUNTER 2019-12-07 11:25 | Emergency (ER) | payer OTHER ==
[2019-12-07 11:36] VITALS: BP 110/71; PULSE 104; RESP 18; TEMP 97.8
--- NOTE | 2019-12-07 12:19 | ED ---
General Adult HPI - General Chief complaint: Psychiatric Symptoms Stated complaint: Mental Health Time Seen by Provider: 12/07/19 11:25 Source: patient, police, RN notes reviewed, old records reviewed Mode of arrival: ambulatory Limitations: no limitations - History of Present Illness Initial comments: This is a 24-year-old male who presents to the emergency department in the custody of police. Patient called the police and told he was suicidal so they brought him and patient refuses to talk to me other than to say suicidal and he is very obnoxious and is yelling at me that I don't have a right talk to or look at him. Patient does not want to cooperate at all he will answer no other questions of mine. - Related Data Home Medications Medication Instructions Recorded Confirmed Divalproex ER [Depakote ER] 1,000 mg PO HS 11/05/19 11/05/19 Haldol Deconate 100mg/1ml 175 mg IM Q14D 11/05/19 11/05/19 Previous Rx's Medication Instructions Recorded Benztropine Mesylate [Cogentin] 1 mg PO BID 30 Days tab 10/14/19 [place] Carbonate ER [Lithobid] 450 mg PO BID 30 Days tablet.er 10/14/19 QUEtiapine [SEROquel] 300 mg PO HS 30 Days tab 10/14/19 Sertraline [Zoloft] 100 mg PO DAILY 30 Days tab 10/14/19 haloperidoL [Haldol] 2 mg PO TID 5 Days tablet 10/14/19 Allergies Allergy/AdvReac Type Severity Reaction Status Date / Time No Known Allergies Allergy Verified 11/18/19 20:37 Review of Systems ROS Statement: Those systems with pertinent positive or pertinent negative responses have been documented in the HPI. ROS Other: All systems not noted in ROS Statement are negative. Past Medical History Past Medical History: Asthma Additional Past Medical History / Comment(s): Depression, anxiety anti social personality disorder, hepatitis C History of Any Multi-Drug Resistant Organisms: None Reported Past Surgical History: No Surgical Hx Reported Past Anesthesia/Blood Transfusion Reactions: No Reported Reaction Past Psychological History: Anxiety, Bipolar, Depression Smoking Status: Current every day smoker Past Alcohol Use History: Occasional Past Drug Use History: Marijuana, Methamphetamine - Past Family History Mother Family Medical History: Unable to Obtain Additional Family Medical History / Comment(s): Patient reports that he knows nothing about his family General Exam - General Exam Comments Initial Comments: GENERAL: Patient is well-developed and well-nourished. Patient is nontoxic and well- hydrated and is in no acute distress. ENT: Neck is soft and supple. No significant lymphadenopathy is noted. Oropharynx is clear. Moist mucous membranes. Neck has full range of motion without eliciting any pain. EYES: The sclera were anicteric and conjunctiva were pink and moist. Extraocular movements were intact and pupils were equal round and reactive to light. Eyelids were unremarkable. PULMONARY: Unlabored respirations. Good breath sounds bilaterally. No audible rales rhonchi or wheezing was noted. CARDIOVASCULAR: There is a regular rate and rhythm without any murmurs gallops or rubs. ABDOMEN: Soft and nontender with normal bowel sounds. SKIN: Skin is clear with no lesions or rashes and otherwise unremarkable. NEUROLOGIC: Patient is alert and oriented cannot assess orientation because the person does not want to speak to me. Cranial nerves II through XII are grossly intact. Speech is pressured and very angry MUSCULOSKELETAL: Normal extremities with adequate strength and full range of motion. LYMPHATICS: No significant lymphadenopathy is noted PSYCHIATRIC: Patient states he suicidal but refuses to speak to me further Limitations: no limitations Course Vital Signs 12/07/19 11:33 Temperature 97.8 F Pulse Rate 104 H Respiratory 18 Rate Blood Pressure 110/71 O2 Sat by Pulse 99 Oximetry Procedures - Restraint - Face to Face Restraint Occurrence 1 Patient's Immediate Situation: Endangers others' safety, Violent behavior Patient's Reaction to the Intervention: Uncooperative, Angry, Belligerent Patient's Medical & Behavioral Condition: Awake, Alert Need to Continue or Terminate Restraint or Seclusion: Continue Face to Face Eval of Restraint Date: 12/07/19 Face to Face Eval of Restraint Time: 12:16 Medical Decision Making - Medical Decision Making EPS evaluated the patient and the patient admitted to the EPS that he was not suicidal. The activity was involved and will be following up with the patient as an outpatient. Patient states he said he was suicidal initially because he was kicked out of his house. - Lab Data Lab Results 12/07/19 Range/Units 12:17 Urine Opiates Screen Not Detected (NotDetected) Ur Oxycodone Screen Not Detected (NotDetected) Urine Methadone Screen Not Detected (NotDetected) Ur Propoxyphene Screen Not Detected (NotDetected) Ur Barbiturates Screen Not Detected (NotDetected) U Tricyclic Antidepress Not Detected (NotDetected) Ur Phencyclidine Scrn Not Detected (NotDetected) Ur Amphetamines Screen Detected H (NotDetected) U Methamphetamines Scrn Not Detected (NotDetected) U Benzodiazepines Scrn Not Detected (NotDetected) Urine Cocaine Screen Detected H (NotDetected) U Marijuana (THC) Screen Detected H (NotDetected) Disposition Clinical Impression: Situational depression Disposition: HOME SELF-CARE Condition: Good Instructions (If sedation given, give patient instructions): Depression (ED) Is patient prescribed a controlled substance at d/c from ED?: No Referrals: None,Stated [Primary Care Provider] - 1-2 days Time of Disposition: 14:34
[2019-12-07 13:01] LABS: Cocaine Screen,Urine Detected (NotDetected); Opiate Screen,Urine Not Detected (NotDetected); Phencyclidine Screen,Urine Not Detected (NotDetected); Urn Cannabinoid Scrn Detected (NotDetected)
[2019-12-07 13:02] LABS: Amphetamine Screen,Urine Detected (NotDetected); Barbiturate Screen,Urine Not Detected (NotDetected); Benzodiazepines Screen,Urine Not Detected (NotDetected); Methadone Screen, Urine Not Detected (NotDetected); Oxycodone Screen, Urine Not Detected (NotDetected); Tricyclic Antidepressant,Urine Not Detected (NotDetected)
== END 2019-12-07 15:05 | disposition home or self-care (01) ==
LOC: EC 11:25
DX: F43.21 Adjustment disorder with depressed mood (principal); F41.9 Anxiety disorder, unspecified; F31.9 Bipolar disorder, unspecified; F17.200 Nicotine dependence, unspecified, uncomplicated; Z79.899 Other long term (current) drug therapy
CPT/HCPCS: 80306; 82075; 99285

== ENCOUNTER 2019-12-16 12:40 | Emergency (ER) | payer OTHER ==
[2019-12-16] MEDS ORDERED: DIPH,PERTUS(ACELL)TETVAC-LF 0.5 ML VIAL IM ONE (12:49)
--- NOTE | 2019-12-16 12:51 | ED ---
General Adult HPI - General Stated complaint: Mental Health Time Seen by Provider: 12/16/19 12:42 - History of Present Illness Initial comments: Dictation was produced using [employer] dictation software. please excuse any grammatical, word or spelling errors. This patient was cared for during a federal and state declared state of emergency secondary to Covid 19 Chief Complaint: 24-year-old male past medical history depression, anxiety and bipolar disease presents with suicidal behavior. History of Present Illness: 24-year-old male he denies history of psychiatric disease. He was brought in with EMS for suicidal behavior. Patient has a history of suicidal attempt and behavior in the past. 30 minutes prior to arrival patient was cutting his wrists. States that he did this because he is homeless and depressed. 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 EMS transported patient to the emergency department. Patient has no other complaints does not know when his last tetanus was. The ROS documented in this emergency department record has been reviewed and confirmed by me. Those systems with pertinent positive or negative responses have been documented in the HPI. All other systems are other negative and/or noncontributory. PHYSICAL EXAM: General Impression: Alert and oriented x3, not in acute distress HEENT: Normocephalic atraumatic, extra-ocular movements intact, pupils equal and reactive to light bilaterally, mucous membranes moist. Cardiovascular: Heart regular rate and rhythm Chest: Able to complete full sentences, no retractions, no tachypnea Abdomen: abdomen soft, non-tender, non-distended, no organomegaly Musculoskeletal: Pulses present and equal in all extremities, no peripheral edema Motor: no focal deficits noted Neurological: CN II-XII grossly intact, no focal motor or sensory deficits noted Skin: Superficial lacerations to the left anterior forearm Psych: Normal affect and mood ED course: 24-year-old male presents with suicidal behavior. He has multiple separate lacerations to the anterior forearm. No indication for suture repair to see his wounds are superficial. Tetanus was updated. As upon arrival are within acceptable limits. Patient is nonaggressive and noncombative. Patient medically cleared for EPS evaluation.Patient was evaluated by [facility] and recommended discharge with discharge plan. Patient is agreeable with discharge plan. - Related Data Home Medications Medication Instructions Recorded Confirmed Haldol Deconate 100mg/1ml 150 mg IM Q14D 11/05/19 12/16/19 Ibuprofen [Motrin] 600 mg PO BID PRN 12/16/19 12/16/19 Previous Rx's Medication Instructions Recorded Benztropine Mesylate [Cogentin] 1 mg PO BID 30 Days tab 10/14/19 [place] Carbonate ER [Lithobid] 450 mg PO BID 30 Days tablet.er 10/14/19 QUEtiapine [SEROquel] 300 mg PO HS 30 Days tab 10/14/19 Sertraline [Zoloft] 100 mg PO DAILY 30 Days tab 10/14/19 Allergies Allergy/AdvReac Type Severity Reaction Status Date / Time No Known Allergies Allergy Verified 12/16/19 13:29 Review of Systems ROS Statement: Those systems with pertinent positive or pertinent negative responses have been documented in the HPI. ROS Other: All systems not noted in ROS Statement are negative. Past Medical History Past Medical History: Asthma Additional Past Medical History / Comment(s): Depression, anxiety anti social personality disorder, hepatitis C History of Any Multi-Drug Resistant Organisms: None Reported Past Surgical History: No Surgical Hx Reported Past Anesthesia/Blood Transfusion Reactions: No Reported Reaction Past Psychological History: Anxiety, Bipolar, Depression Smoking Status: Current every day smoker Past Alcohol Use History: Occasional Past Drug Use History: Marijuana, Methamphetamine - Past Family History Mother Family Medical History: Unable to Obtain Additional Family Medical History / Comment(s): Patient reports that he knows nothing about his family Course Vital Signs 12/16/19 12/16/19 12/16/19 12:50 13:07 14:21 Temperature 98.4 F Pulse Rate 97 Respiratory 17 17 18 Rate Blood Pressure 124/78 O2 Sat by Pulse 98 Oximetry Medical Decision Making - Lab Data Lab Results 12/16/19 Range/Units 15:30 Urine Opiates Screen Not Detected (NotDetected) Ur Oxycodone Screen Not Detected (NotDetected) Urine Methadone Screen Not Detected (NotDetected) Ur Propoxyphene Screen Not Detected (NotDetected) Ur Barbiturates Screen Not Detected (NotDetected) U Tricyclic Antidepress Not Detected (NotDetected) Ur Phencyclidine Scrn Not Detected (NotDetected) Ur Amphetamines Screen Detected H (NotDetected) U Methamphetamines Scrn Detected H (NotDetected) U Benzodiazepines Scrn Not Detected (NotDetected) Urine Cocaine Screen Not Detected (NotDetected) U Marijuana (THC) Screen Detected H (NotDetected) Disposition Clinical Impression: Suicidal behavior Disposition: HOME SELF-CARE Condition: Fair Instructions (If sedation given, give patient instructions): Suicide Prevention (ED) Is patient prescribed a controlled substance at d/c from ED?: No Referrals: None,Stated [Primary Care Provider] - 1-2 days Time of Disposition: 16:26
[2019-12-16 12:58] VITALS: BP 124/78; PULSE 97; TEMP 98.4
[2019-12-16 14:46] VITALS: RESP 18
[2019-12-16 15:51] LABS: Amphetamine Screen,Urine Detected (NotDetected); Barbiturate Screen,Urine Not Detected (NotDetected); Benzodiazepines Screen,Urine Not Detected (NotDetected); Cocaine Screen,Urine Not Detected (NotDetected); Methadone Screen, Urine Not Detected (NotDetected); Opiate Screen,Urine Not Detected (NotDetected); Oxycodone Screen, Urine Not Detected (NotDetected); Phencyclidine Screen,Urine Not Detected (NotDetected); Tricyclic Antidepressant,Urine Not Detected (NotDetected); Urn Cannabinoid Scrn Detected (NotDetected)
== END 2019-12-16 16:28 | disposition home or self-care (01) ==
LOC: EC 12:40
DX: R45.851 Suicidal ideations (principal); S51.812A Laceration without foreign body of left forearm, initial encounter; Z23 Encounter for immunization; F41.9 Anxiety disorder, unspecified; F31.9 Bipolar disorder, unspecified; Z79.899 Other long term (current) drug therapy; Z59.0 Homelessness; F17.200 Nicotine dependence, unspecified, uncomplicated; X78.8XXA Intentional self-harm by other sharp object, initial encounter; Y93.89 Activity, other specified; Y92.009 Unspecified place in unspecified non-institutional (private) residence as the place of occurrence of the external cause
CPT/HCPCS: 80306; 82075; 90471; 90715; 99285

== ENCOUNTER 2020-05-22 07:37 | Emergency (ER) | payer MEDICAID ==
[2020-05-22 07:44] VITALS: BP 110/72; PULSE 76; RESP 18; TEMP 97.8
--- NOTE | 2020-05-22 08:04 | ED ---
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 Patient told me he wanted to kill himself and jump in the reverse well. When I asked the patient why He did not go to the recovery jump and he stated it was too cold in the river. Patient is very irate and is swearing at me during the interview.Patient denies any physical complaints. Patient's headache patient denies numbness weakness per patient shortness of breath difficulty breathing or chest pain. Patient's palpitations per patient denies abdominal pain patient denies nausea vomiting or diarrhea. She states she does all sorts of drugs heroin and fentanyl but he hasn't done anything a few days because he can't get any. Patient denies any drinking. Patient denies any recent fever chills or cough. Patient states he was kicked out of The place she was staying because he got an argument with the Person who owns the place - Related Data Home Medications Medication Instructions Recorded Confirmed Haldol Deconate 100mg/1ml 150 mg IM Q14D 11/05/19 05/22/20 Ibuprofen [Motrin] 600 mg PO BID PRN 12/16/19 05/22/20 Previous Rx's Medication Instructions Recorded Benztropine Mesylate [Cogentin] 1 mg PO BID 30 Days tab 10/14/19 [place] Carbonate ER [Lithobid] 450 mg PO BID 30 Days tablet.er 10/14/19 QUEtiapine [SEROquel] 300 mg PO HS 30 Days tab 10/14/19 Sertraline [Zoloft] 100 mg PO DAILY 30 Days tab 10/14/19 Allergies Allergy/AdvReac Type Severity Reaction Status Date / Time No Known Allergies Allergy Verified 05/22/20 08:58 Review of Systems ROS Statement: Those systems with pertinent positive or pertinent negative responses have been documented in the HPI. ROS Other: All systems not noted in ROS Statement are negative. Past Medical History Past Medical History: Asthma Additional Past Medical History / Comment(s): Depression, anxiety anti social personality disorder, hepatitis C History of Any Multi-Drug Resistant Organisms: None Reported Past Surgical History: No Surgical Hx Reported Past Anesthesia/Blood Transfusion Reactions: No Reported Reaction Past Psychological History: Anxiety, Bipolar, Depression Smoking Status: Current every day smoker, Vaper Past Alcohol Use History: Occasional Past Drug Use History: Marijuana, Methamphetamine, Opiates - Past Family History Mother Family Medical History: Unable to Obtain Additional Family Medical History / Comment(s): Patient reports that he knows nothing about his family General Exam - General Exam Comments Initial Comments: GENERAL: Patient is well-developed and well-nourished. Patient is nontoxic and well- hydrated and is in no acute distress. ENT: Neck is soft and supple. No significant lymphadenopathy is noted. Oropharynx is clear. Moist mucous membranes. Neck has full range of motion without eliciting any pain. EYES: The sclera were anicteric and conjunctiva were pink and moist. Extraocular movements were intact and pupils were equal round and reactive to light. Eyelids were unremarkable. PULMONARY: Unlabored respirations. Good breath sounds bilaterally. No audible rales rhonchi or wheezing was noted. CARDIOVASCULAR: There is a regular rate and rhythm without any murmurs gallops or rubs. ABDOMEN: Soft and nontender with normal bowel sounds. SKIN: Skin is clear with no lesions or rashes and otherwise unremarkable. NEUROLOGIC: Patient is alert and oriented x3. Cranial nerves II through XII are grossly intact. Motor and sensory are also intact. Normal speech, volume and content. Symmetrical smile. MUSCULOSKELETAL: Normal extremities with adequate strength and full range of motion. No lower extremity swelling or edema. No calf tenderness. LYMPHATICS: No significant lymphadenopathy is noted PSYCHIATRIC: Normal psychiatric evaluation. Limitations: no limitations Course Vital Signs 05/22/20 07:40 Temperature 97.8 F Pulse Rate 76 Respiratory 18 Rate Blood Pressure 110/72 O2 Sat by Pulse 100 Oximetry Medical Decision Making - Medical Decision Making EPS evaluated the patient and determined the patient could be discharged home. Guardian was contacted and she wanted the patient to be discharged and it was fine with her that the patient is homeless at this time because the patient is not cooperative when he is in the homes and gets kicked out. - Lab Data Lab Results 05/22/20 Range/Units 08:04 Urine Opiates Screen Not Detected (NotDetected) Ur Oxycodone Screen Not Detected (NotDetected) Urine Methadone Screen Not Detected (NotDetected) Ur Propoxyphene Screen Not Detected (NotDetected) Ur Barbiturates Screen Not Detected (NotDetected) U Tricyclic Antidepress Not Detected (NotDetected) Ur Phencyclidine Scrn Not Detected (NotDetected) Ur Amphetamines Screen Not Detected (NotDetected) U Methamphetamines Scrn Detected H (NotDetected) U Benzodiazepines Scrn Not Detected (NotDetected) Urine Cocaine Screen Not Detected (NotDetected) U Marijuana (THC) Screen Detected H (NotDetected) Disposition Clinical Impression: Methamphetamine abuse Disposition: HOME SELF-CARE Condition: Good Instructions (If sedation given, give patient instructions): Methamphetamine Abuse (ED) Is patient prescribed a controlled substance at d/c from ED?: No Referrals: None,Stated [Primary Care Provider] - 1-2 days Time of Disposition: 12:46
[2020-05-22 08:36] LABS: Amphetamine Screen,Urine Not Detected (NotDetected); Barbiturate Screen,Urine Not Detected (NotDetected); Benzodiazepines Screen,Urine Not Detected (NotDetected); Cocaine Screen,Urine Not Detected (NotDetected); Methadone Screen, Urine Not Detected (NotDetected); Opiate Screen,Urine Not Detected (NotDetected); Oxycodone Screen, Urine Not Detected (NotDetected); Phencyclidine Screen,Urine Not Detected (NotDetected); Tricyclic Antidepressant,Urine Not Detected (NotDetected); Urn Cannabinoid Scrn Detected (NotDetected)
== END 2020-05-22 12:52 | disposition home or self-care (01) ==
LOC: EC 07:37
DX: F15.10 Other stimulant abuse, uncomplicated (principal); F17.290 Nicotine dependence, other tobacco product, uncomplicated; Z79.899 Other long term (current) drug therapy
CPT/HCPCS: 80306; 82075; 99285

== ENCOUNTER 2020-08-10 04:46 | Emergency (ER) | payer OTHER ==
[2020-08-10 04:54] VITALS: BP 106/67; PULSE 126; RESP 18; TEMP 98.4
--- NOTE | 2020-08-10 05:00 | ED ---
Psych HPI - General Chief Complaint: Psychiatric Symptoms Stated Complaint: Mental Health Time Seen by Provider: 08/10/20 04:51 Source: patient Mode of arrival: ambulatory Limitations: no limitations - History of Present Illness Initial Comments: This is a 24-year-old male presented for severe anxiety, patient presents for psychiatric evaluation and treatment. Patient states he has multiple pressors life stressors going on his home with. Patient states he becomes very suicidal when he sees that other people and is around her also home was able to drink and eat he can't drink or eat. Patient is known to our facility for psychiatric illness. Patient does admit to suicidal thoughts MD Complaint: suicidal ideation, feels depressed -: unknown Associated Psychiatric Symptoms: depression, suicidal ideation, racing thoughts History of same: Yes Quality: constant Improves With: none Worsens With: none Context: significant life stressor Associated Symptoms: denies other symptoms Treatments Prior to Arrival: placed on mental health hold If Self Harm: admits thoughts of self harm - Related Data Home Medications Medication Instructions Recorded Confirmed Haldol Deconate 100mg/1ml 150 mg IM Q14D 11/05/19 08/10/20 Ibuprofen [Motrin] 600 mg PO BID PRN 12/16/19 08/10/20 Benztropine Mesylate [Cogentin] 2 mg PO BID 08/10/20 08/10/20 [place] Carbonate 900 mg PO DAILY 08/10/20 08/10/20 QUEtiapine FUMARATE [SEROquel] 300 mg PO HS 08/10/20 08/10/20 fluvoxaMINE MALEATE [Fluvoxamine 100 mg PO DAILY 08/10/20 08/10/20 Maleate] Allergies Allergy/AdvReac Type Severity Reaction Status Date / Time No Known Allergies Allergy Verified 08/10/20 09:59 Review of Systems ROS Statement: Those systems with pertinent positive or pertinent negative responses have been documented in the HPI. ROS Other: All systems not noted in ROS Statement are negative. Past Medical History Past Medical History: Asthma Additional Past Medical History / Comment(s): Depression, anxiety anti social personality disorder, hepatitis C History of Any Multi-Drug Resistant Organisms: None Reported Past Surgical History: No Surgical Hx Reported Past Anesthesia/Blood Transfusion Reactions: No Reported Reaction Past Psychological History: Anxiety, Bipolar, Depression Smoking Status: Current every day smoker, Vaper Past Alcohol Use History: Occasional Past Drug Use History: Marijuana, Methamphetamine, Opiates - Past Family History Mother Family Medical History: Unable to Obtain Additional Family Medical History / Comment(s): Patient reports that he knows nothing about his family General Exam Limitations: no limitations General appearance: alert, in no apparent distress Head exam: Present: atraumatic, normocephalic, normal inspection Eye exam: Present: normal appearance, PERRL, EOMI. Absent: scleral icterus, conjunctival injection, periorbital swelling ENT exam: Present: normal exam, mucous membranes moist Neck exam: Present: normal inspection. Absent: tenderness, meningismus, lymphadenopathy Respiratory exam: Present: normal lung sounds bilaterally. Absent: respiratory distress, wheezes, rales, rhonchi, stridor Cardiovascular Exam: Present: regular rate, normal rhythm, normal heart sounds. Absent: systolic murmur, diastolic murmur, rubs, gallop, clicks GI/Abdominal exam: Present: soft, normal bowel sounds. Absent: distended, tenderness, guarding, rebound, rigid Extremities exam: Present: normal inspection, full ROM, normal capillary refill. Absent: tenderness, pedal edema, joint swelling, calf tenderness Back exam: Present: normal inspection Neurological exam: Present: alert, oriented X3, CN II-XII intact Psychiatric exam: Present: normal affect, normal mood Skin exam: Present: warm, dry, intact, normal color. Absent: rash Course Vital Signs 08/10/20 04:53 Temperature 98.4 F Pulse Rate 126 H Respiratory 18 Rate Blood Pressure 106/67 O2 Sat by Pulse 97 Oximetry - Reevaluation(s) Reevaluation #1: 08/10/20 06:07 Medical records reviewed 08/10/20 06:07 Medical clear for psychiatric evaluation Medical Decision Making - Medical Decision Making 24 [facility] Disposition Clinical Impression: Depressed Disposition: HOME SELF-CARE Condition: Fair Instructions (If sedation given, give patient instructions): Depression (ED) Is patient prescribed a controlled substance at d/c from ED?: No Referrals: None,Stated [Primary Care Provider] - 1-2 days
== END 2020-08-10 10:54 | disposition home or self-care (01) ==
LOC: EC 04:46
DX: F32.9 Major depressive disorder, single episode, unspecified (principal); J45.909 Unspecified asthma, uncomplicated; F17.200 Nicotine dependence, unspecified, uncomplicated; F12.90 Cannabis use, unspecified, uncomplicated
CPT/HCPCS: 82075; 99284

== ENCOUNTER 2020-08-14 03:19 | Inpatient (IN) | payer MEDICAID, OTHER ==
--- NOTE | 2020-08-14 04:12 | ED ---
Psych HPI - General Chief Complaint: Psychiatric Symptoms Stated Complaint: Mental Health Time Seen by Provider: 08/14/20 03:36 Source: patient, police Mode of arrival: ambulatory - History of Present Illness MD Complaint: suicidal ideation, feels depressed Onset/Timin -: days(s) Associated Psychiatric Symptoms: depression, suicidal ideation Quality: getting worse Improves With: none Worsens With: none Context: significant life stressor - Related Data Home Medications Medication Instructions Recorded Confirmed Haldol Deconate 100mg/1ml 150 mg IM Q14D 11/05/19 08/10/20 Ibuprofen [Motrin] 600 mg PO BID PRN 12/16/19 08/10/20 Benztropine Mesylate [Cogentin] 2 mg PO BID 08/10/20 08/10/20 [place] Carbonate 900 mg PO DAILY 08/10/20 08/10/20 QUEtiapine FUMARATE [SEROquel] 300 mg PO HS 08/10/20 08/10/20 fluvoxaMINE MALEATE [Fluvoxamine 100 mg PO DAILY 08/10/20 08/10/20 Maleate] Allergies Allergy/AdvReac Type Severity Reaction Status Date / Time No Known Allergies Allergy Verified 08/14/20 03:24 Review of Systems ROS Statement: Those systems with pertinent positive or pertinent negative responses have been documented in the HPI. ROS Other: All systems not noted in ROS Statement are negative. Constitutional: Denies: fever, chills Respiratory: Denies: cough, dyspnea Cardiovascular: Denies: chest pain, palpitations Gastrointestinal: Denies: abdominal pain, vomiting, diarrhea Genitourinary: Denies: dysuria Musculoskeletal: Denies: back pain Skin: Denies: rash Neurological: Denies: headache, weakness, numbness Psychiatric: Reports: depression, suicidal thoughts. Denies: auditory hallucinations, visual hallucinations, homicidal thoughts Past Medical History Past Medical History: Asthma Additional Past Medical History / Comment(s): Depression, anxiety anti social personality disorder, hepatitis C History of Any Multi-Drug Resistant Organisms: None Reported Past Surgical History: No Surgical Hx Reported Past Anesthesia/Blood Transfusion Reactions: No Reported Reaction Past Psychological History: Anxiety, Bipolar, Depression, Schizophrenia Smoking Status: Current every day smoker, Vaper Past Alcohol Use History: Occasional Past Drug Use History: Marijuana, Methamphetamine, Opiates - Past Family History Mother Family Medical History: Unable to Obtain Additional Family Medical History / Comment(s): Patient reports that he knows nothing about his family General Exam Limitations: no limitations General appearance: alert, in no apparent distress Head exam: Present: atraumatic, normocephalic Eye exam: Present: normal appearance. Absent: scleral icterus, conjunctival injection Respiratory exam: Present: normal lung sounds bilaterally. Absent: respiratory distress, wheezes, rales, rhonchi, stridor Cardiovascular Exam: Present: regular rate, normal rhythm, normal heart sounds. Absent: systolic murmur, diastolic murmur, rubs, gallop GI/Abdominal exam: Present: soft. Absent: distended, tenderness, guarding, rebound, rigid, mass Extremities exam: Present: normal inspection, normal capillary refill. Absent: pedal edema, calf tenderness Back exam: Present: normal inspection. Absent: CVA tenderness (R), CVA tenderness (L) Neurological exam: Present: alert Psychiatric exam: Present: depressed, suicidal ideation. Absent: anxious, flat affect, manic, homicidal ideation Skin exam: Present: warm, dry, intact, normal color. Absent: rash Course Vital Signs 08/14/20 03:24 Temperature 97.4 F L Pulse Rate 83 Respiratory 16 Rate Blood Pressure 119/76 O2 Sat by Pulse 100 Oximetry Medical Decision Making - Lab Data Lab Results 08/14/20 08/14/20 Range/Units 03:55 04:40 Urine Opiates Screen Not Detected (NotDetected) Ur Oxycodone Screen Not Detected (NotDetected) Urine Methadone Screen Not Detected (NotDetected) Ur Propoxyphene Screen Not Detected (NotDetected) Ur Barbiturates Screen Not Detected (NotDetected) U Tricyclic Antidepress Not Detected (NotDetected) Ur Phencyclidine Scrn Not Detected (NotDetected) Ur Amphetamines Screen Detected H (NotDetected) U Methamphetamines Scrn Detected H (NotDetected) U Benzodiazepines Scrn Not Detected (NotDetected) Urine Cocaine Screen Not Detected (NotDetected) U Marijuana (THC) Screen Detected H (NotDetected) Influenza Type A (PCR) Not Detected (Not Detectd) Influenza Type B (PCR) Not Detected (Not Detectd) RSV (PCR) Not Detected (Not Detectd) SARS-CoV-2 (PCR) Not Detected (Not Detectd) Disposition Clinical Impression: Mood disorder, Suicidal ideation Disposition: ADMITTED IP TO THIS HOSP Condition: Fair Is patient prescribed a controlled substance at d/c from ED?: No Referrals: None,Stated [Primary Care Provider] - 1-2 days
[2020-08-14] MEDS ORDERED: LORazepam 1 MG TAB PO STA (04:24)
[2020-08-14 05:28] LABS: Cocaine Screen,Urine Not Detected (NotDetected); Opiate Screen,Urine Not Detected (NotDetected); Phencyclidine Screen,Urine Not Detected (NotDetected); Urn Cannabinoid Scrn Detected (NotDetected)
[2020-08-14 05:29] LABS: Amphetamine Screen,Urine Detected (NotDetected); Barbiturate Screen,Urine Not Detected (NotDetected); Benzodiazepines Screen,Urine Not Detected (NotDetected); Methadone Screen, Urine Not Detected (NotDetected); Oxycodone Screen, Urine Not Detected (NotDetected); Tricyclic Antidepressant,Urine Not Detected (NotDetected)
[2020-08-14] MEDS ORDERED: ACETAMINOPHEN TAB 325 MG TAB PO PRN (05:44)
[2020-08-14] MEDS ORDERED: MAGNESIUM HYDROXIDE 2,400 MG/10 ML CUP PO PRN (05:44)
[2020-08-14] MEDS ORDERED: MAG HYDROX/AL HYDROX/SIMETH 30 ML CUP PO PRN (05:44)
[2020-08-14] MEDS ORDERED: IBUPROFEN 600 MG TAB PO PRN (05:47)
[2020-08-14] MEDS ORDERED: QUEtiapine 100 MG TAB PO STA (05:48)
[2020-08-14] MEDS: LITHIUM CARBONATE 300 MG CAP PO SCH ×2 (08:27→08:32)
[2020-08-14] MEDS: NICOTINE 14MG/24HR PATCH TRANSDERM SCH ×2 (08:27→08:32)
[2020-08-14] MEDS: BENZTROPINE MESYLATE 1 MG TAB PO SCH ×3 (08:28→22:40)
--- NOTE | 2020-08-14 13:05 | P.PN ---
Progress Note - Text Progress Note Date: 08/14/20 Patient verbally aggressive and does not want to talk to me at this time. Nursing will notify if patient become agreeable for exam.
[2020-08-14] MEDS ORDERED: QUEtiapine 100 MG TAB PO SCH (21:00)
--- NOTE | 2020-08-14 21:41 | HP ---
HISTORY AND PHYSICAL DATE OF SERVICE: 08/14/2020 IDENTIFYING DATA: The patient is a 24-year-old male. He was not able to provide any information regarding his current situation. In fact, he refused to answer any questions. He presented to the emergency room for evaluation. CHIEF COMPLAINT: The patient came to the ED by police stating he was depressed and suicidal. HISTORY OF PRESENTING ILLNESS: The patient has had a number of past psychiatric hospitalizations. His last psychiatric admission was 10/06/2019. At that time, he was diagnosed with mood disorder, substance use issues. He was discharged on Zoloft 100 mg a day, Seroquel 300 mg a day and lithium carbonate 450 mg twice a day, Haldol 2 mg twice a day and Cogentin 1 mg twice a day. He was to have followup with [facility]. As noted above, the patient did not provide any information. It is unclear whether he has been taking medications or whether he followed up with his referral from his last admission. It is noted that he has carried diagnoses of poly substance dependence and abuse mood disorder and intellectual disability borderline for mild. He has had several psychiatric admissions to this facility over the last few years. Currently he is presenting in a way that is often the case where he isolates in his room. He gets angry with people even tried to talk to him. When I tried to talk to him, he swore a few times and said that he had nothing to talk about. SUBSTANCE USE HISTORY: Patient has had ongoing and long-term issues with substance abuse. The urine drug screen on this admission was positive for amphetamines, methamphetamines and marijuana. PAST MEDICAL HISTORY: Patient has been diagnosed with asthma and hepatitis C. FAMILY AND SOCIAL HISTORY: No information available. I refer the reader to past notes for details. MENTAL STATUS EXAM: Patient was lying in bed. When I came into the room, he had his eyes closed. He did open his eyes after I called out his name a few different times. He swore in a somewhat loud voice and said he did not have anything to say and said he needed to sleep. He appeared to be quite agitated, was difficult to make any further assessment. PHYSICAL EXAM: As per medical consultation. ASSESSMENT: This 24-year-old male is diagnosed with mood disorder, polysubstance dependence, and intellectual disability, mild. We have no information about current circumstances or any precipitating factors. Whether or not he has been receiving followup from [facility] or taking his medications remains to be seen. He continues to show substance abuse issues. DIAGNOSES: 1. Polysubstance dependence continuous. 2. Mood disorder. 3. Intellectual disability, mild. 4. Asthma. 5. Hepatitis C. RECOMMENDATIONS: Patient will be admitted for comprehensive medical, psychiatric and psychosocial evaluation. We will make efforts to engage the patient in individual and group therapeutic activities. I will continue medications that he apparently has been on according to medical records, which includes Luvox 100 mg a day, lithium carbonate 900 mg a day, Seroquel 300 mg a day and Cogentin 2 mg twice a day. It is also noted that the records indicate he is on Haldol Decanoate 150 mg Q 14 days, though we do not have information regarding the last time he received the injection. We will coordinate with [facility] to get further information for treatment planning. MMLENCHOL / IJGaston: [id number] /
[2020-08-15] MEDS: BENZTROPINE MESYLATE 1 MG TAB PO SCH ×2 (07:55→20:33)
[2020-08-15] MEDS: LITHIUM CARBONATE 300 MG CAP PO SCH (07:55)
[2020-08-15] MEDS: NICOTINE 14MG/24HR PATCH TRANSDERM SCH (07:56)
--- NOTE | 2020-08-15 10:57 | P.PN ---
Progress Note - Text Progress Note Date: 08/15/20 Interval History: Patient was seen resting in bed and and was uncooperative and difficult to direct and refused to participate in the psychiatric interview. The patient at this time, is presenting as very agitated with pressured and slurred speech. He has not been out of his room and has been refusing any medications. He is yelling many expletives. The patient does express that he is suicidal and has always been this way. He otherwise refuses to answer any further questions from this provider. As per review of the patient's chart, the patient does have significant history of polysubstance abuse, antisocial personality disorder, and mood disorders likely secondary to substance use. Mental Status Exam: General Appearance: Patient appears to be his stated age, somewhat disheveled, and is agitated. Behavior: Patient is displaying elevated psychomotor activity, is tossing and turning in bed and covering himself of his bedsheet. Eye contact is poor. Speech: Patient's speech is pressured, hyperverbal, loud in volume, filled with expletives. Mood/Affect: Mood is "suicidal," affect is agitated. Suicidality/Homicidality: Patient endorses suicidal ideation. He does not answer any homicidal ideation screening. Perceptions: Patient refused to answer. Though content/process: Patient refused to answer. Thought process appears to be with flight of ideas. Memory and concentration: Unable to appropriately assess due to patient agitation. Judgment and insight: Very poor Assessment Bipolar disorder, unspecified, likely secondary to polysubstance use Antisocial personality disorder Polysubstance abuse Methamphetamine abuse Cannabis abuse Plan: -Patient continues to meet criteria for inpatient psychiatric admission for symptom stabilization and safety. Patient has signed voluntary admission form. At this time, we will continue the voluntary admit as the patient appears to be acutely intoxicated and has a history of being compliant with treatment once the effects of drugs past through his system. -Medications: Patient has been refusing his home medications of Seroquel, lithium, Luvox, Cogentin. He is reportedly adherent with his Haldol Decanoate injections as he is open with the ACT team. - We will start Haldol 3 mg by mouth twice a day for agitation/psychosis. - We will start lithium 450 mg by mouth twice a day for mood stabilization -When necessary Ativan and Haldol for agitation/aggression. -NRT - [nicotine patch] -SW on board for discharge planning. Encouraged the patient to participate in milieu.
[2020-08-15] MEDS: HALOPERIDOL LACTATE 5 MG/ML 1 ML VIAL IM PRN (18:43)
[2020-08-15] MEDS: LORazepam 2 MG/ML INJ IM PRN (18:46)
[2020-08-15] MEDS: haloperidoL 1 MG TAB PO SCH (20:34)
[2020-08-15] MEDS: LITHIUM CARBONATE 150 MG CAP PO SCH (20:34)
[2020-08-16] MEDS: BENZTROPINE MESYLATE 1 MG TAB PO SCH ×2 (08:07→20:13)
[2020-08-16] MEDS: NICOTINE 14MG/24HR PATCH TRANSDERM SCH (08:07)
[2020-08-16] MEDS: LITHIUM CARBONATE 150 MG CAP PO SCH ×2 (08:07→20:14)
[2020-08-16] MEDS: haloperidoL 1 MG TAB PO SCH ×2 (08:07→20:14)
--- NOTE | 2020-08-16 10:14 | P.PN ---
Progress Note - Text Progress Note Date: 08/16/20 Interval History: Patient was seen resting in bed and and was intermittently cooperative for the psychiatric interview. The patient is very upset to be woken up by this provider. He continues to yell many expletives at this provider. He has been adherent with his medications. When inquiring about side effects, the patient denies any but states that none of the medications are working. He continues to endorse suicidal ideation but does not verbalize any intention or plan. He states today he is also homicidal but denies any intention to hurt anyone in particular. He does not answer if there are any auditory or visual hallucinations he may be experiencing. He reports he has difficulty with sleep and has no appetite. He remains isolative to his room and does not attend groups. Mental Status Exam: General Appearance: Patient appears to be his stated age, disheveled, and is agitated. Behavior: Patient is displaying elevated psychomotor activity, is tossing and turning in bed and covering himself of his bedsheet. Eye contact is poor. Speech: Patient's speech is pressured, hyperverbal, loud in volume, filled with expletives. Mood/Affect: Mood is "F*ck you," affect is agitated. Suicidality/Homicidality: Patient endorses both suicidal and homicidal ideation. Perceptions: Patient refused to answer. Though content/process: Patient refused to answer. Thought process appears to be with flight of ideas. Memory and concentration: Unable to appropriately assess due to patient agitation. Judgment and insight: Very poor Assessment Bipolar disorder, unspecified, likely secondary to polysubstance use Antisocial personality disorder Polysubstance abuse Methamphetamine abuse Cannabis abuse Plan: -Patient continues to meet criteria for inpatient psychiatric admission for symptom stabilization and safety. Patient has signed voluntary admission form. At this time, we will continue the voluntary admit as the patient appears to be acutely intoxicated and has a history of being compliant with treatment once the effects of drugs past through his system. -Medications: Patient's home medications include Seroquel, lithium, Luvox, Cogentin. He is reportedly adherent with his Haldol Decanoate injections as he is open with the ACT team. -Increase Haldol to 4 mg by mouth twice a day for agitation/psychosis. -Continue [place] 450 mg by mouth twice a day for mood stabilization -Start Cogentin 0.5 mg by mouth twice a day for EPS side effects. -When necessary Ativan and Haldol for agitation/aggression. -NRT - nicotine patch -SW on board for discharge planning. Encouraged the patient to participate in milieu.
--- NOTE | 2020-08-16 12:01 | P.PN ---
Progress Note - Text Progress Note Date: 08/16/20 Attempts made to assess patient and complete Medical H&P. Patient refused to talk with provider at this time. Nursing to notify if/when patient becomes agreeable for examination. Someone can be reached from the [facility] hospitalist group all hours of the day at [phone] or via perfect serve.
[2020-08-16] MEDS: LORazepam 2 MG/ML INJ IM PRN (20:22)
[2020-08-16 20:34] LABS: Appearance,Urine Clear (Clear); Bilirubin,Urine Negative (Negative); Blood,Urine Negative (Negative); Color,Urine Colorless; Glucose,Urine (UA) Negative (Negative); Ketones,Urine Negative (Negative); Leukocyte Esterase,Urine Negative (Negative); Nitrite,Urine Negative (Negative); Protein,Urine Negative (Negative); Specific Gravity,Urine 1.006 (1.001-1.035); Urobilinogen,Urine <2.0 mg/dL (<2.0)
[2020-08-16] MEDS ORDERED: BENZTROPINE MESYLATE 0.5 MG TAB PO SCH (21:00)
[2020-08-16] MEDS: HALOPERIDOL LACTATE 5 MG/ML 1 ML VIAL IM PRN (22:14)
[2020-08-17] MEDS: LORazepam 2 MG/ML INJ IM PRN ×2 (01:58→20:29)
[2020-08-17] MEDS: NICOTINE 14MG/24HR PATCH TRANSDERM SCH (07:55)
[2020-08-17] MEDS: BENZTROPINE MESYLATE 1 MG TAB PO SCH ×2 (07:55→20:30)
[2020-08-17] MEDS: LITHIUM CARBONATE 150 MG CAP PO SCH ×2 (07:55→20:29)
[2020-08-17 07:57] VITALS: BP 115/59; PULSE 98; RESP 16
[2020-08-17] MEDS: haloperidoL 1 MG TAB PO SCH ×2 (08:21→20:29)
[2020-08-17 09:56] LABS: Urine Alcohol Negative (Negative); Urine Barbiturate Negative (Negative); Urine Cocaine Negative (Negative); Urine Methadone Negative (Negative); Urine Opiates Negative (Negative); Urine Phencyclidine Negative (Negative)
--- NOTE | 2020-08-17 10:08 | P.PN ---
Progress Note - Text Progress Note Date: 08/17/20 Interval History: Patient was seen wandering the hallways and was cooperative and directable to speak with abstract writer in the room. The patient presented he is feeling better. He is not reporting any suicidal or homicidal ideation, intention, and/or plan. He is not reporting any auditory or visual hallucinations. He denies any paranoia or other delusions. He is been adherent with his medications and is not reporting any significant side effects at this time. The patient reports that he would likely stay with his father upon discharge. The significance discussion took place with the patient advising him to avoid all substances including methamphetamines. The patient states that he takes methamphetamines because there is nothing else for him to do. He remains pre-contemplative at this time. He has been participating in more milieu activities today and has been less isolative to himself. Mental Status Exam: General Appearance: Patient appears to be his stated age, slightly disheveled, has multiple tattoos on his face and body, and is a medium build and height. Behavior: Patient is seated calmly without any agitated behavior. Psychomotor activity appears to be slightly elevated. Eye contact is appropriate during the interview. Speech: Patient's speech is spontaneous, with a rapid rate, abnormal prosody, and at times slurred. Volume is normal today. Patient is saying less expletives. Mood/Affect: Mood is described as "okay." Affect is expansive and bright. Suicidality/Homicidality: Patient denies both suicidal and homicidal ideation, intention, and/or plan. Perceptions: Patient is not endorsing any auditory or visual hallucinations. Though content/process: Thought content is devoid of any delusional thoughts. Thought process appears to be linear and logical in short conversation. Memory and concentration: Grossly intact purposes of this session. Judgment and insight: Poor Assessment Bipolar disorder, unspecified, likely secondary to polysubstance use Antisocial personality disorder Polysubstance abuse Methamphetamine abuse Cannabis abuse Plan: -Patient continues to meet criteria for inpatient psychiatric admission for symptom stabilization and safety. Patient has signed voluntary admission form. At this time, we will continue the voluntary admit as the patient appears to be acutely intoxicated and has a history of being compliant with treatment once the effects of drugs past through his system. -Medications: Patient's home medications include Seroquel, lithium, Luvox, Cogentin. -Continue Haldol 4 mg by mouth twice a day for agitation/psychosis, and will remain with Haldol instead of Seroquel for monotherapy with antipsychotic medication. Patient is scheduled to receive Haldol Decanoate 150 mg IM every 14 days with the next dose due on 08/22/20. -Continue [place] 450 mg by mouth twice a day for mood stabilization. -Continue Cogentin 2 mg by mouth twice a day for EPS side effects. -We will hold Luvox at this time due to concern for manic switch and abrupt discontinuation syndrome. -When necessary Ativan and Haldol for agitation/aggression. -NRT - nicotine patch -SW on board for discharge planning. Encouraged the patient to participate in milieu.
[2020-08-17] MEDS ORDERED: LORazepam 1 MG TAB PO STA (11:21)
--- NOTE | 2020-08-17 13:24 | P.DS ---
Providers Date of admission: 08/14/20 05:42 Expected date of discharge: 08/18/20 Attending physician: Edgar Goldstein MD Consults: 08/14/20 05:44 Consult Physician Routine Consulting Provider: Isabel Guerra Consult Reason/Comments: h and p Do you want consulting provider notified?: Yes, Notify in am Primary care physician: Stated None - Discharge Diagnosis(es) (1) Bipolar disorder Current Visit: Yes Status: Acute Priority: High (2) Antisocial personality disorder Current Visit: Yes Status: Chronic Priority: Medium (3) Methamphetamine abuse Current Visit: Yes Status: Acute Priority: High (4) Cannabis abuse Current Visit: Yes Status: Chronic Priority: Medium (5) Intellectual disability Current Visit: Yes Status: Chronic Priority: Medium Hospital Course: Admission HPI: Patient was initially seen by Dr. Segundo on 08/14/2020 who wrote: "The patient is a 24-year-old male. He was not able to provide any information regarding his current situation. He refused to answer any questions. He presented to emergency department for evaluation. He presented to emergency department brought in by police stating that he was depressed and suicidal. The patient has had a number of past psychiatric hospitals [facility] and. His last psychiatric hospitalization was 10/06/2019. At that time, that he was diagnosed with mood disorder, and substance abuse issues. He was discharged on Zoloft, Seroquel, lithium, Haldol, and Cogentin. He was supposed to follow-up with [facility]. As noted above, the patient did not provide any information. It isn't clear whether he has been taking medications whether he followed up with his referral from his last admission. It is noted that he carried diagnoses of polysubstance dependence, substance use disorders, intellectual disability, and bipolar disorder. He has had several psychiatric admissions to this facility over the last 3 years. He currently is presenting in a way that is often the case where he isolates in his room. He gets angry with people who even tried to talk to him. When I tried to talk to him, he swore a few times since at that he had nothing to talk about." Hospital course: Upon admission to the unit patient was initially isolative to his room, yelling many expletives, with pressured speech and uncooperative with staff. The patient refused to participate in any psychiatric evaluation or interview and was refusing medications for the first 2 days. Despite this, the patient signed himself voluntarily on to the psychiatric unit. As he was familiar to staff, this provider was informed to wait until the patient participates. The patient began participating on the third day of the admission and began engaging in treatment. He was out of bed, engaging in individual and milieu therapies, and adherent with his medications. Although the patient did display some pressured and slurred speech, this appeared to be his baseline. The patient also has known history of intellectual disability and therefore continued to display some poor frustration tolerance while in the milieu. He did display over the course of the hospitalization gradual improvement in regards to his mood stability, cooperation, and coping skills. On the day of discharge, the patient is not reporting any suicidal or homicidal ideation, intention, and/or plan. He is not reporting any auditory or visual hallucinations. Is denying any paranoia or other delusions. He reports no acts to firearms or other weapons. Patient expresses a strong desire to live for himself. Patient does have a significant history of substance abuse however was counseled on abstaining from all substances including alcohol, marijuana, and especially methamphetamines. The patient was offered, however declined inpatient substance-abuse rehab. Patient was also counseled him his medications and need for regular compliance. He was encouraged to follow-up with his outpatient appointments for mental health and for primary care. Patient is currently open with the ACT team. Mental status exam: General Appearance: Patient appears to be his stated age, slightly disheveled, has multiple tattoos on his face and body, and is a medium build and height. Behavior: Patient is seated calmly without any agitated behavior. Psychomotor activity appears to be slightly elevated. Eye contact is appropriate during the interview. Speech: Patient's speech is spontaneous, with a rapid rate, abnormal prosody, and at times slurred. Normal volume. Mood/Affect: Mood is described as "okay." Affect is expansive and bright. Suicidality/Homicidality: Patient denies both suicidal and homicidal ideation, intention, and/or plan. Perceptions: Patient is not endorsing any auditory or visual hallucinations. Though content/process: Thought content is devoid of any delusional thoughts. Thought process appears to be linear and logical in short conversation. Memory and concentration: Grossly intact purposes of this session. Judgment and insight: Poor at baseline - guarded prognosis. Impression: Bipolar disorder, unspecified, likely secondary to polysubstance use Antisocial personality disorder Polysubstance abuse Methamphetamine abuse Cannabis abuse Plan: -Continue with discharge today as patient has improved and stabilized psychiatrically and is not currently an imminent threat to himself and/or others. Patient will remain at chronically elevated risk for harm to self and/or others due to his impulsivity and polysubstance abuse. -Continue medications: Cogentin 2 mg twice a day for side effects [place] 450 mg by mouth twice a day for mood stabilization Haldol 4 mg by mouth twice a day for mood stabilization/psychosis Haldol decanoate 150 mg IM every 14 days - Next dose due on 08/22/2020. -Patient was counseled on the need for medication compliance and appropriate follow-up at mental health and also primary care for medical issues. Patient verbalized understanding and agreed. -Social work to arrange for and conduct family meeting to ensure safety upon discharge and answer any questions/concerns. Social work also to arrange for patients follow up appointments with [facility] for psychiatric care along with follow up with primary care provider. -Patient counseled on abstaining from recreational drugs and marijuana and alcohol. Was informed/educated on the adverse effects on their physical and mental health. Patient verbally agreed and understood. Patient was offered substance abuse treatment however declined at this time. -Patient was instructed to return to the hospital or seek immediate medical care if their psychiatric or medical symptoms do worsen or reoccur. -Psychoeducation and supportive therapy provided to patient. Risks and benefits of pharmacological treatment versus the risks and benefits of nontreatment weight and discussed. Informed consent discussion held. Common side effects of psychotropics discussed such as, but not limited to headache, GI disturbance, sexual dysfunction, movement disorders, sedation, and orthostatic hypotension. Life threatening and blackbox warnings of prescribed medications also discussed. Potential risks of operating a vehicle or heavy machinery discussed with patient at length. Advised on importance of compliance and a reliable and responsible manner. Patient advised to review FDA consumer labeling of all medications prior to taking. Patient verbalized understanding of potential risks, and agrees with current treatment plan. Patient advised to medically contact physician/emergency personnel if any acute changes in condition occur. Laboratory Results Urine Color Colorless 08/16/20 20:00 Urine Appearance Clear (Clear) 08/16/20 20:00 Urine pH 7.0 (5.0-8.0) 08/16/20 20:00 Ur Specific [place] 1.006 (1.001-1.035) 08/16/20 20:00 Urine Protein Negative (Negative) 08/16/20 20:00 Urine Glucose (UA) Negative (Negative) 08/16/20 20:00 Urine Ketones Negative (Negative) 08/16/20 20:00 Urine Blood Negative (Negative) 08/16/20 20:00 Urine Nitrite Negative (Negative) 08/16/20 20:00 Urine Bilirubin Negative (Negative) 08/16/20 20:00 Urine Urobilinogen <2.0 mg/dL (<2.0) 08/16/20 20:00 Ur Leukocyte Esterase Negative (Negative) 08/16/20 20:00 Urine Opiates Screen Negative ng/mL (Negative) 08/16/20 20:00 Ur Oxycodone Screen Not Detected (NotDetected) 08/14/20 03:55 Urine Methadone Screen Negative ng/mL (Negative) 08/16/20 20:00 Ur Propoxyphene Screen Negative ng/mL (Negative) 08/16/20 20:00 Ur Barbiturates Screen Not Detected (NotDetected) 08/14/20 03:55 Urine Barbiturates Negative ng/mL (Negative) 08/16/20 20:00 U Tricyclic Antidepress Not Detected (NotDetected) 08/14/20 03:55 Ur Phencyclidine Scrn Negative ng/mL (Negative) 08/16/20 20:00 Ur Amphetamine Screen Negative ng/mL (Negative) 08/16/20 20:00 Ur Amphetamines Screen Detected (NotDetected) H 08/14/20 03:55 U Methamphetamines Scrn Detected (NotDetected) H 08/14/20 03:55 U Benzodiazepines Scrn Negative ng/mL (Negative) 08/16/20 20:00 Urine Cocaine Screen Negative ng/mL (Negative) 08/16/20 20:00 U Cannabinoids Screen Positive ng/mL (Negative) A 08/16/20 20:00 U Marijuana (THC) Screen Detected (NotDetected) H 08/14/20 03:55 Urine Alcohol Negative mg/dL (Negative) 08/16/20 20:00 Influenza Type A (PCR) Not Detected (Not Detectd) 08/14/20 04:40 Influenza Type B (PCR) Not Detected (Not Detectd) 08/14/20 04:40 RSV (PCR) Not Detected (Not Detectd) 08/14/20 04:40 SARS-CoV-2 (PCR) Not Detected (Not Detectd) 08/14/20 04:40 Vital Signs Temp 97.5 F L 08/17/20 07:56 Pulse 98 08/17/20 07:56 Resp 16 08/17/20 07:56 BP 115/59 08/17/20 07:56 Pulse Ox 98 08/17/20 07:56 Allergies Allergy/AdvReac Type Severity Reaction Status Date / Time No Known Allergies Allergy Verified 08/14/20 03:24 Patient Condition at Discharge: Stable Plan - Discharge Summary Discharge Rx Participant: No New Discharge Prescriptions: New Benztropine Mesylate [Cogentin] 2 mg PO BID 30 Days tab Nicotine 14Mg/24Hr Patch [Habitrol] 1 patch TRANSDERM DAILY 30 Days patch [place] Carbonate 450 mg PO BID 30 Days cap haloperidoL [Haldol] 4 mg PO BID 30 Days tab Continue Haldol Deconate 100mg/1ml 150 mg IM Q14D Discontinued Ibuprofen [Motrin] 600 mg PO BID PRN PRN Reason: Pain QUEtiapine FUMARATE [SEROquel] 300 mg PO HS [place] Carbonate 900 mg PO DAILY fluvoxaMINE MALEATE [Fluvoxamine Maleate] 100 mg PO DAILY Benztropine Mesylate [Cogentin] 2 mg PO BID Discharge Medication List Haldol Deconate 100mg/1ml 150 mg IM Q14D 11/05/19 [History] Benztropine Mesylate [Cogentin] 2 mg PO BID 30 Days tab 08/17/20 [Rx] [place] Carbonate 450 mg PO BID 30 Days cap 08/17/20 [Rx] Nicotine 14Mg/24Hr Patch [Habitrol] 1 patch TRANSDERM DAILY 30 Days patch 08/17/20 [Rx] haloperidoL [Haldol] 4 mg PO BID 30 Days tab 08/17/20 [Rx] Follow up Appointment(s)/Referral(s): None,Stated [Primary Care Provider] - 1-2 days Activity/Diet/Wound Care/Special Instructions: Activity and diet as tolerated. Avoid the use of street drugs and alcohol. Take all medications as prescribed. When you are in need of refills on your medications please contact your medical provider and/or outpatient psychiatrist to have this done. Please go to scheduled outpatient appointment for aftercare treatment. If symptoms return or become worse, call the crisis line at and/or go to the nearest emergency room for evaluation.
[2020-08-17 16:15] VITALS: TEMP 98.3
[2020-08-18] MEDS ORDERED: QUEtiapine 100 MG TAB PO PRN (02:25)
[2020-08-18] MEDS: LORazepam 2 MG/ML INJ IM PRN (07:07)
[2020-08-18] MEDS: HALOPERIDOL LACTATE 5 MG/ML 1 ML VIAL IM PRN (07:07)
[2020-08-18] MEDS: NICOTINE 14MG/24HR PATCH TRANSDERM SCH ×2 (08:53→12:24)
[2020-08-18] MEDS: LITHIUM CARBONATE 150 MG CAP PO SCH ×2 (08:53→12:24)
[2020-08-18] MEDS: BENZTROPINE MESYLATE 1 MG TAB PO SCH ×2 (08:53→12:24)
[2020-08-18] MEDS: haloperidoL 1 MG TAB PO SCH ×2 (08:53→12:24)
--- NOTE | 2020-08-18 15:35 | PN ---
PROGRESS NOTE DATE OF SERVICE: 08/18/2020. CHIEF COMPLAINT: The patient came to the ED by police stating he was depressed and suicidal. INTERVAL HISTORY: Patient has been doing fair. He was generally quieter today compared to how he has been. Earlier in the morning he was resisting taking medications. Discharge plans were put in place with a plan for father to pick him up. Apparently [place] I do not have the details. The father did not present to the hospital for the patient's part he requested to be discharged. He did take his medications later in the morning. He was cooperative with staff and was in agreement with the discharge plans. MENTAL STATUS EXAM: The patient was restless. He did not say much. He chose not to interact in any meaningful way. He did say a few things that were appropriate. His affect was flat. His mood reserved. He did not appear to be significantly distressed. It was difficult to assess for thought disorder. He voiced no thoughts of harm. He was oriented in circumstances and surroundings. ASSESSMENT: I will continue the current diagnosis and treatment plan. I will continue psychotropic medications the same. Discharge medications include: 1. Haldol 4 mg twice a day. 2. [place] carbonate 450 mg twice a day. 3. Cogentin 2 mg twice a day. He has followup with [facility] on 08/22/2020 at 11 a.m. He will also be seen today after 2 p.m. by ACT. MARIO / NEEL: [phone] /
[2020-08-22] MEDS ORDERED: HALOPERIDOL DECANOATE 50 MG/ML 1 ML VIAL IM SCH (09:00)
== END 2020-08-18 12:51 | disposition home or self-care (01) | DRG 885 ==
LOC: EC 03:19 → 3MHU 05:42
PROVIDERS: ADMIT Psychiatry & Neurology Psychiatry; ATTEND Psychiatry & Neurology Psychiatry
DX: F31.9 Bipolar disorder, unspecified (principal); F60.2 Antisocial personality disorder; F70 Mild intellectual disabilities; F20.9 Schizophrenia, unspecified; B19.20 Unspecified viral hepatitis C without hepatic coma; F12.10 Cannabis abuse, uncomplicated; F15.10 Other stimulant abuse, uncomplicated; F17.200 Nicotine dependence, unspecified, uncomplicated; J45.909 Unspecified asthma, uncomplicated; Z20.822 Contact with and (suspected) exposure to COVID-19
CPT/HCPCS: 80306; 81003; 82075; 87636; 99285

== ENCOUNTER 2020-08-25 17:22 | Emergency (ER) | payer OTHER ==
[2020-08-25 17:34] VITALS: BP 104/61; PULSE 132; RESP 18; TEMP 97.7
[2020-08-25] MEDS ORDERED: DIPH,PERTUS(ACELL)TETVAC-LF 0.5 ML VIAL IM ONE (17:49)
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
== END 2020-08-25 22:09 | disposition home or self-care (01) ==
LOC: EC 17:22
DX: F19.10 Other psychoactive substance abuse, uncomplicated (principal); F39 Unspecified mood [affective] disorder; F12.90 Cannabis use, unspecified, uncomplicated; F32.9 Major depressive disorder, single episode, unspecified; J45.909 Unspecified asthma, uncomplicated; F17.200 Nicotine dependence, unspecified, uncomplicated; Z23 Encounter for immunization
CPT/HCPCS: 90471; 90715; 99284

== ENCOUNTER 2020-08-26 10:45 | Emergency (ER) | payer OTHER ==
[2020-08-26 10:57] VITALS: PULSE 98; RESP 18; TEMP 97.7
[2020-08-26 11:33] LABS: Amphetamine Screen,Urine Detected (NotDetected); Barbiturate Screen,Urine Not Detected (NotDetected); Benzodiazepines Screen,Urine Not Detected (NotDetected); Cocaine Screen,Urine Not Detected (NotDetected); Methadone Screen, Urine Not Detected (NotDetected); Opiate Screen,Urine Not Detected (NotDetected); Oxycodone Screen, Urine Not Detected (NotDetected); Phencyclidine Screen,Urine Not Detected (NotDetected); Tricyclic Antidepressant,Urine Not Detected (NotDetected); Urn Cannabinoid Scrn Detected (NotDetected)
--- NOTE | 2020-08-26 11:45 | ED ---
Psych HPI - General Chief Complaint: Psychiatric Symptoms Stated Complaint: Mental Health Time Seen by Provider: 08/26/20 10:46 Source: patient, police, EMS, RN notes reviewed Mode of arrival: EMS Limitations: no limitations - History of Present Illness Initial Comments: 24-year-old male presents emergency department with chief complaint of depression, suicidal ideation. Patient seen here last night discharge is unable finding were discussed go to stay and states that he now feels suicidal states he rather be than live anymore. Patient does admit to drug use. No current alcohol use. Denies any other complaints. Patient did self-harm yesterday and was evaluated here. - Related Data Home Medications Medication Instructions Recorded Confirmed Benztropine Mesylate [Cogentin] 2 mg PO BID 08/25/20 08/26/20 Haloperidol Decanoate [Haldol D] 150 mg IM Q14D 08/25/20 08/26/20 [place] Carbonate [[place] 450 mg PO BID 08/25/20 08/26/20 Carbonate ER] haloperidoL [Haldol] 4 mg PO BID 08/25/20 08/26/20 Previous Rx's Medication Instructions Recorded Nicotine 14Mg/24Hr Patch [Habitrol] 1 patch TRANSDERM DAILY 30 Days 08/17/20 patch Allergies Allergy/AdvReac Type Severity Reaction Status Date / Time No Known Allergies Allergy Verified 08/26/20 11:03 Review of Systems ROS Statement: Those systems with pertinent positive or pertinent negative responses have been documented in the HPI. ROS Other: All systems not noted in ROS Statement are negative. Past Medical History Past Medical History: Asthma Additional Past Medical History / Comment(s): Depression, anxiety anti social personality disorder, hepatitis C History of Any Multi-Drug Resistant Organisms: None Reported Past Surgical History: No Surgical Hx Reported Past Anesthesia/Blood Transfusion Reactions: No Reported Reaction Past Psychological History: Anxiety, Bipolar, Depression, Schizophrenia Smoking Status: Current every day smoker, Vaper Past Alcohol Use History: Occasional Past Drug Use History: Marijuana, Methamphetamine, Opiates - Past Family History Mother Family Medical History: Unable to Obtain Additional Family Medical History / Comment(s): Patient reports that he knows nothing about his family General Exam General appearance: alert, in no apparent distress Head exam: Present: atraumatic, normocephalic, normal inspection Eye exam: Present: normal appearance, PERRL, EOMI. Absent: scleral icterus, conjunctival injection, periorbital swelling ENT exam: Present: mucous membranes moist Neck exam: Present: normal inspection, full ROM. Absent: tenderness, lymphadenopathy Respiratory exam: Present: normal lung sounds bilaterally. Absent: respiratory distress, wheezes, rales, rhonchi, stridor Cardiovascular Exam: Present: regular rate, normal rhythm, normal heart sounds. Absent: systolic murmur, diastolic murmur, rubs, gallop, clicks Extremities exam: Present: other (Multiple superficial lacerations the right forearm) Neurological exam: Present: alert, oriented X3 Psychiatric exam: Present: flat affect Course Vital Signs 08/26/20 10:50 Temperature 97.7 F Pulse Rate 98 Respiratory 18 Rate Blood Pressure 121/70 O2 Sat by Pulse 99 Oximetry Medical Decision Making - Medical Decision Making Patient was evaluated by EPS case discussed with psychiatrist and guardian patient sign safety plan will be discharged stable condition return parameters were discussed. - Lab Data Lab Results 08/26/20 Range/Units 11:10 Urine Opiates Screen Not Detected (NotDetected) Ur Oxycodone Screen Not Detected (NotDetected) Urine Methadone Screen Not Detected (NotDetected) Ur Propoxyphene Screen Not Detected (NotDetected) Ur Barbiturates Screen Not Detected (NotDetected) U Tricyclic Antidepress Not Detected (NotDetected) Ur Phencyclidine Scrn Not Detected (NotDetected) Ur Amphetamines Screen Detected H (NotDetected) U Methamphetamines Scrn Detected H (NotDetected) U Benzodiazepines Scrn Not Detected (NotDetected) Urine Cocaine Screen Not Detected (NotDetected) U Marijuana (THC) Screen Detected H (NotDetected) Disposition Clinical Impression: Depressed, Methamphetamine abuse Disposition: HOME SELF-CARE Condition: Stable Instructions (If sedation given, give patient instructions): Depression (ED) Additional Instructions: Please return to the Emergency Department if symptoms worsen or any other concerns. Is patient prescribed a controlled substance at d/c from ED?: No Referrals: None,Stated [Primary Care Provider] - 1-2 days Time of Disposition: 12:44
[2020-08-26 13:11] VITALS: BP 132/88
== END 2020-08-26 13:19 | disposition home or self-care (01) ==
LOC: EC 10:45
DX: F32.9 Major depressive disorder, single episode, unspecified (principal); F15.10 Other stimulant abuse, uncomplicated; F17.200 Nicotine dependence, unspecified, uncomplicated; J45.909 Unspecified asthma, uncomplicated; F12.90 Cannabis use, unspecified, uncomplicated; F20.9 Schizophrenia, unspecified
CPT/HCPCS: 80306; 82075; 99285

== ENCOUNTER 2020-08-26 13:38 | Inpatient (IN) | payer MEDICAID, OTHER ==
--- NOTE | 2020-08-26 14:38 | ED ---
Psych HPI - General Chief Complaint: Psychiatric Symptoms Stated Complaint: Petition Time Seen by Provider: 08/26/20 13:39 Source: patient, RN notes reviewed Mode of arrival: ambulatory - History of Present Illness Initial Comments: This is a 24-year-old male history depression and substance abuse who was just discharged earlier today is back today on petition by police after being found be leaning demonstrates 80-year-old right car. MD Complaint: suicidal ideation, feels depressed - Related Data Home Medications Medication Instructions Recorded Confirmed Benztropine Mesylate [Cogentin] 2 mg PO BID 08/25/20 08/26/20 Haloperidol Decanoate [Haldol D] 150 mg IM Q14D 08/25/20 08/26/20 [place] Carbonate [[place] 450 mg PO BID 08/25/20 08/26/20 Carbonate ER] haloperidoL [Haldol] 4 mg PO BID 08/25/20 08/26/20 Previous Rx's Medication Instructions Recorded Nicotine 14Mg/24Hr Patch [Habitrol] 1 patch TRANSDERM DAILY 30 Days 08/17/20 patch Allergies Allergy/AdvReac Type Severity Reaction Status Date / Time No Known Allergies Allergy Verified 08/26/20 13:56 Review of Systems ROS Statement: Those systems with pertinent positive or pertinent negative responses have been documented in the HPI. ROS Other: All systems not noted in ROS Statement are negative. Past Medical History Past Medical History: Asthma Additional Past Medical History / Comment(s): Depression, anxiety anti social personality disorder, hepatitis C History of Any Multi-Drug Resistant Organisms: None Reported Past Surgical History: No Surgical Hx Reported Past Anesthesia/Blood Transfusion Reactions: No Reported Reaction Past Psychological History: Anxiety, Bipolar, Depression, Schizophrenia Smoking Status: Current every day smoker, Vaper Past Alcohol Use History: Occasional Past Drug Use History: Marijuana, Methamphetamine, Opiates - Past Family History Mother Family Medical History: Unable to Obtain Additional Family Medical History / Comment(s): Patient reports that he knows nothing about his family General Exam - General Exam Comments Initial Comments: This is a well-developed well-nourished awake alert male Limitations: no limitations General appearance: alert, in no apparent distress Head exam: Present: atraumatic, normocephalic, normal inspection Eye exam: Present: normal appearance, PERRL, EOMI. Absent: scleral icterus, conjunctival injection, periorbital swelling ENT exam: Present: normal exam, mucous membranes moist Neck exam: Present: normal inspection. Absent: tenderness, meningismus, lymphadenopathy Respiratory exam: Present: normal lung sounds bilaterally. Absent: respiratory distress, wheezes, rales, rhonchi, stridor Cardiovascular Exam: Present: regular rate, normal rhythm, normal heart sounds. Absent: systolic murmur, diastolic murmur, rubs, gallop, clicks GI/Abdominal exam: Present: soft, normal bowel sounds. Absent: distended, tenderness, guarding, rebound, rigid Extremities exam: Present: normal inspection, full ROM, normal capillary refill. Absent: tenderness, pedal edema, joint swelling, calf tenderness Back exam: Present: normal inspection Neurological exam: Present: alert, oriented X3, CN II-XII intact Psychiatric exam: Present: depressed, suicidal ideation Skin exam: Present: warm, dry, intact, normal color. Absent: rash Course Vital Signs 08/26/20 13:42 Temperature 97.8 F Pulse Rate 114 H Respiratory 16 Rate Blood Pressure 140/83 O2 Sat by Pulse 96 Oximetry Medical Decision Making - Medical Decision Making The patient was evaluated by the EPS service and will be admitted for inpatient evaluation and treatment Disposition Clinical Impression: Depression, Suicidal ideation, History of substance abuse Disposition: TRANSFER TO PSYCH HOSP/UNIT Condition: Stable Referrals: None,Stated [Primary Care Provider] - 1-2 days
[2020-08-26] MEDS ORDERED: MAG HYDROX/AL HYDROX/SIMETH 30 ML CUP PO PRN (15:48)
[2020-08-26] MEDS ORDERED: MAGNESIUM HYDROXIDE 2,400 MG/10 ML CUP PO PRN (15:48)
[2020-08-26] MEDS ORDERED: LORazepam 2 MG/ML INJ IM PRN (15:57)
[2020-08-26] MEDS ORDERED: HALOPERIDOL LACTATE 5 MG/ML 1 ML VIAL IM PRN (15:58)
[2020-08-26] MEDS: BENZTROPINE MESYLATE 1 MG TAB PO SCH (21:00)
[2020-08-26] MEDS: LITHIUM CARBONATE ER 450 MG TABLET.ER PO SCH (23:56)
[2020-08-27] MEDS: BENZTROPINE MESYLATE 1 MG TAB PO SCH ×2 (08:24→20:45)
[2020-08-27] MEDS: NICOTINE 21MG/24HR PATCH TRANSDERM SCH (08:25)
[2020-08-27] MEDS: LITHIUM CARBONATE ER 450 MG TABLET.ER PO SCH ×2 (08:25→20:46)
--- NOTE | 2020-08-27 10:30 | P.HP ---
Psychiatric H&P - . H&P Date: 08/27/20 History & Physical: Allergies Allergy/AdvReac Type Severity Reaction Status Date / Time No Known Allergies Allergy Verified 08/26/20 13:56 Vital Signs Temp 98.6 F 08/27/20 06:50 Pulse 124 H 08/27/20 06:50 Resp 18 08/27/20 06:50 BP 136/56 08/27/20 06:50 Pulse Ox 97 08/26/20 16:56 Intake & Output 08/26/20 08/27/20 08/27/20 18:59 06:59 18:59 Weight 72.575 kg Laboratory Last Values Coronavirus (PCR) Not Detected (Not Detectd) 08/26/20 15:49 08/27/20 09:59 Reason for admission: Patient was brought to hospital by police who petitioned him into the hospital. This patient has a history of depression and substance abuse and was discharged very recently. History of present illness: This patient refused to talk to me. He is known to me from his previous admission in 2014. His old records were reviewed and history was mostly obtained from there. As soon as I tried to talk to him he screamed in a very loud voice and stated "fuck you". He was laying under the sheets. He got out of bed with extreme anger and I had to leave the room and he shut the door behind me very violently. He screamed "fuck you bitch". Past history: This patient has a long history of psychiatric hospitalizations. He has a history of trying to hang himself or jump off the bridge. He has a history of severe substance abuse. He has a history of severe depression and psychosis. He has a history of suffering from severe anxiety symptoms. He has a history of being on lithium, Strattera and Invega during his previous hospitalizations. He has been tried on many other medications in the past. History of substance abuse: He has a history of a abusing opoids and marijuana and methamphetamine. Past medical history: He does not have any history of medical problems in the pa st he does not have history of being on any medications for medical reasons in the past. Family history: This patient grew up with his cousins. He does not remember the last time he was living with his parents. He went to school up until 10th grade. He was not able to give me any family history of psychiatric illness or any family history of substance use disorder. Developmental history: He was not able to provide me any history from his childhood. Social history: He has a history of being homeless. He is unemployed and he is not clear if he has any legal problems. Mental status examination: This patient is alert and very angry. He has poor hygiene and grooming. He does not appear to be in any acute physical distress. He has severe psychomotor agitation. His speech is loud and is shouting obscenities. Mood is extremely angry and affect is labile. He is depressed, paranoid and delusional and has suicidal ideations and there is evidence of psychosis. Attention and memory are poor and not formally testable. Insight is poor and judgment is impaired. He is a high risk for hurting himself at this time and will be closely monitored on the unit. Formulation: This patient dropped out of 10th grade. He is delusional, depressed and anxious and was brought over by the police because of her drug abuse and psychosis and him wanting to kill himself. He has no support system. He is homeless. His mood and affect is extremely labile. Diagnosis: Bipolar disorder with psychotic features Substance use disorder Treatment plan: This patient will be maintained on the mental health unit. He will be offered medication for his extremely labile mood and psychosis. He will be encouraged to participate in unit activities.
--- NOTE | 2020-08-28 03:44 | P.PN ---
Progress Note - Text patient continues to be inappropriate for evalaution , due to agitation and using foul language
[2020-08-28] MEDS: BENZTROPINE MESYLATE 1 MG TAB PO SCH ×2 (08:32→21:38)
[2020-08-28] MEDS: NICOTINE 21MG/24HR PATCH TRANSDERM SCH (08:32)
[2020-08-28] MEDS: LITHIUM CARBONATE ER 450 MG TABLET.ER PO SCH ×2 (08:33→21:40)
--- NOTE | 2020-08-28 12:48 | P.PN ---
Progress Note - Text Progress Note Date: 08/28/20 Interval History: Patient was seen in his room. Patient continues to be demanding and a grossly psychotic. He is laying in the bed, angry and does not want to talk.. Mental Status Exam: General Appearance: Patient appears to be stated age and is angry and uncooperative. Behavior: Patient is showing agitated behavior. Speech: Patient's speech is pressured. Mood/Affect: Mood is not improving , affect is labile. Suicidality/Homicidality: Patient is a high risk for suicidal or homicidal behavior. Perceptions: Patient does not want to talk] Though content/process: There is evidence of any delusional thought content . Memory and concentration: Poor Judgment and insight: Insight is poor and judgment is impaired Assessment This patient continues to be grossly psychotic. Mood and affect is very angry and labile. Plan: -Patient continues to meet criteria for inpatient psychiatric admission for symptom stabilization and safety. -Medications: Continue medication as before -When necessary Ativan and Haldol for agitation/aggression. -SW on board for discharge planning. Encouraged the patient to participate in milieu.
[2020-08-28] MEDS: ACETAMINOPHEN TAB 325 MG TAB PO PRN ×2 (13:03→18:14)
[2020-08-29] MEDS: NICOTINE 21MG/24HR PATCH TRANSDERM SCH (08:31)
[2020-08-29] MEDS: BENZTROPINE MESYLATE 1 MG TAB PO SCH ×2 (08:31→22:16)
[2020-08-29] MEDS: LITHIUM CARBONATE ER 450 MG TABLET.ER PO SCH ×2 (08:32→22:16)
[2020-08-29] MEDS: LORazepam 1 MG TAB PO PRN ×2 (08:33→17:27)
--- NOTE | 2020-08-29 10:38 | P.PN ---
Progress Note - Text Progress Note Date: 08/29/20 Interval History: Patient was seen sitting in on group today and was directable and agreeable to speak with commercial real estate underwriter in the office. Patient was speaking very rapidly and difficult to comprehend at times. She was not responding to internal stimuli. He was fairly concrete and guarded/evasive. He spoke about relapsing back on drugs and using methamphetamine and heroin. He states that he's been using 1 bag of heroin a day. He claims that he was feeling angry because he had nowhere to go once he left the hospital in the ER. He states that he is still feeling suicidal today. He claims that his sleep is poor. At this time patient denies any homical ideations, intent or plan. Patient denies any auditory, visual hallucinations and denies any paranoia or delusions. Patient denies any side effects from the medications and has been compliant with meds. Mental Status Exam: General Appearance: Patient appears to be short in stature, several tattoos, stated age is alert, disheveled in appearance. Guarded/evasive. Behavior: Patient is calmly seated without any agitated behavior. Guard ed/evasive Speech: Patient's speech is rapid rate. Difficult to understand Mood/Affect: Mood is "suicidal", affect is congruent and irritable Suicidality/Homicidality: Patient denies having any homicidal ideation intent or plan. He admits to suicidal ideations over nontender plan. Perceptions: Patient denies any visual hallucinations and denies any auditory hallucinations Though content/process: Patient is guarded/evasive. Illogical at times. [place]. Memory and concentration: AOX3, grossly intact for the purposes of this session Judgment and insight: Chronically poor Assessment Schizoaffective disorder Opioid use disorder Methamphetamine abuse Nicotine dependence Plan: -Patient continues to meet criteria for inpatient psychiatric admission for symptom stabilization and safety. Patient has not signed medication consent and was placed in patient's chart. Patient is voluntary admission. -Medications: Continue with Haldol 4 mg twice a day for psychosis, lithium 450 mg twice a day for mood stabilization/suicidal ideations, Cogentin 2 mg twice a day for EPS prophylaxis, Zoloft was added 50 mg daily for mood/anxiety. We'll attempt to find out when patient's last Haldol D injection was through [facility]. -Will check lithium level tomorrow. -When necessary Ativan and Haldol for agitation/aggression. -NRT - nicotine patch -SW on board for discharge planning. Encouraged the patient to participate in milieu.
[2020-08-29] MEDS: ACETAMINOPHEN TAB 325 MG TAB PO PRN (10:39)
[2020-08-29] MEDS: SERTRALINE 50 MG TAB PO SCH (10:39)
--- NOTE | 2020-08-29 10:48 | P.CONS ---
History of Present Illness - Reason for Consult Consult date: 08/29/20 Medical management - History of Present Illness This is a 24-year-old white male was admitted to the mental health department for bipolar disorder with psychotic features. He feels okay, no chest pain no abdominal pain. Review of Systems 10 systems reviewed, pertinent positive and negative findings as in HPI. No chest pain no abdominal pain. Past Medical History Past Medical History: Asthma Additional Past Medical History / Comment(s): Depression, anxiety anti social personality disorder, hepatitis C History of Any Multi-Drug Resistant Organisms: None Reported Past Surgical History: No Surgical Hx Reported Past Anesthesia/Blood Transfusion Reactions: No Reported Reaction Past Psychological History: Anxiety, Bipolar, Depression, Schizophrenia Additional Psychological History / Comment(s): Single. Positive tobacco and alcohol use also relates to injection drug use. No experience no international travel. Was homeless at admission. No animal contacts Smoking Status: Vaper Past Alcohol Use History: Occasional Additional Past Alcohol Use History / Comment(s): Patient admits to heavy alcohol use Past Drug Use History: Marijuana, Methamphetamine, Opiates Additional Drug Use History / Comment(s): Patient reports that he would abuse any illegal drug he can get his hands on - Past Family History Mother Family Medical History: Unable to Obtain Additional Family Medical History / Comment(s): Patient reports that he knows nothing about his family Medications and Allergies Home Medications Medication Instructions Recorded Confirmed Type Nicotine 14Mg/24Hr Patch [Habitrol] 1 patch TRANSDERM DAILY 30 Days 08/17/20 08/26/20 Rx patch Benztropine Mesylate [Cogentin] 2 mg PO BID 08/25/20 08/26/20 History Haloperidol Decanoate [Haldol D] 150 mg IM Q14D 08/25/20 08/26/20 History [place] Carbonate [[place] 450 mg PO BID 08/25/20 08/26/20 History Carbonate ER] haloperidoL [Haldol] 4 mg PO BID 08/25/20 08/26/20 History Allergies Allergy/AdvReac Type Severity Reaction Status Date / Time No Known Allergies Allergy Verified 08/26/20 13:56 Physical Exam Vitals: Vital Signs Temp Pulse Resp BP 08/29/20 06:27 97.8 F 87 18 115/60 08/28/20 16:42 98.1 F Constitutional: No acute distress Eyes: Anicteric sclerae, moist conjunctiva, no lid-lag, PERRLA ENMT: NC/AT Neck:Supple, FROM, no masses Lungs: Clear to auscultation, Clear to percussion, Normal respiratory effort, no accessory muscle use Cardiovascular: Heart regular in rate and rhythm, No murmurs, gallops, or rubs no peripheral edema Abdominal: Soft Nontender, non distended Skin: Normal temperature, tone, texture, turgor Extremities:No digital cyanosis No clubbing, Pedal pulses intact and symmetrical Radial pulses intact and symmetrical Normal gait and station, No calf tenderness Psychiatric: Alert and oriented to person, place and time, Appropriate affect Intact judgement Neuro: Muscles Strength 5/5 in all 4 extremities, Sensation to light touch grossly present throughout, Cranial nerves II-XII grossly intact. No focal sensory deficits Assessment and Plan Plan: 1. Bipolar disorder with psychotic features: Psychiatry following, on Zoloft left TM and Haldol 2. History of substance use without evidence of withdrawal: Supportive care 3. Anxiety: On benzos
[2020-08-30] MEDS: ACETAMINOPHEN TAB 325 MG TAB PO PRN (06:55)
[2020-08-30 07:34] LABS: Basophils % (A) 1 %; Eosinophils # (A) 0.3 k/uL (0-0.7); Eosinophils % (A) 5 %; HCT 44.1 % (39.0-53.0); HGB 14.9 gm/dL (13.0-17.5); Lymphocytes # (A) 2.2 k/uL (1.0-4.8); Lymphocytes % (A) 36 %; MCH 29.4 pg (25.0-35.0); MCHC 33.7 g/dL (31.0-37.0); MCV 87.2 fL (80.0-100.0); Mean Platelet Volume 6.6; Monocytes # (A) 0.3 k/uL (0-1.0); Monocytes % (A) 4 %; Neutrophils # (A) 3.4 k/uL (1.3-7.7); Neutrophils % (A) 54 %; Platelet Count 349 k/uL (150-450); RBC 5.06 m/uL (4.30-5.90); RDW 12.8 % (11.5-15.5); WBC 6.3 k/uL (3.8-10.6)
[2020-08-30] MEDS: SERTRALINE 50 MG TAB PO SCH (08:24)
[2020-08-30] MEDS: LITHIUM CARBONATE ER 450 MG TABLET.ER PO SCH ×2 (08:24→21:04)
[2020-08-30] MEDS: NICOTINE 21MG/24HR PATCH TRANSDERM SCH (08:24)
[2020-08-30] MEDS: BENZTROPINE MESYLATE 1 MG TAB PO SCH ×2 (08:24→21:05)
[2020-08-30 08:42] VITALS: RESP 16
[2020-08-30 08:57] LABS: ALT 56 U/L (4-49); AST 34 U/L (17-59); African American GFR (CKD) >90 (>60 ml/min/1.73 sqM); Albumin 4.6 g/dL (3.5-5.0); Alkaline Phosphatase 88 U/L (38-126); Anion Gap 8 mmol/L; Blood Urea Nitrogen 10 mg/dL (9-20); Calcium 9.9 mg/dL (8.4-10.2); Carbon Dioxide 29 mmol/L (22-30); Chloride 104 mmol/L (98-107); Glucose 87 mg/dL (74-99); Lithium <0.2 mmol/L; Non-African American GFR(CKD) >90 (>60 ml/min/1.73 sqM); Potassium 4.6 mmol/L (3.5-5.1); Sodium 141 mmol/L (137-145); Total Bilirubin 0.4 mg/dL (0.2-1.3); Total Protein 7.9 g/dL (6.3-8.2)
[2020-08-30] MEDS: LORazepam 1 MG TAB PO PRN (11:56)
--- NOTE | 2020-08-30 12:00 | P.PN ---
Progress Note - Text Progress Note Date: 08/30/20 Interval History: Patient was seen this morning laying in his bed was directable and agreeable to speak with handbook writer. Patient had the blankets covering his face. He continues to have irritability and claims that he is feeling anxious. He continues to speak very rapidly and is difficult to comprehend at times. he was not responding to internal stimuli today. He was stating that he is still feeling suicidal and depressed. He claims that he is upset at the staff for losing his cell phone. He claims that his sleep is poor at nighttime. At this time patient denies any homical ideations, intent or plan. Patient denies any auditory, visual hallucinations. Patient denies any side effects from the medications and has been compliant with meds. He continues to have very poor insight and judgment. Patient ended the interview early with handbook writer due to irritability and began swearing at handbook writer several times. Mental Status Exam: General Appearance: Patient appears to be short in stature, several tattoos, stated age is alert, disheveled in appearance. Guarded/evasive. Behavior: Patient is calmly seated without any agitated behavior. Guarded/evasive. Irritable Speech: Patient's speech is rapid rate. Difficult to understand Mood/Affect: Mood is "suicidal", affect is congruent and irritable tone Suicidality/Homicidality: Patient denies having any homicidal ideation intent or plan. He admits to suicidal ideations however no intent or plan. Perceptions: Patient denies any visual hallucinations and denies any auditory hallucinations Though content/process: Patient is guarded/evasive. More logical today. [place]. Memory and concentration: AOX3, grossly intact for the purposes of this session Judgment and insight: Chronically poor Assessment Schizoaffective disorder Opioid use disorder Methamphetamine abuse Nicotine dependence Plan: -Patient continues to meet criteria for inpatient psychiatric admission for symptom stabilization and safety. Patient has not signed medication consent and was placed in patient's chart. Patient is voluntary admission. -Medications: Continue with Haldol 4 mg twice a day for psychosis, lithium 450 mg twice a day for mood stabilization/suicidal ideations, Cogentin 2 mg twice a day for EPS prophylaxis, increased Zoloft 100 mg daily for mood/anxiety. Patient will be due for his next Haldol D1 150 mg IM injection on 09/05/20, this dose will likely need to be increased. I added trazodone 50 mg daily at bedtime for insomnia/mood. -[place] level on 08/30 was < 0.2 -When necessary Ativan and Haldol for agitation/aggression. -NRT - nicotine patch -SW on board for discharge planning. Encouraged the patient to participate in milieu. Patients ayaz was contacted by SW. likely discharge in 2-3 days to either residential or to his tent which he was staying at prior.
[2020-08-30] MEDS ORDERED: traZODone HCL 50 MG TAB PO SCH (21:00)
[2020-08-31] MEDS: NICOTINE 21MG/24HR PATCH TRANSDERM SCH (08:32)
[2020-08-31] MEDS: BENZTROPINE MESYLATE 1 MG TAB PO SCH ×2 (08:32→22:22)
[2020-08-31] MEDS: LITHIUM CARBONATE ER 450 MG TABLET.ER PO SCH ×2 (08:32→22:23)
[2020-08-31] MEDS: SERTRALINE 100 MG TAB PO SCH (08:32)
[2020-08-31] MEDS: LORazepam 1 MG TAB PO PRN (08:59)
--- NOTE | 2020-08-31 10:31 | P.PN ---
Progress Note - Text Progress Note Date: 08/31/20 Interval History: Patient was seen this morning sitting in on group was directable and agreeable to speak with selling underwriter. Patient wanted to speak in his room today. He continues to state that he is feeling "pissed off" and states that today he feels "homicidal". He states that he is feeling homicidal towards "anybody that this is me off". He continues to perseverate on his phone being lost and that he wants it to be found. He states that "if you guys don't find it Im going to [facility] the hospital". He continues to have irritability and claims that he is feeling anxious. He continues to speak very rapidly and is difficult to comprehend at times. he was not responding to internal stimuli today. He states that he is still sleeping poorly at nighttime and had several awakenings. He requested to be put back on Seroquel as it is helped him in the past. At this time patient denies any homical ideations, intent or plan. Patient denies any auditory, visual hallucinations. Patient denies any side effects from the medications and has been compliant with meds. He continues to have very poor insight and judgment. Mental Status Exam: General Appearance: Patient appears to be short in stature, several tattoos, stated age is alert, disheveled in appearance. Guarded/evasive. Behavior: Patient is calmly seated without any agitated behavior. Guarded/evasive. Irritable Speech: Patient's speech is rapid rate. Difficult to understand Mood/Affect: Mood is "homicidal", affect is congruent and irritable tone Suicidality/Homicidality: He admits to homicidal ideations with no specific target. Perceptions: Patient denies any visual hallucinations and denies any auditory hallucinations Though content/process: Patient is guarded/evasive. More logical today. [place]. Memory and concentration: AOX3, grossly intact for the purposes of this session Judgment and insight: Chronically poor Assessment Schizoaffective disorder Opioid use disorder Methamphetamine abuse Nicotine dependence Plan: -Patient continues to meet criteria for inpatient psychiatric admission for symptom stabilization and safety. Patient has not signed medication consent and was placed in patient's chart. Patient is voluntary admission. -Medications: Continue with Haldol 4 mg twice a day for psychosis, lithium 450 mg twice a day for mood stabilization/suicidal ideations, Cogentin 2 mg twice a day for EPS prophylaxis, continue with Zoloft 100 mg daily for mood/anxiety. Patient will be due for his next Haldol D1 150 mg IM injection on 09/05/20, this dose will likely need to be increased. Discontinue trazodone and replaced with Seroquel 100 mg daily at bedtime for insomnia/mood stabilization. -[place] level on 08/30 was < 0.2. Will draw another lithium level tomorrow am. -When necessary Ativan and Haldol for agitation/aggression. -NRT - nicotine patch -SW on board for discharge planning. Encouraged the patient to participate in milieu. Patients ayaz was contacted by SW. likely discharge in 2-3 days to either fdc or to his tent which he was staying at prior.
[2020-08-31] MEDS ORDERED: QUEtiapine 100 MG TAB PO SCH (21:00)
[2020-09-01] MEDS: SERTRALINE 100 MG TAB PO SCH (08:07)
[2020-09-01] MEDS: NICOTINE 21MG/24HR PATCH TRANSDERM SCH (08:07)
[2020-09-01] MEDS: BENZTROPINE MESYLATE 1 MG TAB PO SCH (08:07)
[2020-09-01] MEDS: LITHIUM CARBONATE ER 450 MG TABLET.ER PO SCH (08:07)
[2020-09-01] MEDS: LORazepam 1 MG TAB PO PRN (08:34)
[2020-09-01 08:36] VITALS: BP 149/78; PULSE 104
[2020-09-01 09:17] VITALS: TEMP 97.1
--- NOTE | 2020-09-01 11:06 | P.DS ---
Providers Date of admission: 08/26/20 15:03 Expected date of discharge: 09/01/20 Attending physician: Raman Kern MD Consults: 08/26/20 15:48 Consult Physician Routine Consulting Provider: Isabel Guerra Consult Reason/Comments: medical management Do you want consulting provider notified?: Yes Primary care physician: Stated None - Discharge Diagnosis(es) (1) Schizoaffective disorder Current Visit: Yes Status: Acute Priority: High (2) Opioid use disorder Current Visit: Yes Status: Acute Priority: High (3) Methamphetamine abuse Current Visit: Yes Status: Acute Priority: High (4) Nicotine dependence Current Visit: Yes Status: Acute Priority: Low Hospital Course: Admission HPI: Admission note was completed by Dr. Acosta "Patient was brought to hospital by police who petitioned him into the hospital. This patient has a history of depression and substance abuse and was discharged very recently. This patient refused to talk to me. He is known to me from his previous admission in 2014. His old records were reviewed and history was mostly obtained from there. As soon as I tried to talk to him he screamed in a very loud voice and stated "fuck you". He was laying under the sheets. He got out of bed with extreme anger and I had to leave the room and he shut the door behind me very violently. He screamed "fuck you bitch". This patient has a long history of psychiatric hospitalizations. He has a history of trying to hang himself or jump off the bridge. He has a history of severe substance abuse. He has a history of severe depression and psychosis. Ryan calderón has a history of suffering from severe anxiety symptoms. He has a history of being on lithium, Strattera and Invega during his previous hospitalizations. He has been tried on many other medications in the past." Hospital course: Upon admission to the unit patient was initially aggressive/psychotic, bizarre and irritable. Patient was however admitted voluntarily however did not sign medication consent form. Patient got along fairly well with other patients on the unit and followed unit protocol. Patient was compliant with the medications and denied any side effects throughout hospital course. Patient was started on Haldol by mouth 4 mg twice a day for psychosis, lithium 450 mg twice a day for mood stabilization/suicidal ideations, Cogentin 2 mg twice a day for EPS prophylaxis, Zoloft 100 mg daily for mood/anxiety. Patient has been receiving Haldol D1 150 mg IM injections every 2 weeks and his next dose will be due on 09/05/[address] [facility]. Patient spoke of his stressors and engaged in therapy both group and individual. Patient was also seen by medical team for history and physical exam. Patient had a lithium level drawn on 08/30 which was <0.2 and refused the lithium level blood draw on day of discharge. Throughout the course of the hospitalization patient gradually improved with regards to mood, irritability/psychosis, sleep and return back to his baseline level of function ing. On the day of discharge patient denied any suicidal or homicidal ideations intent or plan denied any auditory or visual hallucinations. Patient endorsed wanting to live for his future. The patient denied any access to guns or weapons. Patient denied any paranoia and did not endorse any delusions. Patient does have a significant history of substance abuse and was counseled on abstaining from all substances including alcohol and marijuana. Patient was offered however declined inpatient substance-abuse rehab. Patient was also counseled on the medications and need for regular compliance and was encouraged to follow-up with their outpatient appointment for mental health and also for primary care. Patient's guardian was contacted along with [facility] for patient's discharge today. Patient has a tenant in the [facility] where he will be staying and patient will also be given correction information. Patient is being followed by ACT team. Mental status exam: General Appearance: Patient appears to be short in stature, several tattoos, stated age is alert, directable, and cooperative. Patient is in no acute distress and has improved hygiene and grooming Behavior: Patient is calmly seated without any agitated behavior. Speech: Patient's speech is fluent and nonpressured. Rapid Mood/Affect: Patient reports their mood is "good", affect is congruent Suicidality/Homicidality: Patient denies having any suicidal or homicidal ideation intent or plan. Perceptions: Patient denies any auditory or visual hallucinations. Though content/process: [place], logical. Goal oriented. Not endorsing any delusions or paranoia. Memory and concentration: AOX3, grossly intact for the purposes of this session. Can spell "WORLD" backwards correctly. Judgment and insight: chronically poor, however has improved with guarded prognosis Impression: Schizoaffective disorder Opioid use disorder Methamphetamine abuse Nicotine dependence Plan: -Continue with discharge today as patient has improved and stabilized psychiatrically and is not currently an imminent threat to himself and/or others. Patient will remain at chronically elevated risk for harm to self and/or others due to his impulsivity and polysubstance abuse. -Continue medications: Continue with Haldol by mouth 4 mg twice a day for psychosis. Patient has been receiving Haldol D1 150 mg IM injections every 2 weeks and his next dose will be due on 09/05/[address] [facility]. Continue with lithium 450 mg twice a day for mood stabilization/suicidal ideations, Cogentin 2 mg twice a day for EPS prophylaxis, Zoloft 100 mg daily for mood/anxiety. -Patient was counseled on the need for medication compliance and appropriate follow-up at mental health and also primary care for medical issues. Patient verbalized understanding and agreed. -Social work to coordinate with [facility] and patient's guardian for discharge today. Patient will be going to either the correction or his tent as he is homeless. Social work also to arrange for patients follow up appointments with [facility] for psychiatric care along with follow up with primary care provider. Patient is being followed by ACT team. -Patient counseled on abstaining from recreational drugs and marijuana and alcohol. Was informed/educated on the adverse effects on their physical and mental health. Patient verbally agreed and understood. Patient was offered substance abuse treatment however declined at this time. -Patient was instructed to return to the hospital or seek immediate medical care if their psychiatric or medical symptoms do worsen or reoccur. Allergies Allergy/AdvReac Type Severity Reaction Status Date / Time No Known Allergies Allergy Verified 08/26/20 13:56 Laboratory Results WBC 6.3 k/uL (3.8-10.6) 08/30/20 06:52 RBC 5.06 m/uL (4.30-5.90) 08/30/20 06:52 Hgb 14.9 gm/dL (13.0-17.5) 08/30/20 06:52 Hct 44.1 % (39.0-53.0) 08/30/20 06:52 MCV 87.2 fL (80.0-100.0) 08/30/20 06:52 MCH 29.4 pg (25.0-35.0) 08/30/20 06:52 MCHC 33.7 g/dL (31.0-37.0) 08/30/20 06:52 RDW 12.8 % (11.5-15.5) 08/30/20 06:52 Plt Count 349 k/uL (150-450) 08/30/20 06:52 MPV 6.6 08/30/20 06:52 Neutrophils % 54 % 08/30/20 06:52 Lymphocytes % 36 % 08/30/20 06:52 Monocytes % 4 % 08/30/20 06:52 Eosinophils % 5 % 08/30/20 06:52 Basophils % 1 % 08/30/20 06:52 Neutrophils # 3.4 k/uL (1.3-7.7) 08/30/20 06:52 Lymphocytes # 2.2 k/uL (1.0-4.8) 08/30/20 06:52 Monocytes # 0.3 k/uL (0-1.0) 08/30/20 06:52 Eosinophils # 0.3 k/uL (0-0.7) 08/30/20 06:52 Basophils # 0.0 k/uL (0-0.2) 08/30/20 06:52 Sodium 141 mmol/L (137-145) 08/30/20 06:52 Potassium 4.6 mmol/L (3.5-5.1) 08/30/20 06:52 Chloride 104 mmol/L (98-107) 08/30/20 06:52 Carbon Dioxide 29 mmol/L (22-30) 08/30/20 06:52 Anion Gap 8 mmol/L 08/30/20 06:52 BUN 10 mg/dL (9-20) 08/30/20 06:52 Creatinine 0.90 mg/dL (0.66-1.25) 08/30/20 06:52 Est GFR (CKD-EPI)AfAm >90 (>60 ml/min/1.73 sqM) 08/30/20 06:52 Est GFR (CKD-EPI)NonAf >90 (>60 ml/min/1.73 sqM) 08/30/20 06:52 Glucose 87 mg/dL (74-99) 08/30/20 06:52 Calcium 9.9 mg/dL (8.4-10.2) 08/30/20 06:52 Total Bilirubin 0.4 mg/dL (0.2-1.3) 08/30/20 06:52 AST 34 U/L (17-59) 08/30/20 06:52 ALT 56 U/L (4-49) H 08/30/20 06:52 Alkaline Phosphatase 88 U/L (38-126) 08/30/20 06:52 Total Protein 7.9 g/dL (6.3-8.2) 08/30/20 06:52 Albumin 4.6 g/dL (3.5-5.0) 08/30/20 06:52 [place]urry <0.2 mmol/L 08/30/20 06:52 Coronavirus (PCR) Not Detected (Not Detectd) 08/26/20 15:49 Vital Signs Temp 97.1 F L 09/01/20 09:16 Pulse 104 H 09/01/20 08:00 Resp 16 09/01/20 06:29 BP 149/78 09/01/20 08:00 Pulse Ox 96 08/30/20 08:41 Patient Condition at Discharge: Stable Plan - Discharge Summary Discharge Rx Participant: No New Discharge Prescriptions: New Nicotine 21Mg/24Hr Patch [Habitrol] 1 patch TRANSDERM DAILY 14 Days patch haloperidoL [Haldol] 4 mg PO BID 30 Days tab Sertraline [Zoloft] 100 mg PO DAILY 30 Days tab [place] Carbonate ER [Lithobid] 450 mg PO BID 30 Days tablet.er Acetaminophen Tab [Tylenol] 650 mg PO Q4HR PRN tab PRN Reason: Pain/Discomfort Continue Haloperidol Decanoate [Haldol D] 150 mg IM Q14D #1 vial Benztropine Mesylate [Cogentin] 2 mg PO BID 30 Days tab Discontinued Nicotine 14Mg/24Hr Patch [Habitrol] 1 patch TRANSDERM DAILY 30 Days patch haloperidoL [Haldol] 4 mg PO BID [place] Carbonate [[place] Carbonate ER] 450 mg PO BID Discharge Medication List Acetaminophen Tab [Tylenol] 650 mg PO Q4HR PRN tab 09/01/20 [Rx] Benztropine Mesylate [Cogentin] 2 mg PO BID 30 Days tab 09/01/20 [Rx] Haloperidol Decanoate [Haldol D] 150 mg IM Q14D #1 vial 09/01/20 [Rx] [place] Carbonate ER [Lithobid] 450 mg PO BID 30 Days tablet.er 09/01/20 [Rx] Nicotine 21Mg/24Hr Patch [Habitrol] 1 patch TRANSDERM DAILY 14 Days patch 09/01/20 [Rx] Sertraline [Zoloft] 100 mg PO DAILY 30 Days tab 09/01/20 [Rx] haloperidoL [Haldol] 4 mg PO BID 30 Days tab 09/01/20 [Rx] Follow up Appointment(s)/Referral(s): [facility] [NON-STAFF] - 1 Week Patient Instructions/Handouts: Depression (DC), Polysubstance Abuse (ED), Suicide Prevention (DC) Activity/Diet/Wound Care/Special Instructions: Activity and diet as tolerated. Avoid the use of street drugs and alcohol. Take all medications as prescribed. When you are in need of refills on your medications please contact your medical provider and/or outpatient psychiatrist to have this done. Please go to scheduled outpatient appointment for aftercare treatment. If symptoms return or become worse, call the crisis line at and/or go to the nearest emergency room for evaluation. Discharge Disposition: HOME SELF-CARE
== END 2020-09-01 12:45 | disposition home or self-care (01) | DRG 885 ==
LOC: EC 13:38 → 3MHU 15:03
PROVIDERS: ADMIT Psychiatry & Neurology Psychiatry; ATTEND Psychiatry & Neurology Psychiatry
DX: F25.9 Schizoaffective disorder, unspecified (principal); R45.851 Suicidal ideations; F31.9 Bipolar disorder, unspecified; F11.10 Opioid abuse, uncomplicated; F15.10 Other stimulant abuse, uncomplicated; F17.200 Nicotine dependence, unspecified, uncomplicated; F41.9 Anxiety disorder, unspecified; F60.2 Antisocial personality disorder; J45.909 Unspecified asthma, uncomplicated; Z59.0 Homelessness; Z79.899 Other long term (current) drug therapy; Z20.822 Contact with and (suspected) exposure to COVID-19
CPT/HCPCS: 80053; 80178; 82075; 85025; 87635; 99285

== ENCOUNTER 2020-11-15 19:35 | Emergency (ER) | payer OTHER ==
--- NOTE | 2020-11-15 23:01 | ED ---
Psych HPI - General Chief Complaint: Psychiatric Symptoms Stated Complaint: Mental health Time Seen by Provider: 11/15/20 21:16 Source: patient, police, RN notes reviewed, old records reviewed Mode of arrival: ambulatory Limitations: no limitations - History of Present Illness Initial Comments: This is a 24-year-old male to the ER for evaluation today. Patient is presented today for psychiatric evaluation. Patient is on pickup order brought to ER by PD. Patient is petition. Patient is very angry argumentative and uncooperative both in triage and throughout history taking. MD Complaint: altered mental status, other (Psychosis) -: unknown Associated Psychiatric Symptoms: racing thoughts, delusions Quality: constant Improves With: none, medication Worsens With: none Context: significant life stressor Associated Symptoms: denies other symptoms Treatments Prior to Arrival: placed on mental health hold If Self Harm: admits thoughts of self harm - Related Data Home Medications Medication Instructions Recorded Confirmed [place] Carbonate 900 mg PO DAILY 11/15/20 11/15/20 Previous Rx's Medication Instructions Recorded Benztropine Mesylate [Cogentin] 2 mg PO BID 30 Days tab 09/01/20 Haloperidol Decanoate [Haldol D] 150 mg IM Q14D #1 vial 09/01/20 haloperidoL [Haldol] 4 mg PO BID 30 Days tab 09/01/20 Allergies Allergy/AdvReac Type Severity Reaction Status Date / Time bee venom protein (honey bee) Allergy Anaphylaxis Verified 11/15/20 22:27 Review of Systems ROS Statement: Those systems with pertinent positive or pertinent negative responses have been documented in the HPI. ROS Other: All systems not noted in ROS Statement are negative. Past Medical History Past Medical History: Asthma Additional Past Medical History / Comment(s): Depression, anxiety anti social personality disorder, hepatitis C History of Any Multi-Drug Resistant Organisms: None Reported Past Surgical History: No Surgical Hx Reported Past Anesthesia/Blood Transfusion Reactions: No Reported Reaction Past Psychological History: Anxiety, Bipolar, Depression, Schizophrenia Smoking Status: Vaper Past Alcohol Use History: Occasional Past Drug Use History: Marijuana, Methamphetamine, Opiates - Past Family History Mother Family Medical History: Unable to Obtain Additional Family Medical History / Comment(s): Patient reports that he knows nothing about his family General Exam Limitations: no limitations General appearance: alert, in no apparent distress Head exam: Present: atraumatic, normocephalic, normal inspection Eye exam: Present: normal appearance, PERRL, EOMI. Absent: scleral icterus, conjunctival injection, periorbital swelling ENT exam: Present: normal exam, mucous membranes moist Neck exam: Present: normal inspection. Absent: tenderness, meningismus, lymphadenopathy Respiratory exam: Present: normal lung sounds bilaterally. Absent: respiratory distress, wheezes, rales, rhonchi, stridor Cardiovascular Exam: Present: regular rate, normal rhythm, normal heart sounds. Absent: systolic murmur, diastolic murmur, rubs, gallop, clicks GI/Abdominal exam: Present: soft, normal bowel sounds. Absent: distended, tenderness, guarding, rebound, rigid Extremities exam: Present: normal inspection, full ROM, normal capillary refill. Absent: tenderness, pedal edema, joint swelling, calf tenderness Back exam: Present: normal inspection Neurological exam: Present: alert, oriented X3, CN II-XII intact Psychiatric exam: Present: normal affect, normal mood Skin exam: Present: warm, dry, intact, normal color. Absent: rash Course Vital Signs 11/15/20 11/16/20 20:31 01:00 Temperature 98 F 98.0 F Pulse Rate 104 H 116 H Respiratory 20 18 Rate Blood Pressure 124/84 125/87 O2 Sat by Pulse 99 99 Oximetry - Reevaluation(s) Reevaluation #1: Medical record is reviewed Patient's medically clear for psychiatric evaluation Patient seen eval by psychiatry here in the ER Medical Decision Making - Medical Decision Making 24 male for psychiatric evaluation a pickup order today. Patient is seen and evaluated here in the ER, patient contracted to safety not homicidal or suicidal or cooperative throughout ER stay can be discharged homre Disposition Clinical Impression: Psychosis, Polysubstance abuse, Antisocial personality disorder Disposition: HOME SELF-CARE Condition: Fair Instructions (If sedation given, give patient instructions): Mood Disorders (ED) Is patient prescribed a controlled substance at d/c from ED?: No Referrals: None,Stated [Primary Care Provider] - 1-2 days
[2020-11-16 01:09] VITALS: BP 125/87; PULSE 116; RESP 18; TEMP 98
== END 2020-11-16 01:24 | disposition home or self-care (01) ==
LOC: EC 19:35
DX: F29 Unspecified psychosis not due to a substance or known physiological condition (principal); F19.10 Other psychoactive substance abuse, uncomplicated; F60.2 Antisocial personality disorder; J45.909 Unspecified asthma, uncomplicated; F31.9 Bipolar disorder, unspecified; F41.9 Anxiety disorder, unspecified; F17.290 Nicotine dependence, other tobacco product, uncomplicated; F12.90 Cannabis use, unspecified, uncomplicated; F15.90 Other stimulant use, unspecified, uncomplicated; F11.90 Opioid use, unspecified, uncomplicated; Z86.19 Personal history of other infectious and parasitic diseases; Z79.899 Other long term (current) drug therapy
CPT/HCPCS: 82075; 99284

== ENCOUNTER 2021-04-09 08:05 | Emergency (ER) | payer OTHER ==
[2021-04-09 08:11] VITALS: BP 112/63; PULSE 80; RESP 18; TEMP 97.6
--- NOTE | 2021-04-09 08:22 | ED ---
General Adult HPI - General Chief complaint: Psychiatric Symptoms Stated complaint: mental health Time Seen by Provider: 04/09/21 08:10 Source: patient, police, RN notes reviewed Mode of arrival: ambulatory Limitations: no limitations - History of Present Illness Initial comments: Patient is a 25-year-old male presenting to the emergency Department with depression. Patient takes injectable medication however has not been on pills for months. Patient drinks a couple beers per day, none today. Patient uses meth, last 3 days ago. Patient was recently kicked out of his residence. Patient also has thoughts of harming himself. No hallucinations. No physical complaints. - Related Data Home Medications Medication Instructions Recorded Confirmed fluPHENAZine decanoate [Prolixin 25 mg IM Q14D 04/09/21 04/09/21 Decanoate] Allergies Allergy/AdvReac Type Severity Reaction Status Date / Time bee venom protein (honey bee) Allergy Anaphylaxis Verified 04/09/21 08:48 Review of Systems ROS Statement: Those systems with pertinent positive or pertinent negative responses have been documented in the HPI. ROS Other: All systems not noted in ROS Statement are negative. Constitutional: Denies: fever Eyes: Denies: eye pain ENT: Denies: ear pain Respiratory: Denies: cough Cardiovascular: Denies: chest pain Endocrine: Denies: fatigue Gastrointestinal: Denies: abdominal pain Genitourinary: Denies: dysuria Musculoskeletal: Denies: back pain Skin: Denies: rash Neurological: Denies: weakness Psychiatric: Reports: depression, suicidal thoughts. Denies: auditory hallucinations, visual hallucinations Past Medical History Past Medical History: Asthma Additional Past Medical History / Comment(s): Depression, anxiety anti social personality disorder, hepatitis C History of Any Multi-Drug Resistant Organisms: None Reported Past Surgical History: No Surgical Hx Reported Past Anesthesia/Blood Transfusion Reactions: No Reported Reaction Past Psychological History: Anxiety, Bipolar, Depression, Schizophrenia Smoking Status: Vaper Past Alcohol Use History: Occasional Past Drug Use History: Marijuana, Methamphetamine, Opiates - Past Family History Mother Family Medical History: Unable to Obtain Additional Family Medical History / Comment(s): Patient reports that he knows nothing about his family General Exam Limitations: no limitations General appearance: alert, in no apparent distress Head exam: Present: normocephalic Eye exam: Present: normal appearance Neck exam: Present: normal inspection Respiratory exam: Present: normal lung sounds bilaterally Cardiovascular Exam: Present: regular rate, normal rhythm GI/Abdominal exam: Present: soft. Absent: tenderness Extremities exam: Present: normal inspection Neurological exam: Present: alert Psychiatric exam: Present: flat affect Skin exam: Present: abrasion (Healed abrasions left forearm) Course Vital Signs 04/09/21 08:05 Temperature 97.6 F Pulse Rate 80 Respiratory 18 Rate Blood Pressure 112/63 O2 Sat by Pulse 100 Oximetry Medical Decision Making - Medical Decision Making Patient seen by mental health services who is familiar with this patient and will discharge to detention. - Lab Data Lab Results 04/09/21 Range/Units 08:46 Urine Opiates Screen Not Detected (NotDetected) Ur Oxycodone Screen Not Detected (NotDetected) Urine Methadone Screen Not Detected (NotDetected) Ur Propoxyphene Screen Not Detected (NotDetected) Ur Barbiturates Screen Not Detected (NotDetected) U Tricyclic Antidepress Not Detected (NotDetected) Ur Phencyclidine Scrn Not Detected (NotDetected) Ur Amphetamines Screen Detected H (NotDetected) U Methamphetamines Scrn Detected H (NotDetected) U Benzodiazepines Scrn Not Detected (NotDetected) Urine Cocaine Screen Not Detected (NotDetected) U Marijuana (THC) Screen Detected H (NotDetected) Disposition Clinical Impression: Methamphetamine abuse, Depressed Disposition: HOME SELF-CARE Condition: Stable Instructions (If sedation given, give patient instructions): Depression (ED), Polysubstance Abuse (ED) Additional Instructions: Please follow-up with mental health services as directed. Return for thoughts of self-harm, worsening symptoms, thoughts of harming others or other concerns. Is patient prescribed a controlled substance at d/c from ED?: No Referrals: Larissa Howell MD [REFERRING] - 1-2 days Time of Disposition: 11:08
[2021-04-09 09:02] LABS: Amphetamine Screen,Urine Detected (NotDetected); Benzodiazepines Screen,Urine Not Detected (NotDetected); Cocaine Screen,Urine Not Detected (NotDetected); Opiate Screen,Urine Not Detected (NotDetected); Phencyclidine Screen,Urine Not Detected (NotDetected); Tricyclic Antidepressant,Urine Not Detected (NotDetected); Urn Cannabinoid Scrn Detected (NotDetected)
[2021-04-09 09:03] LABS: Barbiturate Screen,Urine Not Detected (NotDetected); Methadone Screen, Urine Not Detected (NotDetected); Oxycodone Screen, Urine Not Detected (NotDetected)
== END 2021-04-09 11:30 | disposition home or self-care (01) ==
LOC: EC 08:05
DX: F32.A Depression, unspecified (principal); F15.10 Other stimulant abuse, uncomplicated; F17.290 Nicotine dependence, other tobacco product, uncomplicated; J45.909 Unspecified asthma, uncomplicated; Z91.030 Bee allergy status
CPT/HCPCS: 80306; 82075; 99284

== ENCOUNTER 2021-04-09 16:13 | Inpatient (IN) | payer MEDICAID, OTHER ==
--- NOTE | 2021-04-09 17:38 | ED ---
General Adult HPI - General Chief complaint: Psychiatric Symptoms Stated complaint: petition Time Seen by Provider: 04/09/21 16:45 Source: patient, RN notes reviewed, old records reviewed Mode of arrival: ambulatory Limitations: no limitations - History of Present Illness Initial comments: This a 25-year-old male who presents emergency Department in the custody of the police. Patient was found in the middle of the road lying down stating he wanted to . Patient was seen in the emergency department earlier today and discharged home. Patient states he comes back because he wants to be admitted to the psych floor. Patient states he is suicidal and was suicidal this morning. Patient states he uses methamphetamines but hasn't used 4 days. Pat ient denies any physical complaints today. Patient denies headache patient denies chest pain patient denies difficulty breathing shortness of breath per patient denies abdominal pain patient denies nausea vomiting diarrhea. Patient denies any fever chills or cough - Related Data Home Medications Medication Instructions Recorded Confirmed fluPHENAZine decanoate [Prolixin 25 mg IM Q14D 04/09/21 04/09/21 Decanoate] Allergies Allergy/AdvReac Type Severity Reaction Status Date / Time bee venom protein (honey bee) Allergy Anaphylaxis Verified 04/09/21 18:50 Review of Systems ROS Statement: Those systems with pertinent positive or pertinent negative responses have been documented in the HPI. ROS Other: All systems not noted in ROS Statement are negative. Past Medical History Past Medical History: Asthma Additional Past Medical History / Comment(s): Depression, anxiety anti social personality disorder, hepatitis C History of Any Multi-Drug Resistant Organisms: None Reported Past Surgical History: No Surgical Hx Reported Past Anesthesia/Blood Transfusion Reactions: No Reported Reaction Past Psychological History: Anxiety, Bipolar, Depression, Schizophrenia Smoking Status: Vaper Past Alcohol Use History: Occasional Past Drug Use History: Marijuana, Methamphetamine, Opiates - Past Family History Mother Family Medical History: Unable to Obtain Additional Family Medical History / Comment(s): Patient reports that he knows nothing about his family General Exam - General Exam Comments Initial Comments: GENERAL: Patient is well-developed and well-nourished. Patient is nontoxic and well- hydrated and is in no acute distress. ENT: Neck is soft and supple. No significant lymphadenopathy is noted. Oropharynx is clear. Moist mucous membranes. Neck has full range of motion without eliciting any pain. EYES: The sclera were anicteric and conjunctiva were pink and moist. Extraocular movements were intact and pupils were equal round and reactive to light. Eyelids were unremarkable. PULMONARY: Unlabored respirations. Good breath sounds bilaterally. No audible rales rhonchi or wheezing was noted. CARDIOVASCULAR: There is a regular rate and rhythm without any murmurs gallops or rubs. ABDOMEN: Soft and nontender with normal bowel sounds. SKIN: Skin is clear with no lesions or rashes and otherwise unremarkable. NEUROLOGIC: Patient is alert and oriented x3. Cranial nerves II through XII are grossly intact. Motor and sensory are also intact. Normal speech, volume and content. Symmetrical smile. MUSCULOSKELETAL: Normal extremities with adequate strength and full range of motion. LYMPHATICS: No significant lymphadenopathy is noted PSYCHIATRIC: Patient states he is suicidal as white was lying in the street. Limitations: no limitations Course Vital Signs 04/09/21 16:42 Temperature 98.2 F Pulse Rate 89 Respiratory 16 Rate Blood Pressure 90/59 O2 Sat by Pulse 98 Oximetry Medical Decision Making - Medical Decision Making EPS evaluated the patient and determined the patient needed to come upstairs however they did not have any rooms so they are going to wait till tomorrow to be able to bring the patient upstairs. Disposition Clinical Impression: Depression, Suicidal ideation Disposition: ADMITTED IP TO THIS HOSP Referrals: None,Stated [Primary Care Provider] - 1-2 days
[2021-04-10 14:29] VITALS: RESP 16
[2021-04-10] MEDS ORDERED: ACETAMINOPHEN TAB 325 MG TAB PO PRN (20:28)
[2021-04-10] MEDS ORDERED: MAG HYDROX/AL HYDROX/SIMETH 30 ML CUP PO PRN (20:28)
[2021-04-10] MEDS ORDERED: MAGNESIUM HYDROXIDE 2,400 MG/10 ML CUP PO PRN (20:28)
[2021-04-10] MEDS ORDERED: flUPHENAZine 2.5 MG/ML (MDV) 10 ML VIAL IM PRN (20:33)
[2021-04-10] MEDS ORDERED: LORazepam 2 MG/ML INJ IM PRN (20:33)
--- NOTE | 2021-04-10 23:00 | P.MDCNMH ---
History of Present Illness H&P Date: 04/10/21 Chief Complaint: Medical clearance, acute psychosis 25 year old man with history of polysubstance abuse including injectable drugs, MDD with suicidal ideation presented for suicidal ideation. Medicine consulted for clearance. Pt has no physical complaints and denies fevers, chills, nausea, vomiting, chest pain, palpitations, syncope, abdominal pain, dysuria, dyschezia, cough, dyspnea, numbness/weakness of extremities. Review of Systems All Systems reviewed and pertinent positives and negatives noted in HPI, all other symptoms are negative Past Medical History Past Medical History: Asthma Additional Past Medical History / Comment(s): Depression, anxiety anti social personality disorder, hepatitis C History of Any Multi-Drug Resistant Organisms: None Reported Past Surgical History: No Surgical Hx Reported Past Anesthesia/Blood Transfusion Reactions: No Reported Reaction Past Psychological History: Anxiety, Bipolar, Depression, Schizophrenia Smoking Status: Vaper Past Alcohol Use History: Occasional Past Drug Use History: Marijuana, Methamphetamine, Opiates - Past Family History Mother Family Medical History: Unable to Obtain Additional Family Medical History / Comment(s): Patient reports that he knows nothing about his family Medications and Allergies Home Medications Medication Instructions Recorded Confirmed Type fluPHENAZine decanoate [Prolixin 25 mg IM Q14D 04/09/21 04/09/21 History Decanoate] Allergies Allergy/AdvReac Type Severity Reaction Status Date / Time bee venom protein (honey bee) Allergy Anaphylaxis Verified 04/09/21 18:50 Physical Exam Osteopathic Statement: *. No significant issues noted on an osteopathic structural exam other than those noted in the History and Physical/Consult. Vitals: Vital Signs Pulse Resp BP Pulse Ox 04/10/21 14:00 78 16 116/90 95 04/10/21 05:00 69 15 113/88 98 Gen: awake, alert HEENT: normocephalic, atraumatic, good hearing acuity, moist mucous membranes Resp: good air exchange, breathing comfortably with no accessory muscle use CVS: good distal perfusion x 4, GI: soft, NTTP, ND : no SPT, no CVAT, pitts catheter not present MSK: no pitting edema, no clubbing Neuro: non-focal, moving all extremities Psych: Agitated mood, does not make eye contact Cranial Nerve Examination - Cranial Nerves Cranial Nerve II- Optic: Intact Cranial Nerve III- Oculomotor: Intact Cranial Nerve IV- Trochlear: Intact Cranial Nerve V- Trigeminal: Intact Cranial Nerve - Abducens: Intact Cranial Nerve VII- Facial: Intact Cranial Nerve VIII- Auditory: Intact Cranial Nerve IX- Glossopharyngeal: Intact Cranial Nerve X- Vagus: Intact Cranial Nerve XI- Accessory: Intact Cranial Nerve XII- Hypoglossal: Intact Assessment and Plan Assessment: Methamphetamine abuse -Cessation recommended -Obtain urine tox screen -CBC, CMP in the morning Major depressive disorder Antisocial personality disorder Suicidal ideation -Care per primary team A member of our group will be available 05/11 should any medical issues arise, please not hesitate to contact us, thank you for this consult.
[2021-04-11] MEDS: LORazepam 1 MG TAB PO PRN ×2 (02:46→08:29)
[2021-04-11 03:14] VITALS: BP 127/59; PULSE 83; TEMP 96.9
[2021-04-11] MEDS ORDERED: LORazepam 1 MG TAB PO ONE (03:31)
[2021-04-11 07:53] LABS: Basophils # (A) 0.1 k/uL (0-0.2); Basophils % (A) 1 %; Eosinophils # (A) 0.1 k/uL (0-0.7); Eosinophils % (A) 1 %; HCT 45.6 % (39.0-53.0); HGB 14.8 gm/dL (13.0-17.5); Lymphocytes # (A) 2.5 k/uL (1.0-4.8); Lymphocytes % (A) 34 %; MCHC 32.4 g/dL (31.0-37.0); MCV 92.4 fL (80.0-100.0); Mean Platelet Volume 7.2; Monocytes # (A) 0.3 k/uL (0-1.0); Monocytes % (A) 5 %; Neutrophils # (A) 4.3 k/uL (1.3-7.7); Neutrophils % (A) 58 %; Platelet Count 302 k/uL (150-450); RBC 4.94 m/uL (4.30-5.90); RDW 12.4 % (11.5-15.5); WBC 7.3 k/uL (3.8-10.6)
[2021-04-11 08:22] LABS: ALT 36 U/L (4-49); AST 36 U/L (17-59); African American GFR (CKD) >90 (>60 ml/min/1.73 sqM); Albumin 4.6 g/dL (3.5-5.0); Alkaline Phosphatase 91 U/L (38-126); Anion Gap 8 mmol/L; Blood Urea Nitrogen 7 mg/dL (9-20); Calcium 9.8 mg/dL (8.4-10.2); Carbon Dioxide 25 mmol/L (22-30); Chloride 103 mmol/L (98-107); Glucose 113 mg/dL (74-99); Non-African American GFR(CKD) >90 (>60 ml/min/1.73 sqM); Potassium 4.8 mmol/L (3.5-5.1); Sodium 136 mmol/L (137-145); Total Bilirubin 0.5 mg/dL (0.2-1.3); Total Protein 7.9 g/dL (6.3-8.2)
[2021-04-11] MEDS ORDERED: fluPHENAZine DECANOATE 25 MG/ML 5ML MDV IM SCH (09:00)
[2021-04-11] MEDS ORDERED: NICOTINE 14MG/24HR PATCH TRANSDERM SCH (09:00)
[2021-04-11] MEDS ORDERED: NICOTINE GUM (POLACRILEX) 2 MG GUM BUCCAL PRN (09:39)
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
== END 2021-04-11 13:43 | disposition home or self-care (01) | DRG 885 ==
LOC: EC 16:13 → 3MHU 04-10 20:26
PROVIDERS: ADMIT Psychiatry & Neurology Psychiatry; ATTEND Psychiatry & Neurology Psychiatry
DX: F25.0 Schizoaffective disorder, bipolar type (principal); R45.851 Suicidal ideations; F32.A Depression, unspecified; J45.909 Unspecified asthma, uncomplicated; F41.9 Anxiety disorder, unspecified; F25.9 Schizoaffective disorder, unspecified; F17.290 Nicotine dependence, other tobacco product, uncomplicated; F12.90 Cannabis use, unspecified, uncomplicated; F70 Mild intellectual disabilities; F60.2 Antisocial personality disorder; R45.850 Homicidal ideations; Z59.00 Homelessness unspecified; F15.10 Other stimulant abuse, uncomplicated; Z91.51 Personal history of suicidal behavior
CPT/HCPCS: 80053; 82075; 85025; 87635; 99285

== ENCOUNTER 2021-04-22 15:28 | Inpatient (IN) | payer OTHER ==
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
[2021-04-22 16:45] LABS: Cocaine Screen,Urine Not Detected (NotDetected); Opiate Screen,Urine Not Detected (NotDetected); Phencyclidine Screen,Urine Not Detected (NotDetected)
[2021-04-22 16:46] LABS: Amphetamine Screen,Urine Detected (NotDetected); Barbiturate Screen,Urine Not Detected (NotDetected); Benzodiazepines Screen,Urine Not Detected (NotDetected); Methadone Screen, Urine Not Detected (NotDetected); Oxycodone Screen, Urine Not Detected (NotDetected); Tricyclic Antidepressant,Urine Not Detected (NotDetected); Urn Cannabinoid Scrn Not Detected (NotDetected)
[2021-04-22] MEDS ORDERED: MAG HYDROX/AL HYDROX/SIMETH 30 ML CUP PO PRN (19:00)
[2021-04-22] MEDS ORDERED: MAGNESIUM HYDROXIDE 2,400 MG/10 ML CUP PO PRN (19:00)
[2021-04-22] MEDS ORDERED: HALOPERIDOL LACTATE 5 MG/ML 1 ML VIAL IM PRN (19:03)
[2021-04-22] MEDS ORDERED: LORazepam 2 MG/ML INJ IM PRN (19:03)
--- NOTE | 2021-04-23 03:34 | P.PN ---
Progress Note - Text Progress Note Date: 04/23/21 patient refused evaluation at 2200 04/22/2021
[2021-04-23] MEDS: NICOTINE 7MG/24HR PATCH TRANSDERM SCH (07:35)
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
[2021-04-23] MEDS: ACETAMINOPHEN TAB 325 MG TAB PO PRN (13:32)
[2021-04-23] MEDS: LORazepam 1 MG TAB PO PRN (14:05)
[2021-04-23] MEDS: OLANZapine 5 MG TAB PO SCH (21:17)
[2021-04-24] MEDS: NICOTINE 7MG/24HR PATCH TRANSDERM SCH (08:14)
[2021-04-24] MEDS: OLANZapine 5 MG TAB PO SCH (08:14)
--- NOTE | 2021-04-24 10:15 | P.PN ---
Progress Note - Text Progress Note Date: 04/24/21 Interval History: Patient was seen resting in bed and was agreeable to speak with video games storywriter in his room. Currently, the patient is expressing that he is angry. Earlier this morning, patient was noted to throw his breakfast plate across the floor and was quite labile and angry and required Haldol PRN to calm down. Currently, the patient is endorsing suicidal and homicidal ideation. He reports that he has a plan to walk into traffic and get hit by a truck and also has thoughts of wanting to hurt or kill his previous roommate. He is not reporting any auditory or visual hallucinations at this time. He does admit that he was using methamphetamines shortly before this admission. Mental Status Exam: General Appearance: Patient appears to be stated age is alert, directable, and intermittently cooperative. Behavior: Patient is lying down in bed with poor eye contact. Speech: Patient's speech is fluent and nonpressured. Mood/Affect: Mood is angry, affect is congruent and irritable. Suicidality/Homicidality: Patient endorses both suicidal and homicidal ideation. Perceptions: Patient denies any visual hallucinations and denies any auditory hallucinations Though content/process: There is no evidence of any delusional thought content and thought process is with a flight of ideas. Memory and concentration: AOX3, grossly intact for the purposes of this session Judgment and insight: Very poor. Vital Signs Temp 97.3 F L 04/23/21 05:50 Pulse 94 04/23/21 05:50 Resp 16 04/23/21 05:50 BP 99/61 04/23/21 05:50 Pulse Ox 97 04/22/21 19:09 Assessment Schizoaffective disorder, bipolar type Polysubstance abuse Methamphetamine abuse Plan: -Patient continues to meet criteria for inpatient psychiatric admission for symptom stabilization and safety. Patient has signed adult voluntary form and medication consent and was placed in patient's chart. -Medications: We'll increase Zyprexa to 10 mg by mouth twice a day for mood stabilization. Prolixin Decanoate 25 mg IM is due tomorrow. We will administer it then. -When necessary Ativan and Haldol for agitation/aggression. -NRT - nicotine patch -SW on board for discharge planning. Encouraged the patient to participate in milieu.
[2021-04-24] MEDS: OLANZapine 10 MG TAB PO SCH (20:52)
--- NOTE | 2021-04-25 01:17 | P.PN ---
Progress Note - Text Progress Note Date: 04/25/21 again , patient was inappropriate for evaluation
[2021-04-25] MEDS: OLANZapine 10 MG TAB PO SCH (08:14)
[2021-04-25] MEDS: NICOTINE 7MG/24HR PATCH TRANSDERM SCH (08:14)
[2021-04-25] MEDS ORDERED: fluPHENAZine DECANOATE 25 MG/ML 5ML MDV IM ONE (11:00)
--- NOTE | 2021-04-25 11:10 | P.PN ---
Progress Note - Text Progress Note Date: 04/25/21 Interval History: Patient was seen resting in bed and was agreeable to speak with literary writer in the office. Currently, the patient is not reporting any suicidal or homicidal ideation, intention, and/or plan. He continues to express concern about his current living situation as he states that in his uncle's home, he is the only one without heat in his room. He is currently not reporting any auditory or visualizations. He denies any paranoia or other delusions. The patient has been adherent with his medications and is not endorsing any significant side effects at this time. He is agreeable to receiving Prolixin Decanoate today. Mental Status Exam: General Appearance: Patient appears to be stated age is alert, directable, and cooperative. Behavior: Patient is lying down in bed with poor eye contact. Speech: Patient's speech is fluent and nonpressured. Mood/Affect: Mood is "okay." Affect is euthymic to bright. Suicidality/Homicidality: Patient endorses both suicidal and homicidal ideation. Perceptions: Patient denies any visual hallucinations and denies any auditory h allucinations Though content/process: There is no evidence of any delusional thought content and thought process appears to be linear and logical in short conversation. Memory and concentration: AOX3, grossly intact for the purposes of this session Judgment and insight: Mildly improving. Vital Signs Temp 98.2 F 04/25/21 06:18 Pulse 97 04/25/21 06:18 Resp 15 04/25/21 06:18 BP 117/68 04/25/21 06:18 Pulse Ox 97 04/22/21 19:09 Laboratory Results Urine Opiates Screen Not Detected (NotDetected) 04/22/21 16:15 Ur Oxycodone Screen Not Detected (NotDetected) 04/22/21 16:15 Urine Methadone Screen Not Detected (NotDetected) 04/22/21 16:15 Ur Propoxyphene Screen Not Detected (NotDetected) 04/22/21 16:15 Ur Barbiturates Screen Not Detected (NotDetected) 04/22/21 16:15 U Tricyclic Antidepress Not Detected (NotDetected) 04/22/21 16:15 Ur Phencyclidine Scrn Not Detected (NotDetected) 04/22/21 16:15 Ur Amphetamines Screen Detected (NotDetected) H 04/22/21 16:15 U Methamphetamines Scrn Not Detected (NotDetected) 04/22/21 16:15 U Benzodiazepines Scrn Not Detected (NotDetected) 04/22/21 16:15 Urine Cocaine Screen Not Detected (NotDetected) 04/22/21 16:15 U Marijuana (THC) Screen Not Detected (NotDetected) 04/22/21 16:15 Coronavirus (PCR) Not Detected (Not Detectd) 04/22/21 17:08 Assessment Schizoaffective disorder, bipolar type Polysubstance abuse Methamphetamine abuse Plan: -Patient continues to meet criteria for inpatient psychiatric admission for symptom stabilization and safety. Patient has signed adult voluntary form and medication consent and was placed in patient's chart. -Medications: Continue Zyprexa 10 mg by mouth twice a day for mood stabilization. Administer Prolixin decanoate 25 mg IM today. -When necessary Ativan and Haldol for agitation/aggression. -NRT - nicotine patch -SW on board for discharge planning. Encouraged the patient to participate in milieu.
[2021-04-25] MEDS: LORazepam 1 MG TAB PO PRN (14:10)
[2021-04-26] MEDS: OLANZapine 10 MG TAB PO SCH ×2 (02:49→09:24)
[2021-04-26] MEDS: NICOTINE 7MG/24HR PATCH TRANSDERM SCH (09:24)
[2021-04-26] MEDS: ACETAMINOPHEN TAB 325 MG TAB PO PRN (09:25)
[2021-04-26 09:27] VITALS: BP 119/65; PULSE 107; RESP 16; TEMP 98.1
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
[2021-04-26] MEDS: LORazepam 1 MG TAB PO PRN (11:16)
== END 2021-04-26 14:30 | disposition home or self-care (01) | DRG 885 ==
LOC: EC 15:28 → 3MHU 18:41
PROVIDERS: ADMIT Psychiatry & Neurology Psychiatry; ATTEND Psychiatry & Neurology Psychiatry
DX: F25.0 Schizoaffective disorder, bipolar type (principal); R45.851 Suicidal ideations; R45.850 Homicidal ideations; F70 Mild intellectual disabilities; F15.10 Other stimulant abuse, uncomplicated; F60.2 Antisocial personality disorder; Z20.822 Contact with and (suspected) exposure to COVID-19; F19.10 Other psychoactive substance abuse, uncomplicated; E78.5 Hyperlipidemia, unspecified; J45.909 Unspecified asthma, uncomplicated; B19.20 Unspecified viral hepatitis C without hepatic coma; F63.81 Intermittent explosive disorder; Z79.899 Other long term (current) drug therapy; Z71.51 Drug abuse counseling and surveillance of drug abuser; Z91.030 Bee allergy status
CPT/HCPCS: 80306; 82075; 87635; 99285

== ENCOUNTER 2021-08-04 23:37 | Inpatient (IN) | payer MEDICAID, OTHER ==
[2021-08-05 01:19] LABS: Amphetamine Screen,Urine Detected (NotDetected); Barbiturate Screen,Urine Not Detected (NotDetected); Benzodiazepines Screen,Urine Not Detected (NotDetected); Cocaine Screen,Urine Not Detected (NotDetected); Methadone Screen, Urine Not Detected (NotDetected); Opiate Screen,Urine Not Detected (NotDetected); Oxycodone Screen, Urine Not Detected (NotDetected); Phencyclidine Screen,Urine Not Detected (NotDetected); Tricyclic Antidepressant,Urine Not Detected (NotDetected); Urn Cannabinoid Scrn Detected (NotDetected)
[2021-08-05] MEDS ORDERED: MAGNESIUM HYDROXIDE 2,400 MG/10 ML CUP PO PRN (03:22)
[2021-08-05] MEDS ORDERED: LORazepam 1 MG TAB PO PRN (03:22)
[2021-08-05] MEDS ORDERED: MAG HYDROX/AL HYDROX/SIMETH 30 ML CUP PO PRN (03:22)
[2021-08-05] MEDS ORDERED: ACETAMINOPHEN TAB 325 MG TAB PO PRN (03:22)
[2021-08-05] MEDS ORDERED: haloperidoL 5 MG TAB PO PRN (03:27)
[2021-08-05 04:16] VITALS: RESP 16
[2021-08-05 04:16] LABS: Amorphous Sediment,Urine Moderate /hpf; Appearance,Urine Turbid (Clear); Bacteria,Urine Few /hpf; Bilirubin,Urine Negative (Negative); Blood,Urine Negative (Negative); Color,Urine Yellow; Glucose,Urine (UA) Negative (Negative); Ketones,Urine Negative (Negative); Leukocyte Esterase,Urine Negative (Negative); Mucus,Urine Few /hpf; Nitrite,Urine Negative (Negative); PH, Urine 6.5 (5.0-8.0); Protein,Urine 1+ (Negative); Specific Gravity,Urine 1.022 (1.001-1.035); Urobilinogen,Urine <2.0 mg/dL (<2.0); WBC,Urine 3 /hpf (0-5)
[2021-08-05] MEDS: NICOTINE 14MG/24HR PATCH TRANSDERM SCH (14:29)
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
[2021-08-05] MEDS: OLANZapine 10 MG TAB PO SCH (20:43)
[2021-08-06 07:18] VITALS: BP 92/52; PULSE 62; TEMP 97.9
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
[2021-08-06] MEDS: OLANZapine 10 MG TAB PO SCH ×2 (12:45→21:20)
[2021-08-06] MEDS: NICOTINE 14MG/24HR PATCH TRANSDERM SCH (12:55)
[2021-08-06] MEDS: HALOPERIDOL LACTATE 5 MG/ML 1 ML VIAL IM PRN (17:44)
[2021-08-06] MEDS: LORazepam 2 MG/ML INJ IM PRN (17:45)
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
--- NOTE | 2021-08-07 12:13 | P.PN ---
Progress Note - Text Progress Note Date: 08/07/21 Interval History: Patient was seen resting in bed and refused to get out of bed for the psychiatric interview. The patient is very agitated to be awoken from sleep. He begins yelling and then he slammed his door open stating that he wants to be able to hear the call for lunch. He refused to participate in the psychiatric interview today. He has been adherent with his medications. The patient has not been in adherent with his medication reviews however has been adherent with his Prolixin injectable medication. Mental Status Exam: General Appearance: Patient appears to be stated age, however is uncooperative and not directable today. Behavior: Patient displays significant verbal agitation. Speech: Patient's speech is loud and rapid. Mood/Affect: Mood is angry, affect is agitated. Suicidality/Homicidality: Unable to assess Perceptions: Unable to assess Though content/process: Unable to assess however appears to be future oriented. Memory and concentration: Unable to assess Judgment and insight: Very poor. Vital Signs Temp 97.9 F 08/06/21 06:59 Pulse 62 08/06/21 06:59 Resp 16 08/06/21 06:59 BP 92/52 08/06/21 06:59 Pulse Ox 98 08/06/21 06:59 Intake & Output 08/06/21 08/07/21 08/07/21 18:59 06:59 18:59 Weight 69.4 kg Assessment Schizoaffective disorder, bipolar type Methamphetamine use disorder Plan: -Patient continues to meet criteria for inpatient psychiatric admission for s ymptom stabilization and safety. Patient has signed adult voluntary form and medication consent and was placed in patient's chart. -Medications: Continue Zyprexa 10 mg by mouth daily and 20 mg by mouth at bedtime for psychosis. Prolixin Decanoate 25 mg was administered on 08/01/2021. The patient's next dose is due on 08/15/21. -When necessary Ativan and Haldol for agitation/aggression. -NRT - nicotine patch -SW on board for discharge planning. Encouraged the patient to participate in milieu.
[2021-08-07] MEDS: OLANZapine 10 MG TAB PO SCH ×2 (16:26→20:03)
[2021-08-07] MEDS: NICOTINE 14MG/24HR PATCH TRANSDERM SCH (16:26)
[2021-08-07] MEDS: LORazepam 1 MG TAB PO PRN (22:12)
[2021-08-08] MEDS: NICOTINE 14MG/24HR PATCH TRANSDERM SCH (08:51)
[2021-08-08] MEDS: OLANZapine 10 MG TAB PO SCH ×2 (08:51→20:51)
--- NOTE | 2021-08-08 11:45 | P.PN ---
Progress Note - Text Progress Note Date: 08/08/21 Interval History: Patient was seen resting in bed and refused to get out of bed for the psychiatric interview. He refused to get out of bed for evaluation. He has otherwise not been displaying any concerning behaviors on the unit but remains minimal in participation in staff organized group and milieu therapies. He does socialize with peers and appeared to be euthymic in his interactions with others. Mental Status Exam: General Appearance: Patient appears to be stated age. Resting in bed in no acute distress. Behavior: Patient is sleeping. Refuses to get out of bed. Speech: Patient's speech is loud and rapid. Mood/Affect: Mood is angry, affect is agitated. Suicidality/Homicidality: Unable to assess Perceptions: Unable to assess Though content/process: Unable to assess Memory and concentration: Unable to assess Judgment and insight: Very poor at baseline. Vital Signs Temp 97.9 F 08/06/21 06:59 Pulse 62 08/06/21 06:59 Resp 16 08/06/21 06:59 BP 92/52 08/06/21 06:59 Pulse Ox 98 08/06/21 06:59 Assessment Schizoaffective disorder, bipolar type Methamphetamine use disorder Plan: -Patient continues to meet criteria for inpatient psychiatric admission for symptom stabilization and safety. Patient has signed adult voluntary form and medication consent and was placed in patient's chart. -Medications: Continue Zyprexa 10 mg by mouth daily and 20 mg by mouth at bedtime for psychosis. Patient is intermittently adherent. Prolixin Decanoate 25 mg was administered on 08/01/2021. The patient's next dose is due on 08/15/21. -When necessary Ativan and Haldol for agitation/aggression. -NRT - nicotine patch -SW on board for discharge planning. Encouraged the patient to participate in milieu.
[2021-08-08] MEDS: HALOPERIDOL LACTATE 5 MG/ML 1 ML VIAL IM PRN (12:33)
[2021-08-08] MEDS: LORazepam 2 MG/ML INJ IM PRN (12:34)
[2021-08-08] MEDS: LORazepam 1 MG TAB PO PRN ×2 (18:35→23:45)
[2021-08-09] MEDS: OLANZapine 10 MG TAB PO SCH (08:04)
[2021-08-09] MEDS: NICOTINE 14MG/24HR PATCH TRANSDERM SCH (08:05)
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
== END 2021-08-09 16:52 | disposition home or self-care (01) | DRG 885 ==
LOC: EC 23:37 → 3MHU 08-05 03:05
PROVIDERS: ADMIT Psychiatry & Neurology Psychiatry; ATTEND Psychiatry & Neurology Psychiatry
DX: F25.0 Schizoaffective disorder, bipolar type (principal); F15.10 Other stimulant abuse, uncomplicated; F41.9 Anxiety disorder, unspecified; F60.2 Antisocial personality disorder; F70 Mild intellectual disabilities; R45.850 Homicidal ideations; Z59.00 Homelessness unspecified; Z20.822 Contact with and (suspected) exposure to COVID-19
CPT/HCPCS: 80306; 81001; 82075; 87635; 99285

== ENCOUNTER 2021-08-14 23:15 | Emergency (ER) | payer OTHER ==
[2021-08-14 23:36] VITALS: PULSE 85; TEMP 98.2
--- NOTE | 2021-08-15 01:43 | ED ---
Psych HPI - General Chief Complaint: Psychiatric Symptoms Stated Complaint: Mental health Time Seen by Provider: 08/15/21 01:30 Source: patient, RN notes reviewed, old records reviewed Mode of arrival: ambulatory - History of Present Illness Initial Comments: This is a 25-year-old male that presents with complaints of homicidal and suicidal ideations. Patient states that his plan to hurt himself was to jump off the bridge. He states that he has homicidal thoughts to anybody that irritates him. Patient denies any drug use, states has not used methamphetamine since his prior to his last admission to the hospital last month. Patient states that he is homeless and hungry. He denies any cough, nausea, vomiting, diarrhea or fevers. Does state that he has left lower dental pain that he has had for a while and does not have a dentist. He does have a history of asthma, depression, anxiety, antisocial disorder, schizophrenia and methamphetamine abuse. He denies alcohol abuse. MD Complaint: suicidal ideation, feels depressed -: days(s) (1) Associated Psychiatric Symptoms: depression, suicidal ideation, homicidal ideation History of same: Yes Quality: constant Associated Symptoms: other (dental pain) Treatments Prior to Arrival: none If Self Harm: admits thoughts of self harm, has plan (jump off bridge) - Related Data Previous Rx's Medication Instructions Recorded fluPHENAZine decanoate [Prolixin 25 mg IM Q14D #1 ml 04/26/21 Decanoate] Nicotine 14Mg/24Hr Patch [Habitrol] 1 patch TRANSDERM DAILY 30 Days 08/09/21 patch OLANZapine [ZyPREXA] 20 mg PO HS 7 Days tab 08/09/21 Allergies Allergy/AdvReac Type Severity Reaction Status Date / Time bee venom protein (honey bee) Allergy Anaphylaxis Verified 08/05/21 03:29 Review of Systems ROS Statement: Those systems with pertinent positive or pertinent negative responses have been documented in the HPI. ROS Other: All systems not noted in ROS Statement are negative. Past Medical History Past Medical History: Asthma, Hyperlipidemia Additional Past Medical History / Comment(s): Depression, anxiety anti social personality disorder, hepatitis C History of Any Multi-Drug Resistant Organisms: None Reported Past Surgical History: No Surgical Hx Reported Past Anesthesia/Blood Transfusion Reactions: No Reported Reaction Past Psychological History: Anxiety, Bipolar, Depression, Schizophrenia Smoking Status: Current every day smoker, Vaper Past Alcohol Use History: Occasional Past Drug Use History: Marijuana, Methamphetamine - Past Family History Mother Family Medical History: Unable to Obtain Additional Family Medical History / Comment(s): Patient reports that he knows nothing about his family General Exam Limitations: no limitations General appearance: alert, in no apparent distress Head exam: Present: atraumatic Eye exam: Absent: scleral icterus, conjunctival injection ENT exam: Present: mucous membranes moist Expanded Mouth exam: Present: tongue normal, tongue elevation. Absent: drooling, trismus, muffled voice Teeth exam: Present: dental caries Throat exam: negative: tonsillar erythema, tonsillar exudate, R peritonsillar mass, L peritonsillar mass Neck exam: Present: normal inspection, full ROM. Absent: tenderness, meningismus, lymphadenopathy Respiratory exam: Present: normal lung sounds bilaterally. Absent: respiratory distress, accessory muscle use Cardiovascular Exam: Present: regular rate GI/Abdominal exam: Present: soft. Absent: distended, tenderness, rigid Extremities exam: Present: normal capillary refill. Absent: pedal edema Neurological exam: Present: alert, normal gait Psychiatric exam: Present: depressed, homicidal ideation, suicidal ideation Skin exam: Present: warm, normal color. Absent: cyanosis, diaphoretic, petechiae, pallor Course Vital Signs 08/14/21 23:31 Temperature 98.2 F Pulse Rate 85 Respiratory 18 Rate Blood Pressure 112/74 O2 Sat by Pulse 98 Oximetry Medical Decision Making - Medical Decision Making 25-year-old male presents with depression and mood disorder. EPS services did evaluate the patient and states that he can be discharged home. He does [facility] to get his Prolixin injection today. He was directed to continue his medications as previously prescribed. Vital signs are stable - Lab Data Lab Results 08/15/21 Range/Units 01:44 Urine Opiates Screen Not Detected (NotDetected) Ur Oxycodone Screen Not Detected (NotDetected) Urine Methadone Screen Not Detected (NotDetected) Ur Propoxyphene Screen Not Detected (NotDetected) Ur Barbiturates Screen Not Detected (NotDetected) U Tricyclic Antidepress Not Detected (NotDetected) Ur Phencyclidine Scrn Not Detected (NotDetected) Ur Amphetamines Screen Not Detected (NotDetected) U Methamphetamines Scrn Not Detected (NotDetected) U Benzodiazepines Scrn Not Detected (NotDetected) Urine Cocaine Screen Not Detected (NotDetected) U Marijuana (THC) Screen Detected H (NotDetected) Disposition Clinical Impression: Mood disorder Disposition: HOME SELF-CARE Condition: Good Instructions (If sedation given, give patient instructions): Mood Disorders (ED), Depression (ED) Additional Instructions: [facility] According to your medical records you are due to get your Prolixin shot today. Please keep this appointment which may improve your mood. Is patient prescribed a controlled substance at d/c from ED?: No Referrals: None,Stated [Primary Care Provider] - 1-2 days Time of Disposition: 03:44
[2021-08-15 02:09] LABS: Amphetamine Screen,Urine Not Detected (NotDetected); Barbiturate Screen,Urine Not Detected (NotDetected); Benzodiazepines Screen,Urine Not Detected (NotDetected); Cocaine Screen,Urine Not Detected (NotDetected); Methadone Screen, Urine Not Detected (NotDetected); Opiate Screen,Urine Not Detected (NotDetected); Oxycodone Screen, Urine Not Detected (NotDetected); Phencyclidine Screen,Urine Not Detected (NotDetected); Tricyclic Antidepressant,Urine Not Detected (NotDetected); Urn Cannabinoid Scrn Detected (NotDetected)
[2021-08-15 03:56] VITALS: BP 114/68; RESP 16
== END 2021-08-15 03:56 | disposition home or self-care (01) ==
LOC: EC 23:15
DX: F39 Unspecified mood [affective] disorder (principal); J45.909 Unspecified asthma, uncomplicated; F17.209 Nicotine dependence, unspecified, with unspecified nicotine-induced disorders; Z91.030 Bee allergy status
CPT/HCPCS: 80306; 82075; 99284

== ENCOUNTER 2022-01-27 01:50 | Emergency (ER) | payer OTHER ==
[2022-01-27 01:55] VITALS: BP 110/70; PULSE 99; RESP 18; TEMP 98.2
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
== END 2022-01-27 04:04 | disposition home or self-care (01) ==
LOC: EC 01:50
DX: F25.9 Schizoaffective disorder, unspecified (principal); J45.909 Unspecified asthma, uncomplicated; E78.5 Hyperlipidemia, unspecified; Z91.030 Bee allergy status

== ENCOUNTER 2022-02-06 23:47 | Emergency (ER) | payer OTHER ==
[2022-02-06 23:56] VITALS: BP 129/71; PULSE 104; TEMP 97.7
[2022-02-07 01:15] LABS: Amphetamine Screen,Urine Detected (NotDetected); Barbiturate Screen,Urine Not Detected (NotDetected); Benzodiazepines Screen,Urine Not Detected (NotDetected); Cocaine Screen,Urine Not Detected (NotDetected); Methadone Screen, Urine Not Detected (NotDetected); Opiate Screen,Urine Not Detected (NotDetected); Oxycodone Screen, Urine Not Detected (NotDetected); Phencyclidine Screen,Urine Not Detected (NotDetected); Tricyclic Antidepressant,Urine Not Detected (NotDetected); Urn Cannabinoid Scrn Detected (NotDetected)
[2022-02-07 01:32] VITALS: RESP 16
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
== END 2022-02-07 07:05 | disposition home or self-care (01) ==
LOC: EC 23:47
DX: F25.9 Schizoaffective disorder, unspecified (principal); J45.909 Unspecified asthma, uncomplicated; E78.5 Hyperlipidemia, unspecified; F17.290 Nicotine dependence, other tobacco product, uncomplicated; F12.90 Cannabis use, unspecified, uncomplicated; Z91.030 Bee allergy status
CPT/HCPCS: 80306; 82075; 99285

== ENCOUNTER 2022-02-08 22:22 | Emergency (ER) | payer OTHER ==
--- NOTE | 2022-02-08 22:27 | ED ---
Psych HPI - General Stated Complaint: Mental health Time Seen by Provider: 02/08/22 22:27 Source: police, RN notes reviewed, old records reviewed Mode of arrival: EMS Limitations: no limitations - History of Present Illness Initial Comments: This is a 26-year-old male to the emergency department for evaluation both well- known to our facility as well as presenting under petition for psychiatric evaluation and treatment. Patient is been seen in the ER multiple times recently discharged alert time. Patient was playing in the street today saying he wanted to MD Complaint: suicidal ideation (and homicidal) -: unknown Associated Psychiatric Symptoms: depression, suicidal ideation, homicidal ideation, racing thoughts Quality: constant Improves With: none Worsens With: none Associated Symptoms: confusion Treatments Prior to Arrival: placed on mental health hold If Self Harm: admits thoughts of self harm - Related Data Previous Rx's Medication Instructions Recorded fluPHENAZine decanoate [Prolixin 25 mg IM Q14D #1 ml 04/26/21 Decanoate] Nicotine 14Mg/24Hr Patch [Habitrol] 1 patch TRANSDERM DAILY 30 Days 08/09/21 patch OLANZapine [ZyPREXA] 20 mg PO HS 7 Days tab 08/09/21 Allergies Allergy/AdvReac Type Severity Reaction Status Date / Time bee venom protein (honey bee) Allergy Anaphylaxis Verified 02/06/22 23:53 Review of Systems ROS Statement: Those systems with pertinent positive or pertinent negative responses have been documented in the HPI. ROS Other: All systems not noted in ROS Statement are negative. Past Medical History Past Medical History: Asthma, Hyperlipidemia Additional Past Medical History / Comment(s): Depression, anxiety anti social personality disorder, hepatitis C History of Any Multi-Drug Resistant Organisms: None Reported Past Surgical History: No Surgical Hx Reported Past Anesthesia/Blood Transfusion Reactions: No Reported Reaction Past Psychological History: Anxiety, Bipolar, Depression, Schizophrenia Smoking Status: Current every day smoker, Vaper Past Alcohol Use History: Occasional Past Drug Use History: Marijuana, Methamphetamine - Past Family History Mother Family Medical History: Unable to Obtain Additional Family Medical History / Comment(s): Patient reports that he knows nothing about his family General Exam General appearance: alert, in no apparent distress Head exam: Present: atraumatic, normocephalic, normal inspection Eye exam: Present: normal appearance, PERRL, EOMI. Absent: scleral icterus, conjunctival injection, periorbital swelling ENT exam: Present: normal exam, mucous membranes moist Neck exam: Present: normal inspection. Absent: tenderness, meningismus, lymphadenopathy Respiratory exam: Present: normal lung sounds bilaterally. Absent: respiratory distress, wheezes, rales, rhonchi, stridor Cardiovascular Exam: Present: regular rate, normal rhythm, normal heart sounds. Absent: systolic murmur, diastolic murmur, rubs, gallop, clicks GI/Abdominal exam: Present: soft, normal bowel sounds. Absent: distended, tenderness, guarding, rebound, rigid Extremities exam: Present: normal inspection, full ROM, normal capillary refill. Absent: tenderness, pedal edema, joint swelling, calf tenderness Back exam: Present: normal inspection Neurological exam: Present: alert, oriented X3, CN II-XII intact Psychiatric exam: Present: normal affect, normal mood Skin exam: Present: warm, dry, intact, normal color. Absent: rash Course Vital Signs 02/08/22 22:32 Pulse Rate 100 Respiratory 18 Rate Blood Pressure 113/73 O2 Sat by Pulse 97 Oximetry - Reevaluation(s) Reevaluation #1: 02/09/22 03:32 Medical records reviewed Reevaluation #2: 02/09/22 03:32 Patient's medical clear for psychiatric evaluation Medical Decision Making - Medical Decision Making 26 male for psychiatric evaluation was seen in the morning has [facility] for decision of care plan Disposition Clinical Impression: Depressed, Polysubstance abuse, Suicidal ideation, Mood disorder Disposition: HOME SELF-CARE Condition: Fair Instructions (If sedation given, give patient instructions): Mood Disorders (ED), Depression (ED) Is patient prescribed a controlled substance at d/c from ED?: No Referrals: None,Stated [Primary Care Provider] - 1-2 days Time of Disposition: 03:00
[2022-02-08 22:42] VITALS: RESP 18
[2022-02-09 08:31] VITALS: BP 115/75; PULSE 95; TEMP 98.2
== END 2022-02-09 08:05 | disposition home or self-care (01) ==
LOC: EC 22:22
DX: F99 Mental disorder, not otherwise specified (principal); J45.909 Unspecified asthma, uncomplicated; E78.5 Hyperlipidemia, unspecified; F41.9 Anxiety disorder, unspecified; F31.9 Bipolar disorder, unspecified; F17.290 Nicotine dependence, other tobacco product, uncomplicated; F12.90 Cannabis use, unspecified, uncomplicated; F15.10 Other stimulant abuse, uncomplicated; R45.851 Suicidal ideations; F39 Unspecified mood [affective] disorder; F19.10 Other psychoactive substance abuse, uncomplicated; Z79.899 Other long term (current) drug therapy; Z91.030 Bee allergy status
CPT/HCPCS: 82075; 99284

== ENCOUNTER 2022-09-14 20:09 | Emergency (ER) | payer OTHER ==
[2022-09-14 20:14] VITALS: BP 135/95; PULSE 80; RESP 20; TEMP 97.8
[2022-09-14] MEDS ORDERED: KETOROLAC 15 MG/ML 1 ML VIAL IM STA (20:20)
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
[2022-09-14] MEDS ORDERED: ACET/COD 300 MG/30 MG STARTER PACK 6 TAB BTL PO STA (21:05)
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
== END 2022-09-14 21:35 | disposition home or self-care (01) ==
LOC: EC 20:09
DX: S42.032A Displaced fracture of lateral end of left clavicle, initial encounter for closed fracture (principal); J45.909 Unspecified asthma, uncomplicated; E78.5 Hyperlipidemia, unspecified; F41.9 Anxiety disorder, unspecified; F31.9 Bipolar disorder, unspecified; F17.290 Nicotine dependence, other tobacco product, uncomplicated; F12.90 Cannabis use, unspecified, uncomplicated; Z91.030 Bee allergy status; Z79.899 Other long term (current) drug therapy; Y04.8XXA Assault by other bodily force, initial encounter
CPT/HCPCS: 73030; 99285; 96372; J1885

== ENCOUNTER 2023-07-03 13:41 | Inpatient (IN) | payer OTHER ==
--- NOTE | 2023-07-03 14:17 | ED ---
General Adult HPI - General Source: patient, police, EMS, RN notes reviewed Mode of arrival: EMS Limitations: altered mental status <Luke Monge - Last Filed: 07/03/23 15:48> <Vincent Jones - Last Filed: 07/03/23 16:40> - General Chief complaint: Overdose Stated complaint: overdose Time Seen by Provider: 07/03/23 13:44 - History of Present Illness Initial comments: 27-year-old male presents emergency department with police, EMS for evaluation of a drug overdose. Patient was found in the bathroom at his home which family states he was in there for 2 hours with the water running upon finding him he had a needle in his arm and was reportedly not breathing. Patient did have emesis noted. Patient was given 4 mg of Narcan intranasally. Patient is now arousable does answer to his name. EMS reports that his respirations are improving though he sounds very congested, has been grunting. (Luke Monge) - Related Data Home Medications Medication Instructions Recorded Confirmed OLANZapine 20 mg PO HS 07/03/23 07/03/23 busPIRone HCL 15 mg PO TID 07/03/23 07/03/23 cloNIDine HCL [Catapres] 0.1 mg PO HS 07/03/23 07/03/23 Previous Rx's Medication Instructions Recorded fluPHENAZine decanoate [Prolixin 25 mg IM Q14D #1 ml 04/26/21 Decanoate] Allergies Allergy/AdvReac Type Severity Reaction Status Date / Time bee venom protein (honey bee) Allergy Anaphylaxis Verified 07/03/23 16:10 Review of Systems ROS Other: All systems not noted in ROS Statement are negative. <Luke Monge - Last Filed: 07/03/23 15:48> ROS Other: All systems not noted in ROS Statement are negative. <Vincent Jones - Last Filed: 07/03/23 16:40> ROS Statement: Those systems with pertinent positive or pertinent negative responses have been documented in the HPI. Past Medical History Past Medical History: Asthma, Hyperlipidemia Additional Past Medical History / Comment(s): Depression, anxiety anti social personality disorder, hepatitis C History of Any Multi-Drug Resistant Organisms: None Reported Past Surgical History: No Surgical Hx Reported Past Anesthesia/Blood Transfusion Reactions: No Reported Reaction Past Psychological History: Anxiety, Bipolar, Depression, Schizophrenia Smoking Status: Current every day smoker, Vaper Past Alcohol Use History: Occasional Past Drug Use History: Heroin, IV Drug Use, Marijuana, Methamphetamine - Past Family History Mother Family Medical History: Unable to Obtain Additional Family Medical History / Comment(s): Patient reports that he knows nothing about his family <Luke Monge M - Last Filed: 07/03/23 15:48> General Exam Limitations: altered mental status General appearance: alert Head exam: Present: atraumatic, normocephalic, normal inspection ENT exam: Present: mucous membranes moist. Absent: normal exam, normal oropharynx (Emesis is noted) Neck exam: Present: normal inspection, full ROM. Absent: tenderness, meningismus, lymphadenopathy Respiratory exam: Present: respiratory distress, rhonchi. Absent: normal lung sounds bilaterally, wheezes, rales, stridor Cardiovascular Exam: Present: normal rhythm, tachycardia, normal heart sounds. Absent: systolic murmur, diastolic murmur, rubs, gallop, clicks GI/Abdominal exam: Present: soft, normal bowel sounds. Absent: distended, tenderness, guarding, rebound, rigid Neurological exam: Present: altered <Luke Monge M - Last Filed: 07/03/23 15:48> Course Vital Signs 07/03/23 07/03/23 07/03/23 13:42 14:08 14:20 Temperature 96.2 F L Pulse Rate 44 L 110 H Respiratory 18 22 32 H Rate Blood Pressure 66/49 110/26 O2 Sat by Pulse Oximetry Fraction of Inspired Oxygen (FIO2) 07/03/23 07/03/23 07/03/23 14:25 14:31 14:36 Temperature Pulse Rate 116 H 110 H 110 H Respiratory 28 H 28 H 28 H Rate Blood Pressure 100/62 110/67 97/52 O2 Sat by Pulse 86 L 88 L Oximetry Fraction of Inspired Oxygen (FIO2) 07/03/23 07/03/23 07/03/23 14:41 14:54 15:08 Temperature Pulse Rate 113 H 107 H 117 H Respiratory 18 28 H 28 H Rate Blood Pressure 94/45 O2 Sat by Pulse 86 L Oximetry Fraction of Inspired Oxygen (FIO2) 07/03/23 07/03/23 07/03/23 15:09 15:28 15:55 Temperature Pulse Rate 108 H Respiratory 24 14 Rate Blood Pressure 66/39 O2 Sat by Pulse 96 Oximetry Fraction of Inspired Oxygen (FIO2) 07/03/23 07/03/23 07/03/23 16:02 16:10 16:15 Temperature Pulse Rate 118 H Respiratory 21 Rate Blood Pressure 82/56 O2 Sat by Pulse 97 Oximetry Fraction of 100 100 Inspired Oxygen (FIO2) Procedures - ABG Interpretation Ph: 7.21 PCO2: 45 PO2: 55 Bicarbonate: 13 Interpretation: metabolic acidosis, other (With hypoxia) - Central Line Placement Right Femoral Consent Obtained: emergent situation Patient Placed on Monitor/Pulse Ox: Yes Prep: mask, gown, gloves Central Line Prep: Chlorhexidine scrub Ultrasound Used for Placement: No Central Line Position: good blood return Complications: other (Unable to pass guidewire, likely from sclerosis) Right SC Consent Obtained: emergent situation Patient Placed on Monitor/Pulse Ox: Yes Prep: mask, gown, gloves Central Line Prep: Chlorhexidine scrub Ultrasound Used for Placement: No Central Line Lumen Inserted: triple Bloods Obtained for Lab: Yes Central Line Position: good blood return, all ports aspirated, flushed, capped, sutured in place with 3-0 nylon Dressing Applied: Tegaderm Post Procedure X-Ray: other (Catheter tip appears towards the left side) Patient Tolerated Procedure: well Complications: none - Intubation Sedative: Versed Paralytic: Succinylcholine Laryngoscope: Lambert Size: 3 ET Tube Size: 7.5 Tube Placement Confirmation: visualized tube passing through cords, equal breath sounds bilaterally, no breath sounds over epigastrium, confirmation by capnometry Patient Tolerated Procedure: well, no complications Intubation Complications: none <Vincent Jones - Last Filed: 07/03/23 16:40> Medical Decision Making - Lab Data Result diagrams: 07/03/23 14:30 07/03/23 15:00 <Luke Monge - Last Filed: 07/03/23 15:48> - Lab Data Result diagrams: 07/03/23 14:30 07/03/23 15:00 <Vincent Jones - Last Filed: 07/03/23 16:40> - Medical Decision Making Was pt. sent in by a medical professional or institution (, PA, RIPRAP MAN, urgent care, hospital, or halfway...) When possible be specific @ -No Did you speak to anyone other than the patient for history (EMS, parent, family, police, friend...)? What history was obtained from this source @ -EMS provides history of Narcan with improvement of symptom Did you review nursing and triage notes (agree or disagree)? Why? @ -I reviewed and agree with nursing and triage notes Were old charts reviewed (outside hosp., previous admission, EMS record, old EKG, old radiological studies, urgent care reports/EKG's, halfway records)? Report findings @ -Previous outside chest x-ray reviewed Differential Diagnosis (chest pain, altered mental status, abdominal pain women, abdominal pain men, vaginal bleeding, weakness, fever, dyspnea, syncope, headache, dizziness, GI bleed, back pain, seizure, CVA, palpatations, mental health, musculoskeletal)? @ -Differential Altered Mental Status: Hypoglycemia, DKA, hypercapnia, ETOH, overdose, CO poisoning, trauma, myxedema coma, HTN encephalopathy, infection, encephalitis, psychosis, intercranial hemorrhage, hepatic encephalopathy, meningitis, CVA, this is not meant to be an all-inclusive list EKG interpreted by me (3pts min.). @ -As above X-rays interpreted by me (1pt min.). @ -Aspiration left-sided pneumonia. CT interpreted by me (1pt min.). @ -None done U/S interpreted by me (1pt. min.). @ -None done What testing was considered but not performed or refused? (CT, X-rays, U/S, labs)? Why? @ -None What meds were considered but not given or refused? Why? @ -None Did you discuss the management of the patient with other professionals (professionals i.e. , PA, RIPRAP MAN, lab, RT, psych nurse, social media community manager, paper bag press operator, teacher, community service patrol officer, showcase maker)? Give summary @ -Case discussed with Dr. Oconnor who will consult for critical care. Case also discussed with Dr. Kc who will admit covering hospital call Was smoking cessation discussed for >3mins.? @ -No Was critical care preformed (if so, how long)? @ -3 3 minutes critical care to Were there social determinants of health that impacted care today? How? (Homelessness, low income, unemployed, alcoholism, drug addiction, transportation, low edu. Level, literacy, decrease access to med. care, [facility], rehab)? @ -No Was there de-escalation of care discussed even if they declined (Discuss DNR or withdrawal of care, Hospice)? DNR status @ -No What co-morbidities impacted this encounter? (DM, HTN, Smoking, COPD, CAD, Cancer, CVA, ARF, Chemo, Hep., AIDS, mental health diagnosis, sleep apnea, morbid obesity)? @ -None Was patient admitted / discharged? Hospital course, mention meds given and route, prescriptions, significant lab abnormalities, going to OR and other pertinent info. @ -Patient presents with with change in mental status with improvement with Narcan. Patient continued to deteriorate and got some improvement again with Narcan. Patient has been hypotensive. Central line placed. Pressors started. Patient remains hypoxic and was intubated. Patient will be admitted to ICU. Hughson orders written. Undiagnosed new problem with uncertain prognosis? @ -No Drug Therapy requiring intensive monitoring for toxicity (Heparin, Nitro, Insulin, Cardizem)? @ -Levophed drip Were any procedures done? @ -See above, intubation and central line placement Diagnosis/symptom? @ -Overdose, aspiration pneumonia, sepsis Acute, or Chronic, or Acute on Chronic? @ -Acute, acute, acute Uncomplicated (without systemic symptoms) or Complicated (systemic symptoms)? @ -Complicated with septic shock and hypotension and hypoxia Side effects of treatment? @ -No Exacerbation, Progression, or Severe Exacerbation? @ -No Poses a threat to life or bodily function? How? (Chest pain, [place], [place], pneumonia, PE, COPD, DKA, ARF, appy, cholecystitis, CVA, Diverticulitis, Homicidal, Suicidal, threat to staff... and all critical care pts) @ -No There is concern for sepsis diagnosed at 1507. Blood culture and lactic acid and IV antibiotics have all been started. There was concern for septic shock diagnosed at 1600. Central line was placed and pressors started and patient intubated. Dr. Oconnor is made aware of central line placement and is okay to leave it alone. (Vincent Jones) - Lab Data Lab Results 07/03/23 07/03/23 07/03/23 Range/Units 14:30 15:00 15:21 WBC 17.9 H (3.8-10.6) k/uL RBC 4.28 L (4.30-5.90) m/uL Hgb 13.0 (13.0-17.5) gm/dL Hct 41.9 (39.0-53.0) % MCV 97.9 (80.0-100.0) fL MCH 30.4 (25.0-35.0) pg MCHC 31.0 (31.0-37.0) g/dL RDW 13.5 (11.5-15.5) % Plt Count 338 (150-450) k/uL MPV 7.5 Neutrophils % (Manual) 74 % Band Neuts % (Manual) 16 % Lymphocytes % (Manual) 5 % Monocytes % (Manual) 3 % Metamyelocytes % 3 % Myelocytes % 1 % Neutrophils # (Manual) 16.10 H (1.3-7.7) k/uL Lymphocytes # (Manual) 0.90 L (1.0-4.8) k/uL Monocytes # (Manual) 0.54 (0-1.0) k/uL Metamyelocytes # (Man) 0.54 H (0) k/uL Myelocytes # (Manual) 0.18 H (0) k/uL Nucleated RBCs 0 (0-0) /100 WBC Hypochromasia Moderate Anisocytosis (manual) Present Sample Site r rad ABG pH 7.22 L (7.35-7.45) ABG pCO2 45 (35-45) mmHg ABG pO2 55 L* (83-108) mmHg ABG HCO3 18 L (21-25) mmol/L ABG O2 Saturation 87.1 L (94-97) % ABG Base Excess -9.1 mmol/L FiO2 100 % Sodium 138 (137-145) mmol/L Potassium 6.8 H* (3.5-5.1) mmol/L Chloride 110 H (98-107) mmol/L Carbon Dioxide 16 L (22-30) mmol/L Anion Gap 12 mmol/L BUN 20 (9-20) mg/dL Creatinine 1.95 H (0.66-1.25) mg/dL Est GFR (CKD-EPI)AfAm 53 (>60 ml/min/1.73 sqM) Est GFR (CKD-EPI)NonAf 46 (>60 ml/min/1.73 sqM) Glucose 82 (74-99) mg/dL Calcium 7.6 L (8.4-10.2) mg/dL Total Bilirubin 0.4 (0.2-1.3) mg/dL AST 73 H (17-59) U/L ALT 49 (4-49) U/L Alkaline Phosphatase 75 (38-126) U/L Total Protein 6.2 L (6.3-8.2) g/dL Albumin 3.6 (3.5-5.0) g/dL Serum Alcohol <10 mg/dL Critical Care Time Critical Care Time: Yes Total Critical Care Time: 33 <Vincent Jones - Last Filed: 07/03/23 16:40> Disposition Time of Disposition: 15:42 <Lkue Monge - Last Filed: 07/03/23 15:48> Is patient prescribed a controlled substance at d/c from ED?: No <Vincent Jones - Last Filed: 07/03/23 16:40> Clinical Impression: Drug overdose, Aspiration pneumonia, Acute respiratory failure with hypoxia Disposition: ADMITTED IP TO THIS HOSP Condition: Critical Referrals: [facility] [Primary Care Provider] - 1-2 days
[2023-07-03] MEDS: SODIUM CHLORIDE 0.9% 1,000 ML IV ONE ×2 (14:19→15:45)
[2023-07-03] MEDS: SODIUM CHLORIDE 0.9% 500 ML 500 ML IV ONE (14:19)
[2023-07-03] MEDS: NALOXONE 0.4 MG/ML 1 ML VIAL IVP STA ×3 (14:20→15:28)
[2023-07-03 14:52] LABS: HCT 41.9 % (39.0-53.0); Hypochromasia Moderate; MCH 30.4 pg (25.0-35.0); MCV 97.9 fL (80.0-100.0); Mean Platelet Volume 7.5; Platelet Count 338 k/uL (150-450); RBC 4.28 m/uL (4.30-5.90); RDW 13.5 % (11.5-15.5); WBC 17.9 k/uL (3.8-10.6)
[2023-07-03] MEDS: IPRATROPIUM-ALBUTEROL 3 ML NEB INHALATION STA (14:54)
--- NOTE | 2023-07-03 15:00 | XR ---
EXAMINATION TYPE: XR chest 1V portable DATE OF EXAM: 07/03/2023 2:35 PM CLINICAL INDICATION:Male, 27 years old with history of sob; [facility] COMPARISON: Chest radiographs from TECHNIQUE: XR chest 1V portable Frontal view of the chest. FINDINGS: Lungs/Pleura: There is no evidence of pleural effusion, focal consolidation, or pneumothorax. Pulmonary vascularity: Unremarkable. Heart/mediastinum: Cardiomediastinal silhouette is unremarkable. Musculoskeletal: No acute osseous pathology. Remote injury to the left clavicle. IMPRESSION: Left left lung airspace opacities correlate for pneumonia.
[2023-07-03 15:28] LABS: ALT 49 U/L (4-49); AST 73 U/L (17-59); African American GFR (CKD) 53 (>60 ml/min/1.73 sqM); Albumin 3.6 g/dL (3.5-5.0); Alcohol <10 mg/dL; Alkaline Phosphatase 75 U/L (38-126); Anion Gap 12 mmol/L; Blood Urea Nitrogen 20 mg/dL (9-20); Calcium 7.6 mg/dL (8.4-10.2); Carbon Dioxide 16 mmol/L (22-30); Chloride 110 mmol/L (98-107); Glucose 82 mg/dL (74-99); Non-African American GFR(CKD) 46 (>60 ml/min/1.73 sqM); Sodium 138 mmol/L (137-145); Total Bilirubin 0.4 mg/dL (0.2-1.3); Total Protein 6.2 g/dL (6.3-8.2)
[2023-07-03 15:29] LABS: ABG Base Excess -9.1 mmol/L; ABG HCO3 18 mmol/L (21-25); ABG Oxygen Saturation 87.1 % (94-97); ABG PCO2 45 mmHg (35-45); ABG PH 7.22 (7.35-7.45); Allen Test Performed? Yes
[2023-07-03 15:32] LABS: ABG PO2 55 mmHg (83-108)
[2023-07-03 15:35] LABS: Potassium 6.8 mmol/L (3.5-5.1)
[2023-07-03 15:40] LABS: Band Neutrophils % 16 %; Metamyelocytes # (M) 0.54 k/uL (0); Metamyelocytes % 3 %; Monocytes # (M) 0.54 k/uL (0-1.0); Myelocytes # (M) 0.18 k/uL (0); Myelocytes % 1 %; Neutrophils % (M) 74 %; Nucleated Red Blood Cells 0 /100 WBC (0-0); Total Cells Counted 200
[2023-07-03 15:42] LABS: Anisocytosis (M) Present
[2023-07-03] MEDS ORDERED: ACETAMINOPHEN SUPPOSITORY 650 MG SUPP RECTAL PRN (15:42)
[2023-07-03] MEDS ORDERED: NALOXONE 0.4 MG/ML 1 ML VIAL IV PRN (15:42)
[2023-07-03] MEDS: MIDAZOLAM 1 MG/ML 5 ML VIAL IV STA (15:56)
[2023-07-03] MEDS: SUCCINYLCHOLINE CHLORIDE 200 MG/10 ML VIAL IV STA (15:56)
[2023-07-03] MEDS: NOREPINEPHRINE 32 MG in SODIUM CHLORIDE 0.9% 218 ML IV SCH (16:04)
[2023-07-03] MEDS ORDERED: IPRATROPIUM-ALBUTEROL 3 ML NEB INHALATION PRN (16:22)
[2023-07-03] MEDS ORDERED: LORazepam 2 MG/ML INJ IV PRN ×2 (16:22)
[2023-07-03] MEDS: PIPERACILLIN-TAZOBACTAM 3.375 GM in SODIUM CHLORIDE 0.9% 100 ML IVPB SCH (16:45)
--- NOTE | 2023-07-03 16:48 | XR ---
EXAMINATION TYPE: XR chest 1V portable DATE OF EXAM: 07/03/2023 4:38 PM CLINICAL INDICATION:Male, 27 years old with history of Tube placement; [facility] COMPARISON: Chest radiographs from 07/03/2023. TECHNIQUE: XR chest 1V portable Frontal view of the chest. FINDINGS: Lungs/Pleura: Left midlung airspace opacities. There is no evidence of pleural effusion, focal consol idation, or pneumothorax. Pulmonary vascularity: Unremarkable. Heart/mediastinum: Cardiomediastinal silhouette is unremarkable. Musculoskeletal: No acute osseous pathology. Other findings: None Lines/Tubes: Endotracheal tube with distal tip 4.4 cm above the graham. Nasogastric tube with side-port projecting over the distal esophagus. Right PICC with tip terminating in the left upper lung possibly within the left brachiocephalic vein. IMPRESSION: 1. Right PICC with tip terminating in the left upper lung possibly within the left brachiocephalic v ein. 2. Nasogastric tube side-port in the gastric esophageal junction. Advancement of 6.0 cm for optimal placement. 3. Left midlung airspace opacities. 4. Endotracheal tube in appropriate position.
[2023-07-03 16:49] LABS: ABG Base Excess -9.6 mmol/L; ABG HCO3 19 mmol/L (21-25); ABG Oxygen Saturation 95.4 % (94-97); ABG PCO2 49 mmHg (35-45); ABG PO2 82 mmHg (83-108); Allen Test Performed? Yes
[2023-07-03] MEDS: CALCIUM GLUCONATE IN NACL 1 GM in SALINE 1 100ML.BAG IVPB ONE (17:07)
[2023-07-03] MEDS: SODIUM BICARB 8.4% 50 ML SYR (1 MEQ/ML) IV STA (17:07)
[2023-07-03 17:09] LABS: Glucose,Whole Blood 98 mg/dL (70-110)
[2023-07-03] MEDS: DEXTROSE 50% SYRINGE 50 ML IVP STA (17:12)
[2023-07-03] MEDS: INSULIN REGULAR 100 UNIT/ML VIAL (IV) IV ONE (17:13)
[2023-07-03 17:36] LABS: ABG PH 7.19 (7.35-7.45)
--- NOTE | 2023-07-03 17:41 | P.CNPUL ---
History of Present Illness Consult date: 07/03/23 Reason for consult: pneumonia Chief complaint: acute drug overdose History of present illness: This is a 27-year-old male patient was currently debated on mechanical ventilator due to heroin overdose. Patient was found in the bathroom in his house and he was there apparently for around 12 hours with the water running and upon finding him he was found to have a needle in his arm and he was reportedly not breathing. He had also emesis. He was given 4 mg of Narcan intranasally and he became somewhat arousable. He came into the emergency department and his respiration was borderline and the patient was still congested and he has been grunting and subsequent follow-up showed that the patient's was unable to pro tect his airway and he was becoming more hypoxic and his blood gas showed a pH of 7.22 with a pCO2 of 45 and a pO2 of 55 and following that the patient was intubated and placed on the mechanical ventilator. Currently, the patient is intubated on assist-control mode with rate of 18, tidal volume of 400, FiO2 100% with a PEEP of 5. Postintubation blood gases are still pending. I reviewed the chest x-ray postintubation and the patient has adequate positioning of the ET tube. The patient has also an orogastric tube. There is extension in left lung consolidation consistent with an aspiration pneumonia. The triple-lumen catheter was inserted in the right subclavian is extending to the left and is not in the appropriate position. Meanwhile, the blood work shows a WBC count of 17.9, hemoglobin 13, potassium levels at 6.8 with a sodium level of 138, BUN is at 20 with a creatinine of 1.9 and a serum bicarb is at 16. LFTs are normal. Urine drug screen was positive for amphetamine and marijuana. Alcohol level was negative. The patient is currently intubated on mechanical ventilator on propofol and the dose being adjusted to maintain adequate sedation. His acute hyperkalemia will be treated. The sample could be potentially mildly hemolyzed. The patient's CPK has not been checked. CAT scan of the brain has not been screened. The patient has been here multiple times Review of Systems ROS unobtainable: due to endotracheal tube Past Medical History Past Medical History: Asthma, Hyperlipidemia Additional Past Medical History / Comment(s): Depression, anxiety anti social p ersonality disorder, hepatitis C History of Any Multi-Drug Resistant Organisms: None Reported Past Surgical History: No Surgical Hx Reported Past Anesthesia/Blood Transfusion Reactions: No Reported Reaction Past Psychological History: Anxiety, Bipolar, Depression, Schizophrenia Smoking Status: Current every day smoker, Vaper Past Alcohol Use History: Occasional Past Drug Use History: Heroin, IV Drug Use, Marijuana, Methamphetamine - Past Family History Mother Family Medical History: Unable to Obtain Additional Family Medical History / Comment(s): Patient reports that he knows nothing about his family Medications and Allergies Home Medications Medication Instructions Recorded Confirmed Type fluPHENAZine decanoate [Prolixin 25 mg IM Q14D #1 ml 04/26/21 07/03/23 Rx Decanoate] OLANZapine 20 mg PO HS 07/03/23 07/03/23 History busPIRone HCL 15 mg PO TID 07/03/23 07/03/23 History cloNIDine HCL [Catapres] 0.1 mg PO HS 07/03/23 07/03/23 History Allergies Allergy/AdvReac Type Severity Reaction Status Date / Time bee venom protein (honey bee) Allergy Anaphylaxis Verified 07/03/23 16:10 Physical Exam Vitals: Vital Signs Temp Pulse Resp BP Pulse Ox FiO2 07/03/23 17:32 102 H 24 114/77 100 07/03/23 16:15 100 07/03/23 16:10 118 H 21 82/56 97 07/03/23 16:02 100 07/03/23 15:55 108 H 66/39 96 07/03/23 15:28 14 07/03/23 15:09 24 07/03/23 15:08 117 H 28 H 07/03/23 14:54 107 H 28 H 07/03/23 14:41 113 H 18 94/45 86 L 07/03/23 14:36 110 H 28 H 97/52 88 L 07/03/23 14:31 110 H 28 H 110/67 07/03/23 14:25 116 H 28 H 100/62 86 L 07/03/23 14:20 32 H 07/03/23 14:08 110 H 22 110/26 07/03/23 13:42 96.2 F L 44 L 18 66/49 Intake and Output 07/03/23 07/03/23 07/03/23 06:59 14:59 22:59 Other: Weight 88.451 kg General appearance the patient is sedated on propofol, calm and comfortable and the patient is gastric aortic tube in place. Head exam was generally normal. There was no scleral icterus or corneal arcus. Mucous membranes were moist. Neck was supple and without jugular venous distension, thyromegaly, or carotid bruits. Carotids were easily palpable bilaterally. There was no adenopathy. The patient has also a right subclavian triple-lumen catheter in place. Lung sounds are diminished and patient has scattered rhonchi throughout the lung hull bilaterally. Cardiac exam revealed the PMI to be normally situated and sized. The rhythm was regular and no extrasystoles were noted during several minutes of auscultation. The first and second heart sounds were normal and physiologic splitting of the second heart sound was noted. There were no murmurs, rubs, clicks, or gallops. Abdominal exam revealed normal bowel sounds. The abdomen was soft, non-tender, and without masses, organomegaly, or appreciable enlargement of the abdominal aorta. Examination of the extremities revealed easily palpable radial, femoral and pedal pulses. There was no cyanosis, clubbing or edema. Examination of the skin revealed no evidence of significant rashes, suspicious appearing nevi or other concerning lesions. Neurologically the patient is sedated. Results - Laboratory Findings CBC and BMP: 07/03/23 14:30 07/03/23 15:00 ABG ABG pH 7.22 (7.35-7.45) L 07/03/23 15:21 ABG pCO2 45 mmHg (35-45) 07/03/23 15:21 ABG pO2 55 mmHg (83-108) L* 07/03/23 15:21 ABG O2 Saturation 87.1 % (94-97) L 07/03/23 15:21 Abnormal lab findings: Abnormal Labs 07/03/23 07/03/23 07/03/23 14:30 15:00 15:21 WBC 17.9 H RBC 4.28 L Neutrophils # (Manual) 16.10 H Lymphocytes # (Manual) 0.90 L Metamyelocytes # (Man) 0.54 H Myelocytes # (Manual) 0.18 H ABG pH 7.22 L ABG pO2 55 L* ABG HCO3 18 L ABG O2 Saturation 87.1 L Potassium 6.8 H* Chloride 110 H Carbon Dioxide 16 L Creatinine 1.95 H Calcium 7.6 L AST 73 H Total Protein 6.2 L - Diagnostic Findings Chest x-ray: image reviewed Assessment and Plan Plan: Acute heroin overdose, failed to respond to Narcan and the patient had aspiration followed by hypoxic respiratory failure and intubation mechanical ventilation. Acute hypoxic respiratory failure, currently intubated on mechanical ventilator Left lung pneumonia, likely of an aspiration type. 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 For now, the patient be maintained on propofol for sedation and will use fentanyl drip if needed. Will continue ventilator support, increased respiratory rate up to 28 and maintain the same tidal volume and gradually wean down FiO2 as tolerated to maintain saturation above 90%. Obtain sputum Gram stain and culture Continue IV Zosyn as an empiric antibiotic coverage for aspiration pneumonia Please acute hyperkalemia and the patient will be given a total of 2 doses of sodium bicarb 50 mEq each and the patient will be started on a bicarb infusion Insert Cagle catheter and monitor urine output Monitor renal function Start the patient on bicarb infusion at rate of 150 cc an hour. Noted in the emergency department the patient has already been given a total of 3 L of normal saline and the patient is completing his fourth liter for now. [facility] IV Protonix Lovenox subcu for DVT prophylaxis Will continue to follow. On the patient's chest x-ray, the right subclavian triple-lumen catheter is extending into the left brachiocephalic vein and this will be just at the later stage. Time with Patient: Greater than 30
[2023-07-03 17:44] LABS: Amphetamine Screen,Urine Detected (NotDetected); Barbiturate Screen,Urine Not Detected (NotDetected); Benzodiazepines Screen,Urine Not Detected (NotDetected); Cocaine Screen,Urine Not Detected (NotDetected); Methadone Screen, Urine Not Detected (NotDetected); Opiate Screen,Urine Not Detected (NotDetected); Oxycodone Screen, Urine Not Detected (NotDetected); Phencyclidine Screen,Urine Not Detected (NotDetected); Tricyclic Antidepressant,Urine Not Detected (NotDetected); Urn Cannabinoid Scrn Detected (NotDetected)
[2023-07-03] MEDS: SODIUM CHLORIDE 0.9% 1,000 ML IV SCH (17:49)
--- NOTE | 2023-07-03 17:50 | ED ---
Medical Decision Making - Lab Data Result diagrams: 07/03/23 14:30 07/03/23 15:00 Lab Results 07/03/23 07/03/23 07/03/23 Range/Units 14:30 15:00 15:21 WBC 17.9 H (3.8-10.6) k/uL RBC 4.28 L (4.30-5.90) m/uL Hgb 13.0 (13.0-17.5) gm/dL Hct 41.9 (39.0-53.0) % MCV 97.9 (80.0-100.0) fL MCH 30.4 (25.0-35.0) pg MCHC 31.0 (31.0-37.0) g/dL RDW 13.5 (11.5-15.5) % Plt Count 338 (150-450) k/uL MPV 7.5 Neutrophils % (Manual) 74 % Band Neuts % (Manual) 16 % Lymphocytes % (Manual) 5 % Monocytes % (Manual) 3 % Metamyelocytes % 3 % Myelocytes % 1 % Neutrophils # (Manual) 16.10 H (1.3-7.7) k/uL Lymphocytes # (Manual) 0.90 L (1.0-4.8) k/uL Monocytes # (Manual) 0.54 (0-1.0) k/uL Metamyelocytes # (Man) 0.54 H (0) k/uL Myelocytes # (Manual) 0.18 H (0) k/uL Nucleated RBCs 0 (0-0) /100 WBC Hypochromasia Moderate Anisocytosis (manual) Present Sample Site r rad ABG pH 7.22 L (7.35-7.45) ABG pCO2 45 (35-45) mmHg ABG pO2 55 L* (83-108) mmHg ABG HCO3 18 L (21-25) mmol/L ABG O2 Saturation 87.1 L (94-97) % ABG Base Excess -9.1 mmol/L FiO2 100 % Sodium 138 (137-145) mmol/L Potassium 6.8 H* (3.5-5.1) mmol/L Chloride 110 H (98-107) mmol/L Carbon Dioxide 16 L (22-30) mmol/L Anion Gap 12 mmol/L BUN 20 (9-20) mg/dL Creatinine 1.95 H (0.66-1.25) mg/dL Est GFR (CKD-EPI)AfAm 53 (>60 ml/min/1.73 sqM) Est GFR (CKD-EPI)NonAf 46 (>60 ml/min/1.73 sqM) Glucose 82 (74-99) mg/dL POC Glucose (mg/dL) (70-110) mg/dL POC Glu Professional Nursing Tutor ID Plasma Lactic Acid Vasquez (0.7-2.0) mmol/L Calcium 7.6 L (8.4-10.2) mg/dL Total Bilirubin 0.4 (0.2-1.3) mg/dL AST 73 H (17-59) U/L ALT 49 (4-49) U/L Alkaline Phosphatase 75 (38-126) U/L Total Protein 6.2 L (6.3-8.2) g/dL Albumin 3.6 (3.5-5.0) g/dL Urine Opiates Screen (NotDetected) Ur Oxycodone Screen (NotDetected) Urine Methadone Screen (NotDetected) Ur Barbiturates Screen (NotDetected) U Tricyclic Antidepress (NotDetected) Ur Phencyclidine Scrn (NotDetected) Ur Amphetamines Screen (NotDetected) U Methamphetamines Scrn (NotDetected) U Benzodiazepines Scrn (NotDetected) Urine Cocaine Screen (NotDetected) U Marijuana (THC) Screen (NotDetected) Serum Alcohol <10 mg/dL 07/03/23 07/03/23 07/03/23 Range/Units 16:43 17:08 17:08 WBC (3.8-10.6) k/uL RBC (4.30-5.90) m/uL Hgb (13.0-17.5) gm/dL Hct (39.0-53.0) % MCV (80.0-100.0) fL MCH (25.0-35.0) pg MCHC (31.0-37.0) g/dL RDW (11.5-15.5) % Plt Count (150-450) k/uL MPV Neutrophils % (Manual) % Band Neuts % (Manual) % Lymphocytes % (Manual) % Monocytes % (Manual) % Metamyelocytes % % Myelocytes % % Neutrophils # (Manual) (1.3-7.7) k/uL Lymphocytes # (Manual) (1.0-4.8) k/uL Monocytes # (Manual) (0-1.0) k/uL Metamyelocytes # (Man) (0) k/uL Myelocytes # (Manual) (0) k/uL Nucleated RBCs (0-0) /100 WBC Hypochromasia Anisocytosis (manual) Sample Site r rad ABG pH 7.19 L* (7.35-7.45) ABG pCO2 49 H (35-45) mmHg ABG pO2 82 L (83-108) mmHg ABG HCO3 19 L (21-25) mmol/L ABG O2 Saturation 95.4 (94-97) % ABG Base Excess -9.6 mmol/L FiO2 100 % Sodium (137-145) mmol/L Potassium (3.5-5.1) mmol/L Chloride (98-107) mmol/L Carbon Dioxide (22-30) mmol/L Anion Gap mmol/L BUN (9-20) mg/dL Creatinine (0.66-1.25) mg/dL Est GFR (CKD-EPI)AfAm (>60 ml/min/1.73 sqM) Est GFR (CKD-EPI)NonAf (>60 ml/min/1.73 sqM) Glucose (74-99) mg/dL POC Glucose (mg/dL) (70-110) mg/dL POC Glu Professional Nursing Tutor ID Plasma Lactic Acid Vasquez 2.7 H* (0.7-2.0) mmol/L Calcium (8.4-10.2) mg/dL Total Bilirubin (0.2-1.3) mg/dL AST (17-59) U/L ALT (4-49) U/L Alkaline Phosphatase (38-126) U/L Total Protein (6.3-8.2) g/dL Albumin (3.5-5.0) g/dL Urine Opiates Screen Not Detected (NotDetected) Ur Oxycodone Screen Not Detected (NotDetected) Urine Methadone Screen Not Detected (NotDetected) Ur Barbiturates Screen Not Detected (NotDetected) U Tricyclic Antidepress Not Detected (NotDetected) Ur Phencyclidine Scrn Not Detected (NotDetected) Ur Amphetamines Screen Detected H (NotDetected) U Methamphetamines Scrn Detected H (NotDetected) U Benzodiazepines Scrn Not Detected (NotDetected) Urine Cocaine Screen Not Detected (NotDetected) U Marijuana (THC) Screen Detected H (NotDetected) Serum Alcohol mg/dL 07/03/23 Range/Units 17:08 WBC (3.8-10.6) k/uL RBC (4.30-5.90) m/uL Hgb (13.0-17.5) gm/dL Hct (39.0-53.0) % MCV (80.0-100.0) fL MCH (25.0-35.0) pg MCHC (31.0-37.0) g/dL RDW (11.5-15.5) % Plt Count (150-450) k/uL MPV Neutrophils % (Manual) % Band Neuts % (Manual) % Lymphocytes % (Manual) % Monocytes % (Manual) % Metamyelocytes % % Myelocytes % % Neutrophils # (Manual) (1.3-7.7) k/uL Lymphocytes # (Manual) (1.0-4.8) k/uL Monocytes # (Manual) (0-1.0) k/uL Metamyelocytes # (Man) (0) k/uL Myelocytes # (Manual) (0) k/uL Nucleated RBCs (0-0) /100 WBC Hypochromasia Anisocytosis (manual) Sample Site ABG pH (7.35-7.45) ABG pCO2 (35-45) mmHg ABG pO2 (83-108) mmHg ABG HCO3 (21-25) mmol/L ABG O2 Saturation (94-97) % ABG Base Excess mmol/L FiO2 % Sodium (137-145) mmol/L Potassium (3.5-5.1) mmol/L Chloride (98-107) mmol/L Carbon Dioxide (22-30) mmol/L Anion Gap mmol/L BUN (9-20) mg/dL Creatinine (0.66-1.25) mg/dL Est GFR (CKD-EPI)AfAm (>60 ml/min/1.73 sqM) Est GFR (CKD-EPI)NonAf (>60 ml/min/1.73 sqM) Glucose (74-99) mg/dL POC Glucose (mg/dL) 98 (70-110) mg/dL POC Glu Professional Nursing Tutor ID Patrica Muñoz Plasma Lactic Acid Vasquez (0.7-2.0) mmol/L Calcium (8.4-10.2) mg/dL Total Bilirubin (0.2-1.3) mg/dL AST (17-59) U/L ALT (4-49) U/L Alkaline Phosphatase (38-126) U/L Total Protein (6.3-8.2) g/dL Albumin (3.5-5.0) g/dL Urine Opiates Screen (NotDetected) Ur Oxycodone Screen (NotDetected) Urine Methadone Screen (NotDetected) Ur Barbiturates Screen (NotDetected) U Tricyclic Antidepress (NotDetected) Ur Phencyclidine Scrn (NotDetected) Ur Amphetamines Screen (NotDetected) U Methamphetamines Scrn (NotDetected) U Benzodiazepines Scrn (NotDetected) Urine Cocaine Screen (NotDetected) U Marijuana (THC) Screen (NotDetected) Serum Alcohol mg/dL Disposition Clinical Impression: Drug overdose, Aspiration pneumonia, Acute respiratory failure with hypoxia Disposition: ADMITTED IP TO THIS HOSP Condition: Critical Is patient prescribed a controlled substance at d/c from ED?: No Referrals: [facility] [Primary Care Provider] - 1-2 days Procedures - Sepsis Sepsis Focused Exam #1 Time Sepsis Criteria Met: 15:07 Sepsis Focused Exam Date: 07/03/23 Sepsis Focused Exam Time: 17:30 Sepsis Focused Exam Complete: Yes Vital Signs & RN Notes Reviewed: Yes Peripheral Pulses: Normal: Radial (R), Radial (L) Skin Color: Normal for Patient Respiratory Exam: rales Cardiovascular Exam: tachycardia
[2023-07-03] MEDS ORDERED: AMPICILLIN-SULBACTAM 3 GM in SODIUM CHLORIDE 0.9% 100 ML IVPB SCH (18:00)
--- NOTE | 2023-07-03 18:07 | P.HPIM ---
History of Present Illness H&P Date: 07/03/23 Chief Complaint: overdose Patient is a 27-year-old male with Asthma, HLD, and hep C who presented to the emergency department with police via EMS for drug overdose. Patient was found in the bathroom at his home and family had reported he was in there for 2 hours. They found him with the water running in a needle in his arm and was apparently not breathing. They were there is noted to be a large amount of emesis. He was given 4 mg of Narcan intranasally and initially was able to arouse and answer his name. Patient again became unresponsive and hypotensive in the emergency department he was intubated with central line placed. He was started on norepinephrine for hypotension. Initial labs in the ER included CBC, CMP, and serum alcohol which were remarkable for white blood cell count of 17.9, potassium 6.8, chloride 110, carbon dioxide 16, BUN 20, creatinine 1.95. Patient is intubated and all information is gathered from the chart. Patient seen and examined at bedside. He was intubated and sedated Vital signs reviewed General: ill appaering, moderate distress, appears at stated age Derm: warm, dry Eyes: No lid lesion, anicteric sclera, pupils pinpoint ENT: Nose and ears atraumatic Cardiovascular: S1S2 reg, no murmur, no edema Lungs: Course bs bilateral, no rhonchi, no rales, no wheeze, no accessory muscle use, on vent Abdominal: soft, nontender to palpation, no guarding Ext: no gross muscle atrophy, no contractures Neuro: sedated on vent Psych: sedated on vent Assessment/Plan: Unintentional overdose, appears meth Acute encephalopathy secondary to overdose Intubated for airway protection Aspiration event Leukocytosis Shock, septic vs other -Case discussed with the emergency department physician. Admit to ICU. -Intentional versus unintentional - unasyn 3 grams IVPB q 6 hours D # 1, due to dental carries and aspiration - check sputum and blood cultures - on norepi - consult critical care Hyperkalemia Metabolic acidosis Acute kidney injury Lactic acidosis -Normal saline at 130 cc/h. Received 2.5 L of IV fluid. -Status post 2 A of bicarb, 10 units of insulin, and an amp of D50., Calcium gluconate 1 g IV piggyback -D5W at 150 cc/h - check CK, Check renal ultrasound - repeat bmp tonight and in AM Imaging: As per HPI Data Review: As per HPI UDS + for meth, and THC, CODE STATUS: Full by default DVT prophylaxis: lovenox Anticipated discharge date: pending clinical coure Anticipated discharge place: pending clinical coure This dictation was prepared using [employer] voice recognition software. Though every attempt is made to correct errors during dictation some may still exist. Past Medical History Past Medical History: Asthma, Hyperlipidemia Additional Past Medical History / Comment(s): Depression, anxiety anti social personality disorder, hepatitis C History of Any Multi-Drug Resistant Organisms: None Reported Past Surgical History: No Surgical Hx Reported Past Anesthesia/Blood Transfusion Reactions: No Reported Reaction Past Psychological History: Anxiety, Bipolar, Depression, Schizophrenia Smoking Status: Current every day smoker, Vaper Past Alcohol Use History: Occasional Past Drug Use History: Heroin, IV Drug Use, Marijuana, Methamphetamine - Past Family History Mother Family Medical History: Unable to Obtain Additional Family Medical History / Comment(s): Patient reports that he knows nothing about his family Medications and Allergies Home Medications Medication Instructions Recorded Confirmed Type fluPHENAZine decanoate [Prolixin 25 mg IM Q14D #1 ml 04/26/21 07/03/23 Rx Decanoate] OLANZapine 20 mg PO HS 07/03/23 07/03/23 History busPIRone HCL 15 mg PO TID 07/03/23 07/03/23 History cloNIDine HCL [Catapres] 0.1 mg PO HS 07/03/23 07/03/23 History Allergies Allergy/AdvReac Type Severity Reaction Status Date / Time bee venom protein (honey bee) Allergy Anaphylaxis Verified 07/03/23 16:10 Physical Exam Osteopathic Statement: *. No significant issues noted on an osteopathic structural exam other than those noted in the History and Physical/Consult. Vitals: Vital Signs Temp Pulse Resp BP Pulse Ox FiO2 07/03/23 18:02 102 H 24 120/88 99 07/03/23 17:32 102 H 24 114/77 100 07/03/23 16:15 100 07/03/23 16:10 118 H 21 82/56 97 07/03/23 16:02 100 07/03/23 15:55 108 H 66/39 96 07/03/23 15:28 14 07/03/23 15:09 24 07/03/23 15:08 117 H 28 H 07/03/23 14:54 107 H 28 H 07/03/23 14:41 113 H 18 94/45 86 L 07/03/23 14:36 110 H 28 H 97/52 88 L 07/03/23 14:31 110 H 28 H 110/67 07/03/23 14:25 116 H 28 H 100/62 86 L 07/03/23 14:20 32 H 07/03/23 14:08 110 H 22 110/26 07/03/23 13:42 96.2 F L 44 L 18 66/49 Intake and Output 07/03/23 07/03/23 07/03/23 06:59 14:59 22:59 Intake Total 4.100 Balance 4.100 Intake: Intake, IV Titration 4.100 Amount Norepinephrine 32 mg In 0.518 Sodium Chloride 0.9% 218 ml @ 0.03 MCG/KG/MIN 1. 244 mls/hr IV .Q24H [facility] Rx#:[id number] propofoL 1,000 mg In 3.582 Empty Bag 1 bag @ 15 MCG/ KG/MIN 7.961 mls/hr IV . [id number] [facility] Rx#:[id number] Other: Weight 88.451 kg Results CBC & Chem 7: 07/03/23 14:30 07/03/23 15:00 Labs: Abnormal Lab Results - Last 24 Hours (Table) 07/03/23 07/03/23 07/03/23 Range/Units 14:30 15:00 15:21 WBC 17.9 H (3.8-10.6) k/uL RBC 4.28 L (4.30-5.90) m/uL Neutrophils # (Manual) 16.10 H (1.3-7.7) k/uL Lymphocytes # (Manual) 0.90 L (1.0-4.8) k/uL Metamyelocytes # (Man) 0.54 H (0) k/uL Myelocytes # (Manual) 0.18 H (0) k/uL ABG pH 7.22 L (7.35-7.45) ABG pCO2 (35-45) mmHg ABG pO2 55 L* (83-108) mmHg ABG HCO3 18 L (21-25) mmol/L ABG O2 Saturation 87.1 L (94-97) % Potassium 6.8 H* (3.5-5.1) mmol/L Chloride 110 H (98-107) mmol/L Carbon Dioxide 16 L (22-30) mmol/L Creatinine 1.95 H (0.66-1.25) mg/dL Plasma Lactic Acid Vasquez (0.7-2.0) mmol/L Calcium 7.6 L (8.4-10.2) mg/dL AST 73 H (17-59) U/L Total Protein 6.2 L (6.3-8.2) g/dL Ur Amphetamines Screen (NotDetected) U Methamphetamines Scrn (NotDetected) U Marijuana (THC) Screen (NotDetected) 07/03/23 07/03/23 07/03/23 Range/Units 16:43 17:08 17:08 WBC (3.8-10.6) k/uL RBC (4.30-5.90) m/uL Neutrophils # (Manual) (1.3-7.7) k/uL Lymphocytes # (Manual) (1.0-4.8) k/uL Metamyelocytes # (Man) (0) k/uL Myelocytes # (Manual) (0) k/uL ABG pH 7.19 L* (7.35-7.45) ABG pCO2 49 H (35-45) mmHg ABG pO2 82 L (83-108) mmHg ABG HCO3 19 L (21-25) mmol/L ABG O2 Saturation (94-97) % Potassium (3.5-5.1) mmol/L Chloride (98-107) mmol/L Carbon Dioxide (22-30) mmol/L Creatinine (0.66-1.25) mg/dL Plasma Lactic Acid Vasquez 2.7 H* (0.7-2.0) mmol/L Calcium (8.4-10.2) mg/dL AST (17-59) U/L Total Protein (6.3-8.2) g/dL Ur Amphetamines Screen Detected H (NotDetected) U Methamphetamines Scrn Detected H (NotDetected) U Marijuana (THC) Screen Detected H (NotDetected)
[2023-07-03] MEDS: DEXTROSE 5% IN WATER 1,000 ML with SODIUM BICARB (1 MEQ/ML) 150 ML IV SCH (18:20)
[2023-07-03 18:39] LABS: ALT 58 U/L (4-49); AST 133 U/L (17-59); Acetaminophen <10.0 ug/mL; African American GFR (CKD) 73 (>60 ml/min/1.73 sqM); Albumin 3.1 g/dL (3.5-5.0); Alkaline Phosphatase 60 U/L (38-126); Anion Gap 8 mmol/L; Blood Urea Nitrogen 20 mg/dL (9-20); Calcium 7.3 mg/dL (8.4-10.2); Carbon Dioxide 21 mmol/L (22-30); Chloride 110 mmol/L (98-107); Glucose 115 mg/dL (74-99); Magnesium 2.3 mg/dL (1.6-2.3); Non-African American GFR(CKD) 63 (>60 ml/min/1.73 sqM); Potassium 4.3 mmol/L (3.5-5.1); Salicylate <1.0 mg/dL; Sodium 139 mmol/L (137-145); Total Bilirubin 0.4 mg/dL (0.2-1.3); Total Protein 5.5 g/dL (6.3-8.2)
[2023-07-03 19:11] LABS: Glucose,Whole Blood 119 mg/dL (70-110)
[2023-07-03] MEDS: NOREPINEPHRINE 4 MG in SODIUM CHLORIDE 0.9% 250 ML IV SCH (19:35)
[2023-07-03] MEDS: IPRATROPIUM-ALBUTEROL 3 ML NEB INHALATION SCH (20:32)
[2023-07-03] MEDS: CHLORHEXIDINE GLUCONATE 15 ML CUP MUCOUS MEM SCH (21:52)
[2023-07-03] MEDS: AMPICILLIN-SULBACTAM 3 GM in SODIUM CHLORIDE 0.9% 100 ML IVPB SCH (22:16)
[2023-07-03] MEDS: fentaNYL (PF). 1,000 MCG in SODIUM CHLORIDE 0.9% 80 ML IV SCH (23:39)
--- NOTE | 2023-07-03 23:45 | P.PCN ---
Date of Procedure: 07/03/23 Preoperative Diagnosis: Acute hypoxemic and hypercapnic respiratory failure secondary to drug overdose Postoperative Diagnosis: Acute hypoxemic and hypercapnic respiratory failure secondary to drug overdose Procedure(s) Performed: Insertion of a right wrist radial arterial line Indications for Procedure: Continuous blood pressure monitoring and frequent blood draws Description of Procedure: Informed consent was obtained, and a procedural timeout was performed . The patient was placed in supine position. The right radial region was prepared in a sterile fashion, and a sterile drape was applied. The right radial artery was palpated, easily cannulated, and a guidewire was placed. A Cook catheter was inserted over the guidewire, and the guidewire was removed. There was good arterial blood flow, good arterial waveform, and no complications. The line was secured with using a 3-0 silk suture.
[2023-07-04] MEDS: HYDROmorphone 1 MG/ML 1 ML SYRINGE IVP PRN (00:57)
[2023-07-04 05:16] LABS: ABG Base Excess 8.6 mmol/L; ABG HCO3 32 mmol/L (21-25); ABG PCO2 45 mmHg (35-45); ABG PH 7.47 (7.35-7.45); ABG PO2 192 mmHg (83-108); ABG TCO2 34 mmol/L (19-24); Allen Test Performed? Yes
[2023-07-04 05:46] LABS: HCT 36.2 % (39.0-53.0); MCH 30.4 pg (25.0-35.0); MCHC 33.1 g/dL (31.0-37.0); Mean Platelet Volume 7.6; Platelet Count 242 k/uL (150-450); RBC 3.95 m/uL (4.30-5.90); RDW 12.9 % (11.5-15.5); WBC 12.8 k/uL (3.8-10.6)
[2023-07-04 06:15] LABS: MCV 91.8 fL (80.0-100.0)
[2023-07-04 06:19] LABS: ALT 93 U/L (4-49); AST 349 U/L (17-59); African American GFR (CKD) >90 (>60 ml/min/1.73 sqM); Albumin 2.6 g/dL (3.5-5.0); Alkaline Phosphatase 57 U/L (38-126); Anion Gap 2 mmol/L; Blood Urea Nitrogen 16 mg/dL (9-20); Calcium 7.3 mg/dL (8.4-10.2); Carbon Dioxide 30 mmol/L (22-30); Chloride 104 mmol/L (98-107); Glucose 142 mg/dL (74-99); Magnesium 2.1 mg/dL (1.6-2.3); Non-African American GFR(CKD) >90 (>60 ml/min/1.73 sqM); Potassium 3.2 mmol/L (3.5-5.1); Sodium 136 mmol/L (137-145); Total Bilirubin 0.4 mg/dL (0.2-1.3)
--- NOTE | 2023-07-04 07:58 | US ---
EXAMINATION TYPE: US renals and bladder DATE OF EXAM: 07/03/2023 COMPARISON: NONE CLINICAL INDICATION: Male, 27 years old with history of SALBADOR; SALBADOR. Pt is an ICU patient that is braden eduardo. Left kidney limited. EXAM MEASUREMENTS: Right Kidney: 11.1 x 4.8 x 4.9 cm Left Kidney: 10 x 4.7 x 4.5 cm Right Kidney: No hydronephrosis or masses seen Left Kidney: Limited due to pt unable to roll. No hydronephrosis or masses seen Bladder: Echoes seen inside, possibly debris. Cagle in place Bilateral Jets seen: No IMPRESSION: 1. Bladder is mildly distended with a Cagle balloon in its lumen. 2. Some echogenicity of the urinary contents, may be debris. Consider correlation with UA. 3. No shadowing renal calculi or hydronephrosis.
[2023-07-04 08:00] LABS: Creatine Kinase 17209 U/L (55-170)
[2023-07-04] MEDS: POTASSIUM CHLORIDE 20 MEQ in WATER FOR INJECTION 1 100ML.BAG IVPB SCH (08:42)
[2023-07-04] MEDS: PANTOPRAZOLE 40 MG/10 ML VIAL IV SCH (08:42)
[2023-07-04] MEDS: ENOXAPARIN 40 MG/0.4 ML SYRINGE SQ SCH (08:42)
--- NOTE | 2023-07-04 08:55 | XR ---
EXAM: XR chest 1V portable CLINICAL INDICATION:Male, 27 years old with history of Tube placement; [facility] COMPARISON: 07/03/2023 TECHNIQUE: Chest single view. FINDINGS: Lines/tubes/devices: Monitor leads and other extraneous radiodensities over the field of view, can in terfere with interpretation. ET tube tip is approximately 5.5 cm above the graham, near the level of the clavicular heads. NG tube extends over the diaphragm with sidehole above the GE junction and tip over the proximal stomach. Ri ght subclavian central venous line crosses the midline to the left, probably terminating in the media l left subclavian vein. Cardiomediastinum: Cardiac silhouette appears normal in size. Unremarkable mediastinal silhouette. Vasculature: No increased pulmonary vasculature. Lungs/pleura: Improved left midlung airspace opacities with small residual. Similar small hazy patch of opacity in the medial right lower lung. No sizable effusion or pneumothorax evident. Bones/soft tissues: Bony thorax appears grossly unchanged as seen. No acute osseous pathology. Appearance of the left AC joint suggestive of changes related to chronic separation. Regional soft ti ssues appear unremarkable. IMPRESSION: 1. ET tube appears slightly high in position, recommend advancement about 2 cm for optimal positioni ng. 2. NG tube tip over the proximal stomach. Recommend several centimeters of advancement. 3. Right subclavian central venous line crosses the midline and terminates over the medial left subc lavian vein. Recommend repositioning/replacement. 4. Improved airspace opacities in the left midlung. Small opacity in the right mid to lower lung isabella ears similar.
[2023-07-04] MEDS: SODIUM CHLORIDE 0.9% 1,000 ML IV SCH (10:13)
[2023-07-04] MEDS ORDERED: Potassium Replacement Protocol 1 EACH MISC MISCELLANE PRN (14:12)
[2023-07-04] MEDS: POTASSIUM BICARBONATE/CIT AC 20 MEQ TABLET.EFF NG-TUBE SCH (14:16)
--- NOTE | 2023-07-04 16:11 | P.PN ---
Subjective Progress Note Date: 07/04/23 This is a 27-year-old male patient was currently debated on mechanical ventilator due to heroin overdose. Patient was found in the bathroom in his house and he was there apparently for around 12 hours with the water running and upon finding him he was found to have a needle in his arm and he was reportedly not breathing. He had also emesis. He was given 4 mg of Narcan intranasally and he became somewhat arousable. He came into the emergency department and his respiration was borderline and the patient was still congested and he has been grunting and subsequent follow-up showed that the patient's was unable to protect his airway and he was becoming more hypoxic and his blood gas showed a pH of 7.22 with a pCO2 of 45 and a pO2 of 55 and following that the patient was intubated and placed on the mechanical ventilator. Currently, the patient is intubated on assist-control mode with rate of 18, tidal volume of 400, FiO2 100% with a PEEP of 5. Postintubation blood gases are still pending. I reviewed the chest x-ray postintubation and the patient has adequate positioning of the ET tube. The patient has also an orogastric tube. There is extension in left lung consolidation consistent with an aspiration pneumonia. The triple-lumen catheter was inserted in the right subclavian is extending to the left and is not in the appropriate position. Meanwhile, the blood work shows a WBC count of 17.9, hemoglobin 13, potassium levels at 6.8 with a sodium level of 138, BUN is at 20 with a creatinine of 1.9 and a serum bicarb is at 16. LFTs are normal. Urine drug screen was positive for amphetamine and marijuana. Alcohol level was negative. The patient is currently intubated on mechanical ventilator on propofol and the dose being adjusted to maintain adequate sedation. His acute h yperkalemia will be treated. The sample could be potentially mildly hemolyzed. The patient's CPK has not been checked. CAT scan of the brain has not been screened. The patient has been here multiple times 07/04/2023, the patient is being seen for a follow-up. This morning, the patient remains intubated on mechanical ventilator. He is calm and comfortable. He is sedated on propofol which is running at 40 mcg/kg/min. He is also on a fentanyl drip which will be gradually. He is requiring a low-dose of norepinephrine which is running at 0.02 mcg/kg/min. He is also on IV fluids with normal saline. Bicarb infusion as the patient had a component of acute rhabdomyolysis and metabolic acidosis. This morning, the patient is on assist-control mode at a rate of 24, tidal volume of 400, FiO2 40% with a PEEP of 5.Follow-up I think this is Chest x-ray shows some improvement in the left lung pulmonary infiltrate. Orotracheal tube is in a good location. No significant orotracheal secretions. There is improved airspace opacity in the left midlung as noted. The blood gas from today shows a pH of 7.47 with a pCO2 of 45 and a pO2 of 192. The white cell count is at 12.8 with a hemoglobin 12 and a platelet count of 242. BUN is at 16 with a creatinine of 0.8 and a sodium levels of 136. Potassium level is at 3.2. The patient CPK is 17,000 209. The BUN is at 16 with a creatinine 0.8. Serum bicarb is up to 30. Sodium levels at 136. The patient continues to be on IV Unasyn covering for an aspiration pneumonia. Hemodynamically The patient is mildly hypotensive running norepinephrine at 0.02 mcg/kg/min. Objective - Vital Signs Vital signs: Vital Signs Temp 98.0 F 07/04/23 08:00 Pulse 102 H 07/04/23 08:45 Resp 24 07/04/23 08:45 BP 115/68 07/04/23 08:45 Pulse Ox 100 07/04/23 08:45 FiO2 40 07/04/23 08:00 Intake & Output 07/03/23 07/04/23 07/04/23 18:59 06:59 18:59 Intake Total 4.100 2351.518 237.575 Output Total 845 100 Balance 4.100 1506.518 137.575 Weight 88.451 kg 75.5 kg Intake: IV 2031 183 0.9% NS at KVO 210 30 Ampicillin-Sulbactam 3 gm 200 In Sodium Chloride 0.9% 100 ml @ 200 mls/hr IVPB Q6H [facility] Rx#:[id number] Dextrose 5% in Water 1, 1500 150 000 ml @ 150 mls/hr IV . Q7H40M [facility] with Sodium Bicarb (1 Meq/ml) 150 ml Rx#:[id number] Piperacillin-Tazobactam 3 100 .375 gm In Sodium Chloride 0.9% 100 ml @ 25 mls/hr IVPB Q8HR [facility] Rx# :[id number] pressure bag 21 3 Intake, IV Titration 4.100 320.518 54.575 Amount Norepinephrine 32 mg In 0.518 Sodium Chloride 0.9% 218 ml @ 0.03 MCG/KG/MIN 1. 244 mls/hr IV .Q24H [facility] Rx#:[id number] Norepinephrine 4 mg In 134.014 0 Sodium Chloride 0.9% 250 ml @ 0.03 MCG/KG/MIN 10. 11 mls/hr IV .Q24H [facility] Rx #:[id number] propofoL 1,000 mg In 3.582 186.504 54.575 Empty Bag 1 bag @ 15 MCG/ KG/MIN 7.961 mls/hr IV . [id number] [facility] Rx#:[id number] Output: Urine 845 100 Other: Voiding Method Indwelling Catheter ABP, PAP, CO, CI - Last Documented Arterial Blood Pressure 100/51 - Exam General appearance the patient is sedated on propofol, calm and comfortable and the patient is gastric aortic tube in place. Head exam was generally normal. There was no scleral icterus or corneal arcus. Mucous membranes were moist. Neck was supple and without jugular venous distension, thyromegaly, or carotid bruits. Carotids were easily palpable bilaterally. There was no adenopathy. The patient has also a right subclavian triple-lumen catheter in place. Lung sounds are diminished and patient has scattered rhonchi throughout the lung hull bilaterally. Cardiac exam revealed the PMI to be normally situated and sized. The rhythm was regular and no extrasystoles were noted during several minutes of auscultation. The first and second heart sounds were normal and physiologic splitting of the second heart sound was noted. There were no murmurs, rubs, clicks, or gallops. Abdominal exam revealed normal bowel sounds. The abdomen was soft, non-tender, and without masses, organomegaly, or appreciable enlargement of the abdominal aorta. Examination of the extremities revealed easily palpable radial, femoral and pedal pulses. There was no cyanosis, clubbing or edema. Examination of the skin revealed no evidence of significant rashes, suspicious appearing nevi or other concerning lesions. Neurologically the patient is sedated. - Labs CBC & Chem 7: 07/04/23 05:12 07/04/23 13:20 Labs: Abnormal Lab Results - Last 24 Hours (Table) 07/03/23 07/03/23 07/03/23 Range/Units 14:30 15:00 15:21 WBC 17.9 H (3.8-10.6) k/uL RBC 4.28 L (4.30-5.90) m/uL Hgb (13.0-17.5) gm/dL Hct (39.0-53.0) % Neutrophils # (Manual) 16.10 H (1.3-7.7) k/uL Lymphocytes # (Manual) 0.90 L (1.0-4.8) k/uL Metamyelocytes # (Man) 0.54 H (0) k/uL Myelocytes # (Manual) 0.18 H (0) k/uL ABG pH 7.22 L (7.35-7.45) ABG pCO2 (35-45) mmHg ABG pO2 55 L* (83-108) mmHg ABG HCO3 18 L (21-25) mmol/L ABG Total CO2 (19-24) mmol/L ABG O2 Saturation 87.1 L (94-97) % Sodium (137-145) mmol/L Potassium 6.8 H* (3.5-5.1) mmol/L Chloride 110 H (98-107) mmol/L Carbon Dioxide 16 L (22-30) mmol/L Creatinine 1.95 H (0.66-1.25) mg/dL Glucose (74-99) mg/dL POC Glucose (mg/dL) (70-110) mg/dL Plasma Lactic Acid Vasquez (0.7-2.0) mmol/L Calcium 7.6 L (8.4-10.2) mg/dL AST 73 H (17-59) U/L ALT (4-49) U/L Creatine Kinase (55-170) U/L Total Protein 6.2 L (6.3-8.2) g/dL Albumin (3.5-5.0) g/dL Ur Amphetamines Screen (NotDetected) U Methamphetamines Scrn (NotDetected) U Marijuana (THC) Screen (NotDetected) 07/03/23 07/03/23 07/03/23 Range/Units 16:43 17:08 17:08 WBC (3.8-10.6) k/uL RBC (4.30-5.90) m/uL Hgb (13.0-17.5) gm/dL Hct (39.0-53.0) % Neutrophils # (Manual) (1.3-7.7) k/uL Lymphocytes # (Manual) (1.0-4.8) k/uL Metamyelocytes # (Man) (0) k/uL Myelocytes # (Manual) (0) k/uL ABG pH 7.19 L* (7.35-7.45) ABG pCO2 49 H (35-45) mmHg ABG pO2 82 L (83-108) mmHg ABG HCO3 19 L (21-25) mmol/L ABG Total CO2 (19-24) mmol/L ABG O2 Saturation (94-97) % Sodium (137-145) mmol/L Potassium (3.5-5.1) mmol/L Chloride (98-107) mmol/L Carbon Dioxide (22-30) mmol/L Creatinine (0.66-1.25) mg/dL Glucose (74-99) mg/dL POC Glucose (mg/dL) (70-110) mg/dL Plasma Lactic Acid Vasquez 2.7 H* (0.7-2.0) mmol/L Calcium (8.4-10.2) mg/dL AST (17-59) U/L ALT (4-49) U/L Creatine Kinase (55-170) U/L Total Protein (6.3-8.2) g/dL Albumin (3.5-5.0) g/dL Ur Amphetamines Screen Detected H (NotDetected) U Methamphetamines Scrn Detected H (NotDetected) U Marijuana (THC) Screen Detected H (NotDetected) 07/03/23 07/03/23 07/03/23 Range/Units 18:10 18:10 19:09 WBC (3.8-10.6) k/uL RBC (4.30-5.90) m/uL Hgb (13.0-17.5) gm/dL Hct (39.0-53.0) % Neutrophils # (Manual) (1.3-7.7) k/uL Lymphocytes # (Manual) (1.0-4.8) k/uL Metamyelocytes # (Man) (0) k/uL Myelocytes # (Manual) (0) k/uL ABG pH (7.35-7.45) ABG pCO2 (35-45) mmHg ABG pO2 (83-108) mmHg ABG HCO3 (21-25) mmol/L ABG Total CO2 (19-24) mmol/L ABG O2 Saturation (94-97) % Sodium (137-145) mmol/L Potassium (3.5-5.1) mmol/L Chloride 110 H (98-107) mmol/L Carbon Dioxide 21 L (22-30) mmol/L Creatinine 1.50 H (0.66-1.25) mg/dL Glucose 115 H (74-99) mg/dL POC Glucose (mg/dL) 119 H (70-110) mg/dL Plasma Lactic Acid Vasquez (0.7-2.0) mmol/L Calcium 7.3 L (8.4-10.2) mg/dL AST 133 H (17-59) U/L ALT 58 H (4-49) U/L Creatine Kinase 5924 H* (55-170) U/L Total Protein 5.5 L (6.3-8.2) g/dL Albumin 3.1 L (3.5-5.0) g/dL Ur Amphetamines Screen (NotDetected) U Methamphetamines Scrn (NotDetected) U Marijuana (THC) Screen (NotDetected) 07/04/23 07/04/23 07/04/23 Range/Units 05:12 05:12 05:14 WBC 12.8 H (3.8-10.6) k/uL RBC 3.95 L (4.30-5.90) m/uL Hgb 12.0 L (13.0-17.5) gm/dL Hct 36.2 L (39.0-53.0) % Neutrophils # (Manual) (1.3-7.7) k/uL Lymphocytes # (Manual) (1.0-4.8) k/uL Metamyelocytes # (Man) (0) k/uL Myelocytes # (Manual) (0) k/uL ABG pH 7.47 H (7.35-7.45) ABG pCO2 (35-45) mmHg ABG pO2 192 H (83-108) mmHg ABG HCO3 32 H (21-25) mmol/L ABG Total CO2 34 H (19-24) mmol/L ABG O2 Saturation 100.0 H (94-97) % Sodium 136 L (137-145) mmol/L Potassium 3.2 L (3.5-5.1) mmol/L Chloride (98-107) mmol/L Carbon Dioxide (22-30) mmol/L Creatinine (0.66-1.25) mg/dL Glucose 142 H (74-99) mg/dL POC Glucose (mg/dL) (70-110) mg/dL Plasma Lactic Acid Vasquez (0.7-2.0) mmol/L Calcium 7.3 L (8.4-10.2) mg/dL AST 349 H (17-59) U/L ALT 93 H (4-49) U/L Creatine Kinase 90980 H* (55-170) U/L Total Protein 5.0 L (6.3-8.2) g/dL Albumin 2.6 L (3.5-5.0) g/dL Ur Amphetamines Screen (NotDetected) U Methamphetamines Scrn (NotDetected) U Marijuana (THC) Screen (NotDetected) Microbiology - Last 24 Hours (Table) 07/03/23 10:24 Gram Stain - Preliminary Sputum Assessment and Plan Plan: Acute heroin overdose, failed to respond to Narcan and the patient had aspiration followed by hypoxic respiratory failure and intubation mechanical ventilation. Patient remains sedated on propofol and fentanyl., Remains intubated on mechanical ventilator. Acute hypoxic respiratory failure, currently intubated on mechanical ventilator Left lung pneumonia, likely of an aspiration type. Chest x-ray shows improvement in the left airspace disease. Acute kidney injury with a creatinine of 1.95, improved Acute anion gap metabolic acidosis, improved and the patient will be taken off the bicarb drip Acute hyperkalemia, recovered Acute leukocytosis secondary to above, improved Acute rhabdomyolysis secondary to above. CPK remains quite elevated. Previous history of drug overdose, intentional History of major depression disorder/antisocial personality disorder traits/borderline personality disorder History of cannabis use History of alcohol use History of amphetamine use History of hepatitis C positive History of smoking History of bronchial asthma Plan Continue ventilator support and no ventilator changes will be done today. Will continue weaning down the FiO2 and the patient is currently down to 40% Continue IV Unasyn Obtain sputum Gram stain and culture Discontinue the bicarb infusion and switch the patient to normal saline at rate of 150 cc an hour Renal function is improved. White cell count is improving. Monitor CPK levels [facility] IV Protonix Lovenox subcu for DVT prophylaxis Will continue to follow. Will keep the patient on the mechanical ventilator for today. Will try to wean him off the mechanical ventilator over the next 24 hours. Will continue to follow. Overall condition remains critical. This evaluation was done more than 30 minutes. Time with Patient: Greater than 30
--- NOTE | 2023-07-04 18:12 | P.PN ---
Subjective Progress Note Date: 07/04/23 (delayed charting seen at 0910) Patient is a 27-year-old male with Asthma, HLD, and hep C who presented to the emergency department with police via EMS for drug overdose. Patient was found in the bathroom at his home and family had reported he was in there for 2 hours. They found him with the water running in a needle in his arm and was apparently not breathing. They were there is noted to be a large amount of emesis. He was given 4 mg of Narcan intranasally and initially was able to arouse and answer his name. Patient again became unresponsive and hypotensive in the emergency department he was intubated with central line placed. He was started on norepinephrine for hypotension. Initial labs in the ER included CBC, CMP, and serum alcohol which were remarkable for white blood cell count of 17.9, potassium 6.8, chloride 110, carbon dioxide 16, BUN 20, creatinine 1.95. He was admitted ot the ICU and critical care was consulted. Norepinephrine was titrated off by the morning of 07/03. Patient seen and examined at bedside. No acute events overnight. Sedated and intubated. Vital signs reviewed General: Nontoxic, no distress, appears at stated age Cardiovascular: S1S2 reg, no murmur Lungs: CTA bilateral, no rhonchi, no rales, no accessory muscle use Abdominal: Soft, nontender to palpation, no guarding Ext: No gross muscle atrophy, no edema b/l lower extremities, no contractures Neuro: breathing over vent, moving all 4 extremities over vetn, + Cough Psych: lethargic due tot sedation but will follow simple commands Assessment/Plan: Unintentional overdose, appears meth Acute encephalopathy secondary to overdose Intubated for airway protection Aspiration pneumonia with septic shock Rhabdo Transaminitis likely secondary to overdose and septic shock -Critical care recommendations reviewed: Continue with antibiotics, normal saline, monitor CKs levels -Repeat CK levels at 1800 and in a.m. -Normal saline at 150 cc/h -Intentional versus unintentional - unasyn 3 grams IVPB q 6 hours D # 2, due to dental carries and aspiration -Await sputum culture Resolved: Hyperkalemia Metabolic acidosis Acute kidney injury Lactic acidosis Imaging: Chest x-rays reviewed by myself demonstrates increased opacification of the left mid lung and opacification near the right heart border Data Review: Labs reviewed from today include CBC and CMP which are remarkable for white blood cell count 12.8, hemoglobin 12, sodium 136, potassium 3.2. CK is elevated at 17,209. AST elevated at 349 DVT prophylaxis: Lovenox Anticipated discharge date: Pending Clinical Course Anticipated discharge place: Pending Clinical Course This dictation was prepared using [email or web address] voice recognition software. Though every attempt is made to correct errors during dictation some may still exist. Objective - Vital Signs Vital signs: Vital Signs Temp 97.9 F 07/04/23 17:00 Pulse 103 H 07/04/23 17:00 Resp 24 07/04/23 17:00 BP 108/60 07/04/23 17:00 Pulse Ox 100 07/04/23 17:00 FiO2 70 07/04/23 16:00 Intake & Output 07/03/23 07/04/23 07/04/23 18:59 06:59 18:59 Intake Total 4.100 2351.518 2308.927 Output Total 845 2215 Balance 4.100 1506.518 93.927 Weight 88.451 kg 75.5 kg Intake: IV 2031 713 0.9% NS at KVO 210 130 Ampicillin-Sulbactam 3 gm 200 100 In Sodium Chloride 0.9% 100 ml @ 200 mls/hr IVPB Q6H [facility] Rx#:[id number] Dextrose 5% in Water 1, 1500 450 000 ml @ 150 mls/hr IV . Q7H40M [facility] with Sodium Bicarb (1 Meq/ml) 150 ml Rx#:[id number] Piperacillin-Tazobactam 3 100 .375 gm In Sodium Chloride 0.9% 100 ml @ 25 mls/hr IVPB Q8HR [facility] Rx# :[id number] pressure bag 21 33 Intake, IV Titration 4.100 578.539 5315.927 Amount Norepinephrine 32 mg In 0.518 Sodium Chloride 0.9% 218 ml @ 0.03 MCG/KG/MIN 1. 244 mls/hr IV .Q24H [facility] Rx#:[id number] Norepinephrine 4 mg In 134.014 9.155 Sodium Chloride 0.9% 250 ml @ 0.03 MCG/KG/MIN 10. 11 mls/hr IV .Q24H [facility] Rx #:[id number] Potassium Chloride 20 meq 200 In Water For Injection 1 100ml.bag @ 50 mls/hr IVPB Q2H [facility] Rx#: [id number] Sodium Chloride 0.9% 1, 1200 000 ml @ 150 mls/hr IV . Q6H40M [facility] Rx#:[id number] propofoL 1,000 mg In 3.582 186.504 186.772 Empty Bag 1 bag @ 15 MCG/ KG/MIN 7.961 mls/hr IV . [id number] [facility] Rx#:[id number] Output: Urine 845 2215 Other: Voiding Method Indwelling Catheter Indwelling Catheter ABP, PAP, CO, CI - Last Documented Arterial Blood Pressure 96 - Labs CBC & Chem 7: 07/04/23 05:12 07/04/23 13:20 Labs: Abnormal Lab Results - Last 24 Hours (Table) 07/03/23 07/03/23 07/03/23 Range/Units 18:10 18:10 19:09 WBC (3.8-10.6) k/uL RBC (4.30-5.90) m/uL Hgb (13.0-17.5) gm/dL Hct (39.0-53.0) % ABG pH (7.35-7.45) ABG pO2 (83-108) mmHg ABG HCO3 (21-25) mmol/L ABG Total CO2 (19-24) mmol/L ABG O2 Saturation (94-97) % Sodium (137-145) mmol/L Potassium (3.5-5.1) mmol/L Chloride 110 H (98-107) mmol/L Carbon Dioxide 21 L (22-30) mmol/L Creatinine 1.50 H (0.66-1.25) mg/dL Glucose 115 H (74-99) mg/dL POC Glucose (mg/dL) 119 H (70-110) mg/dL Calcium 7.3 L (8.4-10.2) mg/dL AST 133 H (17-59) U/L ALT 58 H (4-49) U/L Creatine Kinase 5924 H* (55-170) U/L Total Protein 5.5 L (6.3-8.2) g/dL Albumin 3.1 L (3.5-5.0) g/dL 07/04/23 07/04/23 07/04/23 Range/Units 05:12 05:12 05:14 WBC 12.8 H (3.8-10.6) k/uL RBC 3.95 L (4.30-5.90) m/uL Hgb 12.0 L (13.0-17.5) gm/dL Hct 36.2 L (39.0-53.0) % ABG pH 7.47 H (7.35-7.45) ABG pO2 192 H (83-108) mmHg ABG HCO3 32 H (21-25) mmol/L ABG Total CO2 34 H (19-24) mmol/L ABG O2 Saturation 100.0 H (94-97) % Sodium 136 L (137-145) mmol/L Potassium 3.2 L (3.5-5.1) mmol/L Chloride (98-107) mmol/L Carbon Dioxide (22-30) mmol/L Creatinine (0.66-1.25) mg/dL Glucose 142 H (74-99) mg/dL POC Glucose (mg/dL) (70-110) mg/dL Calcium 7.3 L (8.4-10.2) mg/dL AST 349 H (17-59) U/L ALT 93 H (4-49) U/L Creatine Kinase 58273 H* (55-170) U/L Total Protein 5.0 L (6.3-8.2) g/dL Albumin 2.6 L (3.5-5.0) g/dL 07/04/23 Range/Units 13:20 WBC (3.8-10.6) k/uL RBC (4.30-5.90) m/uL Hgb (13.0-17.5) gm/dL Hct (39.0-53.0) % ABG pH (7.35-7.45) ABG pO2 (83-108) mmHg ABG HCO3 (21-25) mmol/L ABG Total CO2 (19-24) mmol/L ABG O2 Saturation (94-97) % Sodium (137-145) mmol/L Potassium 3.2 L (3.5-5.1) mmol/L Chloride (98-107) mmol/L Carbon Dioxide (22-30) mmol/L Creatinine (0.66-1.25) mg/dL Glucose (74-99) mg/dL POC Glucose (mg/dL) (70-110) mg/dL Calcium (8.4-10.2) mg/dL AST (17-59) U/L ALT (4-49) U/L Creatine Kinase (55-170) U/L Total Protein (6.3-8.2) g/dL Albumin (3.5-5.0) g/dL Microbiology - Last 24 Hours (Table) 07/03/23 10:24 Gram Stain - Preliminary Sputum
[2023-07-05] MEDS ORDERED: POTASSIUM CHLORIDE 20 MEQ in WATER FOR INJECTION 1 100ML.BAG IVPB ONE (00:28)
[2023-07-05 00:46] VITALS: TEMP 98.2
[2023-07-05] MEDS: POTASSIUM CHLORIDE 10 MEQ in WATER FOR INJECTION 1 100ML.BAG IVPB SCH (01:02)
[2023-07-05 05:11] LABS: HCT 32.8 % (39.0-53.0); HGB 10.5 gm/dL (13.0-17.5); MCH 30.1 pg (25.0-35.0); MCHC 32.1 g/dL (31.0-37.0); MCV 93.9 fL (80.0-100.0); Mean Platelet Volume 8.8; Platelet Count 182 k/uL (150-450); RBC 3.49 m/uL (4.30-5.90); WBC 7.2 k/uL (3.8-10.6)
[2023-07-05 05:28] LABS: ALT 124 U/L (4-49); AST 427 U/L (17-59); African American GFR (CKD) >90 (>60 ml/min/1.73 sqM); Albumin 2.4 g/dL (3.5-5.0); Alkaline Phosphatase 59 U/L (38-126); Anion Gap 2 mmol/L; Blood Urea Nitrogen 6 mg/dL (9-20); Calcium 7.9 mg/dL (8.4-10.2); Carbon Dioxide 21 mmol/L (22-30); Chloride 115 mmol/L (98-107); Glucose 81 mg/dL (74-99); Magnesium 2.2 mg/dL (1.6-2.3); Non-African American GFR(CKD) >90 (>60 ml/min/1.73 sqM); Potassium 4.2 mmol/L (3.5-5.1); Sodium 138 mmol/L (137-145); Total Bilirubin 0.4 mg/dL (0.2-1.3); Total Protein 4.8 g/dL (6.3-8.2)
[2023-07-05 06:07] LABS: Creatine Kinase 14755 U/L (55-170)
[2023-07-05 06:18] LABS: ABG HCO3 23 mmol/L (21-25); ABG PCO2 37 mmHg (35-45); ABG PO2 190 mmHg (83-108); ABG TCO2 24 mmol/L (19-24); Allen Test Performed? Yes
--- NOTE | 2023-07-05 08:50 | XR ---
EXAM: XR chest 1V portable CLINICAL INDICATION:Male, 27 years old with history of Tube placement; [facility] COMPARISON: 07/04/2023 TECHNIQUE: Chest single view. FINDINGS: Lines/tubes/devices: Monitor leads and extraneous densities over the chest. ET tube tip is approximately 4.7 cm above the graham. NG tube traverses below the diaphragm on the le ft with the tip over the proximal stomach and side hole likely above the GE junction. Right subclavia n central venous line again crosses the midline to the left, probably terminating in the medial left subclavian vein. Cardiomediastinum: Cardiac silhouette appears normal in size. Stable mediastinal silhouette. Vasculature: No increased pulmonary vasculature. Lungs/pleura: Continued improved left midlung and medial right lower lung airspace opacities. No new or worsening o pacity, sizable effusion or pneumothorax evident. Bones/soft tissues: Bony thorax appears grossly unchanged as seen. No acute osseous pathology. Regional soft tissues appear unremarkable. IMPRESSION: 1. ET tube appears in good position. 2. NG tube tip again over the proximal stomach. Recommend several centimeters of advancement. 3. Right subclavian central venous line again crosses the midline and terminates over the medial lef t subclavian vein. 4. Continued improved airspace opacities in the left mid lung and right mid to lower lung.
--- NOTE | 2023-07-05 11:56 | CDI ---
From: Anna Martinez Phone: [phone] Admit Date: 07/03/2023 05:47:00 PM Patient Name: Marc Layton Visit Number: [id number] Discharge Date: ATTENTION: The Clinical Documentation Specialists (CDI) and [facility] Coding Staff appreciate your assistance in clarifying documentation. Please respond to the clarification below the line at the bottom and electronically sign. The CDI & [facility] Coding staff will review the response and follow-up if needed. Please note: Queries are made part of the Legal Health Record. If you have any questions, please contact the author of this message via ITS. Dr. Belen Tadeo Rhabdomyolysis is documented in the IM progress note 07/03. Additional clarification regarding the type of rhabdomyolysis is requested. History/Risk Factors: Asthma, HLD, Hepatitis C who presents with drug overdose Clinical Indicators: 07/03 IM PN, Subjective: "Patient was found in the bathroom of his home and family had reported he was in there for 2 hours. They found him with the water running and a needle in his arm and was apparently not breathing." 07/02, 07/03, 07/04 Creatinine Kinase: 5924, 65517, 13733, 16102 BUN: 20, 20, 16, 6 Creatinine: 1.95, 1.50, 0.81, 0.47 07/02, 07/03 Potassium: 6.8, 4.3, 3.2 Treatment: Normal Saline IV 1000cc bolus x 3 on 07/02 Normal Saline IV 130cc/hour 07/02 Normal Saline IV 150cc/hour start 07/03 Please clarify the type of rhabdomyolysis, if known: [ x ] Traumatic rhabdomyolysis due to prolonged immobility [ ] Other, please specify [ ] Unable to Determine MTDD
--- NOTE | 2023-07-05 12:18 | CDI ---
From: Anna Martinez Phone: [phone] Admit Date: 07/03/2023 05:47:00 PM Patient Name: Marc Layton Visit Number: [id number] Discharge Date: ATTENTION: The Clinical Documentation Specialists (CDI) and [facility] Coding Staff appreciate your assistance in clarifying documentation. Please respond to the clarification below the line at the bottom and electronically sign. The CDI & [facility] Coding staff will review the response and follow-up if needed. Please note: Queries are made part of the Legal Health Record. If you have any questions, please contact the author of this message via ITS. Dr. Belen Tadeo Encephalopathy is documented in the IM progress note 07/03. Additional clarification regarding the type of encephalopathy is requested. History/Risk Factors: Asthma, HLD, Hepatitis C who presents with drug overdose, had aspiration event, also noted to be hyperkalemic, with acute rhabdomyolysis, metabolic acidosis, [place], and was intubated in ER and placed on mechanical ventilation Clinical Indicators: 07/03 IM PN, Assessment/Plan: "Unintentional overdose, appears meth. Acute encephalopathy secondary to overdose." 07/02 Urine Toxicology: Amphetamine, Methamphetamine and Marijuana detected 07/02, 07/03, 07/04 Creatinine Kinase: 5924, 11695, 15065, 00646 BUN: 20, 20, 16, 6 Creatinine: 1.95, 1.50, 0.81, 0.47 07/02, 07/03 Potassium: 6.8, 4.3, 3.2 07/02-07/04 ABG, pH: range: 7.40(07/04)-7.19(.) pCO2 range: 49(07/02)-45(07/02) pO2 range: 192(07/03)-55(07/02) HCO3 range: 32(07/03)-18(07/02) O2 Sat range: 100(07/03)-87.1(07/02) Treatment: Normal Saline IV 1000cc bolus x 3 on 07/02 Normal Saline IV 130cc/hour 07/02 Normal Saline IV 150cc/hour start 07/03 Potassium Chloride 20meq Q2hour x2 on 07/03, then 10meq q1hour x2 on 07/04 Narcan 0.4mg IV once 07/02 Narcan 1mg IV x2 on 07/02 Please clarify the type of encephalopathy, if known: [ ] Metabolic Encephalopathy [ x ] Toxic Encephalopathy [ ] Other, please specify [ ] Unable to determine MTDD
--- NOTE | 2023-07-05 14:28 | P.PN ---
Subjective Progress Note Date: 07/05/23 This is a 27-year-old male patient was currently debated on mechanical ventilator due to heroin overdose. Patient was found in the bathroom in his house and he was there apparently for around 12 hours with the water running and upon finding him he was found to have a needle in his arm and he was reportedly not breathing. He had also emesis. He was given 4 mg of Narcan intranasally and he became somewhat arousable. He came into the emergency department and his respiration was borderline and the patient was still congested and he has been grunting and subsequent follow-up showed that the patient's was unable to protect his airway and he was becoming more hypoxic and his blood gas showed a pH of 7.22 with a pCO2 of 45 and a pO2 of 55 and following that the patient was intubated and placed on the mechanical ventilator. Currently, the patient is intubated on assist-control mode with rate of 18, tidal volume of 400, FiO2 100% with a PEEP of 5. Postintubation blood gases are still pending. I reviewed the chest x-ray postintubation and the patient has adequate positioning of the ET tube. The patient has also an orogastric tube. There is extension in left lung consolidation consistent with an aspiration pneumonia. The triple-lumen catheter was inserted in the right subclavian is extending to the left and is not in the appropriate position. Meanwhile, the blood work shows a WBC count of 17.9, hemoglobin 13, potassium levels at 6.8 with a sodium level of 138, BUN is at 20 with a creatinine of 1.9 and a serum bicarb is at 16. LFTs are normal. Urine drug screen was positive for amphetamine and marijuana. Alcohol level was negative. The patient is currently intubated on mechanical ventilator on propofol and the dose being adjusted to maintain adequate sedation. His acute h yperkalemia will be treated. The sample could be potentially mildly hemolyzed. The patient's CPK has not been checked. CAT scan of the brain has not been screened. The patient has been here multiple times 07/04/2023, the patient is being seen for a follow-up. This morning, the patient remains intubated on mechanical ventilator. He is calm and comfortable. He is sedated on propofol which is running at 40 mcg/kg/min. He is also on a fentanyl drip which will be gradually. He is requiring a low-dose of norepinephrine which is running at 0.02 mcg/kg/min. He is also on IV fluids with normal saline. Bicarb infusion as the patient had a component of acute rhabdomyolysis and metabolic acidosis. This morning, the patient is on assist-control mode at a rate of 24, tidal volume of 400, FiO2 40% with a PEEP of 5.Follow-up I think this is Chest x-ray shows some improvement in the left lung pulmonary infiltrate. Orotracheal tube is in a good location. No significant orotracheal secretions. There is improved airspace opacity in the left midlung as noted. The blood gas from today shows a pH of 7.47 with a pCO2 of 45 and a pO2 of 192. The white cell count is at 12.8 with a hemoglobin 12 and a platelet count of 242. BUN is at 16 with a creatinine of 0.8 and a sodium levels of 136. Potassium level is at 3.2. The patient CPK is 17,000 209. The BUN is at 16 with a creatinine 0.8. Serum bicarb is up to 30. Sodium levels at 136. The patient continues to be on IV Unasyn covering for an aspiration pneumonia. Hemodynamically The patient is mildly hypotensive running norepinephrine at 0.02 mcg/kg/min. 12/05/2023, seen the patient for a follow-up. The patient remains intubated on the mechanical ventilator. Earlier this morning, the patient was maintained on propofol which is running at 45 mcg/kg/min. He is calm and comfortable. No significant respiratory distress. He remains on IV Unasyn for an aspiration pneumonia. Repeat chest x-ray from today shows adequate positioning of the orotracheal tube. There is improvement in the left lung infiltration. No interval worsening in the chest x-ray findings. Earlier this morning, the patient was assist-control mode with rate of 24, tidal volume of 400, FiO2 of 30% and PEEP of 5. Blood gas showed a pH of 7.4 with a pCO2 of 37 and pO2 of 1 9. This was on FiO2 of 40%. The patient is hemodynamically stable. CPK is on the decline is currently down to 14,755. BUN is at 6 with a creatinine of 0.6 and a sodium levels at 138. There was count 7.2 with hemoglobin 10.5 and a platelet count is normal at 182. No hemodynamic instability. The patient remains n.p.o. for now. No significant agitation the patient has been adequately sedated this morning. No other significant events overnight. The patient's cardiac rhythm remains sinus. Objective - Vital Signs Vital signs: Vital Signs Temp 98.2 F 07/05/23 12:00 Pulse 79 07/05/23 13:00 Resp 24 07/05/23 13:00 BP 112/62 07/05/23 13:00 Pulse Ox 100 07/05/23 13:00 FiO2 30 07/05/23 12:00 Intake & Output 07/04/23 07/05/23 07/05/23 18:59 06:59 18:59 Intake Total 2471.927 2516 1211.000 Output Total 2365 2315 1375 Balance 106.927 201 -164.000 Weight 74.3 kg Intake: IV 726 2066 1111 0.9% NS at KVO 140 80 40 Ampicillin-Sulbactam 3 gm 100 100 In Sodium Chloride 0.9% 100 ml @ 200 mls/hr IVPB Q6H [facility] Rx#:[id number] Dextrose 5% in Water 1, 450 000 ml @ 150 mls/hr IV . Q7H40M [facility] with Sodium Bicarb (1 Meq/ml) 150 ml Rx#:[id number] Potassium Chloride 10 meq 200 In Water For Injection 1 100ml.bag @ 100 mls/hr IVPB Q1H [facility] Rx#: [id number] Sodium Chloride 0.9% 1, 1650 1050 000 ml @ 150 mls/hr IV . Q6H40M [facility] Rx#:[id number] pressure bag 36 36 21 Intake, IV Titration 1745.927 450 100.000 Amount Norepinephrine 4 mg In 9.155 Sodium Chloride 0.9% 250 ml @ 0.03 MCG/KG/MIN 10. 11 mls/hr IV .Q24H [facility] Rx #:[id number] Potassium Chloride 20 meq 200 In Water For Injection 1 100ml.bag @ 50 mls/hr IVPB Q2H [facility] Rx#: [id number] Sodium Chloride 0.9% 1, 1350 150 000 ml @ 150 mls/hr IV . Q6H40M [facility] Rx#:[id number] propofoL 1,000 mg In 186.772 300 100.000 Empty Bag 1 bag @ 15 MCG/ KG/MIN 7.961 mls/hr IV . [id number] [facility] Rx#:[id number] Output: Urine 2365 2315 1375 Other: Voiding Method Indwelling Catheter Indwelling Catheter Indwelling Catheter ABP, PAP, CO, CI - Last Documented Arterial Blood Pressure 120/61 - Exam General appearance the patient is sedated on propofol, calm and comfortable and the patient is gastric aortic tube in place. Head exam was generally normal. There was no scleral icterus or corneal arcus. Mucous membranes were moist. Neck was supple and without jugular venous distension, thyromegaly, or carotid bruits. Carotids were easily palpable bilaterally. There was no adenopathy. The patient has also a right subclavian triple-lumen catheter in place. Lung sounds are diminished and patient has scattered rhonchi throughout the lung hull bilaterally. Cardiac exam revealed the PMI to be normally situated and sized. The rhythm was regular and no extrasystoles were noted during several minutes of auscultation. The first and second heart sounds were normal and physiologic splitting of the second heart sound was noted. There were no murmurs, rubs, clicks, or gallops. Abdominal exam revealed normal bowel sounds. The abdomen was soft, non-tender, and without masses, organomegaly, or appreciable enlargement of the abdominal aorta. Examination of the extremities revealed easily palpable radial, femoral and pedal pulses. There was no cyanosis, clubbing or edema. Examination of the skin revealed no evidence of significant rashes, suspicious appearing nevi or other concerning lesions. Neurologically the patient is sedated. - Labs CBC & Chem 7: 07/05/23 04:57 07/05/23 04:57 Labs: Abnormal Lab Results - Last 24 Hours (Table) 07/04/23 07/05/23 07/05/23 Range/Units 18:15 04:57 04:57 RBC 3.49 L (4.30-5.90) m/uL Hgb 10.5 L (13.0-17.5) gm/dL Hct 32.8 L (39.0-53.0) % ABG pO2 (83-108) mmHg ABG O2 Saturation (94-97) % Chloride 115 H (98-107) mmol/L Carbon Dioxide 21 L (22-30) mmol/L BUN 6 L (9-20) mg/dL Calcium 7.9 L (8.4-10.2) mg/dL AST 427 H (17-59) U/L ALT 124 H (4-49) U/L Creatine Kinase 16644 H* 16187 H* (55-170) U/L Total Protein 4.8 L (6.3-8.2) g/dL Albumin 2.4 L (3.5-5.0) g/dL 07/05/23 Range/Units 06:14 RBC (4.30-5.90) m/uL Hgb (13.0-17.5) gm/dL Hct (39.0-53.0) % ABG pO2 190 H (83-108) mmHg ABG O2 Saturation 99.0 H (94-97) % Chloride (98-107) mmol/L Carbon Dioxide (22-30) mmol/L BUN (9-20) mg/dL Calcium (8.4-10.2) mg/dL AST (17-59) U/L ALT (4-49) U/L Creatine Kinase (55-170) U/L Total Protein (6.3-8.2) g/dL Albumin (3.5-5.0) g/dL Microbiology - Last 24 Hours (Table) 07/03/23 10:24 Gram Stain - Final Sputum Sputum Culture - Final 07/03/23 17:00 Blood Culture - Preliminary Blood 07/03/23 16:45 Blood Culture - Preliminary Blood Assessment and Plan Plan: Acute heroin overdose, failed to respond to Narcan and the patient had aspiration followed by hypoxic respiratory failure and intubation mechanical ventilation. Patient remains sedated on propofol Remains intubated on mechanical ventilator. Repeat chest x-ray shows further clearing of the left lung pulm infiltrate/pneumonia the patient remains on IV Unasyn. Adequate oxygenation on today's blood gases. Acute hypoxic respiratory failure, currently intubated on mechanical ventilator Left lung pneumonia, likely of an aspiration type. Chest x-ray shows improvement in the left airspace disease. Acute kidney injury with a creatinine of 1.95, improved, creatinine has normali zed Acute anion gap metabolic acidosis, improved and the patient is currently on normal saline infusion. Acute hyperkalemia, recovered Acute leukocytosis secondary to above, improved Acute rhabdomyolysis secondary to above. CPK remains quite elevated. CPK continues to drop and improved. Previous history of drug overdose, intentional History of major depression disorder/antisocial personality disorder traits/borderline personality disorder History of cannabis use History of alcohol use History of amphetamine use History of hepatitis C positive History of smoking History of bronchial asthma Plan Continue ventilator support and no ventilator changes will be done today. Stop sedation Assess mental status Check weaning parameters If the weaning parameters adequate the patient will be given a spontaneous breathing trial with a pressure support of 5 and a PEEP of 5 Continue IV Unasyn normal saline at rate of 150 cc an hour Renal function is improved. Monitor CPK levels [facility] IV Protonix Lovenox subcu for DVT prophylaxis Will continue to follow. Possible extubation today based on his progress. Is a critical care evaluation that was done more than 30 minutes. Time with Patient: Greater than 30
[2023-07-05 15:31] VITALS: RESP 9
[2023-07-05] MEDS: IPRATROPIUM-ALBUTEROL 3 ML NEB INHALATION SCH (15:54)
--- NOTE | 2023-07-05 16:08 | P.PN ---
Subjective Progress Note Date: 07/05/23 (delayed charting seen at 0945) Patient is a 27-year-old male with Asthma, HLD, and hep C who presented to the emergency department with police via EMS for drug overdose. Patient was found in the bathroom at his home and family had reported he was in there for 2 hours. They found him with the water running in a needle in his arm and was apparently not breathing. They were there is noted to be a large amount of emesis. He was given 4 mg of Narcan intranasally and initially was able to arouse and answer his name. Patient again became unresponsive and hypotensive in the emergency department he was intubated with central line placed. He was started on norepinephrine for hypotension. Initial labs in the ER included CBC, CMP, and serum alcohol which were remarkable for white blood cell count of 17.9, potassium 6.8, chloride 110, carbon dioxide 16, BUN 20, creatinine 1.95. He was admitted ot the ICU and critical care was consulted. Norepinephrine was titrated off by the morning of 07/03. Patient seen and examined at bedside. No acute events overnight. Sedated and intubated. Vital signs reviewed General: Nontoxic, no distress, appears at stated age Cardiovascular: S1S2 reg, no murmur Lungs: CTA bilateral, no rhonchi, no rales, no accessory muscle use Abdominal: Soft, nontender to palpation, no guarding Ext: No gross muscle atrophy, no edema b/l lower extremities, no contractures Neuro: breathing over vent, moving all 4 extremities over vetn, + Cough Psych: lethargic due tot sedation but will follow simple commands Assessment/Plan: Unintentional overdose, appears meth Acute encephalopathy secondary to overdose Intubated for airway protection Aspiration pneumonia with septic shock Rhabdo Antisocial personality disorder Transaminitis likely secondary to overdose and septic shock -Critical care note reviewed: Continue ventilator support, stop sedation, check weaning parameters for possible extubation today. -Case discussed with social work patient with history of difficult to control behaviors per [facility]. -BuSpar 15 mg 3 times daily and Zyprexa 20 mg at night will be restarted -Repeat CK levels at 1800 and in a.m. -Normal saline at 150 cc/h -Intentional versus unintentional - unasyn 3 grams IVPB q 6 hours D #3, due to dental carries and aspiration -Sputum culture negative Resolved: Hyperkalemia Metabolic acidosis Acute kidney injury Lactic acidosis Imaging: Chest x-rays reviewed by myself demonstrates increased opacification of the left mid lung and opacification near the right heart border Data Review: Labs reviewed from today include CBC CMP and CK which are remarkable for hemoglo bin 10.5, AST 427, ALT 124, CPK 14,755 DVT prophylaxis: Lovenox Anticipated discharge date: Pending Clinical Course Anticipated discharge place: Pending Clinical Course This dictation was prepared using [email or web address] voice recognition software. Though every attempt is made to correct errors during dictation some may still exist. Objective - Vital Signs Vital signs: Vital Signs Temp 98.2 F 07/05/23 12:00 Pulse 102 H 07/05/23 16:05 Resp 9 L 07/05/23 15:00 BP 112/66 07/05/23 15:00 Pulse Ox 100 07/05/23 15:02 FiO2 30 07/05/23 12:00 Intake & Output 07/04/23 07/05/23 07/05/23 18:59 06:59 18:59 Intake Total 2471.927 2516 1517.000 Output Total 2365 2315 1825 Balance 106.927 201 -308.000 Weight 74.3 kg Intake: IV 726 2066 1417 0.9% NS at KVO 140 80 40 Ampicillin-Sulbactam 3 gm 100 100 In Sodium Chloride 0.9% 100 ml @ 200 mls/hr IVPB Q6H [facility] Rx#:[id number] Dextrose 5% in Water 1, 450 000 ml @ 150 mls/hr IV . Q7H40M [facility] with Sodium Bicarb (1 Meq/ml) 150 ml Rx#:[id number] Potassium Chloride 10 meq 200 In Water For Injection 1 100ml.bag @ 100 mls/hr IVPB Q1H [facility] Rx#: [id number] Sodium Chloride 0.9% 1, 1650 1350 000 ml @ 150 mls/hr IV . Q6H40M [facility] Rx#:[id number] pressure bag 36 36 27 Intake, IV Titration 1745.927 450 100.000 Amount Norepinephrine 4 mg In 9.155 Sodium Chloride 0.9% 250 ml @ 0.03 MCG/KG/MIN 10. 11 mls/hr IV .Q24H [facility] Rx #:[id number] Potassium Chloride 20 meq 200 In Water For Injection 1 100ml.bag @ 50 mls/hr IVPB Q2H [facility] Rx#: [id number] Sodium Chloride 0.9% 1, 1350 150 000 ml @ 150 mls/hr IV . Q6H40M [facility] Rx#:[id number] propofoL 1,000 mg In 186.772 300 100.000 Empty Bag 1 bag @ 15 MCG/ KG/MIN 7.961 mls/hr IV . [id number] [facility] Rx#:[id number] Output: Urine 2365 2315 1825 Other: Voiding Method Indwelling Catheter Indwelling Catheter Indwelling Catheter ABP, PAP, CO, CI - Last Documented Arterial Blood Pressure 135/69 - Labs CBC & Chem 7: 07/05/23 04:57 07/05/23 04:57 Labs: Abnormal Lab Results - Last 24 Hours (Table) 07/04/23 07/05/23 07/05/23 Range/Units 18:15 04:57 04:57 RBC 3.49 L (4.30-5.90) m/uL Hgb 10.5 L (13.0-17.5) gm/dL Hct 32.8 L (39.0-53.0) % ABG pO2 (83-108) mmHg ABG O2 Saturation (94-97) % Chloride 115 H (98-107) mmol/L Carbon Dioxide 21 L (22-30) mmol/L BUN 6 L (9-20) mg/dL Calcium 7.9 L (8.4-10.2) mg/dL AST 427 H (17-59) U/L ALT 124 H (4-49) U/L Creatine Kinase 92237 H* 74136 H* (55-170) U/L Total Protein 4.8 L (6.3-8.2) g/dL Albumin 2.4 L (3.5-5.0) g/dL 07/05/23 Range/Units 06:14 RBC (4.30-5.90) m/uL Hgb (13.0-17.5) gm/dL Hct (39.0-53.0) % ABG pO2 190 H (83-108) mmHg ABG O2 Saturation 99.0 H (94-97) % Chloride (98-107) mmol/L Carbon Dioxide (22-30) mmol/L BUN (9-20) mg/dL Calcium (8.4-10.2) mg/dL AST (17-59) U/L ALT (4-49) U/L Creatine Kinase (55-170) U/L Total Protein (6.3-8.2) g/dL Albumin (3.5-5.0) g/dL Microbiology - Last 24 Hours (Table) 07/03/23 10:24 Gram Stain - Final Sputum Sputum Culture - Final 07/03/23 17:00 Blood Culture - Preliminary Blood 07/03/23 16:45 Blood Culture - Preliminary Blood
--- NOTE | 2023-07-05 17:21 | P.DS ---
Providers Date of admission: 07/03/23 17:47 Expected date of discharge: 07/05/23 Attending physician: Belen Tadeo DO Consults: 07/03/23 15:40 Consult Physician Urgent Consulting Provider: Nimisha Oconnor Consult Reason/Comments: ICU Do you want consulting provider notified?: Already Contacted Primary care physician: [facility] Hospital Course: This is a summary of care as patient left AGAINST MEDICAL ADVICE Discharge Diagnosis: Left Against Medical Advice Unintentional overdose, possible meth Intubated for airway protection Aspiration pneumonia with septic shock, resolved Antisocial personality disorder Traumatic Rhabdo due to immobility Acute toxic encephalopathy Hyperkalemia Metabolic acidosis Acute kidney injury Lactic acidosis Hospital Course: Patient is a 27-year-old male with Asthma, HLD, and hep C who presented to the emergency department with police via EMS for drug overdose. Patient was found in the bathroom at his home and family had reported he was in there for 2 hours. They found him with the water running in a needle in his arm and was apparently not breathing. They were there is noted to be a large amount of emesis. He was given 4 mg of Narcan intranasally and initially was able to arouse and answer his name. Patient again became unresponsive and hypotensive in the emergency department he was intubated with central line placed. He was started on norepinephrine for hypotension. Initial labs in the ER included CBC, CMP, and serum alcohol which were remarkable for white blood cell count of 17.9, potassium 6.8, chloride 110, carbon dioxide 16, BUN 20, creatinine 1.95. He was admitted ot the ICU and critical care was consulted. Norepinephrine was titrated off by the morning of 07/03. He was successfully extubated by the afternoon of 07/05/2023. His CPK had maxed at 17,000 and was down to 14,000. At approximately 1645 I was notified that patient wanted to leave AMA. Discussion is as outlined below. Patient subsequently left AGAINST MEDICAL ADVICE. Patient seen and examined at bedside. He is requesting to be discharged from the hospital. We discussed the severity of his illness. He adamantly denies being suicidal, depressed, or trying to harm himself. He states that a friend gave him a new syringe full of something and told him to try it. He is unsure what was in the syringe. But he was not trying to harm himself. We discussed that he has rhabdo which is muscle breakdown that could worsen and cause his kidneys to shut down and he could . He is understanding of this but states he can no longer stay in the hospital because he has been here for 2 days. He is of clear thought process. He is alert and oriented x 3. He acknowledges the danger of injecting an unknown substances and states "I wont try that again". He states that he will continue to work with [facility] and that he will obtain the Narcan I am willing to prescribe and he asks for this to be sent to the [facility] [address]. He was picked up by police before leaving the [facility] and was cleared to proceed to police custody. He has an appropriate response "What would you do if you found a letter on the ground with an address on it outside of the mailbox"-- I woiuld look to see who had dropped it and give it back" Vital signs reviewed and stable. General: Awake, alert, Agitated Neuro: CN II-XI grossly intact, no focal neuro deficits Psych: Alert to hospital in [place], year and month, A total of 30 minutes of time were spent preparing this complex discharge. Patient left AGAINST MEDICAL ADVICE on 07/05/2023 This dictation was prepared using [employer] voice recognition software. Though every attempt is made to correct errors during dictation some may still exist. Patient Condition at Discharge: Undetermined Plan - Discharge Summary Discharge Rx Participant: Yes New Discharge Prescriptions: New Naloxone HCl [Narcan] 4 mg NASAL DIRECTED PRN #1 each PRN Reason: Opioid Reversal No Action cloNIDine HCL [Catapres] 0.1 mg PO HS busPIRone HCL 15 mg PO TID fluPHENAZine decanoate [Prolixin Decanoate] 25 mg IM Q14D #1 ml OLANZapine 20 mg PO HS Discharge Medication List fluPHENAZine decanoate [Prolixin Decanoate] 25 mg IM Q14D #1 ml 04/26/21 [Rx] OLANZapine 20 mg PO HS 07/03/23 [History] busPIRone HCL 15 mg PO TID 07/03/23 [History] cloNIDine HCL [Catapres] 0.1 mg PO HS 07/03/23 [History] Naloxone HCl [Narcan] 4 mg NASAL DIRECTED PRN #1 each 07/05/23 [Rx] Follow up Appointment(s)/Referral(s): [facility] [Primary Care Provider] - 1-2 days
[2023-07-05 18:52] VITALS: BP 120/74; PULSE 101
== END 2023-07-05 17:20 | disposition left against medical advice (07) | DRG 812 ==
LOC: EC 13:41 → 2SICU 17:47
PROVIDERS: ADMIT Internal Medicine; ATTEND Internal Medicine
PROC: 0D9670Z Drainage of Stomach with Drainage Device, Via Natural or Artificial Opening (ICD-10-PCS; principal; 2023-07-03)
PROC: 06HY33Z Insertion of Infusion Device into Lower Vein, Percutaneous Approach (ICD-10-PCS; principal; 2023-07-03)
PROC: 3E043XZ Introduction of Vasopressor into Central Vein, Percutaneous Approach (ICD-10-PCS; principal; 2023-07-03)
PROC: 5A1945Z Respiratory Ventilation, 24-96 Consecutive Hours (ICD-10-PCS; principal; 2023-07-03)
PROC: 0BH17EZ Insertion of Endotracheal Airway into Trachea, Via Natural or Artificial Opening (ICD-10-PCS; principal; 2023-07-03)
PROC: 03HY32Z Insertion of Monitoring Device into Upper Artery, Percutaneous Approach (ICD-10-PCS; 2023-07-03)
PROC: 4A133B1 Monitoring of Arterial Pressure, Peripheral, Percutaneous Approach (ICD-10-PCS; 2023-07-03)
PROC: 4A133J1 Monitoring of Arterial Pulse, Peripheral, Percutaneous Approach (ICD-10-PCS; 2023-07-03)
DX: T43.651A Poisoning by methamphetamines accidental (unintentional), initial encounter (principal); R65.21 Severe sepsis with septic shock; J96.01 Acute respiratory failure with hypoxia; J69.0 Pneumonitis due to inhalation of food and vomit; J96.02 Acute respiratory failure with hypercapnia; A41.9 Sepsis, unspecified organism; G92.8 Other toxic encephalopathy; N17.9 Acute kidney failure, unspecified; E87.4 Mixed disorder of acid-base balance; E87.20 Acidosis, unspecified; T79.6XXA Traumatic ischemia of muscle, initial encounter; F31.9 Bipolar disorder, unspecified; B19.20 Unspecified viral hepatitis C without hepatic coma; F20.9 Schizophrenia, unspecified; F60.2 Antisocial personality disorder; Z28.310 Unvaccinated for COVID-19; F11.90 Opioid use, unspecified, uncomplicated; F12.90 Cannabis use, unspecified, uncomplicated; J45.909 Unspecified asthma, uncomplicated; Z53.29 Procedure and treatment not carried out because of patient's decision for other reasons; E78.5 Hyperlipidemia, unspecified; E87.5 Hyperkalemia; F41.9 Anxiety disorder, unspecified; K02.9 Dental caries, unspecified; F17.290 Nicotine dependence, other tobacco product, uncomplicated; Z79.899 Other long term (current) drug therapy
CPT/HCPCS: 31500; 36415; 36556; 36600; 51702; 71045; 76770; 80053; 80143; 80179; 80306; 80320; 82550; 82805; 83605; 83735; 84100; 84132; 85025; 85027; 87040; 87070; 87205; 93005; 94002; 94003; 94640; 96361; 96365; 96366; 96367; 96368; 96375; 96376; 99291

== ENCOUNTER 2023-07-05 18:07 | Inpatient (IN) | payer OTHER ==
--- NOTE | 2023-07-05 18:24 | ED ---
General Adult HPI - General Chief complaint: Recheck/Abnormal Lab/Rx Stated complaint: [facility] clearance Time Seen by Provider: 07/05/23 18:10 Source: patient, police Mode of arrival: ambulatory - History of Present Illness Initial comments: Dictation was produced using [employer] dictation software. please excuse any grammatical, word or spelling errors. Chief Complaint: 27-year-old male brought in by police for halfway clearance History of Present Illness: Patient 27-year-old male presents emergency department for halfway clearance patient left AGAINST MEDICAL ADVICE from the hospital earlier today. He was admitted for overdose, respiratory failure he was admitted to the ICU after he was intubated. He was also found to be in rhabdomyolysis. He left AGAINST MEDICAL ADVICE. Police was called patient was brought to halfway however was refused due to his current medical condition. Patient states he feels sick however is not very cooperative and not willing to answer most of my questions. Unable to obtain ROS secondary to mental status - Related Data Home Medications Medication Instructions Recorded Confirmed OLANZapine 20 mg PO HS 07/03/23 07/03/23 busPIRone HCL 15 mg PO TID 07/03/23 07/03/23 cloNIDine HCL [Catapres] 0.1 mg PO HS 07/03/23 07/03/23 Previous Rx's Medication Instructions Recorded fluPHENAZine decanoate [Prolixin 25 mg IM Q14D #1 ml 04/26/21 Decanoate] Naloxone HCl [Narcan] 4 mg NASAL DIRECTED PRN #1 each 07/05/23 Allergies Allergy/AdvReac Type Severity Reaction Status Date / Time bee venom protein (honey bee) Allergy Anaphylaxis Verified 07/05/23 18:16 Review of Systems ROS Statement: Those systems with pertinent positive or pertinent negative responses have been documented in the HPI. ROS Other: All systems not noted in ROS Statement are negative. Past Medical History Past Medical History: Asthma, Hyperlipidemia Additional Past Medical History / Comment(s): Depression, anxiety, anti social personality disorder, hepatitis C History of Any Multi-Drug Resistant Organisms: None Reported Past Surgical History: No Surgical Hx Reported Past Anesthesia/Blood Transfusion Reactions: No Reported Reaction Past Psychological History: Anxiety, Bipolar, Depression, Schizophrenia Smoking Status: Current every day smoker Past Alcohol Use History: Occasional Past Drug Use History: Heroin, IV Drug Use, Marijuana, Methamphetamine - Past Family History Mother Family Medical History: Unable to Obtain Additional Family Medical History / Comment(s): Patient reports that he knows nothing about his family General Exam - General Exam Comments Initial Comments: PHYSICAL EXAM: General Impression: Alert and oriented x3, not in acute distress, handcuffed HEENT: Normocephalic atraumatic, extra-ocular movements intact, pupils equal and reactive to light bilaterally, mucous membranes moist. Cardiovascular: Heart regular rate and rhythm Chest: Able to complete full sentences, no retractions, no tachypnea Abdomen: abdomen soft, non-tender, non-distended, no organomegaly Musculoskeletal: Pulses present and equal in all extremities, no peripheral edema Motor: no focal deficits noted Neurological: CN II-XII grossly intact, no focal motor or sensory deficits noted Skin: Intact with no visualized rashes Psych: Normal affect and mood Course Vital Signs 07/05/23 07/05/23 07/05/23 18:11 18:52 18:59 Temperature 98.1 F Pulse Rate 103 H 85 Pulse Rate [ 93 [employer] ] Respiratory 18 18 18 Rate Blood Pressure 119/80 130/82 O2 Sat by Pulse 96 94 L Oximetry 07/05/23 19:30 Temperature Pulse Rate 87 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 151, cures 96, QTc 411. No [place] prolongation, no QTC prolongation, no ST or T-wave changes noted. Overall, this EKG is unremarkable Medical Decision Making - Medical Decision Making Was pt. sent in by a medical professional or institution ( PA, MANAGER HEART FAILURE, urgent care, hospital, or custodial...) When possible be specific @ -No Did you speak to anyone other than the patient for history (EMS, parent, family, police, friend...)? What history was obtained from this source @ -Law enforcement Did you review nursing and triage notes (agree or disagree)? Why? @ -I reviewed and agree with nursing and triage notes Were old charts reviewed (outside hosp., previous admission, EMS record, old EKG, old radiological studies, urgent care reports/EKG's, custodial records)? Report findings @ -Discharge summary from earlier today reviewed Differential Diagnosis (chest pain, altered mental status, abdominal pain women, abdominal pain men, vaginal bleeding, musculoskeletal, weakness, fever, dyspnea, syncope, headache, dizziness, GI bleed, back pain, seizure, CVA, palpatations, mental health)? @ -Not applicable EKG interpreted by me (3pts min.). @ -See above X-rays interpreted by me (1pt min.). @ -None done CT interpreted by me (1pt min.). @ -None done U/S interpreted by me (1pt. min.). @ -None done What testing was considered but not performed or refused? (CT, X-rays, U/S, labs)? Why? @ -None What meds were considered but not given or refused? Why? @ -None Did you discuss the management of the patient with other professionals (professionals i.e. , PA, MANAGER HEART FAILURE, lab, RT, psych nurse, social work job titles, hosiery mater, teacher, protection officer, case picker)? Give summary @ -Case discussed with hospitalist for admission Was smoking cessation discussed for >3mins.? @ -No Was critical care preformed (if so, how long)? @ -No Were there social determinants of health that impacted care today? How? (Homeles sness, low income, unemployed, alcoholism, drug addiction, transportation, low edu. Level, literacy, decrease access to med. care, halfway, rehab)? @ -No Was there de-escalation of care discussed even if they declined (Discuss DNR or withdrawal of care, Hospice)? DNR status @ -No What co-morbidities impacted this encounter? (DM, HTN, Smoking, COPD, CAD, Cancer, CVA, ARF, Chemo, Hep., AIDS, mental health diagnosis, sleep apnea, morbid obesity)? @ -None Was patient admitted / discharged? Hospital course, mention meds given and route, prescriptions, significant lab abnormalities, going to OR and other pertinent info. @ -19-year-old male left AGAINST MEDICAL ADVICE earlier today from the ICU. He was admitted for respiratory failure and rhabdomyolysis. He left AMA from the ICU. Law enforcement brought patient. He allegedly has a warrant for his arrest however was not excepted due to his medical issues. Laboratory evaluation obtained. Patient still in rhabdo. He is agreeable for admission. Patient given IV fluids. Nephrology consulted. Undiagnosed new problem with uncertain prognosis? @ -No Drug Therapy requiring intensive monitoring for toxicity (Heparin, Nitro, Insulin, Cardizem)? @ -No Were any procedures done? @ -No Diagnosis/symptom? Acute, or Chronic, or Acute on Chronic? Uncomplicated (without systemic symptoms) or Complicated (systemic symptoms)? @ -Rhabdomyolysis Side effects of treatment? @ -No Exacerbation, Progression, or Severe Exacerbation? @ -No Poses a threat to life or bodily function? How? (Chest pain, USA, CT, pneumonia, PE, COPD, DKA, ARF, appy, cholecystitis, CVA, Diverticulitis, Homicidal, Suicidal, threat to staff... and all critical care pts) @ -yes - Lab Data Result diagrams: 07/05/23 19:21 07/05/23 19:21 Lab Results 07/05/23 07/05/23 Range/Units 19:21 19:21 WBC 10.8 H (3.8-10.6) k/uL RBC 4.12 L (4.30-5.90) m/uL Hgb 12.6 L (13.0-17.5) gm/dL Hct 38.2 L (39.0-53.0) % MCV 92.8 (80.0-100.0) fL MCH 30.6 (25.0-35.0) pg MCHC 33.0 (31.0-37.0) g/dL RDW 13.1 (11.5-15.5) % Plt Count 209 (150-450) k/uL MPV 7.5 Neutrophils % 87 % Lymphocytes % 8 % Monocytes % 3 % Eosinophils % 1 % Basophils % 0 % Neutrophils # 9.4 H (1.3-7.7) k/uL Lymphocytes # 0.8 L (1.0-4.8) k/uL Monocytes # 0.4 (0-1.0) k/uL Eosinophils # 0.1 (0-0.7) k/uL Basophils # 0.0 (0-0.2) k/uL Sodium 140 (137-145) mmol/L Potassium 4.8 (3.5-5.1) mmol/L Chloride 115 H (98-107) mmol/L Carbon Dioxide 19 L (22-30) mmol/L Anion Gap 6 mmol/L BUN 6 L (9-20) mg/dL Creatinine 0.68 (0.66-1.25) mg/dL Est GFR (CKD-EPI)AfAm >90 (>60 ml/min/1.73 sqM) Est GFR (CKD-EPI)NonAf >90 (>60 ml/min/1.73 sqM) Glucose 78 (74-99) mg/dL Calcium 8.4 (8.4-10.2) mg/dL Creatine Kinase 99689 H* (55-170) U/L Disposition Clinical Impression: Rhabdomyolysis Disposition: ADMITTED IP TO THIS HOSP Condition: Fair Referrals: None,Stated [Primary Care Provider] - 1-2 days Decision Time: 20:35
[2023-07-05 19:34] LABS: Basophils % (A) 0 %; Eosinophils # (A) 0.1 k/uL (0-0.7); Eosinophils % (A) 1 %; HCT 38.2 % (39.0-53.0); HGB 12.6 gm/dL (13.0-17.5); Lymphocytes # (A) 0.8 k/uL (1.0-4.8); Lymphocytes % (A) 8 %; MCH 30.6 pg (25.0-35.0); MCV 92.8 fL (80.0-100.0); Mean Platelet Volume 7.5; Monocytes # (A) 0.4 k/uL (0-1.0); Monocytes % (A) 3 %; Neutrophils # (A) 9.4 k/uL (1.3-7.7); Neutrophils % (A) 87 %; Platelet Count 209 k/uL (150-450); RBC 4.12 m/uL (4.30-5.90); RDW 13.1 % (11.5-15.5); WBC 10.8 k/uL (3.8-10.6)
[2023-07-05 19:46] LABS: African American GFR (CKD) >90 (>60 ml/min/1.73 sqM); Anion Gap 6 mmol/L; Blood Urea Nitrogen 6 mg/dL (9-20); Calcium 8.4 mg/dL (8.4-10.2); Carbon Dioxide 19 mmol/L (22-30); Chloride 115 mmol/L (98-107); Glucose 78 mg/dL (74-99); Non-African American GFR(CKD) >90 (>60 ml/min/1.73 sqM); Sodium 140 mmol/L (137-145)
[2023-07-05 19:59] LABS: Potassium 4.8 mmol/L (3.5-5.1)
[2023-07-05 20:17] LABS: Creatine Kinase 15900 U/L (55-170)
[2023-07-05] MEDS ORDERED: NALOXONE 0.4 MG/ML 1 ML VIAL IV PRN (20:33)
[2023-07-05] MEDS: SODIUM CHLORIDE 0.9% 1,000 ML IV STA (20:57)
[2023-07-05] MEDS: SODIUM CHLORIDE 0.9% 1,000 ML IV SCH (23:40)
--- NOTE | 2023-07-06 02:21 | P.HPIM ---
History of Present Illness H&P Date: 07/05/23 Chief Complaint: chuchoo 27-year-old hepatitis C, hyperlipidemia Patient initially came into the hospital couple days ago for drug overdose was accompanied by police due to violating his parole he was found unconscious with a needle in his hand and his family bathroom responded briefly to Narcan and became hypotensive unresponsive in the ED and was intubated. Earlier today he was extubated and started feeling better and requested to leave AGAINST MEDICAL ADVICE despite counseling from his care team to stay in the hospital due to rhabdomyolysis. Patient insisted and managed to leave AGAINST MEDICAL ADVICE police was notified upon following protocol as patient has violated his parole earlier. Upon evaluation by the shelter nurse, they still needed medical clearance due to acute rhabdomyolysis for which she was sent back to the ER. Patient himself has no complaints denies any headache fevers chills nausea vomiting chest pain trouble breathing abdominal pain. He does report some diffuse soreness review of systems Pertinent positives as noted in HPI. All other systems were reviewed and are negative on exam Constitutional: No acute distress, Eyes: Anicteric sclerae, moist conjunctiva, Pupils equal round reactive to light ENMT: NC/AT Oropharynx clear, no erythema, or exudates Neck: Supple, no masses, or JVD No carotid bruits No thyromegaly Lungs: Clear to auscultation Clear to percussion Normal respiratory effort, no accessory muscle use Cardiovascular: Heart regular in rate and rhythm, No murmurs, gallops, or rubs No peripheral edema Abdominal: Soft Nontender, no guarding, rebound or rigidity Abdomen moving with respiration Normoactive bowel sounds No hepatomegaly, No splenomegaly Extremities: No digital cyanosis No clubbing Pedal pulses intact and symmetrical Radial pulses intact and symmetrical No calf tenderness Psychiatric: Alert and oriented to person, place and time Neuro Muscles Strength 5/5 in all 4 extremities Sensation to light touch grossly present throughout Cranial nerves II-XII grossly intact Past Medical History Past Medical History: Asthma, Hyperlipidemia Additional Past Medical History / Comment(s): Depression, anxiety, anti social personality disorder, hepatitis C History of Any Multi-Drug Resistant Organisms: None Reported Past Surgical History: No Surgical Hx Reported Past Anesthesia/Blood Transfusion Reactions: No Reported Reaction Past Psychological History: Anxiety, Bipolar, Depression, Schizophrenia Smoking Status: Current every day smoker Past Alcohol Use History: Occasional Past Drug Use History: Heroin, IV Drug Use, Marijuana, Methamphetamine - Past Family History Mother Family Medical History: Unable to Obtain Additional Family Medical History / Comment(s): Patient reports that he knows nothing about his family Medications and Allergies Home Medications Medication Instructions Recorded Confirmed Type fluPHENAZine decanoate [Prolixin 25 mg IM Q14D #1 ml 04/26/21 07/05/23 Rx Decanoate] OLANZapine 20 mg PO HS 07/03/23 07/05/23 History busPIRone HCL 15 mg PO TID 07/03/23 07/05/23 History cloNIDine HCL [Catapres] 0.1 mg PO HS 07/03/23 07/05/23 History Naloxone HCl [Narcan] 4 mg NASAL DIRECTED PRN #1 each 07/05/23 07/05/23 Rx Allergies Allergy/AdvReac Type Severity Reaction Status Date / Time bee venom protein (honey bee) Allergy Anaphylaxis Verified 07/05/23 18:16 Physical Exam Vitals: Vital Signs Temp Pulse Pulse Resp BP Pulse Ox 07/06/23 00:38 96 20 111/69 94 L 07/05/23 22:00 111 H 18 103/65 95 07/05/23 20:52 92 18 140/86 95 07/05/23 19:30 87 17 136/83 95 07/05/23 18:59 85 18 130/82 94 L 07/05/23 18:52 93 18 07/05/23 18:11 98.1 F 103 H 18 119/80 96 Intake and Output 07/05/23 07/05/23 07/06/23 14:59 22:59 06:59 Other: Weight 68.039 kg Results CBC & Chem 7: 07/05/23 19:21 07/05/23 19:21 Labs: Abnormal Lab Results - Last 24 Hours (Table) 07/05/23 07/05/23 Range/Units 19:21 19:21 WBC 10.8 H (3.8-10.6) k/uL RBC 4.12 L (4.30-5.90) m/uL Hgb 12.6 L (13.0-17.5) gm/dL Hct 38.2 L (39.0-53.0) % Neutrophils # 9.4 H (1.3-7.7) k/uL Lymphocytes # 0.8 L (1.0-4.8) k/uL Chloride 115 H (98-107) mmol/L Carbon Dioxide 19 L (22-30) mmol/L BUN 6 L (9-20) mg/dL Creatine Kinase 74433 H* (55-170) U/L Assessment and Plan Assessment: 27-year-old male polysubstance abuse was brought into the hospital secondary to drug overdose required ICU stay intubation. He was extubated earlier today but insisted to leave AGAINST MEDICAL ADVICE. Police was notified per protocol however upon taking him to shelter he was still in acute rhabdo and needed medical clearance for which he was brought back to the hospital I discussed case with ED doctor accepted the admission for acute rhabdomyolysis with anticipated length of stay more than 2 midnights Acute rhabdomyolysis secondary to polysubstance abuse CK trending down currently 41984 continue to trend Renal function unremarkable Sodium 140 potassium 4.8 BUN 6 creatinine 0.6 Aggressive IV fluid hydration normal saline continue 200 cc/h Target urine output 100 to 200 cc/h Monitor renal function Chronic conditions Hepatitis C continue outpatient follow-up with family doctor Intermittent asthma DuoNebs as needed currently compensated Home medications unverified Discharge medications was not reconciled as patient left AGAINST MEDICAL ADVICE Full code DVT prophylaxis heparin subcu 3 times daily
[2023-07-06 08:25] LABS: African American GFR (CKD) >90 (>60 ml/min/1.73 sqM); Anion Gap 4 mmol/L; Blood Urea Nitrogen 3 mg/dL (9-20); Calcium 8.4 mg/dL (8.4-10.2); Carbon Dioxide 24 mmol/L (22-30); Chloride 111 mmol/L (98-107); Glucose 89 mg/dL (74-99); Non-African American GFR(CKD) >90 (>60 ml/min/1.73 sqM); Potassium 3.9 mmol/L (3.5-5.1); Sodium 139 mmol/L (137-145)
[2023-07-06] MEDS: HEPARIN SODIUM,PORCINE 5,000 UNIT/ML 1 ML VIAL SQ SCH (08:42)
[2023-07-06 08:50] LABS: Creatine Kinase 12444 U/L (55-170)
--- NOTE | 2023-07-06 11:05 | P.NPCON ---
History of Present Illness - Reason for Consult acute renal failure - History of Present Illness Reason for consultation: Rhabdomyolysis History of present illness: Patient is a 27-year-old male seen in renal consultation for rhabdomyolysis. Patient was seen and examined in the emergency room. Patient was recently admitted at this facility due to drug overdose and was on the ventilator. Patient subsequently left AGAINST MEDICAL ADVICE. Patient CK level was as high as 17,677 dated July 04, 2023. This admission was 15,900 and is down to 12,444 today. He is currently maintained on normal saline at 200 cc an hour. Patient was brought to the hospital by the police as needed medical clearance. Blood pressure stable. Denies taking a statin. Denies gross hematuria or dysuria. No vomiting or diarrhea. No chest pain or shortness of breath. Vital signs are stable. General: No acute distress. HEENT: Head exam is unremarkable. LUNGS: No audible rhonchi or wheezes. HEART: Rate and Rhythm are regular. ABDOMEN: Nontender. EXTREMITITES: No edema. Past Medical History Past Medical History: Asthma, Hyperlipidemia Additional Past Medical History / Comment(s): Depression, anxiety, anti social personality disorder, hepatitis C History of Any Multi-Drug Resistant Organisms: None Reported Past Surgical History: No Surgical Hx Reported Past Anesthesia/Blood Transfusion Reactions: No Reported Reaction Past Psychological History: Anxiety, Bipolar, Depression, Schizophrenia Smoking Status: Current every day smoker Past Alcohol Use History: Occasional Past Drug Use History: Heroin, IV Drug Use, Marijuana, Methamphetamine - Past Family History Mother Family Medical History: Unable to Obtain Additional Family Medical History / Comment(s): Patient reports that he knows n othing about his family Medications and Allergies Home Medications Medication Instructions Recorded Confirmed Type fluPHENAZine decanoate [Prolixin 25 mg IM Q14D #1 ml 04/26/21 07/05/23 Rx Decanoate] OLANZapine 20 mg PO HS 07/03/23 07/05/23 History busPIRone HCL 15 mg PO TID 07/03/23 07/05/23 History cloNIDine HCL [Catapres] 0.1 mg PO HS 07/03/23 07/05/23 History Naloxone HCl [Narcan] 4 mg NASAL DIRECTED PRN #1 each 07/05/23 07/05/23 Rx Allergies Allergy/AdvReac Type Severity Reaction Status Date / Time bee venom protein (honey bee) Allergy Anaphylaxis Verified 07/05/23 18:16 Physical Exam Vitals: Vital Signs Temp Pulse Pulse Resp BP Pulse Ox 07/06/23 07:37 81 14 102/60 94 L 07/06/23 05:05 87 20 130/81 96 07/06/23 03:00 95 18 108/54 95 07/06/23 00:38 96 20 111/69 94 L 07/05/23 22:00 111 H 18 103/65 95 07/05/23 20:52 92 18 140/86 95 07/05/23 19:30 87 17 136/83 95 07/05/23 18:59 85 18 130/82 94 L 07/05/23 18:52 93 18 07/05/23 18:11 98.1 F 103 H 18 119/80 96 Intake and Output 07/05/23 07/06/23 07/06/23 22:59 06:59 14:59 Other: Weight 68.039 kg Results - Lab Results Most recent lab results Calcium 8.4 mg/dL (8.4-10.2) 07/06/23 07:55 07/05/23 19:21 07/06/23 07:55 Assessment and Plan Plan: Assessment: 1. Rhabdomyolysis secondary to immobility. CK level 15,900 yesterday and is 12,444 today. 2. Metabolic acidosis, improved. 3. History of anxiety and depression. 4. Recent amphetamine overdose. Plan: Maintain normal saline at 200 cc an hour. Avoid nephrotoxins. Repeat labs in the morning. Thank you for the consultation. I will continue to follow the patient with you during his hospital stay.
--- NOTE | 2023-07-06 14:51 | P.PN ---
Subjective Progress Note Date: 07/06/23 Hospital Course: 27-year-old male with history of hepatitis C, polysubstance use initially pres ented to the hospital couple days ago for drug overdose, accompanied by police due to violating his parole he was found unconscious with a needle in his hand and his family bathroom responded briefly to Narcan and became hypotensive unresponsive in the ED and was intubated. Earlier today he was extubated and started feeling better and requested to leave AGAINST MEDICAL ADVICE despite counseling from his care team to stay in the hospital due to rhabdomyolysis. Patient insisted and managed to leave AGAINST MEDICAL ADVICE police was notified upon following protocol as patient has violated his parole earlier. Upon evaluation by the snf nurse, they still needed medical clearance due to acute rhabdomyolysis for which she was sent back to the ER. On presentation, WBC was 10.8, hemoglobin 12.6, bicarb 19, creatinine 0.68, CK 15,900. On IV fluids. Nephrology also consulted. Subjective: Patient seen and examined at bedside. No acute events overnight. Pertinent positives and negatives as discussed above, a complete review of systems was performed and all other systems are negative. Vitals Signs Reviewed. General: Nontoxic, no distress, appears at stated age Derm: Warm, dry Head: Atraumatic, normocephalic, symmetric Eyes: EOMI, no lid lag, anicteric sclera Mouth: No lip lesion, mucus membranes moist Cardiovascular: S1S2 reg, no murmur Lungs: CTA bilateral, no rhonchi, no rales, no accessory muscle use Abdominal: Soft, nontender to palpation, no guarding, no appreciable o rganomegaly Ext: No gross muscle atrophy, no edema, no contractures Neuro: CN II-XI grossly intact, no focal neuro deficits Psych: Alert, oriented, appropriate affect Data Reviewed Today: Pertinent Labs: Creatinine 0.62, bicarb 24, CK 12,400 Imaging: No new imaging Assessment and Plan: Acute rhabdomyolysis secondary to polysubstance abuse Non-anion gap metabolic acidosis, resolved CK trending down Nephrology note reviewed, recommending continuing IV fluids at 20 cc an hour Repeat BMP and CK tomorrow Polysubstance use Counseled regarding cessation Chronic conditions Hepatitis C unsure if it is chronic Anxiety/psychotic disorder DVT ppx: Continue heparin Code status: Full code Anticipated discharge place: Pending clinical course Anticipated discharge time: Pending clinical course Objective - Vital Signs Vital signs: Vital Signs Temp 98.2 F 07/06/23 14:30 Pulse 76 07/06/23 14:30 Resp 18 07/06/23 14:30 BP 116/92 07/06/23 14:30 Pulse Ox 95 07/06/23 14:30 FiO2 Intake & Output 07/05/23 07/06/23 07/06/23 18:59 06:59 18:59 Weight 68.039 kg - Labs CBC & Chem 7: 07/05/23 19:21 07/06/23 07:55 Labs: Abnormal Lab Results - Last 24 Hours (Table) 07/05/23 07/05/23 07/06/23 Range/Units 19:21 19:21 07:55 WBC 10.8 H (3.8-10.6) k/uL RBC 4.12 L (4.30-5.90) m/uL Hgb 12.6 L (13.0-17.5) gm/dL Hct 38.2 L (39.0-53.0) % Neutrophils # 9.4 H (1.3-7.7) k/uL Lymphocytes # 0.8 L (1.0-4.8) k/uL Chloride 115 H 111 H (98-107) mmol/L Carbon Dioxide 19 L (22-30) mmol/L BUN 6 L 3 L (9-20) mg/dL Creatinine 0.62 L (0.66-1.25) mg/dL Creatine Kinase 12512 H* 65129 H* (55-170) U/L
[2023-07-06] MEDS: busPIRone HCl 5 MG TAB PO SCH (15:05)
[2023-07-06] MEDS: OLANZapine 10 MG TAB PO SCH (21:31)
[2023-07-06] MEDS: cloNIDine HCL 0.1 MG TAB PO SCH (21:31)
[2023-07-07 03:32] VITALS: RESP 16; TEMP 97.9
--- NOTE | 2023-07-07 11:12 | P.PN ---
Subjective Patient is seen in follow-up for rhabdomyolysis. CK levels trending down. Receiving IV fluids. Urine clear. Vital signs are stable. General: No acute distress. HEENT: Head exam is unremarkable. LUNGS: Lungs no audible rhonchi or wheezes. HEART: Rate and Rhythm are regular. ABDOMEN: Nontender. EXTREMITITES: No edema. Objective - Vital Signs Vital signs: Vital Signs Temp 97.9 F 07/07/23 08:31 Pulse 68 07/07/23 08:31 Resp 16 07/07/23 08:31 BP 101/63 07/07/23 08:31 Pulse Ox 97 07/07/23 08:31 FiO2 Intake & Output 07/06/23 07/07/23 07/07/23 18:59 06:59 18:59 Intake Total 110 277 332 Output Total 2400 2600 Balance -2290 -2323 332 Weight 68.039 kg Intake: Oral 110 277 332 Output: Urine 2400 2600 Other: Voiding Method Urinal # Voids 1 - Labs CBC & Chem 7: 07/05/23 19:21 07/06/23 07:55 Assessment and Plan Plan: Assessment: 1. Rhabdomyolysis secondary to immobility. CK level 15,900 dated July 05, 2023 - 12,444 yesterday. 2. Metabolic acidosis, improved. 3. History of anxiety and depression. 4. Recent amphetamine overdose. Plan: Maintain normal saline at 200 cc an hour. Avoid nephrotoxins. Continue to monitor CK levels.
--- NOTE | 2023-07-07 11:39 | P.PN ---
Subjective Progress Note Date: 07/07/23 Hospital Course: 27-year-old male with history of hepatitis C, polysubstance use initially pres ented to the hospital couple days ago for drug overdose, accompanied by police due to violating his parole he was found unconscious with a needle in his hand and his family bathroom responded briefly to Narcan and became hypotensive unresponsive in the ED and was intubated. Earlier today he was extubated and started feeling better and requested to leave AGAINST MEDICAL ADVICE despite counseling from his care team to stay in the hospital due to rhabdomyolysis. Patient insisted and managed to leave AGAINST MEDICAL ADVICE police was notified upon following protocol as patient has violated his parole earlier. Upon evaluation by the senior care nurse, they still needed medical clearance due to acute rhabdomyolysis for which she was sent back to the ER. On presentation, WBC was 10.8, hemoglobin 12.6, bicarb 19, creatinine 0.68, CK 15,900. On IV fluids. Nephrology also consulted. Subjective: Patient seen and examined at bedside. No acute events overnight. Complaining of pain everywhere. Pertinent positives and negatives as discussed above, a complete review of systems was performed and all other systems are negative. Vitals Signs Reviewed. General: Nontoxic, no distress, appears at stated age Derm: Warm, dry Head: Atraumatic, normocephalic, symmetric Eyes: EOMI, no lid lag, anicteric sclera Mouth: No lip lesion, mucus membranes moist Cardiovascular: S1S2 reg, no murmur Lungs: CTA bilateral, no rhonchi, no rales, no accessory muscle use Abdominal: Soft, nontender to palpation, no guarding, no appreciable organomegaly Ext: No gross muscle atrophy, no edema, no contractures Neuro: CN II-XI grossly intact, no focal neuro deficits Psych: Alert, oriented, appropriate affect Data Reviewed Today: Pertinent Labs: BMP and CK pending, will be reviewed when available Imaging: No new imaging Assessment and Plan: Acute rhabdomyolysis secondary to polysubstance abuse Non-anion gap metabolic acidosis, resolved CK trending down Nephrology note reviewed, recommending continuing IV fluids at 200 cc an hour Repeat BMP and CK pending, will be reviewed when available Polysubstance use Counseled regarding cessation Chronic conditions Hepatitis C unsure if it is chronic Anxiety/psychotic disorder DVT ppx: Subcu heparin Code status: Full code Anticipated discharge place: Pending clinical course Anticipated discharge time: Pending clinical course Objective - Vital Signs Vital signs: Vital Signs Temp 97.9 F 07/07/23 08:31 Pulse 68 07/07/23 08:31 Resp 16 07/07/23 08:31 BP 101/63 07/07/23 08:31 Pulse Ox 97 07/07/23 08:31 FiO2 Intake & Output 07/06/23 07/07/23 07/07/23 18:59 06:59 18:59 Intake Total 110 277 332 Output Total 2400 2600 1000 Balance -2290 -2323 -668 Weight 68.039 kg Intake: Oral 110 277 332 Output: Urine 2400 2600 1000 Other: Voiding Method Urinal # Voids 1 - Labs CBC & Chem 7: 07/05/23 19:21 07/06/23 07:55
[2023-07-07 12:18] VITALS: BP 100/58; PULSE 72
[2023-07-07 14:06] LABS: African American GFR (CKD) >90 (>60 ml/min/1.73 sqM); Anion Gap 6 mmol/L; Blood Urea Nitrogen 4 mg/dL (9-20); Calcium 8.3 mg/dL (8.4-10.2); Carbon Dioxide 19 mmol/L (22-30); Chloride 116 mmol/L (98-107); Glucose 89 mg/dL (74-99); Magnesium 1.9 mg/dL (1.6-2.3); Non-African American GFR(CKD) >90 (>60 ml/min/1.73 sqM); Sodium 141 mmol/L (137-145)
[2023-07-07 14:20] LABS: Creatine Kinase 2723 U/L (55-170)
--- NOTE | 2023-07-07 14:54 | P.DS ---
Providers Date of admission: 07/05/23 20:33 Expected date of discharge: 07/07/23 Attending physician: Yenifer Knox MD Consults: 07/05/23 20:33 Consult Physician Routine Consulting Provider: Natalie Crzu Consult Reason/Comments: rhabdo Do you want consulting provider notified?: Yes Primary care physician: Stated None Hospital Course: Discharge Diagnosis: Acute rhabdomyolysis secondary to polysubstance abuse Non-anion gap metabolic acidosis Polysubstance use Hospital Course: 27-year-old male with history of hepatitis C, polysubstance use initially presented to the hospital couple days ago for drug overdose, accompanied by police due to violating his parole he was found unconscious with a needle in his hand and his family bathroom responded briefly to Narcan and became hypotensive unresponsive in the ED and was intubated. Earlier today he was extubated and started feeling better and requested to leave AGAINST MEDICAL ADVICE despite counseling from his care team to stay in the hospital due to rhabdomyolysis. Patient insisted and managed to leave AGAINST MEDICAL ADVICE police was notified upon following protocol as patient has violated his parole earlier. Upon evaluation by the long-term nurse, they still needed medical clearance due to acute rhabdomyolysis for which she was sent back to the ER. On presentation, WBC was 10.8, hemoglobin 12.6, bicarb 19, creatinine 0.68, CK 15,900. On IV fluids. Nephrology also consulted. CK improved to 2000 with IV fluids. Patient adequate oral intake at the time of discharge. Patient seen and examined at bedside. Vital signs reviewed and stable. General: Nontoxic, no distress, appears at stated age Derm: Warm, dry Head: Atraumatic, normocephalic, symmetric Eyes: EOMI, no lid lag, anicteric sclera Mouth: No lip lesion, mucus membranes moist Cardiovascular: S1S2 reg, no murmur Lungs: CTA bilateral, no rhonchi, no rales, no accessory muscle use Abdominal: Soft, nontender to palpation, no guarding, no appreciable organomegaly Ext: No gross muscle atrophy, no edema, no contractures Neuro: CN II-XI grossly intact, no focal neuro deficits Psych: Alert, oriented, appropriate affect A total of 33 minutes of time were spent preparing this complex discharge summary. Patient was discharged on 07/07/2023 at 14: 52. Patient Condition at Discharge: Stable Plan - Discharge Summary Discharge Rx Participant: Yes New Discharge Prescriptions: Continue cloNIDine HCL [Catapres] 0.1 mg PO HS busPIRone HCL 15 mg PO TID Naloxone HCl [Narcan] 4 mg NASAL DIRECTED PRN #1 each PRN Reason: Opioid Reversal fluPHENAZine decanoate [Prolixin Decanoate] 25 mg IM Q14D #1 ml OLANZapine 20 mg PO HS Discharge Medication List fluPHENAZine decanoate [Prolixin Decanoate] 25 mg IM Q14D #1 ml 04/26/21 [Rx] OLANZapine 20 mg PO HS 07/03/23 [History] busPIRone HCL 15 mg PO TID 07/03/23 [History] cloNIDine HCL [Catapres] 0.1 mg PO HS 07/03/23 [History] Naloxone HCl [Narcan] 4 mg NASAL DIRECTED PRN #1 each 07/05/23 [Rx] Follow up Appointment(s)/Referral(s): None,Stated [Primary Care Provider] - 1-2 days Patient Instructions/Handouts: Rhabdomyolysis (DC) Discharge Disposition: DC/TRANSFER COURT/LAW
== END 2023-07-07 15:41 | DRG 351 ==
LOC: EC 18:07 → 3SCARD 20:33 → 4SSUR 22:21 → 3SCARD 22:23
PROVIDERS: ADMIT Internal Medicine; ATTEND Internal Medicine
DX: M62.82 Rhabdomyolysis (principal); T43.621A Poisoning by amphetamines, accidental (unintentional), initial encounter; J45.909 Unspecified asthma, uncomplicated; F19.10 Other psychoactive substance abuse, uncomplicated; I95.9 Hypotension, unspecified; F17.200 Nicotine dependence, unspecified, uncomplicated; F20.9 Schizophrenia, unspecified; F41.9 Anxiety disorder, unspecified; F60.2 Antisocial personality disorder; Z28.311 Partially vaccinated for COVID-19; Z28.21 Immunization not carried out because of patient refusal; Z79.899 Other long term (current) drug therapy; Z86.19 Personal history of other infectious and parasitic diseases; E78.5 Hyperlipidemia, unspecified
CPT/HCPCS: 36415; 80048; 82550; 83735; 85025; 93005; 96360; 96361; 99285

== ENCOUNTER 2023-09-08 | Inpatient (IN) | payer MEDICAID, OTHER ==
[2023-09-08 02:30] LABS: Basophils # (A) 0.1 k/uL (0-0.2); Basophils % (A) 1 %; Eosinophils # (A) 0.1 k/uL (0-0.7); Eosinophils % (A) 2 %; HCT 39.9 % (39.0-53.0); Lymphocytes # (A) 2.9 k/uL (1.0-4.8); Lymphocytes % (A) 41 %; MCH 29.6 pg (25.0-35.0); MCHC 32.7 g/dL (31.0-37.0); MCV 90.4 fL (80.0-100.0); Mean Platelet Volume 7.2; Monocytes # (A) 0.3 k/uL (0-1.0); Monocytes % (A) 5 %; Neutrophils # (A) 3.5 k/uL (1.3-7.7); Neutrophils % (A) 50 %; Platelet Count 244 k/uL (150-450); RBC 4.41 m/uL (4.30-5.90); WBC 6.9 k/uL (3.8-10.6)
--- NOTE | 2023-09-08 02:33 | ED ---
Psych HPI - General Chief Complaint: Psychiatric Symptoms Stated Complaint: Mental health Time Seen by Provider: 09/08/23 01:00 Source: patient Mode of arrival: ambulatory - History of Present Illness Initial Comments: Marc is a 27-year-old male well-known to our hospital for mental health concerns. Patient presents to the ER today with law enforcement after making suicidal statements. Patient states he is feeling depressed patient states he is going to "suicide" when asked if he had a specific plan patient states again he was going to "suicide" and then states that he would hang himself. - Related Data Home Medications Medication Instructions Recorded Confirmed OLANZapine 20 mg PO HS 07/03/23 09/08/23 busPIRone HCL 15 mg PO TID 07/03/23 09/08/23 cloNIDine HCL [Catapres] 0.1 mg PO HS 07/03/23 09/08/23 Previous Rx's Medication Instructions Recorded fluPHENAZine decanoate [Prolixin 25 mg IM Q14D #1 ml 04/26/21 Decanoate] Allergies Allergy/AdvReac Type Severity Reaction Status Date / Time bee venom protein (honey bee) Allergy Anaphylaxis Verified 09/08/23 11:49 Review of Systems ROS Statement: Those systems with pertinent positive or pertinent negative responses have been documented in the HPI. ROS Other: All systems not noted in ROS Statement are negative. Past Medical History Past Medical History: Asthma, Hyperlipidemia Additional Past Medical History / Comment(s): Depression, anxiety, anti social personality disorder, hepatitis C History of Any Multi-Drug Resistant Organisms: None Reported Past Surgical History: No Surgical Hx Reported Past Anesthesia/Blood Transfusion Reactions: No Reported Reaction Past Psychological History: Anxiety, Bipolar, Depression, Schizophrenia Smoking Status: Current every day smoker Past Alcohol Use History: Occasional Past Drug Use History: Heroin, IV Drug Use, Marijuana, Methamphetamine - Past Family History Mother Family Medical History: Unable to Obtain Additional Family Medical History / Comment(s): Patient reports that he knows nothing about his family General Exam - General Exam Comments Initial Comments: Physical Exam GENERAL: Patient is well-developed and well-nourished. Patient is nontoxic and well-hydrated and is in no distress. HENT: Normocephalic, Atraumatic. EYES: PERRL, EOMI PULMONARY: Unlabored respirations. CARDIOVASCULAR: RRR Warm and well perfused extremities ABDOMEN: Non-distended SKIN: No rashes or bruising : Deferred NEUROLOGIC: Alert and oriented Normal speech Normal gait MUSCULOSKELETAL: Moving all extremities with no apparent injury PSYCHIATRIC: Depressed Limitations: no limitations Course Vital Signs 09/08/23 09/08/23 09/08/23 00:16 00:24 14:55 Temperature 98.5 F 97.9 F 97.6 F Pulse Rate 75 85 Pulse Rate [ 81 Right] Respiratory 18 18 17 Rate Blood Pressure 119/78 107/66 Blood Pressure 121/71 [Right Arm] O2 Sat by Pulse 97 98 100 Oximetry Medical Decision Making - Medical Decision Making Was pt. sent in by a medical professional or institution (, PA, SCREEN PRINTING MACHINE LOADER UNLOADER, urgent care, hospital, or alf...) When possible be specific @ -No Did you speak to anyone other than the patient for history (EMS, parent, family, police, friend...)? What history was obtained from this source @ -Law enforcement Did you review nursing and triage notes (agree or disagree)? Why? @ -I reviewed and agree with nursing and triage notes Were old charts reviewed (outside hosp., previous admission, EMS record, old EKG, old radiological studies, urgent care reports/EKG's, alf records)? Report findings @ -No old charts were reviewed Differential Diagnosis (chest pain, altered mental status, abdominal pain women, abdominal pain men, vaginal bleeding, weakness, fever, dyspnea, syncope, headache, dizziness, GI bleed, back pain, seizure, CVA, palpatations, mental health)? @ -Differential Mental Health Depression, anxiety, bipolar, psychosis, schizophrenia, borderline personality, situational depression, adjustment disorder, behavioral disorder, brain tumor, malingering, substance abuse, encephalopathy, medication reaction, dementia, hypothyroidism, degenerative neurologic disorder, lupus.... This is not meant to be all-inclusive list EKG interpreted by me (3pts min.). @ -As above X-rays interpreted by me (1pt min.). @ -None done CT interpreted by me (1pt min.). @ -None done U/S interpreted by me (1pt. min.). @ -None done What testing was considered but not performed or refused? (CT, X-rays, U/S, labs)? Why? @ -None What meds were considered but not given or refused? Why? @ -None Did you discuss the management of the patient with other professionals (professionals i.e. , PA, SCREEN PRINTING MACHINE LOADER UNLOADER, lab, RT, psych nurse, psychosocial rehabilitation counselor, bottom scrubber, teacher, branch officer, comp field case manager)? Give summary @ -No Was smoking cessation discussed for >3mins.? @ -No Was critical care preformed (if so, how long)? @ -No Were there social determinants of health that impacted care today? How? (Homelessness, low income, unemployed, alcoholism, drug addiction, transportation, low edu. Level, literacy, decrease access to med. care, residential, rehab)? @ -No Was there de-escalation of care discussed even if they declined (Discuss DNR or withdrawal of care, Hospice)? DNR status @ -No What co-morbidities impacted this encounter? (DM, HTN, Smoking, COPD, CAD, Cancer, CVA, ARF, Chemo, Hep., AIDS, mental health diagnosis, sleep apnea, morbid obesity)? @ -Mental health diagnosis Was patient admitted / discharged? Hospital course, mention meds given and route, prescriptions, significant lab abnormalities, going to OR and other pertinent info. @ -Patient was seen and evaluated patient is medically cleared for evaluation by EPS, EPS nurse came to bedside patient is open with [facility]. They plan to reach out to the ACT team in the morning to coordinate care. Disposition pending coordination of care. - Lab Data Result diagrams: 09/08/23 02:22 09/08/23 02:22 Lab Results 09/08/23 09/08/23 09/08/23 Range/Units 02:22 02:22 02:22 WBC 6.9 (3.8-10.6) k/uL RBC 4.41 (4.30-5.90) m/uL Hgb 13.0 (13.0-17.5) gm/dL Hct 39.9 (39.0-53.0) % MCV 90.4 (80.0-100.0) fL MCH 29.6 (25.0-35.0) pg MCHC 32.7 (31.0-37.0) g/dL RDW 13.0 (11.5-15.5) % Plt Count 244 (150-450) k/uL MPV 7.2 Neutrophils % 50 % Lymphocytes % 41 % Monocytes % 5 % Eosinophils % 2 % Basophils % 1 % Neutrophils # 3.5 (1.3-7.7) k/uL Lymphocytes # 2.9 (1.0-4.8) k/uL Monocytes # 0.3 (0-1.0) k/uL Eosinophils # 0.1 (0-0.7) k/uL Basophils # 0.1 (0-0.2) k/uL Sodium 139 (137-145) mmol/L Potassium 3.4 L (3.5-5.1) mmol/L Chloride 112 H (98-107) mmol/L Carbon Dioxide 23 (22-30) mmol/L Anion Gap 4 mmol/L BUN 8 L (9-20) mg/dL Creatinine 0.66 (0.66-1.25) mg/dL Est GFR (CKD-EPI)AfAm >90 (>60 ml/min/1.73 sqM) Est GFR (CKD-EPI)NonAf >90 (>60 ml/min/1.73 sqM) Glucose 107 H (74-99) mg/dL Estimated Ave Glu mg/dL mg/dL Hemoglobin A1c (<=6.0) % Calcium 8.7 (8.4-10.2) mg/dL Total Bilirubin 0.1 L (0.2-1.3) mg/dL AST 23 (17-59) U/L ALT 23 (4-49) U/L Alkaline Phosphatase 83 (38-126) U/L Total Protein 6.0 L (6.3-8.2) g/dL Albumin 3.5 (3.5-5.0) g/dL Triglycerides (0.00-149.00) mg/dL Cholesterol (0.00-200.00) mg/dL LDL Cholesterol, Calc (0.0-131.0) mg/dL VLDL Cholesterol, Calc (5.00-40.00) mg/dL HDL Cholesterol (40.00-60.00) mg/dL Cholesterol/HDL Ratio Ratio TSH (0.465-4.680) mIU/L Urine Color Colorless Urine Appearance Clear (Clear) Urine pH 7.0 (5.0-8.0) Ur Specific [place] 1.006 (1.001-1.035) Urine Protein Negative (Negative) Urine Glucose (UA) Negative (Negative) Urine Ketones Negative (Negative) Urine Blood Negative (Negative) Urine Nitrite Negative (Negative) Urine Bilirubin Negative (Negative) Urine Urobilinogen <2.0 (<2.0) mg/dL Ur Leukocyte Esterase Negative (Negative) Salicylates <1.0 mg/dL Urine Opiates Screen Not Detected (NotDetected) Ur Oxycodone Screen Not Detected (NotDetected) Urine Methadone Screen Not Detected (NotDetected) Acetaminophen <10.0 ug/mL Ur Barbiturates Screen Not Detected (NotDetected) U Tricyclic Antidepress Not Detected (NotDetected) Ur Phencyclidine Scrn Not Detected (NotDetected) Ur Amphetamines Screen Detected H (NotDetected) U Methamphetamines Scrn Not Detected (NotDetected) U Benzodiazepines Scrn Not Detected (NotDetected) Urine Cocaine Screen Not Detected (NotDetected) U Marijuana (THC) Screen Detected H (NotDetected) Serum Alcohol <10 mg/dL SARS-CoV-2 (PCR) (Not Detectd) 09/08/23 09/08/23 09/08/23 Range/Units 02:22 02:22 13:43 WBC (3.8-10.6) k/uL RBC (4.30-5.90) m/uL Hgb (13.0-17.5) gm/dL Hct (39.0-53.0) % MCV (80.0-100.0) fL MCH (25.0-35.0) pg MCHC (31.0-37.0) g/dL RDW (11.5-15.5) % Plt Count (150-450) k/uL MPV Neutrophils % % Lymphocytes % % Monocytes % % Eosinophils % % Basophils % % Neutrophils # (1.3-7.7) k/uL Lymphocytes # (1.0-4.8) k/uL Monocytes # (0-1.0) k/uL Eosinophils # (0-0.7) k/uL Basophils # (0-0.2) k/uL Sodium (137-145) mmol/L Potassium (3.5-5.1) mmol/L Chloride (98-107) mmol/L Carbon Dioxide (22-30) mmol/L Anion Gap mmol/L BUN (9-20) mg/dL Creatinine (0.66-1.25) mg/dL Est GFR (CKD-EPI)AfAm (>60 ml/min/1.73 sqM) Est GFR (CKD-EPI)NonAf (>60 ml/min/1.73 sqM) Glucose (74-99) mg/dL Estimated Ave Glu mg/dL 100 mg/dL Hemoglobin A1c 5.1 (<=6.0) % Calcium (8.4-10.2) mg/dL Total Bilirubin (0.2-1.3) mg/dL AST (17-59) U/L ALT (4-49) U/L Alkaline Phosphatase (38-126) U/L Total Protein (6.3-8.2) g/dL Albumin (3.5-5.0) g/dL Triglycerides 159.00 H (0.00-149.00) mg/dL Cholesterol 138.00 (0.00-200.00) mg/dL LDL Cholesterol, Calc 68.2 (0.0-131.0) mg/dL VLDL Cholesterol, Calc 31.80 (5.00-40.00) mg/dL HDL Cholesterol 38.00 L (40.00-60.00) mg/dL Cholesterol/HDL Ratio 3.63 Ratio TSH 1.030 (0.465-4.680) mIU/L Urine Color Urine Appearance (Clear) Urine pH (5.0-8.0) Ur Specific [place] (1.001-1.035) Urine Protein (Negative) Urine Glucose (UA) (Negative) Urine Ketones (Negative) Urine Blood (Negative) Urine Nitrite (Negative) Urine Bilirubin (Negative) Urine Urobilinogen (<2.0) mg/dL Ur Leukocyte Esterase (Negative) Salicylates mg/dL Urine Opiates Screen (NotDetected) Ur Oxycodone Screen (NotDetected) Urine Methadone Screen (NotDetected) Acetaminophen ug/mL Ur Barbiturates Screen (NotDetected) U Tricyclic Antidepress (NotDetected) Ur Phencyclidine Scrn (NotDetected) Ur Amphetamines Screen (NotDetected) U Methamphetamines Scrn (NotDetected) U Benzodiazepines Scrn (NotDetected) Urine Cocaine Screen (NotDetected) U Marijuana (THC) Screen (NotDetected) Serum Alcohol mg/dL SARS-CoV-2 (PCR) Not Detected (Not Detectd) Disposition Clinical Impression: Depressed Disposition: TRANSFER TO PSYCH HOSP/UNIT Condition: Serious Is patient prescribed a controlled substance at d/c from ED?: No
[2023-09-08 02:43] LABS: ALT 23 U/L (4-49); AST 23 U/L (17-59); Acetaminophen <10.0 ug/mL; African American GFR (CKD) >90 (>60 ml/min/1.73 sqM); Albumin 3.5 g/dL (3.5-5.0); Alcohol <10 mg/dL; Alkaline Phosphatase 83 U/L (38-126); Anion Gap 4 mmol/L; Blood Urea Nitrogen 8 mg/dL (9-20); Calcium 8.7 mg/dL (8.4-10.2); Carbon Dioxide 23 mmol/L (22-30); Chloride 112 mmol/L (98-107); Glucose 107 mg/dL (74-99); Non-African American GFR(CKD) >90 (>60 ml/min/1.73 sqM); Potassium 3.4 mmol/L (3.5-5.1); Salicylate <1.0 mg/dL; Sodium 139 mmol/L (137-145); Total Bilirubin 0.1 mg/dL (0.2-1.3)
[2023-09-08 02:44] LABS: Amphetamine Screen,Urine Detected (NotDetected); Barbiturate Screen,Urine Not Detected (NotDetected); Benzodiazepines Screen,Urine Not Detected (NotDetected); Cocaine Screen,Urine Not Detected (NotDetected); Methadone Screen, Urine Not Detected (NotDetected); Opiate Screen,Urine Not Detected (NotDetected); Oxycodone Screen, Urine Not Detected (NotDetected); Phencyclidine Screen,Urine Not Detected (NotDetected); Tricyclic Antidepressant,Urine Not Detected (NotDetected); Urn Cannabinoid Scrn Detected (NotDetected)
[2023-09-08 02:46] LABS: Appearance,Urine Clear (Clear); Bilirubin,Urine Negative (Negative); Blood,Urine Negative (Negative); Color,Urine Colorless; Glucose,Urine (UA) Negative (Negative); Ketones,Urine Negative (Negative); Leukocyte Esterase,Urine Negative (Negative); Nitrite,Urine Negative (Negative); Protein,Urine Negative (Negative); Specific Gravity,Urine 1.006 (1.001-1.035); Urobilinogen,Urine <2.0 mg/dL (<2.0)
[2023-09-08] MEDS ORDERED: haloperidoL 5 MG TAB PO PRN (15:01)
[2023-09-08] MEDS ORDERED: ACETAMINOPHEN TAB 325 MG TAB PO PRN (15:01)
[2023-09-08] MEDS ORDERED: HALOPERIDOL LACTATE 5 MG/ML 1 ML VIAL IM PRN (15:01)
[2023-09-08] MEDS ORDERED: LORazepam 2 MG/ML INJ IM PRN (15:01)
[2023-09-08] MEDS ORDERED: MAG HYDROX/AL HYDROX/SIMETH 355 ML BOTTLE PO PRN (15:01)
[2023-09-08] MEDS ORDERED: IBUPROFEN 600 MG TAB PO PRN (15:01)
[2023-09-08] MEDS ORDERED: MAGNESIUM HYDROXIDE 2,400 MG/30 ML CUP PO PRN (15:01)
[2023-09-08] MEDS: LORazepam 1 MG TAB PO PRN (16:04)
[2023-09-08] MEDS: NICOTINE 21MG/24HR PATCH TRANSDERM SCH (16:04)
[2023-09-08] MEDS: busPIRone HCl 5 MG TAB PO SCH (16:04)
[2023-09-08] MEDS: cloNIDine HCL 0.1 MG TAB PO SCH (20:59)
[2023-09-08] MEDS: OLANZapine 10 MG TAB PO SCH (21:00)
[2023-09-09 11:47] LABS: Chol/HDL Ratio 3.63 Ratio; LDL Cholesterol,Calculated 68.2 mg/dL (0.0-131.0)
--- NOTE | 2023-09-09 12:18 | P.HP ---
Psychiatric H&P - . H&P Date: 09/09/23 History & Physical: Allergies Allergy/AdvReac Type Severity Reaction Status Date / Time bee venom protein (honey bee) Allergy Anaphylaxis Verified 09/08/23 11:49 Vital Signs Temp 97.4 F L 09/08/23 16:18 Pulse 73 09/08/23 16:18 Resp 20 09/08/23 16:18 BP 111/53 09/08/23 16:18 Pulse Ox 98 09/08/23 16:18 FiO2 Intake & Output 09/08/23 09/09/23 09/09/23 18:59 06:59 18:59 Weight 67.6 kg Laboratory Last Values WBC 6.9 k/uL (3.8-10.6) 09/08/23 02:22 RBC 4.41 m/uL (4.30-5.90) 09/08/23 02:22 Hgb 13.0 gm/dL (13.0-17.5) 09/08/23 02:22 Hct 39.9 % (39.0-53.0) 09/08/23 02:22 MCV 90.4 fL (80.0-100.0) 09/08/23 02:22 MCH 29.6 pg (25.0-35.0) 09/08/23 02:22 MCHC 32.7 g/dL (31.0-37.0) 09/08/23 02:22 RDW 13.0 % (11.5-15.5) 09/08/23 02:22 Plt Count 244 k/uL (150-450) 09/08/23 02:22 MPV 7.2 09/08/23 02:22 Neutrophils % 50 % 09/08/23 02:22 Lymphocytes % 41 % 09/08/23 02:22 Monocytes % 5 % 09/08/23 02:22 Eosinophils % 2 % 09/08/23 02:22 Basophils % 1 % 09/08/23 02:22 Neutrophils # 3.5 k/uL (1.3-7.7) 09/08/23 02:22 Lymphocytes # 2.9 k/uL (1.0-4.8) 09/08/23 02:22 Monocytes # 0.3 k/uL (0-1.0) 09/08/23 02:22 Eosinophils # 0.1 k/uL (0-0.7) 09/08/23 02:22 Basophils # 0.1 k/uL (0-0.2) 09/08/23 02:22 Sodium 139 mmol/L (137-145) 09/08/23 02:22 Potassium 3.4 mmol/L (3.5-5.1) L 09/08/23 02:22 Chloride 112 mmol/L (98-107) H 09/08/23 02:22 Carbon Dioxide 23 mmol/L (22-30) 09/08/23 02:22 Anion Gap 4 mmol/L 09/08/23 02:22 BUN 8 mg/dL (9-20) L 09/08/23 02:22 Creatinine 0.66 mg/dL (0.66-1.25) 09/08/23 02:22 Est GFR (CKD-EPI)AfAm >90 (>60 ml/min/1.73 sqM) 09/08/23 02:22 Est GFR (CKD-EPI)NonAf >90 (>60 ml/min/1.73 sqM) 09/08/23 02:22 Glucose 107 mg/dL (74-99) H 09/08/23 02:22 Calcium 8.7 mg/dL (8.4-10.2) 09/08/23 02:22 Total Bilirubin 0.1 mg/dL (0.2-1.3) L 09/08/23 02:22 AST 23 U/L (17-59) 09/08/23 02:22 ALT 23 U/L (4-49) 09/08/23 02:22 Alkaline Phosphatase 83 U/L (38-126) 09/08/23 02:22 Total Protein 6.0 g/dL (6.3-8.2) L 09/08/23 02:22 Albumin 3.5 g/dL (3.5-5.0) 09/08/23 02:22 TSH 1.030 mIU/L (0.465-4.680) 09/08/23 02:22 Urine Color Colorless 09/08/23 02:22 Urine Appearance Clear (Clear) 09/08/23 02:22 Urine pH 7.0 (5.0-8.0) 09/08/23 02:22 Ur Specific [place] 1.006 (1.001-1.035) 09/08/23 02:22 Urine Protein Negative (Negative) 09/08/23 02:22 Urine Glucose (UA) Negative (Negative) 09/08/23 02:22 Urine Ketones Negative (Negative) 09/08/23 02:22 Urine Blood Negative (Negative) 09/08/23 02:22 Urine Nitrite Negative (Negative) 09/08/23 02:22 Urine Bilirubin Negative (Negative) 09/08/23 02:22 Urine Urobilinogen <2.0 mg/dL (<2.0) 09/08/23 02:22 Ur Leukocyte Esterase Negative (Negative) 09/08/23 02:22 Salicylates <1.0 mg/dL 09/08/23 02:22 Urine Opiates Screen Not Detected (NotDetected) 09/08/23 02:22 Ur Oxycodone Screen Not Detected (NotDetected) 09/08/23 02:22 Urine Methadone Screen Not Detected (NotDetected) 09/08/23 02:22 Acetaminophen <10.0 ug/mL 09/08/23 02:22 Ur Barbiturates Screen Not Detected (NotDetected) 09/08/23 02:22 U Tricyclic Antidepress Not Detected (NotDetected) 09/08/23 02:22 Ur Phencyclidine Scrn Not Detected (NotDetected) 09/08/23 02:22 Ur Amphetamines Screen Detected (NotDetected) H 09/08/23 02:22 U Methamphetamines Scrn Not Detected (NotDetected) 09/08/23 02:22 U Benzodiazepines Scrn Not Detected (NotDetected) 09/08/23 02:22 Urine Cocaine Screen Not Detected (NotDetected) 09/08/23 02:22 U Marijuana (THC) Screen Detected (NotDetected) H 09/08/23 02:22 Serum Alcohol <10 mg/dL 09/08/23 02:22 SARS-CoV-2 (PCR) Not Detected (Not Detectd) 09/08/23 13:43 09/09/23 09:36 IDENTIFYING DATA: Patient is a 27-year-old male, currently homeless HPI: Patient presented to the hospital on 09/07. As per EPS note, "[facility] brought [facility] by [facility] on a petition which states "Marc told me he wanted to kill himself by hanging himself". Upon entering the room, patient laying on stretcher with blanket over face- patient reluctant to take blanket off face to talk to jingle writer. Upon consistent prompting, patient stated "I was on [address] in [place] and called the police". Patient states "I'm suicidal". Patient provides minimal information, consistent one word responses.. Upon questioning if patient has a plan, patient stated "I'd hang myself". Patient has a history of suicidal attempts with with last one in June 2023 as an overdose. Patient meets with ACT team 1x q week and last met with them 08/27/23 and received MORAN fluphenazine D q 2 wks with next due 09/10/23. Patient denies A/VH. Patient suicidal with a plan stating he became suicidal "a couple of days ago". No delusional thought present. Patient states he has not been compliant with oral medication for the last week because "I can't be dosing off places and then they call on me and I go back to [facility] for loitering". Patient initially stated he was "opal" homicidal. When asked if patient had a specific target he said "No, I'm not really homicidal". Patient has [facility] Public Guardian and does not have support from friends or any relations with family. Patient unable to safety plan". Patient admits to having SI, no current plan. homicidal ideations intent or plan. At this time patient denies any auditory or visual hallucinations. Patient denies any flight of ideas racing thoughts and increased in goal directed behavior. Patient was positive for amphetamines and thc in UDS. PAST PSYCHIATRIC HISTORY: Schizoaffective disorder bipolar type, methamphetamine abuse, polysubstance abuse, intellectual disability, lithium overdose, mild mental retardation Hospitalizations: He has been to multiple hospitals, hospitalized multiple times. Outpatient: Dr Moffett, [facility] ACT team PMH:As per ER note ALLERGIES: as per EMR CHEMICAL DEPENDENCY HISTORY: as per HPI FAMILY PSYCHIATRIC/SUBSTANCE USE HISTORY: [denies] SOCIAL HISTORY: Patient is currently homeless. Patient has a guardian. MENTAL STATUS EXAM: General Appearance: Patient is a slender male appears to be stated age. Orientation: He is alert, He is oriented to person and situation. Time and place could not be evaluated due to his lack of cooperation. Patient appears to have poor hygiene and grooming. Behavior: Patient is laying in bed and easily becomes hostile. no eye contact. covered completely by blankets Speech: Patient's speech is loud, intimidating and nonpressured. irritated Mood/Affect: Patient is irritated, affect is congruent Suicidality/Homicidality: Patient is not cooperative with this assessment. Perceptions: Patient is not cooperative with this assessment. Though content/process: Confrontational, argumentative. Memory and concentration: he is not cooperative with this assessment Judgment and insight: chronically poor STRENGTHS/WEAKNESSES: strength is that patient is [resilient]. Weakness is that patient [has poor judgment and is impulsive] INTELLECT: [average] IMPRESSIONS: Schizoaffective disorder bipolar type Methamphetamine use disorder [nicotine dependance] [cannabis use disorder] PLAN: -Patient is admitted under [involuntary] status to MHU for stabilization of psychiatric symptoms and safety. Patient has [not] signed [adult voluntary form or medication consent] and is placed in patient's chart. [A second certification was completed and along with petition will be filed for court.] -Medications : Will start patient on buspar 15mg tid for anxiety, zyprexa 20mg po qhs for psychosis/adjunct/insomnia, prolixin deconate 25mg IM q 14 days, last dose, 08/26, next due 09/09, will consider adding antidepressant -Ativan [and Haldol] PRN for agitation/aggression [-Patient was counselled on substance abuse and desired to cut back on use] -Patient was informed of the risks, benefits and side effects of the medication -Internal Medicine consult to perform medical evaluation and physical. -NRT - [nicotine patch] -SW on board for discharge planning. Encourage patient to participate in groups to work on coping skills. Will await deferral and court date.
--- NOTE | 2023-09-10 00:12 | P.PN ---
Progress Note - Text Progress Note Date: 09/09/23 attempted to perform medical eval and exam, patient started yelling and using offensive foul language. could not proceed with the evaluation
--- NOTE | 2023-09-10 10:22 | P.PN ---
Progress Note - Text Progress Note Date: 09/10/23 Interval History: Patient was seen in his room, and was not agreeable to speak with mortgage or loan underwriter. Mamie ent was laying in bed, and when approached, patient stated, "Fuck you, man, I fucking hate talking, and I do not want to fucking talk to you!" Patient denies any side effects from the medications and has been compliant with meds. MENTAL STATUS EXAM: General Appearance: Patient is a slender male appears to be stated age. Poor hygiene, disheveled Orientation: He is alert, He is oriented to person and situation. Time and place could not be evaluated due to his lack of cooperation. Behavior: Patient is laying in bed and easily becomes hostile. no eye contact. covered completely by blankets, yelling and swearing Speech: Patient's speech is loud, intimidating and nonpressured. irritated Mood/Affect: Patient is irritated, affect is congruent Suicidality/Homicidality: Patient is not cooperative with this assessment. Perceptions: Patient is not cooperative with this assessment. Though content/process: Confrontational, argumentative. Memory and concentration: he is not cooperative with this assessment Judgment and insight: chronically poor IMPRESSIONS: Schizoaffective disorder bipolar type Methamphetamine use disorder Nicotine dependance Cannabis use disorder PLAN: -Patient is admitted under involuntary status to MHU for stabilization of psychiatric symptoms and safety. Patient has not signed adult voluntary form or medication consent and is placed in patient's chart. -Medications : increase buspar 30mg bid for anxiety, zyprexa 20mg po qhs for psychosis/adjunct/insomnia, prolixin deconate 25mg IM q 14 days, last dose, 08/26, next due 09/09, add Lithobid 450mg daily for mood/aggression -Ativan and Haldol PRN for agitation/aggression -NRT -nicotine patch - on board for discharge planning. Encourage patient to participate in groups to work on coping skills. Will await deferral and court date.
[2023-09-10] MEDS: LITHIUM CARBONATE ER 450 MG TABLET.ER PO SCH (11:25)
[2023-09-10] MEDS: POTASSIUM CHLORIDE ER 20 MEQ TAB.ER PO STA (11:25)
[2023-09-10] MEDS: busPIRone HCl 10 MG TAB PO SCH (21:32)
[2023-09-11 09:52] VITALS: RESP 16
--- NOTE | 2023-09-11 11:11 | P.PN ---
Progress Note - Text Progress Note Date: 09/11/23 Interval History: Patient was seen in his room, and was agreeable to speak with insurance underwriter sales today. Antonio hiro was laying in bed, mildly agitated. Patient stated that he is tired, but doing a bit better today in terms of his mood and anxiety. He stated he "kind of slept" last night, and his appetite is good. Patient became agitated at the interview continued, stating that the [place] [facility] going [facility] in 4 days, and he is not allowed to go back to his friends house. Will have social work look into options for discharge. difficult to comprehend patients answers. Patient denies any side effects from the medications and has been compliant with meds. he is denying any AH or VH and denies any SI or HI MENTAL STATUS EXAM: General Appearance: Patient is a slender male appears to be stated age. Poor hygiene, disheveled Orientation: He is alert, He is oriented to person and situation. Time and place could not be evaluated due to his lack of cooperation. Behavior: Patient is laying in bed and easily becomes hostile. no eye contact. covered completely by blankets, yelling and swearing Speech: Patient's speech is loud, intimidating and nonpressured. irritated Mood/Affect: Patient is irritated, affect is congruent Suicidality/Homicidality: denies HI/SI Perceptions: Patient is not cooperative with this assessment. Though content/process: Confrontational, argumentative. mildly improving Memory and concentration: he is not cooperative with this assessment Judgment and insight: chronically poor IMPRESSIONS: Schizoaffective disorder bipolar type Methamphetamine use disorder Nicotine dependance Cannabis use disorder PLAN: -Patient is admitted under involuntary status to MHU for stabilization of psychiatric symptoms and safety. Patient has not signed adult voluntary form or medication consent and is placed in patient's chart. -Medications : buspar 30mg bid for anxiety, zyprexa 20mg po qhs for psychosis/adjunct/insomnia, will give prolixin deconate today at increased dose 37.5mg IM q 14 days, last dose, 08/26,Lithobid 450mg qhs for mood/aggression -Ativan and Haldol PRN for agitation/aggression -NRT -nicotine patch -SW on board for discharge planning. Encourage patient to participate in groups to work on coping skills. Will await deferral tomorrow. likely discharge in 2-3 days if patient improves, he is homeless
[2023-09-11] MEDS: fluPHENAZine DECANOATE 25 MG/ML 5ML MDV IM SCH (20:52)
[2023-09-11] MEDS: LITHIUM CARBONATE ER 450 MG TABLET.ER PO SCH (20:53)
--- NOTE | 2023-09-12 01:49 | P.PN ---
Progress Note - Text Progress Note Date: 09/12/23 patient continues to be aggressive and impulsive, could not be evaluated at this time
--- NOTE | 2023-09-12 10:30 | P.PN ---
Progress Note - Text Progress Note Date: 09/12/23 Interval History: Patient was seen in his room, and was agreeable to speak with copywriter today. Antonio bosch was laying in bed, and sat up when copywriter came in. Patient stated that he feels a bit better today. He states he slept well last night, and his appetite is good. He does not go to groups, and isolates to his room. He did receive his MORAN yesterday, with his next dose due 09/24. Patient is homeless, and the local [facility]. Will have social work look into options for discharge. he claims that he may have a "girl" in [place] who will let him stay there however he beleives his gaurdian will not approve it. Patient does not speak fluently, and it is difficult to comprehend patients answers. Patient denies any side effects from the medications and has been compliant with meds. he is denying any AH or VH and denies any SI or HI MENTAL STATUS EXAM: General Appearance: Patient is a slender male appears to be stated age. Poor hygiene, disheveled Orientation: He is alert, He is oriented to person and situation. Time and place could not be evaluated due to his lack of cooperation. Behavior: Patient is laying in bed and easily becomes irritable. no eye contact. less angry today Speech: Patient's speech is loud, intimidating and nonpressured. irritated, mildly improving Mood/Affect: Patient is irritated, affect is congruent Suicidality/Homicidality: denies HI/SI Perceptions: Patient is not cooperative with this assessment. Though content/process: Confrontational, argumentative. mildly improving Memory and concentration: he is not cooperative with this assessment Judgment and insight: chronically poor IMPRESSIONS: Schizoaffective disorder bipolar type Methamphetamine use disorder Nicotine dependance Cannabis use disorder PLAN: -Patient is admitted under involuntary status to MHU for stabilization of psychiatric symptoms and safety. Patient has not signed adult voluntary form or medication consent and is placed in patient's chart. -Medications : buspar 30mg bid for anxiety, zyprexa 20mg po qhs for psychosis/adjunct/insomnia, prolixin deconate 09/10 at increased dose 37.5mg IM q 14 days, last dose, 08/26, next dose due 09/24, Lithobid 450mg qhs for mood/aggression -Ativan and Haldol PRN for agitation/aggression -NRT -nicotine patch -SW on board for discharge planning. Encourage patient to participate in groups to work on coping skills. Deferral is today, full hearing is 09/17. Likely discharge Saturday, if patient defers.
--- NOTE | 2023-09-13 11:08 | P.PN ---
Progress Note - Text Progress Note Date: 09/13/23 Interval History: Patient was seen in his room, and was agreeable to speak with administrative underwriter today. Antonio hiro was laying in bed, appeared very irritable today. He was yelling at this administrative underwriter, and said he has no where to go when he is discharged. Said everyone he knows has disowned him. He did receive his MORAN 09/10, with his next dose due 09/24. Will have social work look into options for discharge. An email was sent to the guardians office from social media project manager to discuss placement options. Patient does not speak fluently, and it is difficult to comprehend patients answers. Patient chased after administrative underwriter when I left his room, because I left his door open. Patient was yelling and swearing at this administrative underwriter. Patient denies any side effects from the medications and has been compliant with meds. he is denying any AH or VH and denies any SI or HI. MENTAL STATUS EXAM: General Appearance: Patient is a slender male appears to be stated age. Poor hygiene, disheveled Orientation: He is alert, He is oriented to person and situation. Time and place could not be evaluated due to his lack of cooperation. Behavior: Patient is laying in bed and easily becomes irritable. no eye contact. easily irritated. Speech: Patient's speech is loud, intimidating and nonpressured. irritated, mildly improving Mood/Affect: Patient is irritated, affect is congruent Suicidality/Homicidality: denies HI/SI Perceptions: Patient is not cooperative with this assessment. Though content/process: Confrontational, argumentative. mildly improving Memory and concentration: he is not cooperative with this assessment Judgment and insight: chronically poor IMPRESSIONS: Schizoaffective disorder bipolar type Methamphetamine use disorder Nicotine dependance Cannabis use disorder PLAN: -Patient is admitted under involuntary status to MHU for stabilization of psychiatric symptoms and safety. Patient has not signed adult voluntary form or medication consent and is placed in patient's chart. -Medications : buspar 30mg bid for anxiety, zyprexa 20mg po qhs for psychosis/adjunct/insomnia, prolixin deconate 09/10 at increased dose 37.5mg IM q 14 days, last dose, 08/26, next dose due 09/24, Lithobid 450mg qhs for mood/aggression -Ativan and Haldol PRN for agitation/aggression -NRT -nicotine patch -SW on board for discharge planning. Encourage patient to participate in groups to work on coping skills. patient deferred on 09/11, Likely discharge Saturday, patient is currently homeless, guardian approves placement.
[2023-09-13] MEDS: busPIRone HCl 10 MG TAB PO SCH (20:31)
--- NOTE | 2023-09-14 14:13 | P.PN ---
Subjective Progress Note Date: 09/14/23 Principal diagnosis: IMPRESSIONS: Schizoaffective disorder bipolar type Methamphetamine use disorder Nicotine dependance Cannabis use disorder Patient Name: Marc Layton Date of : 89 Patient Status: Inpatient Attending Provider: Raman Kern Date: 09/14/2023 initialization Date: 09/13/23 08:41 Subjective data: The patient was laying in bed and was able to be aroused Patient however turned around and went back to sleep stating that he wanted to be left alone Patient refused to give any other answers Chart review reveals the following information: He did receive his MORAN 09/10, with his next dose due 09/24. Will have social work look into options for discharge. An email was sent to the guardians office from hospice social worker to discuss placement options. Patient does not speak fluently, and it is difficult to comprehend patients answers. Patient chased after engineering writer when I left his room, because I left his door open. Patient was yelling and swearing at this engineering writer. Patient denies any side effects from the medications and has been compliant with meds. he is denying any AH or VH and denies any SI or HI. MENTAL STATUS EXAM: General Appearance: Patient is a slender male appears to be stated age. Poor hygiene, disheveled Orientation: He is alert, He is oriented to person and situation. Time and place could not be evaluated due to his lack of cooperation. Behavior: Patient is laying in bed and easily becomes irritable. no eye contact. easily irritated. Speech: Patient's speech is loud, intimidating and nonpressured. irritated, mildly improving Mood/Affect: Patient is irritated, affect is congruent Suicidality/Homicidality: denies HI/SI Perceptions: Patient is not cooperative with this assessment. Though content/process: Confrontational, argumentative. mildly improving Memory and concentration: he is not cooperative with this assessment Judgment and insight: chronically poor IMPRESSIONS: Schizoaffective disorder bipolar type Methamphetamine use disorder Nicotine dependance Cannabis use disorder PLAN: -Patient is admitted under involuntary status to MHU for stabilization of psychiatric symptoms and safety. Patient has not signed adult voluntary form or medication consent and is placed in patient's chart. -Medications : buspar 30mg bid for anxiety, zyprexa 20mg po qhs for psychosis/adjunct/insomnia, prolixin deconate 09/10 at increased dose 37.5mg IM q 14 days, last dose, 08/26, next dose due 09/24, Lithobid 450mg qhs for mood/aggression -Ativan and Haldol PRN for agitation/aggression -NRT -nicotine patch -SW on board for discharge planning. Encourage patient to participate in groups to work on coping skills. patient deferred on 09/11, Likely discharge Saturday, patient is currently homeless, guardian approves placement. We will continue current treatment Eliot Ramirez MD Objective - Vital Signs Vital signs: Vital Signs Temp 97.0 F L 09/11/23 09:27 Pulse 91 09/12/23 08:23 Resp 16 09/11/23 09:27 BP 136/76 09/12/23 08:23 Pulse Ox 95 09/10/23 07:12 FiO2 - Labs CBC & Chem 7: 09/08/23 02:22 09/08/23 02:22
--- NOTE | 2023-09-15 09:21 | P.PN ---
Subjective Progress Note Date: 09/15/23 Patient Name: Marc Layton Date of : [birth year] Patient Status: Inpatient Attending Provider: Raman Kern Date: 09/15/2023 Initialization Date: 09/13/23 08:41 Interval History: The patient was seen chart was reviewed and case discussed with nursing staff The patient agreed to talk to this underwriter mortgage loan but remains very vague and superficial He admits that he will be getting his check next week and is hoping to go to a hotel Affect at this time appears to be flat Thinking remains very concrete and simple no agitation or aggression reported MENTAL STATUS EXAM: General Appearance: Patient is a slender male appears to be stated age. Poor hygiene, disheveled Orientation: He is alert, He is oriented to person and situation. Behavior: Patient is cooperative Speech: Patient's speech is loud, intimidating and nonpressured. irritated, mildly improving Mood/Affect: Patient is irritated, affect is congruent Suicidality/Homicidality: denies HI/SI Perceptions: Patient is not cooperative with this assessment. Though content/process: Champion goal directed cooperative Memory and concentration: he is not operative with this assessment Judgment and insight: chronically poor IMPRESSIONS: Schizoaffective disorder bipolar type Methamphetamine use disorder Nicotine dependance Cannabis use disorder PLAN: -Patient is admitted under involuntary status to MHU for stabilization of psychiatric symptoms and safety. Patient has not signed adult voluntary form or medication consent and is placed in patient's chart. -Medications : buspar 30mg bid for anxiety, zyprexa 20mg po qhs for psychosis/adjunct/insomnia, prolixin deconate 09/10 at increased dose 37.5mg IM q 14 days, last dose, 08/26, next dose due 09/24, Lithobid 450mg qhs for mood/aggression -Ativan and Haldol PRN for agitation/aggression -NRT -nicotine patch - on board for discharge planning. Encourage patient to participate in groups to work on coping skills. patient deferred on 09/11, Likely discharge Saturday, patient is currently homeless, guardian approves placement. Eliot Ramirez MD Objective - Vital Signs Vital signs: Vital Signs Temp 97.0 F L 09/11/23 09:27 Pulse 91 09/12/23 08:23 Resp 16 09/11/23 09:27 BP 136/76 09/12/23 08:23 Pulse Ox 95 09/10/23 07:12 FiO2 - Labs CBC & Chem 7: 09/08/23 02:22 09/08/23 02:22
[2023-09-16 06:58] VITALS: BP 106/55; PULSE 68; TEMP 97.8
--- NOTE | 2023-09-16 09:38 | P.DS ---
Providers Date of admission: 09/08/23 14:51 Expected date of discharge: 09/16/23 Attending physician: Raman Kern MD Consults: 09/08/23 15:01 Consult Physician Routine Consulting Provider: Senthil Villagomez Consult Reason/Comments: H and P Do you want consulting provider notified?: Yes Primary care physician: Stated None - Discharge Diagnosis(es) (1) Schizoaffective disorder, depressive type Current Visit: Yes Status: Acute Priority: High (2) Cannabis use disorder Current Visit: Yes Status: Acute Priority: Medium (3) Nicotine dependence Current Visit: No Status: Acute Priority: Low (4) Methamphetamine abuse Current Visit: No Status: Chronic Priority: Medium Hospital Course: Admission HPI: Admission note was completed by senior medical writer "Patient presented to the hospital on 09/07. As per EPS note, "patient brought in by [facility] on a petition which states "Sasha told me he wanted to kill himself by hanging himself". Upon entering the room, patient laying on stretcher with blanket over face- patient reluctant to take blanket off face to talk to senior medical writer. Upon consistent prompting, patient stated "I was on [place] in [place] and called the police". Patient states "I'm suicidal". Patient provides minimal information, consistent one word responses.. Upon questioning if patient has a plan, patient stated "I'd hang myself". Patient has a history of suicidal attempts with with last one in June 2023 as an overdose. Patient meets with ACT team 1x q week and last met with them 08/27/23 and received MORAN fluphenazine D q 2 wks with next due 09/10/23. Patient denies A/VH. Patient suicidal with a plan stating he became suicidal "a couple of days ago". No delusional thought present. Patient states he has not been compliant with oral medication for the last week because "I can't be dosing off places and then they call on me and I go back to shelter for loitering". Patient initially stated he was "opal" homicidal. When asked if patient had a specific target he said "No, I'm not really homicidal". Patient has [facility] [employer] and does not have support from friends or any relations with family. Patient unable to safety plan". Patient admits to having SI, no current plan. homicidal ideations intent or plan. At this time patient denies any auditory or visual hallucinations. Patient denies any flight of ideas racing thoughts and increased in goal directed behavior. Patient was positive for amphetamines and thc in UDS." Hospital course: Upon admission to the unit patient was admitted involuntarily on a petition and certificate and a second certificate was completed and faxed with the courts. Patient ended up signing a deferral with the business attorney and agreeing to treatment. Patient was initially hostile, agitated, mainly kept to himself in his room however with time and treatment he eventually got along well with other patients on the unit and followed unit protocol. Patient was compliant with the medications and denied any side effects throughout hospital course. Patient was started on BuSpar 30 mg nightly for anxiety, Zyprexa continued at home dose of 20 mg nightly for psychosis/mood adjunct/insomnia, Prolixin D 37.5 mg IM was given on 09/10, this was an increased dose from his regular [facility] dose. Next dose will be given on 09/24. Lithobid was started at 450 mg nightly for mood stabilization/aggression. Patient spoke of his stressors and engaged in therapy both group and individual. Patient was also seen by medical team for history and physical exam. Throughout the course of the hospitalization patient gradually improved with regards to mood, anxiety, agitation, psychosis, sleep and returned back to their baseline level of functioning. On the day of discharge patient denied any suicidal or homicidal ideations intent or plan denied any auditory or visual hallucinations. Patient endorsed wanting to live for his health and his future. The patient denied any access to guns or weapons. Patient denied any paranoia and did not endorse any delusions. Patient does have a significant history of substance abuse and was counseled on abstaining from all substances including alcohol and marijuana. Patient was offered however declined inpatient substance-abuse rehab. Patient elected to do outpatient substance use treatment program through [facility]. Patient was also counseled on the medications and need for regular compliance and was encouraged to follow-up with their outpatient appointment for mental health and also for primary care. Mental status exam: General Appearance: Patient appears to hace long hair, several tattoos, stated age is alert, pleasant, and cooperative. Patient is in no acute distress and has improved hygiene and grooming Behavior: Patient is calmly seated without any agitated behavior. Speech: Patient's speech is fluent and nonpressured. Mood/Affect: Patient reports their mood is "better", affect is congruent and euthymic. Suicidality/Homicidality: Patient denies having any suicidal or homicidal ideation intent or plan. Perceptions: Patient denies any auditory or visual hallucinations. Though content/process: There is no evidence of any delusional thought content and thought process is linear and goal-directed. Memory and concentration: AOX3, grossly intact for the purposes of this session. Can spell "WORLD" backwards correctly. Judgment and insight: Chronically poor, however has improved with guarded prognosis Impression: Schizoaffective disorder bipolar type Methamphetamine use disorder Nicotine dependance Cannabis use disorder Plan: -Continue with discharge today as patient has improved and stabilized psychiatrically and is not currently an imminent threat to himself and/or others. Patient will remain at chronically elevated risk for harm to self and/or others due to his impulsivity and polysubstance abuse. -Continue medications: BuSpar 30 mg nightly for anxiety, Zyprexa 20 mg nightly for psychosis/mood adjunct/insomnia, Prolixin D 37.5 mg IM was given on 09/10, next dose will be due at [facility] on 09/24, Lithobid 450 mg nightly for mood stabilization/aggression. -Patient was counseled on the need for medication compliance and appropriate follow-up at mental health and also primary care for medical issues. Patient verbalized understanding and agreed. -Social work to help coordinate patient's discharge today with guardian, patient will be offered alf information versus low-cost motel. Social work also to arrange for patients follow up appointments with [facility] for psychiatric care along with follow up with primary care provider. -Patient counseled on abstaining from recreational drugs and marijuana and alcohol. Was informed/educated on the adverse effects on their physical and mental health. Patient verbally agreed and understood. Patient was offered substance abuse treatment however declined at this time. -Patient was instructed to return to the hospital or seek immediate medical care if their psychiatric or medical symptoms do worsen or reoccur. Allergies Allergy/AdvReac Type Severity Reaction Status Date / Time bee venom protein (honey bee) Allergy Anaphylaxis Verified 09/08/23 11:49 Laboratory Results WBC 6.9 k/uL (3.8-10.6) 09/08/23 02:22 RBC 4.41 m/uL (4.30-5.90) 09/08/23 02:22 Hgb 13.0 gm/dL (13.0-17.5) 09/08/23 02:22 Hct 39.9 % (39.0-53.0) 09/08/23 02:22 MCV 90.4 fL (80.0-100.0) 09/08/23 02:22 MCH 29.6 pg (25.0-35.0) 09/08/23 02:22 MCHC 32.7 g/dL (31.0-37.0) 09/08/23 02:22 RDW 13.0 % (11.5-15.5) 09/08/23 02:22 Plt Count 244 k/uL (150-450) 09/08/23 02:22 MPV 7.2 09/08/23 02:22 Neutrophils % 50 % 09/08/23 02:22 Lymphocytes % 41 % 09/08/23 02:22 Monocytes % 5 % 09/08/23 02:22 Eosinophils % 2 % 09/08/23 02:22 Basophils % 1 % 09/08/23 02:22 Neutrophils # 3.5 k/uL (1.3-7.7) 09/08/23 02:22 Lymphocytes # 2.9 k/uL (1.0-4.8) 09/08/23 02:22 Monocytes # 0.3 k/uL (0-1.0) 09/08/23 02:22 Eosinophils # 0.1 k/uL (0-0.7) 09/08/23 02:22 Basophils # 0.1 k/uL (0-0.2) 09/08/23 02:22 Sodium 139 mmol/L (137-145) 09/08/23 02:22 Potassium 3.4 mmol/L (3.5-5.1) L 09/08/23 02:22 Chloride 112 mmol/L (98-107) H 09/08/23 02:22 Carbon Dioxide 23 mmol/L (22-30) 09/08/23 02:22 Anion Gap 4 mmol/L 09/08/23 02:22 BUN 8 mg/dL (9-20) L 09/08/23 02:22 Creatinine 0.66 mg/dL (0.66-1.25) 09/08/23 02:22 Est GFR (CKD-EPI)AfAm >90 (>60 ml/min/1.73 sqM) 09/08/23 02:22 Est GFR (CKD-EPI)NonAf >90 (>60 ml/min/1.73 sqM) 09/08/23 02:22 Glucose 107 mg/dL (74-99) H 09/08/23 02:[address] Glu mg/dL 100 mg/dL 09/08/23 02:22 Hemoglobin A1c 5.1 % (<=6.0) 09/08/23 02:22 Calcium 8.7 mg/dL (8.4-10.2) 09/08/23 02:22 Total Bilirubin 0.1 mg/dL (0.2-1.3) L 09/08/23 02:22 AST 23 U/L (17-59) 09/08/23 02:22 ALT 23 U/L (4-49) 09/08/23 02:22 Alkaline Phosphatase 83 U/L (38-126) 09/08/23 02:22 Total Protein 6.0 g/dL (6.3-8.2) L 09/08/23 02:22 Albumin 3.5 g/dL (3.5-5.0) 09/08/23 02:22 Triglycerides 159.00 mg/dL (0.00-149.00) H 09/08/23 02:22 Cholesterol 138.00 mg/dL (0.00-200.00) 09/08/23 02:22 LDL Cholesterol, Calc 68.2 mg/dL (0.0-131.0) 09/08/23 02:22 VLDL Cholesterol, Calc 31.80 mg/dL (5.00-40.00) 09/08/23 02:22 HDL Cholesterol 38.00 mg/dL (40.00-60.00) L 09/08/23 02:22 Cholesterol/HDL Ratio 3.63 Ratio 09/08/23 02:22 TSH 1.030 mIU/L (0.465-4.680) 09/08/23 02:22 Urine Color Colorless 09/08/23 02:22 Urine Appearance Clear (Clear) 09/08/23 02:22 Urine pH 7.0 (5.0-8.0) 09/08/23 02:22 Ur Specific [place] 1.006 (1.001-1.035) 09/08/23 02:22 Urine Protein Negative (Negative) 09/08/23 02:22 Urine Glucose (UA) Negative (Negative) 09/08/23 02:22 Urine Ketones Negative (Negative) 09/08/23 02:22 Urine Blood Negative (Negative) 09/08/23 02:22 Urine Nitrite Negative (Negative) 09/08/23 02:22 Urine Bilirubin Negative (Negative) 09/08/23 02:22 Urine Urobilinogen <2.0 mg/dL (<2.0) 09/08/23 02:22 Ur Leukocyte Esterase Negative (Negative) 09/08/23 02:22 Salicylates <1.0 mg/dL 09/08/23 02:22 Urine Opiates Screen Not Detected (NotDetected) 09/08/23 02:22 Ur Oxycodone Screen Not Detected (NotDetected) 09/08/23 02:22 Urine Methadone Screen Not Detected (NotDetected) 09/08/23 02:22 Acetaminophen <10.0 ug/mL 09/08/23 02:22 Ur Barbiturates Screen Not Detected (NotDetected) 09/08/23 02:22 U Tricyclic Antidepress Not Detected (NotDetected) 09/08/23 02:22 Ur Phencyclidine Scrn Not Detected (NotDetected) 09/08/23 02:22 Ur Amphetamines Screen Detected (NotDetected) H 09/08/23 02:22 U Methamphetamines Scrn Not Detected (NotDetected) 09/08/23 02:22 U Benzodiazepines Scrn Not Detected (NotDetected) 09/08/23 02:22 Urine Cocaine Screen Not Detected (NotDetected) 09/08/23 02:22 U Marijuana (THC) Screen Detected (NotDetected) H 09/08/23 02:22 Serum Alcohol <10 mg/dL 09/08/23 02:22 SARS-CoV-2 (PCR) Not Detected (Not Detectd) 09/08/23 13:43 Vital Signs Temp 97.8 F 09/16/23 06:34 Pulse 68 06/03/24 06:34 Resp 16 09/16/23 06:34 BP 106/55 09/16/23 06:34 Pulse Ox 95 09/10/23 07:12 FiO2 Intake & Output 09/15/23 09/16/23 09/16/23 18:59 06:59 18:59 Weight 68.1 kg Patient Condition at Discharge: Stable Plan - Discharge Summary Discharge Rx Participant: Yes New Discharge Prescriptions: New cloNIDine HCL [Catapres] 0.1 mg PO HS 30 Days #30 tab Nicotine 21Mg/24Hr Patch [Habitrol] 1 patch TRANSDERM DAILY 14 Days #14 patch [place] Carbonate ER [Lithobid] 450 mg PO HS 30 Days #30 tab fluPHENAZine decanoate [Prolixin Decanoate] 37.5 mg IM Q14D #1 ml Continue OLANZapine 20 mg PO HS 30 Days #30 tab Changed busPIRone HCL 30 mg PO HS 30 Days #60 tab Discontinued cloNIDine HCL [Catapres] 0.1 mg PO HS fluPHENAZine decanoate [Prolixin Decanoate] 25 mg IM Q14D #1 ml Discharge Medication List [place] Carbonate ER [Lithobid] 450 mg PO HS 30 Days #30 tab 09/16/23 [Rx] Nicotine 21Mg/24Hr Patch [Habitrol] 1 patch TRANSDERM DAILY 14 Days #14 patch 09/16/23 [Rx] OLANZapine 20 mg PO HS 30 Days #30 tab 09/16/23 [Rx] busPIRone HCL 30 mg PO HS 30 Days #60 tab 09/16/23 [Rx] cloNIDine HCL [Catapres] 0.1 mg PO HS 30 Days #30 tab 09/16/23 [Rx] fluPHENAZine decanoate [Prolixin Decanoate] 37.5 mg IM Q14D #1 ml 09/16/23 [Rx] Follow up Appointment(s)/Referral(s): [facility] [Outside] - 09/19/23 10:30 am (09/19/2023 10:30AM - 11:00LAURA GREGORIO 10/09/2023 1:30PM - 2:00PM SASHA GREGORIO ) None,Stated [Primary Care Provider] - 1-2 days Activity/Diet/Wound Care/Special Instructions: Avoid the use of street drugs and alcohol. Take all medications as prescribed. When you are in need of refills on your medications, please contact your medical provider and/or outpatient psychiatrist/provider to have this done. Please go to your scheduled outpatient appointment for aftercare treatment. If symptoms return or become worse, call the crisis line at and/or go to the nearest emergency room for evaluation. National Suicide Hotline 988 Discharge Disposition: OTHER INSTITUTION NOT DEFINED
== END 2023-09-16 13:45 | disposition home or self-care (01) | DRG 750 ==
LOC: EC → 3MHU 14:51
PROVIDERS: ADMIT Psychiatry & Neurology Psychiatry; ATTEND Psychiatry & Neurology Psychiatry
DX: F25.0 Schizoaffective disorder, bipolar type (principal); F12.10 Cannabis abuse, uncomplicated; F15.10 Other stimulant abuse, uncomplicated; F17.200 Nicotine dependence, unspecified, uncomplicated; R45.851 Suicidal ideations; J45.909 Unspecified asthma, uncomplicated; E78.5 Hyperlipidemia, unspecified; F70 Mild intellectual disabilities; F60.2 Antisocial personality disorder; R45.1 Restlessness and agitation; Z86.19 Personal history of other infectious and parasitic diseases; Z91.51 Personal history of suicidal behavior; Z91.148 Patient's other noncompliance with medication regimen for other reason; Z59.01 Sheltered homelessness; Z11.52 Encounter for screening for COVID-19; Z79.899 Other long term (current) drug therapy; Z71.51 Drug abuse counseling and surveillance of drug abuser
CPT/HCPCS: 36415; 80053; 80061; 80143; 80179; 80306; 80320; 81003; 82075; 83036; 84443; 85025; 87635; 99285

== ENCOUNTER 2024-10-10 20:25 | Inpatient (IN) | payer MEDICAID, OTHER ==
--- NOTE | 2024-10-10 21:45 | ED ---
Psych HPI - General Source: patient, RN notes reviewed Mode of arrival: ambulatory <Chilango Ivey - Last Filed: 10/10/24 22:26> - General Source: patient, RN notes reviewed, old records reviewed <Cy Leyva - Last Filed: 10/11/24 06:30> - General Chief Complaint: Psychiatric Symptoms Stated Complaint: Mental Health Eval..? Time Seen by Provider: 10/10/24 20:43 - History of Present Illness Initial Comments: Quick note: Patient declined to speak in the waiting room (Chilango Ivey) Patient is a 28-year-old male presents emergency department complaining of suicidal and homicidal ideations. Have been ongoing for weeks however states wo rse lately. Does have history of drug use. Denies any other acute complaints at this time. Denies any attempts to hurt himself or others. Denies any hallucinations. Presents for further evaluation at this time. Follows up with [facility]. (Cy Leyva) - Related Data Previous Rx's Medication Instructions Recorded [place] Carbonate ER [Lithobid] 450 mg PO HS 30 Days #30 tab 09/16/23 Nicotine 21Mg/24Hr Patch [Habitrol] 1 patch TRANSDERM DAILY 14 Days 09/16/23 #14 patch OLANZapine 20 mg PO HS 30 Days #30 tab 09/16/23 busPIRone HCL 30 mg PO HS 30 Days #60 tab 09/16/23 cloNIDine HCL [Catapres] 0.1 mg PO HS 30 Days #30 tab 09/16/23 fluPHENAZine decanoate [Prolixin 37.5 mg IM Q14D #1 ml 09/16/23 Decanoate] Allergies Allergy/AdvReac Type Severity Reaction Status Date / Time bee venom protein (honey bee) Allergy Anaphylaxis Verified 10/10/24 20:37 Review of Systems ROS Other: All systems not noted in ROS Statement are negative. <Chilango Ivey - Last Filed: 10/10/24 22:26> ROS Other: All systems not noted in ROS Statement are negative. <Cy Leyva - Last Filed: 10/11/24 06:30> ROS Statement: Those systems with pertinent positive or pertinent negative responses have been documented in the HPI. Review of Systems: CONST: Denies fever EYES: Denies blurry vision ENT: Denies nasal congestion C/V: Denies Chest pain RESP: Denies shortness of breath GI: Denies abdominal pain : Denies dysuria SKIN: Denies rash. MSK: Denies joint pain. NEURO: Denies headache (Cy Leyva) Past Medical History Past Medical History: Asthma, Hyperlipidemia Additional Past Medical History / Comment(s): Depression, anxiety, anti social personality disorder, hepatitis C History of Any Multi-Drug Resistant Organisms: None Reported Past Surgical History: No Surgical Hx Reported Past Anesthesia/Blood Transfusion Reactions: No Reported Reaction Past Psychological History: Anxiety, Bipolar, Depression, Schizophrenia Smoking Status: Current every day smoker Past Alcohol Use History: Occasional Past Drug Use History: Heroin, IV Drug Use, Marijuana, Methamphetamine - Past Family History Mother Family Medical History: Unable to Obtain Additional Family Medical History / Comment(s): Patient reports that he knows nothing about his family <Chilango Ivey - Last Filed: 10/10/24 22:26> General Exam Limitations: no limitations <Chilango Ivey - Last Filed: 10/10/24 22:26> <Cy Leyva - Last Filed: 10/11/24 06:30> - General Exam Comments Initial Comments: Visual Physical Exam Vital signs reviewed General: Well-appearing, nontoxic, no acute distress. Patient is sleeping in waiting room chair Head: Normocephalic, atraumatic Eyes: PERRLA, EOMI ENT: Airway patent Chest: Nonlabored breathing Skin: No visual rash, normal skin tone Neuro: Alert and oriented 3 Musculoskeletal: No gross abnormalities (Chilango Ivey) General: Appears anxious and disheveled HEAD: Normal with no signs of head trauma. EYES: EOMI. ENT: Hearing grossly intact. RESPIRATORY: No respiratory distress. C/V: Regular rate and rhythm. ABD: Abdomen is nondistended. EXT: No obvious deformity. SKIN: No rashes or lesions observed on exposed skin. NEURO: Alert and oriented. (Cy Leyva) Course Vital Signs 10/10/24 20:35 Temperature 98 F Pulse Rate 99 Respiratory 18 Rate Blood Pressure 138/93 O2 Sat by Pulse 97 Oximetry Medical Decision Making <Chilango Ivey - Last Filed: 10/10/24 22:26> <Cy Leyva - Last Filed: 10/11/24 06:30> - Medical Decision Making I completed the quick note portion of this chart signed BHARAT Maria (Chilango Ivey) Was pt. sent in by a medical professional or institution (JULI Wright, PURCHASING ANALYST, urgent care, hospital, or group home...) When possible be specific @ -No Did you speak to anyone other than the patient for history (EMS, parent, family, police, friend...)? What history was obtained from this source @ -No Did you review nursing and triage notes (agree or disagree)? Why? @ -I reviewed and agree with nursing and triage notes Were old charts reviewed (outside hosp., previous admission, EMS record, old EKG, old radiological studies, urgent care reports/EKG's, group home records)? Report findings @ -No old charts were reviewed Differential Diagnosis (chest pain, altered mental status, abdominal pain women, abdominal pain men, vaginal bleeding, weakness, fever, dyspnea, syncope, headache, dizziness, GI bleed, back pain, seizure, CVA, palpatations, mental health, musculoskeletal)? @ -Differential Mental Health Depression, anxiety, bipolar, psychosis, schizophrenia, borderline personality, situational depression, adjustment disorder, behavioral disorder, brain tumor, malingering, substance abuse, encephalopathy, medication reaction, dementia, hypothyroidism, degenerative neurologic disorder, lupus.... This is not meant to be all-inclusive list EKG interpreted by me (3pts min.). @ -None done X-rays interpreted by me (1pt min.). @ -None done CT interpreted by me (1pt min.). @ -None done U/S interpreted by me (1pt. min.). @ -None done What testing was considered but not performed or refused? (CT, X-rays, U/S, labs)? Why? @ -None What meds were considered but not given or refused? Why? @ -None Did you discuss the management of the patient with other professionals (professionals i.e. JULI Wright, PURCHASING ANALYST, lab, RT, psych nurse, social media marketing specialist, intel recruiter, teacher, civilian jail officer, binder caser)? Give summary @ -EPS notified of the consult Was smoking cessation discussed for >3mins.? @ -No Was critical care preformed (if so, how long)? @ -No Were there social determinants of health that impacted care today? How? (Homelessness, low income, unemployed, alcoholism, drug addiction, transportation, low edu. Level, literacy, decrease access to med. care, mcc, rehab)? @ -No Was there de-escalation of care discussed even if they declined (Discuss DNR or withdrawal of care, Hospice)? DNR status @ -No What co-morbidities impacted this encounter? (DM, HTN, Smoking, COPD, CAD, Cancer, CVA, ARF, Chemo, Hep., AIDS, mental health diagnosis, sleep apnea, morbid obesity)? @ -None Was patient admitted / discharged? Hospital course, mention meds given and route, prescriptions, significant lab abnormalities, going to OR and other pertinent info. @ -Patient presents emergency department for suicidal and homicidal ideations. Vital signs are within acceptable limits. Suicide precautions ordered. Sitter ordered. BAT is 0. UDS is pending. Vitals are within acceptable limits. He is given 1 mg of oral Ativan. At this time, patient is medically cleared for evaluation by psychiatry. Disposition pending psychiatric evaluation. EPS notified of the consult. EPS evaluated the patient and determined that he does meet inpatient criteria for admission. Patient will be admitted to inpatient psychiatry. Undiagnosed new problem with uncertain prognosis? @ -No Drug Therapy requiring intensive monitoring for toxicity (Heparin, Nitro, Insulin, Cardizem)? @ -No Were any procedures done? @ -No Diagnosis/symptom? @ -Acute psychosis, homicidal ideations, suicidal ideations Acute, or Chronic, or Acute on Chronic? @ -Acute Uncomplicated (without systemic symptoms) or Complicated (systemic symptoms)? @ -Complicated Side effects of treatment? @ -None Exacerbation, Progression, or Severe Exacerbation] @ -No Poses a threat to life or bodily function? @ -Yes (Cy Leyva) - Lab Data Lab Results 10/11/24 Range/Units 00:16 Urine Opiates Screen Not Detected (NotDetected) Ur Oxycodone Screen Not Detected (NotDetected) Urine Methadone Screen Not Detected (NotDetected) Ur Barbiturates Screen Not Detected (NotDetected) U Tricyclic Antidepress Not Detected (NotDetected) Ur Phencyclidine Scrn Not Detected (NotDetected) Ur Amphetamines Screen Not Detected (NotDetected) U Methamphetamines Scrn Not Detected (NotDetected) U Benzodiazepines Scrn Not Detected (NotDetected) Urine Cocaine Screen Not Detected (NotDetected) U Marijuana (THC) Screen Detected H (NotDetected) Disposition <Chilango Ivey - Last Filed: 10/10/24 22:26> Time of Disposition: 06:30 <Cy Leyva - Last Filed: 10/11/24 06:30> Clinical Impression: Acute psychosis, Suicidal ideations, Homicidal ideations Disposition: TRANSFER TO PSYCH HOSP/UNIT Condition: Stable Referrals: None,Stated [Primary Care Provider] - 1-2 days
[2024-10-11 00:53] LABS: Barbiturate Screen,Urine Not Detected (NotDetected); Benzodiazepines Screen,Urine Not Detected (NotDetected); Opiate Screen,Urine Not Detected (NotDetected); Oxycodone Screen, Urine Not Detected (NotDetected); Phencyclidine Screen,Urine Not Detected (NotDetected); Tricyclic Antidepressant,Urine Not Detected (NotDetected); Urn Cannabinoid Scrn Detected (NotDetected)
[2024-10-11] MEDS: LORazepam 1 MG TAB PO STA (02:00)
[2024-10-11] MEDS ORDERED: MAGNESIUM HYDROXIDE 2,400 MG/30 ML CUP PO PRN (08:33)
[2024-10-11] MEDS ORDERED: MAG HYDROX/AL HYDROX/SIMETH 355 ML BOTTLE PO PRN (08:33)
[2024-10-11] MEDS ORDERED: HALOPERIDOL LACTATE 5 MG/ML 1 ML VIAL IM PRN (08:33)
[2024-10-11] MEDS: NICOTINE 14MG/24HR PATCH TRANSDERM SCH (09:54)
[2024-10-11] MEDS: LORazepam 1 MG TAB PO PRN (13:58)
--- NOTE | 2024-10-11 16:43 | P.MDCNMH ---
History of Present Illness H&P Date: 10/11/24 History of present illness; patient 28-year-old gentleman past medical history significant for hepatitis C, depression, bipolar disorder presents to the ER for psychiatric evaluation. Patient was having suicidal thoughts, also had intent to hurt other people. Patient was being verbally aggressive. Patient denies any auditory or visual hallucinations. Patient states that he has been compliant with his medications. Because of the symptoms, patient brought to the ER Urine drug screen positive for marijuana COVID-19 negative Patient admitted to inpatient psych REVIEW OF SYSTEMS: CONSTITUTIONAL: No fever, no malaise, no fatigue. HEENT: No recent visual problems or hearing problems. Denied any sore throat. CARDIOVASCULAR: No chest pain, orthopnea, PND, no palpitations, no syncope. PULMONARY: No shortness of breath, no cough, no hemoptysis. GASTROINTESTINAL: No diarrhea, no nausea, no vomiting, no abdominal pain. NEUROLOGICAL: No headaches, no weakness, no numbness. HEMATOLOGICAL: Denies any bleeding or petechiae. GENITOURINARY: Denies any burning micturition, frequency, or urgency. MUSCULOSKELETAL/RHEUMATOLOGICAL: Denies any joint pain, swelling, or any muscle pain. ENDOCRINE: Denies any polyuria or polydipsia. The rest of the 14-point review of systems is negative. PHYSICAL EXAMINATION: GENERAL: The patient is alert and oriented x3, not in any acute distress. Well developed, well nourished. HEENT: Pupils are round and equally reacting to light. EOMI. No scleral icterus. No conjunctival pallor. Normocephalic, atraumatic. No pharyngeal erythema. No thyromegaly. CARDIOVASCULAR: S1 and S2 present. No murmurs, rubs, or gallops. PULMONARY: Chest is clear to auscultation, no wheezing or crackles. ABDOMEN: Soft, nontender, nondistended, normoactive bowel sounds. No palpable organomegaly. MUSCULOSKELETAL: No joint swelling or deformity. EXTREMITIES: No cyanosis, clubbing, or pedal edema. NEUROLOGICAL: Gross neurological examination did not reveal any focal deficits. SKIN: No rashes. Assessment and plan Acute psychosis Cannabis use disorder Nicotine dependence History of bipolar disorder history of depression History of urgency Monitor vital signs Elopement precaution Suicide precaution Continue psych meds per psychiatry team Labs and medication were reviewed.. Continue same treatment. Continue with symptomatic treatment. Resume home medication. Monitor labs and vitals. DVT and GI prophylaxis. Further recommendations as per clinical course of the patient Dictation was produced using [employer] dictation software. please excuse any grammatical, word or spelling errors. Past Medical History Past Medical History: Asthma, Hyperlipidemia Additional Past Medical History / Comment(s): Depression, anxiety, anti social personality disorder, hepatitis C History of Any Multi-Drug Resistant Organisms: None Reported Past Surgical History: No Surgical Hx Reported Past Anesthesia/Blood Transfusion Reactions: No Reported Reaction Past Psychological History: Anxiety, Bipolar, Depression, Schizophrenia Additional Psychological History / Comment(s): Single. Positive tobacco and alcohol use also relates to injection drug use. No experience no international travel. homeless at admission Smoking Status: Current every day smoker Past Alcohol Use History: Occasional Additional Past Alcohol Use History / Comment(s): Patient admits to heavy alcohol use Past Drug Use History: Heroin, IV Drug Use, Marijuana, Methamphetamine Additional Drug Use History / Comment(s): OD of fentanyl last admission requiring intubation - Past Family History Mother Family Medical History: Unable to Obtain Additional Family Medical History / Comment(s): Patient reports that he knows nothing about his family Medications and Allergies Home Medications Medication Instructions Recorded Confirmed Type [place] Carbonate ER [Lithobid] 450 mg PO HS 30 Days #30 tab 09/16/23 Rx Nicotine 21Mg/24Hr Patch [Habitrol] 1 patch TRANSDERM DAILY 14 Days 09/16/23 Rx #14 patch OLANZapine 20 mg PO HS 30 Days #30 tab 09/16/23 Rx busPIRone HCL 30 mg PO HS 30 Days #60 tab 09/16/23 Rx cloNIDine HCL [Catapres] 0.1 mg PO HS 30 Days #30 tab 09/16/23 Rx fluPHENAZine decanoate [Prolixin 37.5 mg IM Q14D #1 ml 09/16/23 Rx Decanoate] Allergies Allergy/AdvReac Type Severity Reaction Status Date / Time bee venom protein (honey bee) Allergy Anaphylaxis Verified 10/10/24 20:37 Physical Exam Vitals: Vital Signs Temp Pulse Resp BP BP Pulse Ox 10/11/24 09:50 93 18 122/71 98 10/11/24 08:33 97.3 F L 18 115/72 96 10/10/24 20:35 98 F 99 18 138/93 97 Intake and Output 10/11/24 10/11/24 10/11/24 06:59 14:59 22:59 Other: Weight 75.75 kg Cranial Nerve Examination - Cranial Nerves Cranial Nerve II- Optic: Intact (Cranial nerves II to XII intact) Cranial Nerve III- Oculomotor: Intact Cranial Nerve IV- Trochlear: Intact Cranial Nerve V- Trigeminal: Intact Cranial Nerve - Abducens: Intact Cranial Nerve VII- Facial: Intact Cranial Nerve VIII- Auditory: Intact Cranial Nerve IX- Glossopharyngeal: Intact Cranial Nerve X- Vagus: Intact Cranial Nerve XI- Accessory: Intact Cranial Nerve XII- Hypoglossal: Intact Results Labs: Abnormal Lab Results - Last 24 Hours (Table) 10/11/24 Range/Units 00:16 U Marijuana (THC) Screen Detected H (NotDetected)
[2024-10-12] MEDS: LITHIUM CARBONATE ER 450 MG TABLET.ER PO SCH (12:06)
--- NOTE | 2024-10-12 12:46 | P.HP ---
Psychiatric H&P - . H&P Date: 10/12/24 History & Physical: Allergies Allergy/AdvReac Type Severity Reaction Status Date / Time bee venom protein (honey bee) Allergy Anaphylaxis Verified 10/10/24 20:37 Vital Signs Temp 96.6 F L 10/12/24 09:39 Pulse 105 H 10/12/24 11:16 Resp 18 10/12/24 09:39 BP 111/72 10/12/24 11:16 Pulse Ox 97 10/12/24 09:39 FiO2 Intake & Output 10/11/24 10/12/24 10/12/24 18:59 06:59 18:59 Weight 75.75 kg Laboratory Last Values Urine Opiates Screen Not Detected (NotDetected) 10/11/24 00:16 Ur Oxycodone Screen Not Detected (NotDetected) 10/11/24 00:16 Urine Methadone Screen Not Detected (NotDetected) 10/11/24 00:16 Ur Barbiturates Screen Not Detected (NotDetected) 10/11/24 00:16 U Tricyclic Antidepress Not Detected (NotDetected) 10/11/24 00:16 Ur Phencyclidine Scrn Not Detected (NotDetected) 10/11/24 00:16 Ur Amphetamines Screen Not Detected (NotDetected) 10/11/24 00:16 U Methamphetamines Scrn Not Detected (NotDetected) 10/11/24 00:16 U Benzodiazepines Scrn Not Detected (NotDetected) 10/11/24 00:16 Urine Cocaine Screen Not Detected (NotDetected) 10/11/24 00:16 U Marijuana (THC) Screen Detected (NotDetected) H 10/11/24 00:16 SARS-CoV-2 (PCR) Not Detected (Not Detectd) 10/11/24 05:50 10/12/24 12:36 IDENTIFYING DATA: Patient is a 28-year-old male with a public guardian, on disability CHIEF COMPLAINT: SI/HI HPI: Patient presented to the hospital with suicidal and homicidal ideations. Per EPS, "Patient brought self to ED. Upon arrival in room patient is laying in bed with blankets over head. Would not remove blanket for interview despite lights being turned down in room, which was the reason why patient stated he had the blanket over his head. Patient irritable. Patient states he came to ED because "homicidal suicidal". Patient reports he is homicidal toward Luke. Patient reports he was staying at [facility] and Luke wanted patient to do "all this lighting work because he is lazy." Patient states "I'm tired of people stealing my shit, telling me to do all this shit because they are lazy!" patient reports being homeless since leaving [facility] house "last week'. Patient also endorses suicidal ideation with plan to tie blocks to his feet and jump in the river. patient reports past attempt last year by cutting." Patient seen and evaluated on the unit, was seen irritable and agitated, yelling about slamming doors. He was however agreeable to speak with instructional writer in the lounge. He expresses frustration as he is unable to get in contact with his guardian, feeling as though they are controlling his money and avoiding his calls. Patient exhibited mood lability, poor frustration tolerance. He expresses being homeless and that this is what is contributing to suicidal ideations. He states previously living with a roommate for the past week however the roommate encouraged him to do chores which upset him stating, "is lazy piece of can do those things why is he having me do this". Patient did admit to being nonadherent with his current psychotropic medications other than the Prolixin decanoate. He no longer feels homicidal but continues to report suicidal ideation. He reports sleep difficulties, low energy and anhedonia. He expresses paranoia towards his guardian feeling as though they are intentionally harming him. At this time patient denies any auditory or visual hallucinations. Patient denies any flight of ideas racing thoughts and increased in goal directed behavior. Patient admits to using cannabis and nicotine daily. PAST PSYCHIATRIC HISTORY: Patient has a history of schizoaffective disorder bipolar type, antisocial personality disorder, cannabis use disorder. Patient is currently on Prolixin Decanoate 37.5 mg every 2 weeks last given on 10/05 and next due on 10/19, BuSpar 15 mg 3 times daily, clonidine 0.1 mg daily, lithium ER 450 mg daily, Zyprexa 20 mg daily. Patient has had several inpatient hospitalizations most recent being at this facility from 09/08-09/16/2023. Patient sees Dr. Moffett at [facility] patient reports most recent suicide attempt was back in 2023 via cutting. PMH: as per ER note ALLERGIES: as per EMR SUBSTANCE USE HISTORY: As per HPI FAMILY PSYCHIATRIC/SUBSTANCE USE HISTORY: Unknown as patient states his family has cut him off SOCIAL HISTORY: Patient is single and has 1 child. He completed school up to the ninth grade and is currently on SSD. He has a public guardian. He is homeless MENTAL STATUS EXAM: General Appearance: Patient appears to be stated age is alert, and semicooperative. Patient appears to have poor hygiene and grooming. Behavior: There is evidence of psychomotor restlessness Speech: Patient's speech is pressured, loud volume at times Mood/Affect: Patient reports their mood is "pissed", affect is congruent and labile Suicidality/Homicidality: Patient denies having any homicidal ideation intent or plan. Patient reports suicidal ideations with a plan Perceptions: Patient denies any visual hallucinations and denies any auditory hallucinations Though content/process: There is evidence of paranoia, poor frustration tolerance and thought content is fixated on guardians Memory and concentration: AOX3, grossly intact for the purposes of this session. Can spell "WORLD" backwards Judgment and insight: Poor STRENGTHS/WEAKNESSES: strength is that patient is resilient and has a public guardian. Weakness is that patient has poor judgment/frustration tolerance, nonadherent with medications and is impulsive INTELLECT: Below average IMPRESSIONS: Schizoaffective disorder, bipolar type Antisocial personality disorder Cannabis use disorder Nicotine dependence PLAN: -Patient is admitted under voluntary status to [facility] for stabilization of psychiatric symptoms and safety. Patient has signed adult voluntary form and and is placed in patient's chart. -Medications : Start lithium ER 900 mg daily for mood stabilization, trazodone 5 0 mg at bedtime for sleep, BuSpar 15 mg 3 times daily for anxiety, Prolixin Decanoate 37.5 mg IM every 2 weeks, last given on 10/05 and next due on 10/19 - Ativan and Haldol PRN for agitation/aggression -Patient was counselled on substance abuse and desired to cut back on use -Patient was informed of the risks, benefits and side effects of the medication and patient verbally consented to taking the medications. Patient did not sign med consent form and was placed in chart. Patient offered and declined patient education sheet for psychotropic medications. -Internal Medicine consult to perform medical evaluation and physical. -NRT -nicotine patch -SW on board for discharge planning. Encourage patient to participate in groups to work on coping skills.
[2024-10-12] MEDS: IBUPROFEN 600 MG TAB PO PRN (22:02)
[2024-10-13] MEDS ORDERED: diphenhydrAMINE 50 MG/ML 1 ML VIAL IM PRN (10:29)
[2024-10-13] MEDS: LORazepam 1 MG TAB PO STA (10:31)
--- NOTE | 2024-10-13 10:39 | P.PN ---
Progress Note - Text Progress Note Date: 10/13/24 Interval History: Patient was seen in bed and was directable and agreeable to speak with insurance underwriter sales in the room. He expresses frustration with difficulties with sleep overnight due to people coming in and out of the room. He states the trazodone was not effective and he reports sleeping well previously on Seroquel. Patient has been displaying poor frustration tolerance, receiving as needed Haldol twice yesterday and one thus far this morning, was seen agitated this morning slamming doors and frustrated with his inability to speak to guardian and his treatment here. Patient signed AMA yesterday but is up on 10/15. At this time patient denies any suicidal or homicidal ideations, intent or plan. Patient denies any auditory, visual hallucinations and denies any paranoia or delusions. Patient denies any side effects from the medications and has been compliant with meds. Mental Status Exam: General Appearance: Patient appears to be stated age is alert, directable, and minimally cooperative. Behavior: Patient displays anger, psychomotor restlessness Speech: Patient's speech is loud volume and pressured. Mood/Affect: Mood is upset, affect is congruent and labile. Suicidality/Homicidality: Patient denies having any suicidal or homicidal ideation intent or plan. Perceptions: Patient denies any visual hallucinations and denies any auditory hallucinations Though content/process: There is no evidence of any delusional thought content and thought process is linear superficially. Memory and concentration: AOX3, grossly intact for the purposes of this session Judgment and insight: Improving mildly Assessment Schizoaffective disorder, bipolar type Antisocial personality disorder Cannabis use disorder Nicotine dependence Plan: -Patient continues to meet criteria for inpatient psychiatric admission for symptom stabilization and safety. Patient has signed adult voluntary form and medication consent and was placed in patient's chart. Patient signed AMA to be released on 10/15 at 7 PM -Medications: Continue lithium ER 900 mg daily for mood stabilization, BuSpar 15 mg 3 times daily for anxiety, Prolixin Decanoate 37.5 mg IM every 2 weeks last given on 10/05 and next due on 10/19, discontinue trazodone and start Seroquel 200 mg at bedtime for insomnia -When necessary Ativan and Haldol for agitation/aggression. -Labs: Reviewed -NRT - nicotine patch -SW on board for discharge planning. Encouraged the patient to participate in milieu. Anticipate discharge to penitentiary on
[2024-10-13] MEDS: NICOTINE GUM (POLACRILEX) 2 MG GUM BUCCAL PRN (11:01)
[2024-10-13] MEDS: OLANZapine ODT 10 MG TAB PO ONE (13:36)
[2024-10-13] MEDS: LORazepam 1 MG TAB PO PRN (17:21)
[2024-10-13] MEDS: diphenhydrAMINE 25 MG CAP PO PRN (17:22)
[2024-10-13] MEDS: ACETAMINOPHEN TAB 325 MG TAB PO PRN (20:59)
--- NOTE | 2024-10-14 11:59 | P.PN ---
Progress Note - Text Progress Note Date: 10/14/24 Interval History: Patient was seen in bed and was directable and agreeable to speak with insurance underwriter in the room. Patient had just received as needed Haldol/Ativan for agitation so was somnolent but still displayed irritability. He reports being tired due to poor sleep overnight. Discussed with patient the possibility of restarting Zyprexa however he preferred to increase to Seroquel and add trazodone instead. [place] level ordered for tomorrow. He continues to display poor frustration tolerance, requiring as needed Zyprexa Zydis/Haldol yesterday however this appears baseline. At this time patient denies any suicidal or homicidal ideations, intent or plan. Patient denies any auditory, visual hallucinations and denies any paranoia or delusions. Patient denies any side effects from the medications and has been compliant with meds. Mental Status Exam: General Appearance: Patient appears to be stated age is alert, directable, and cooperative. He has poor grooming and hygiene Behavior: Patient was seen laying in bed, mild irritability Speech: Patient's speech is fluent and pressured. Mood/Affect: Mood is improving mildly, affect is congruent and constricted. Suicidality/Homicidality: Patient denies having any suicidal or homicidal ideation intent or plan. Perceptions: Patient denies any visual hallucinations and denies any auditory hallucinations Though content/process: There is no evidence of any delusional thought content and thought process is linear and goal-directed. Memory and concentration: AOX3, grossly intact for the purposes of this session Judgment and insight: Improving mildly Assessment Schizoaffective disorder, bipolar type Antisocial personality disorder Cannabis use disorder Nicotine dependence Plan: -Patient continues to meet criteria for inpatient psychiatric admission for symptom stabilization and safety. Patient has signed adult voluntary form and medication consent and was placed in patient's chart. Patient signed AMA to be released tomorrow by 7 PM -Medications: Increase Seroquel to 400 mg at bedtime for insomnia, start trazodone 100 mg at bedtime for insomnia, continue lithium ER 900 mg daily for mood stabilization, BuSpar 15 mg 3 times daily for anxiety, Prolixin Decanoate 37.5 mg IM every 2 weeks last given on 10/05 and next due on 10/19 -When necessary Ativan and Haldol for agitation/aggression. -Labs: Reviewed -NRT - nicotine patch -SW on board for discharge planning. Encouraged the patient to participate in milieu. Anticipate discharge to custodial tomorrow
[2024-10-14] MEDS: QUEtiapine 400 MG TAB PO SCH (20:40)
[2024-10-15 09:52] VITALS: BP 115/82; PULSE 114; RESP 16; TEMP 97.1
--- NOTE | 2024-10-15 11:39 | P.DS ---
Providers Date of admission: 10/11/24 08:22 Expected date of discharge: 10/15/24 Attending physician: Ariana Jones MD Consults: 10/11/24 08:44 Consult Physician Routine Consulting Provider: David Madden Consult Reason/Comments: H & P & medical management Do you want consulting provider notified?: Yes Primary care physician: Stated None - Discharge Diagnosis(es) (1) Schizoaffective disorder Status: Acute Priority: High (2) Antisocial personality disorder Status: Chronic Priority: Medium (3) Cannabis use disorder Status: Acute Priority: Medium (4) Nicotine dependence Status: Acute Priority: Low Hospital Course: Admission HPI: Admission note was completed by selling underwriter "Patient presented to the hospital with suicidal and homicidal ideations. Per EPS, "Patient brought self to ED. Upon arrival in room patient is laying in bed with blankets over head. Would not remove blanket for interview despite lights being turned down in room, which was the reason why patient stated he had the blanket over his head. Patient irritable. Patient states he came to ED because "homicidal suicidal". Patient reports he is homicidal toward Luke. Patient reports he was staying at [facility] and [facility] wanted patient to do "all this lighting work because he is lazy." Patient states "I'm tired of people stealing my shit, telling me to do all this shit because they are lazy!" patient reports being homeless [facility]'. Patient also endorses suicidal ideation with plan to tie blocks to his feet and jump in the river. patient reports past attempt last year by cutting." Patient seen and evaluated on the unit, was seen irritable and agitated, yelling about slamming doors. He was however agreeable to speak with selling underwriter in the lounge. He expresses frustration as he is unable to get in contact with his guardian, feeling as though they are controlling his money and avoiding his calls. Patient exhibited mood lability, poor frustration tolerance. He expresses being homeless and that this is what is contributing to suicidal ideations. He states previously living with a roommate for the past week however the roommate encouraged him to do chores which upset him stating, "is lazy piece of can do those things why is he having me do this". Patient did admit to being nonadherent with his current psychotropic medications other than the Prolixin decanoate. He no longer feels homicidal but continues to report suicidal ideation. He reports sleep difficulties, low energy and anhedonia. He expresses paranoia towards his guardian feeling as though they are intentionally harming him. At this time patient denies any auditory or visual hallucinations. Patient denies any flight of ideas racing thoughts and increased in goal directed behavior. Patient admits to using cannabis and nicotine daily." Hospital course: Upon admission to the unit patient was directable and agreeable to commence treatment and signed adult voluntary form.. Patient got along well with other patients on the unit and followed unit protocol. Patient was compliant with the medications and denied any side effects throughout hospital course. Patient was started on lithium ER 900 mg daily for mood stabilization, Seroquel increased to 400 mg at bedtime for insomnia/mood stabilization, trazodone 100 mg at bedtime for insomnia, BuSpar 15 mg 3 times daily for anxiety. [place] level returned at 0.4. Patient is also on Prolixin Decanoate 37.5 mg IM every 2 weeks last given on 10/05 and next due on 10/19. Patient continuously displayed poor frustration tolerance that appears close to baseline, requiring as needed medications that were effective. Patient was also seen by medical team for history and physical exam. Throughout the course of the hospitalization patient gradually improved with regards to mood, anxiety, sleep and returned back to their baseline level of functioning. On the day of discharge patient denied any suicidal or homicidal ideations intent or plan denied any auditory or visual hallucinations. The patient denied any access to guns or weapons. Patient denied any paranoia and did not endorse any delusions. Patient does not have a significant history of substance abuse and was counseled on abstaining from all substances including alcohol and marijuana. Patient was also counseled on the medications and need for regular compliance and was encouraged to follow-up with their outpatient appointment for mental health and also for primary care. [facility] to be discharged to [facility] follow-up with [facility]. Mental status exam: General Appearance: Patient appears to be stated age is alert, irritable. Patient is in no acute distress and has improved hygiene and grooming Behavior: Patient displays psychomotor restlessness Speech: Patient's speech is fluent and nonpressured. Mood/Affect: Patient reports their mood is "upset", affect is congruent and labile Suicidality/Homicidality: Patient denies having any suicidal or homicidal ideation intent or plan. Perceptions: Patient denies any auditory or visual hallucinations. Though content/process: There is no evidence of any delusional thought content and thought process is linear and goal-directed. Memory and concentration: AOX3, grossly intact for the purposes of this session. Can spell "WORLD" backwards correctly. Judgment and insight: Fair Impression: Schizoaffective disorder, bipolar type Antisocial personality disorder Cannabis use disorder Nicotine dependence Plan: -Continue with discharge today as patient has improved and stabilized psychiatrically and is not currently an imminent threat to themself and/or others. Patient will remain at chronically elevated risk for harm to self and/or others due to their impulsivity and substance abuse. -Continue medications: Seroquel 400 mg at bedtime, trazodone 100 mg at bedtime, lithium ER 900 mg daily, BuSpar 15 mg 3 times daily, Prolixin Decanoate 37.5 IM every 2 weeks last given on 10/05 and next due on 10/19 -Patient was counseled on the need for medication compliance and appropriate follow-up at mental health and also primary care for medical issues. Patient verbalized understanding and agreed. -Social work to help coordinate patients discharge today. also to ensure safe home environment that guns/weapons are either removed from the home or locked away. Social work also to arrange for patients follow up appointments with [facility] for psychiatric care along with follow up with primary care provider. -Patient counseled on abstaining from recreational drugs and marijuana and alcohol. Was informed/educated on the adverse effects on their physical and mental health. Patient verbally agreed and understood. -Patient was instructed to return to the hospital or seek immediate medical care if their psychiatric or medical symptoms do worsen or reoccur. Abnormal Labs 10/11/24 00:16 U Marijuana (THC) Screen Detected H Allergies Allergy/AdvReac Type Severity Reaction Status Date / Time bee venom protein (honey bee) Allergy Anaphylaxis Verified 10/10/24 20:37 Vital Signs Temp 97.1 F L 10/15/24 09:00 Pulse 114 H 10/15/24 09:00 Resp 16 10/15/24 09:00 BP 115/82 10/15/24 09:00 Pulse Ox 99 10/15/24 09:00 FiO2 Patient Condition at Discharge: Stable Plan - Discharge Summary Discharge Rx Participant: Yes New Discharge Prescriptions: New traZODone HCL [Desyrel] 100 mg PO HS 30 Days #30 tab [place] Carbonate ER [Lithobid] 900 mg PO DAILY 30 Days #60 tab Nicotine Gum (Polacrilex) [Nicorette] 2 mg BUCCAL Q4HR PRN pieceofgum PRN Reason: Nicotine Cravings QUEtiapine [SEROquel] 400 mg PO HS 30 Days #30 tab busPIRone HCl [Buspar] 15 mg PO TID 30 Days #270 tab Nicotine 14Mg/24Hr Patch [Habitrol] 1 patch TRANSDERM DAILY patch Continue Nicotine 21Mg/24Hr Patch [Habitrol] 1 patch TRANSDERM DAILY 14 Days #14 patch fluPHENAZine decanoate [Prolixin Decanoate] 37.5 mg IM Q14D #1 ml Discontinued cloNIDine HCL [Catapres] 0.1 mg PO HS 30 Days #30 tab [place] Carbonate ER [Lithobid] 450 mg PO HS 30 Days #30 tab busPIRone HCL 30 mg PO HS 30 Days #60 tab OLANZapine 20 mg PO HS 30 Days #30 tab Discharge Medication List Nicotine 21Mg/24Hr Patch [Habitrol] 1 patch TRANSDERM DAILY 14 Days #14 patch 09/16/23 [Rx] fluPHENAZine decanoate [Prolixin Decanoate] 37.5 mg IM Q14D #1 ml 09/16/23 [Rx] [place] Carbonate ER [Lithobid] 900 mg PO DAILY 30 Days #60 tab 10/15/24 [Rx] Nicotine 14Mg/24Hr Patch [Habitrol] 1 patch TRANSDERM DAILY patch 10/15/24 [Rx] Nicotine Gum (Polacrilex) [Nicorette] 2 mg BUCCAL Q4HR PRN pieceofgum 10/15/24 [Rx] QUEtiapine [SEROquel] 400 mg PO HS 30 Days #30 tab 10/15/24 [Rx] busPIRone HCl [Buspar] 15 mg PO TID 30 Days #270 tab 10/15/24 [Rx] traZODone HCL [Desyrel] 100 mg PO HS 30 Days #30 tab 10/15/24 [Rx] Follow up Appointment(s)/Referral(s): [facility] [Outside] - 10/22/24 1:30 pm (10/22/2024 1:30PM - 2:00PM SASHA GREGORIO Act Team will see client day of d/c ) [facility] [NON-STAFF] - 1 Week Patient Instructions/Handouts: Schizoaffective Disorder (DC) Activity/Diet/Wound Care/Special Instructions: [facility] [place] Discharge Info Avoid the use of street drugs and alcohol. Take all medications as prescribed. When you are in need of refills on your medications, please contact your outpatient medical provider and/or outpatient psychiatrist. Please go to your scheduled outpatient appointments for aftercare treatment. If symptoms return or become worse, call the crisis line at or and/or visit the nearest emergency room for assistance. National Suicide and Crisis Lifeline - call or text 278. Discharge Disposition: HOME SELF-CARE
== END 2024-10-15 11:17 | disposition home or self-care (01) | DRG 761 ==
LOC: EC 20:25 → 3MHU 10-11 08:22
PROVIDERS: ADMIT Psychiatry & Neurology Psychiatry; ATTEND Psychiatry & Neurology Psychiatry
DX: F25.0 Schizoaffective disorder, bipolar type (principal); F41.9 Anxiety disorder, unspecified; G47.00 Insomnia, unspecified; F17.200 Nicotine dependence, unspecified, uncomplicated; E78.5 Hyperlipidemia, unspecified; F12.10 Cannabis abuse, uncomplicated; F60.2 Antisocial personality disorder; R45.86 Emotional lability; J45.909 Unspecified asthma, uncomplicated; R45.850 Homicidal ideations; R45.851 Suicidal ideations; Z71.51 Drug abuse counseling and surveillance of drug abuser; Z59.00 Homelessness unspecified; Z71.89 Other specified counseling; Z79.899 Other long term (current) drug therapy; Z28.310 Unvaccinated for COVID-19; Z28.21 Immunization not carried out because of patient refusal; Z86.19 Personal history of other infectious and parasitic diseases; Z53.29 Procedure and treatment not carried out because of patient's decision for other reasons
CPT/HCPCS: 80178; 80306; 82075; 87635; 99285